=== PATIENT | male | born 1945 | race Caucasian/White ===

== ENCOUNTER 2016-11-21 03:21 | Inpatient (IN) ==
[2016-11-21] MEDS ORDERED: Ipratropium/Albuterol Neb 3 ML IH ONE (03:22)
[2016-11-21] MEDS ORDERED: methylPREDNISolone 125 MG/2 ML VIAL IVP ONE (03:22)
--- NOTE | 2016-11-21 03:27 | Emergency Department Note ---
Disposition Clinical Impression: Dyspnea, Acute exacerbation of CHF (congestive heart failure) Disposition: Admitted As Inpatient Condition: Good Referrals: Hu Yeboah MD [Primary Care Provider] - Forms: ED Satisfaction Letter General Adult HPI - General Chief complaint: ED Shortness of Breath/Dyspnea Stated complaint: stuart Time Seen by Provider: 11/21/16 03:22 - Related Data Allergies Allergy/AdvReac Type Severity Reaction Status Date / Time Penicillins Allergy Redness of Verified 11/21/16 03:34 Skin Course Vital Signs Temperature 0 F L 11/21/16 03:23 Pulse Rate 113 11/21/16 03:23 Respiratory Rate 32 11/21/16 03:23 Blood Pressure 123/85 11/21/16 03:23 O2 Sat by Pulse Oximetry 100 11/21/16 03:23 Temperature 0 F L 11/21/16 03:23 Pulse Rate 113 11/21/16 03:23 Respiratory Rate 32 11/21/16 03:37 Blood Pressure 123/85 11/21/16 03:23 O2 Sat by Pulse Oximetry 100 11/21/16 03:37 Oxygen Delivery Oxygen Delivery Bipap Medical Decision Making - Lab Data Result diagrams: 11/21/16 03:24 11/21/16 03:24 Lab Results 11/21/16 11/21/16 11/21/16 Range/Units 03:24 03:24 03:24 WBC 10.4 (4.3-11.1) K/mcL RBC 4.63 (4.19-5.50) M/mcL Hgb 13.9 (12.9-16.9) g/dL Hct 43.4 (37.5-50.1) % MCV 93.7 (83.0-100.0) fL MCH 30.0 (28.0-33.3) pg MCHC 32.0 (31.6-35.5) g/dL RDW 15.5 H (11.5-14.5) % Plt Count 242 (140-400) K/mcL MPV 9.2 L (9.4-12.4) fL Immature Gran % 0.4 (0-4) % Seg Neutrophils % 69.9 % Lymphocytes % 20.9 % Monocytes % 5.6 % Eosinophils % 2.9 % Basophils % 0.3 % Neutrophils # 7.3 (1.6-8.9) K/mcL Lymphocytes # 2.2 (0.6-4.6) K/mcL Monocytes # 0.6 (0.0-1.3) K/mcL Eosinophils # 0.3 (0.0-0.6) K/mcL Basophils # 0.0 (0.0-0.2) K/mcL Sodium 135 L (136-145) mEq/L Potassium 4.0 (3.5-4.5) mEq/L Chloride 100 (98-109) mEq/L Carbon Dioxide 28 (19-29) mEq/L BUN 17 (8-26) mg/dL Creatinine 1.31 H (0.72-1.25) mg/dL Est GFR ( Amer) > 60 (> 60) Est GFR (Non-Af Amer) 54 L (> 60) BUN/Creatinine Ratio 13 (6-26) Glucose 188 H (70-99) mg/dL Calculated Osmolality 287 (280-300) Calcium 9.5 (8.6-10.8) mg/dL Troponin I 0.03 (0-0.03) ng/mL B-Natriuretic Peptide (0-100) pg/mL 11/21/16 Range/Units 03:24 WBC (4.3-11.1) K/mcL RBC (4.19-5.50) M/mcL Hgb (12.9-16.9) g/dL Hct (37.5-50.1) % MCV (83.0-100.0) fL MCH (28.0-33.3) pg MCHC (31.6-35.5) g/dL RDW (11.5-14.5) % Plt Count (140-400) K/mcL MPV (9.4-12.4) fL Immature Gran % (0-4) % Seg Neutrophils % % Lymphocytes % % Monocytes % % Eosinophils % % Basophils % % Neutrophils # (1.6-8.9) K/mcL Lymphocytes # (0.6-4.6) K/mcL Monocytes # (0.0-1.3) K/mcL Eosinophils # (0.0-0.6) K/mcL Basophils # (0.0-0.2) K/mcL Sodium (136-145) mEq/L Potassium (3.5-4.5) mEq/L Chloride (98-109) mEq/L Carbon Dioxide (19-29) mEq/L BUN (8-26) mg/dL Creatinine (0.72-1.25) mg/dL Est GFR ( Amer) (> 60) Est GFR (Non-Af Amer) (> 60) BUN/Creatinine Ratio (6-26) Glucose (70-99) mg/dL Calculated Osmolality (280-300) Calcium (8.6-10.8) mg/dL Troponin I (0-0.03) ng/mL B-Natriuretic Peptide 1668 H (0-100) pg/mL Critical Care Time Critical Care Time: Yes Total Critical Care Time: 45 Attestation: She presented with dyspnea. He required BiPAP therapy. He required an IV nitroglycerin drip. Symptomatically improved. Admitted. Attestation Statement - Attestation Attestation: I examined this patient and my medical decision-making was reviewed with the TRAM OPERATOR/PA/Advanced Practice Nurse/Resident Physician. I agree with the documented findings, disposition and treatment plan as described except to the extent set forth below. He is to face time provided Patient presents by EMS for dyspnea. He is on BiPAP at the time of arrival. Visibly dyspneic. Using accessory muscles of breathing. Has a history of both CHF and COPD
[2016-11-21] MEDS ORDERED: Nitroglycerin 25 MG/250 ML INFUS..BTL IVC SCH (03:30)
[2016-11-21 03:36] LABS: Basophils % 0.3 %; Eosinophils # 0.3 K/mcL (0.0-0.6); Eosinophils % 2.9 %; Hematocrit 43.4 % (37.5-50.1); Hemoglobin 13.9 g/dL (12.9-16.9); Immature Granulocytes % 0.4 % (0-4); Lymphocytes # 2.2 K/mcL (0.6-4.6); Lymphocytes % 20.9 %; Mean Corpuscular Volume 93.7 fL (83.0-100.0); Mean Platelet Volume 9.2 fL (9.4-12.4); Monocytes # 0.6 K/mcL (0.0-1.3); Monocytes % 5.6 %; Neutrophils # 7.3 K/mcL (1.6-8.9); Platelet Count 242 K/mcL (140-400); Red Blood Count 4.63 M/mcL (4.19-5.50); Red Cell Distribution Width 15.5 % (11.5-14.5); Segmented Neutrophils % 69.9 %
--- NOTE | 2016-11-21 03:45 | Emergency Department Note ---
Disposition Clinical Impression: Dyspnea Qualifiers: Dyspnea type: shortness of breath Qualified Code(s): R06.02 - Shortness of breath Acute exacerbation of CHF (congestive heart failure) Qualifiers: Congestive heart failure type: unspecified congestive heart failure type Qualified Code(s): I50.9 - Heart failure, unspecified Disposition: Admitted As Inpatient Condition: Good Forms: ED Satisfaction Letter SOB HPI - General Chief Complaint: ED Shortness of Breath/Dyspnea Stated Complaint: stuart Time Seen by Provider: 11/21/16 03:22 Source: patient, EMS Limitations: no limitations Nursing Notes Reviewed: Yes Vital Signs Reviewed: Yes - History of Present Illness 71-year-old male with a history of COPD, CHF, CAD with previous bypass surgery in 1990 presents to the ED with a chief complaint of dyspnea. Progressive dyspnea over the last 48 hours but significantly worsened tonight around midnight. He called EMS, patient was standing but very short of breath. He was placed on a CPAP and maintained his oxygen saturations. No medications given prior to arrival. Patient denies any chest pain. He reports chronic lower extremity swelling without any recent change. Denies any history of DVT/ PE or anticoagulants. Reports some generalized weakness but no focal or unilateral weakness or numbness. Denies any headache, syncope or injury. Reports exacerbating symptoms with exertion. Rest helps. Denies any pain. - Related Data Allergies Allergy/AdvReac Type Severity Reaction Status Date / Time Penicillins Allergy Redness of Verified 11/21/16 03:34 Skin All systems ED: reviewed and negative except as stated. Constitutional: Denies: fever (Denies recent illness) Cardiovascular: Reports: dyspnea on exertion. Denies: chest pain, palpitations Respiratory: Reports: cough, dyspnea. Denies: hemoptysis, sputum production Gastrointestinal: Denies: abdominal pain, nausea, vomiting Musculoskeletal: Denies: back pain, neck pain Neurological: Denies: headache, weakness, numbness Past Medical History - Past Medical History Medical history: Reports: CHF, COPD, myocardial infarction Psychiatric history: Reports: no psych history - Social History Smoking Status: Former smoker Physical Exam General: Thin-appearing male, air hungry but awake and alert answering questions appropriately Cardiovascular: Heart rate around 95 but regular. S1, S2. No murmurs, rubs or gallops. Respiratory: Diminished breath sounds bilaterally without any significant wheezing. No rales or rhonchi. Speaking in 1-2 word sentences. Abdomen: Soft, nontender. No guarding, rebound or rigidity. Eyes: conjunctiva clear HENT: No oral mucosal lesions. Moist mucous membranes Neuro: Cranial nerves intact. No motor or sensory deficit. Musculoskeletal: Symmetric bilateral lower extremity edema, 1+ of the lower extremities and ankles. No calf tenderness. Vascular: Normal pulses, color and temperature throughout extremities. Skin: No lesions. No diaphoresis. Normal turgor. Normal color Psych: Appropriate - General Limitations: no limitations General appearance: alert, in distress Course Course Narrative: Presents with progressive dyspnea. History of COPD, CHF and CAD with previous bypass surgery. On exam he has diminished air movement throughout with poor extremity edema. Denying any chest pain. EKG shows some sinus tachycardia with mild depressions in 2 leads. With concern for fluid overload BiPAP was initiated as well as a nitroglycerin drip within 20 minutes the patient's symptoms had improved significantly and now speaking in full sentences with stable vitals. Labs reveal a significantly elevated BNP at 1600 but no elevation in troponin. Mild renal insufficiency with a creatinine of 1.3 but no other abnormalities. Chest x-ray shows pulmonary edema. They do mention possible pneumonia but clinically patient has not had any sputum, fevers and I do not suspect infection rather edema. I discussed with the on-call hospitals, Dr. Kincaid who accepts for admission. He does request a IV dose of Lasix which I will provide. No other orders at this time Vital Signs Temperature 0 F L 11/21/16 03:23 Pulse Rate 113 11/21/16 03:23 Respiratory Rate 32 11/21/16 03:23 Blood Pressure 123/85 11/21/16 03:23 O2 Sat by Pulse Oximetry 100 11/21/16 03:23 Temperature 0 F L 11/21/16 03:23 Pulse Rate 113 11/21/16 03:23 Respiratory Rate 32 11/21/16 03:37 Blood Pressure 123/85 11/21/16 03:23 O2 Sat by Pulse Oximetry 100 11/21/16 03:37 Oxygen Delivery Oxygen Delivery Bipap Shortness of Breath/Dyspnea - Lab Data Result diagrams: 11/21/16 03:24 11/21/16 03:24 Lab Results 11/21/16 11/21/16 11/21/16 Range/Units 03:24 03:24 03:24 WBC 10.4 (4.3-11.1) K/mcL RBC 4.63 (4.19-5.50) M/mcL Hgb 13.9 (12.9-16.9) g/dL Hct 43.4 (37.5-50.1) % MCV 93.7 (83.0-100.0) fL MCH 30.0 (28.0-33.3) pg MCHC 32.0 (31.6-35.5) g/dL RDW 15.5 H (11.5-14.5) % Plt Count 242 (140-400) K/mcL MPV 9.2 L (9.4-12.4) fL Immature Gran % 0.4 (0-4) % Seg Neutrophils % 69.9 % Lymphocytes % 20.9 % Monocytes % 5.6 % Eosinophils % 2.9 % Basophils % 0.3 % Neutrophils # 7.3 (1.6-8.9) K/mcL Lymphocytes # 2.2 (0.6-4.6) K/mcL Monocytes # 0.6 (0.0-1.3) K/mcL Eosinophils # 0.3 (0.0-0.6) K/mcL Basophils # 0.0 (0.0-0.2) K/mcL Sodium 135 L (136-145) mEq/L Potassium 4.0 (3.5-4.5) mEq/L Chloride 100 (98-109) mEq/L Carbon Dioxide 28 (19-29) mEq/L BUN 17 (8-26) mg/dL Creatinine 1.31 H (0.72-1.25) mg/dL Est GFR ( Amer) > 60 (> 60) Est GFR (Non-Af Amer) 54 L (> 60) BUN/Creatinine Ratio 13 (6-26) Glucose 188 H (70-99) mg/dL Calculated Osmolality 287 (280-300) Calcium 9.5 (8.6-10.8) mg/dL Troponin I 0.03 (0-0.03) ng/mL B-Natriuretic Peptide (0-100) pg/mL 11/21/16 Range/Units 03:24 WBC (4.3-11.1) K/mcL RBC (4.19-5.50) M/mcL Hgb (12.9-16.9) g/dL Hct (37.5-50.1) % MCV (83.0-100.0) fL MCH (28.0-33.3) pg MCHC (31.6-35.5) g/dL RDW (11.5-14.5) % Plt Count (140-400) K/mcL MPV (9.4-12.4) fL Immature Gran % (0-4) % Seg Neutrophils % % Lymphocytes % % Monocytes % % Eosinophils % % Basophils % % Neutrophils # (1.6-8.9) K/mcL Lymphocytes # (0.6-4.6) K/mcL Monocytes # (0.0-1.3) K/mcL Eosinophils # (0.0-0.6) K/mcL Basophils # (0.0-0.2) K/mcL Sodium (136-145) mEq/L Potassium (3.5-4.5) mEq/L Chloride (98-109) mEq/L Carbon Dioxide (19-29) mEq/L BUN (8-26) mg/dL Creatinine (0.72-1.25) mg/dL Est GFR ( Amer) (> 60) Est GFR (Non-Af Amer) (> 60) BUN/Creatinine Ratio (6-26) Glucose (70-99) mg/dL Calculated Osmolality (280-300) Calcium (8.6-10.8) mg/dL Troponin I (0-0.03) ng/mL B-Natriuretic Peptide 1668 H (0-100) pg/mL - EKG Data EKG results narrative: EKG shows sinus tachycardia with a rate of [address] depression in V4 and V5. No T-wave changes. QRS, QT intervals within normal limits.
[2016-11-21 03:53] LABS: BUN/Creatinine Ratio 13 (6-26); Blood Urea Nitrogen 17 mg/dL (8-26); Carbon Dioxide 28 mEq/L (19-29); Chloride 100 mEq/L (98-109); Glucose 188 mg/dL (70-99); Osmolality,Calculated 287 (280-300); Sodium 135 mEq/L (136-145); eGFR For African Americans > 60 (> 60); eGFR For Non-African Americans 54 (> 60)
[2016-11-21 04:11] LABS: Calcium 9.5 mg/dL (8.6-10.8)
[2016-11-21] MEDS ORDERED: Furosemide 40 MG/4 ML VIAL IVP ONE (04:45)
--- NOTE | 2016-11-21 05:18 | Internal Med History&Physical ---
Date of Encounter: 11/21/16 Time of Encounter: 05:13 Assessment and Plan (1) Pulmonary edema Current visit: Yes Status: Acute patient presents with a picture of acute pulmonary edema. We will start the patient on Lasix 40 mg IV twice-daily strict intake and output and daily weight. echocardiogram will be checked. Serial cardiac markers. He takes Lasix 40 mg PO b.i.d. at home Qualifiers: Qualified Code(s): J81.0 - Acute pulmonary edema (2) Acute respiratory failure with hypoxia Current visit: Yes Status: Acute hypoxic respiratory failure due to pulmonary edema. Currently on BiPAP and FIO2 40%. Internal Medicine - H&P: HPI Chief complaint: sob History of present illness: Mr. Bernardo is a 71 year old male with history of coronary artery disease status post cabbage, diastolic congestive heart failure, COPD on 2 L home oxygen presents emergency room today with the main complaining of shortness of breath. Patient mentioned that since yesterday morning has been noticing progressive shortness of breath that progressive. Patient is having bilateral swelling in both lower extremities. Shortness of breath will get worse when he lays on his back. paramedics arrived patient was placed on BiPAPand started nitroglycerin drip in the emergency room with improvement of his respiratory status He denies any chest pain. He denies any increase in coffer sputum production. No fevers chills. Past Med Surg Social Fam HX - Past Medical History Medical history: CHF, COPD, myocardial infarction Psychiatric history: no psych history - Social History Smoking Status: Former smoker Internal Medicine - H&P: Meds Allergies Penicillins Allergy (Verified 11/21/16 03:34) Redness of Skin All Systems PM: A 10-system review of systems was performed and is negative for pertinent findings except as documented above in the HPI. Review of systems: 10 POINT REVIEW OF SYSTEMS IS NEGATIVE EXCEPT FOR hpi. - Constitutional Vitals: Temp Pulse Resp BP Pulse Ox 0 F L 84 24 132/72 100 11/21/16 03:23 11/21/16 05:00 11/21/16 05:00 11/21/16 05:00 11/21/16 05:00 Exam: Gen.: patient is alert oriented times 3 cardiac: normal S1 S2 no additional sounds or murmurs chest: bilateral rales abdomen soft nontender nondistended normal bowel sounds lower extremity no swelling. Neuro: no new focal deficits Internal Med - H&P Results - Labs CBC & Chem 7: 11/21/16 03:24 11/21/16 03:24
[2016-11-21] MEDS ORDERED: *HR* Heparin 5,000 UNIT/ML VIAL SQ SCH (06:00)
[2016-11-21] MEDS: Aspirin 325 MG TABLET PO SCH (09:39)
[2016-11-21] MEDS: Famotidine 20 MG TABLET PO SCH (09:39)
[2016-11-21] MEDS: APIXABAN 5 MG TABLET PO SCH ×2 (09:39→20:48)
[2016-11-21] MEDS: Furosemide 40 MG/4 ML VIAL IVP SCH ×2 (09:40→17:43)
--- NOTE | 2016-11-21 12:17 | Internal Med Progress Note ---
Date of Encounter: 11/21/16 Time of Encounter: 12:14 - Assessment and plan (1) Acute on chronic systolic (congestive) heart failure Current Visit: Yes Status: Acute Assessment and plan: Chest x-ray showed pulmonary edema, BNP was more than 1400, patient had a history of ischemic cardiomyopathy with left ventricular ejection fraction of 25 %, status post ICD placement 4 weeks ago, we will continue to diuresing with IV Lasix 40 mg twice a day, strict I and O, check daily weight, will start him on Flomax for possible history of BPH. Echo pending. (2) History of implantable cardioverter-defibrillator (ICD) placement Current Visit: Yes Status: Acute Assessment and plan: We do not have actually medical record but patient states that he has a history of 25% ejection fraction from ischemic cardiomyopathy, status post pacemaker/ ICD placement 4 weeks ago. (3) Coronary artery disease Current Visit: Yes Status: Acute Assessment and plan: Patient has a history of ischemic cardiomyopathy, continue home medications of Plavix, aspirin, Imdur, Crestor, Ranexa. Qualifiers: Qualified Code(s): I25.10 - Atherosclerotic heart disease of [place] coronary artery without angina pectoris (4) BPH (benign prostatic hyperplasia) Current Visit: Yes Status: Acute Assessment and plan: Patient states that he used to take Flomax but it was stopped by a physician for unknown reason, patient states that recently he had trouble urinating, will start him on Flomax today. Qualifiers: Qualified Code(s): N40.0 - Benign prostatic hyperplasia without lower urinary tract symptoms (5) Elevated troponin Current Visit: Yes Status: Acute Assessment and plan: Likely demand ischemia in the setting of acute on chronic systolic CHF, no active chest pain, continue to trend. Echo pending. (6) Renal insufficiency Current Visit: Yes Status: Acute Assessment and plan: We do not have his baseline renal function, will continue to trend, avoid nephrotoxic agent, acute versus chronic. (7) DVT prophylaxis Current Visit: Yes Status: Acute Assessment and plan: Patient on home medication with Eliquis. - Subjective Interval history: Patient seen and examined. Patient states that his breathing is better than yesterday, patient urinated adequate amount during this hospital stay, he also states that recently he is trouble urinating at home. No active chest pain at this time. - Constitutional Vitals: Temp Pulse Resp BP Pulse Ox 97.7 F 85 16 126/67 97 11/21/16 11:10 11/21/16 11:10 11/21/16 11:10 11/21/16 11:10 11/21/16 11:10 General appearance: Present: cooperative, A&O X 3, pleasant, no acute distress, answers questions appropriately - Head Head exam: Present: atraumatic, normocephalic - Eye Eye exam: Present: PERRL, conjuntiva pink, sclera anicteric Pupils: Present: PERRL - Neck Neck exam general surgery: Present: supple, trachea midline. Absent: lymphadenopathy - Respiratory Respiratory exam: Present: rales (At base bilateral). Absent: accessory muscle use, rhonchi, wheezes - Cardiovascular Cardiovascular exam: Present: RRR, +S1, +S2. Absent: diastolic murmur, gallop, rubs, systolic murmur - GI/Abdominal GI/Abdominal exam: Present: normal bowel sounds, soft, no peritoneal signs. Absent: distended, tenderness - Extremities Exam Extremities exam: Present: pedal edema (2+ pitting bilateral), warm, radial pulses palpable and symetrical. Absent: calf tenderness, cyanotic - Neurological Exam Neurological exam: Present: CN II-XII intact, oriented X3, no focal deficits. Absent: pronater drift, facial droop, speech deficit - Skin Skin exam: Present: dry, intact Internal Medicine: Result - Labs CBC & Chem 7: 11/21/16 03:24 11/21/16 03:24 Labs: Cardiac Enzymes 11/21/16 Range/Units 09:21 Troponin I 0.04 H* (0-0.03) ng/mL Consult Discharge Plan - Plan Referrals: Hu Yeboah MD [Primary Care Provider] -
--- NOTE | 2016-11-21 15:05 | Electrocardiograph Report ---
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
[2016-11-21] MEDS: ALPRAZolam 0.5 MG TABLET PO PRN ×2 (17:42→22:53)
[2016-11-21] MEDS: Budesonide/Formoterol 160/4.5 MDI IH SCH (19:27)
[2016-11-21] MEDS: Ranolazine 500 MG TAB.ER.12H PO SCH (20:48)
[2016-11-21] MEDS ORDERED: traZODone 50 MG TABLET PO SCH (21:00)
[2016-11-21] MEDS: Magnesium Oxide 400 MG TABLET PO SCH (22:53)
[2016-11-21] MEDS: Ascorbic Acid 500 MG TABLET PO SCH (22:53)
[2016-11-21] MEDS: Cholecalciferol (D-3) 1,000 UNIT TABLET PO SCH (22:53)
[2016-11-21] MEDS: Isosorbide MONOnitrate (24 HR) 60 MG TAB.ER.24H PO SCH (22:53)
[2016-11-21] MEDS: Vitamin B Complex/Vit C/Vit E 1 EACH TABLET PO SCH (22:55)
[2016-11-21] MEDS: Folic Acid 1 MG TABLET PO SCH (23:00)
[2016-11-22 08:08] VITALS: BP 114/61
[2016-11-22] MEDS: Ascorbic Acid 500 MG TABLET PO SCH (08:26)
[2016-11-22] MEDS: APIXABAN 5 MG TABLET PO SCH (08:26)
[2016-11-22] MEDS: Famotidine 20 MG TABLET PO SCH (08:26)
[2016-11-22] MEDS: Vitamin B Complex/Vit C/Vit E 1 EACH TABLET PO SCH (08:26)
[2016-11-22] MEDS: Aspirin 325 MG TABLET PO SCH (08:26)
[2016-11-22] MEDS: Cholecalciferol (D-3) 1,000 UNIT TABLET PO SCH (08:27)
[2016-11-22] MEDS: Isosorbide MONOnitrate (24 HR) 60 MG TAB.ER.24H PO SCH (08:28)
[2016-11-22] MEDS: Ranolazine 500 MG TAB.ER.12H PO SCH (08:28)
[2016-11-22] MEDS: Furosemide 40 MG/4 ML VIAL IVP SCH (08:28)
[2016-11-22] MEDS: Folic Acid 1 MG TABLET PO SCH (08:28)
[2016-11-22] MEDS: Magnesium Oxide 400 MG TABLET PO SCH (08:28)
[2016-11-22 10:15] LABS: BUN/Creatinine Ratio 20 (6-26); Blood Urea Nitrogen 22 mg/dL (8-26); Calcium 9.1 mg/dL (8.6-10.8); Carbon Dioxide 30 mEq/L (19-29); Chloride 98 mEq/L (98-109); Glucose 134 mg/dL (70-99); Osmolality,Calculated 287 (280-300); Potassium 3.8 mEq/L (3.5-4.5); Sodium 136 mEq/L (136-145); eGFR For African Americans > 60 (> 60); eGFR For Non-African Americans > 60 (> 60)
[2016-11-22] MEDS: Budesonide/Formoterol 160/4.5 MDI IH SCH (10:34)
--- NOTE | 2016-11-22 11:55 | Discharge Summary ---
<Chadwick Rondon - Last Filed: 11/22/16 11:51> Date of Encounter: 11/22/16 Time of Encounter: 11:51 - Discharge Diagnosis (1) Acute on chronic systolic (congestive) heart failure Priority: Primary Status: Acute (2) History of implantable cardioverter-defibrillator (ICD) placement Priority: Secondary Status: Acute (3) Coronary artery disease Priority: Secondary Status: Acute Qualifiers: Qualified Code(s): I25.10 - Atherosclerotic heart disease of [place] coronary artery without angina pectoris (4) BPH (benign prostatic hyperplasia) Priority: Secondary Status: Acute Qualifiers: Qualified Code(s): N40.0 - Benign prostatic hyperplasia without lower urinary tract symptoms (5) Elevated troponin Priority: Secondary Status: Acute (6) Renal insufficiency Priority: Secondary Status: Acute (7) DVT prophylaxis Priority: Secondary Status: Acute - Discharge Medications Prescriptions: Tamsulosin [Flomax] 0.4 mg PO HS #30 capsule Home Medications: ALPRAZolam [Xanax 0.5 MG Tablet] 0.5 mg PO TID PRN 11/21/16 [History] Albuterol Sulfate [Albuterol Inhaler] 2 puff IH Q6HR PRN 11/21/16 [History] Apixaban [Eliquis] 5 mg PO BID 11/21/16 [History] Ascorbic Acid [Vitamin C] 1,000 mg PO DAILY 11/21/16 [History] Budesonide/Formoterol 160/4.5 [Symbicort 160/4.5] 2 puff IH BIDR 11/21/16 [ History] Carvedilol [Coreg] 3.125 mg PO BID 11/21/16 [History] Cholecalciferol (D-3) [Vitamin D] 3,000 unit PO DAILY 11/21/16 [History] Clopidogrel [Plavix] 75 mg PO DAILY 11/21/16 [History] Fish Oil/Dha/Epa [Fish Oil 1,200 mg Fish Oil] 1,200 mg PO DAILY 11/21/16 [ History] Folic Acid 0.8 mg PO DAILY 11/21/16 [History] Furosemide [Lasix] 40 mg PO BID 11/21/16 [History] Isosorbide MONOnitrate (24 HR) [Imdur] 120 mg PO DAILY 11/21/16 [History] Magnesium Oxide [Magnesium] 500 mg PO DAILY 11/21/16 [History] Multivitamin [One Daily Multivitamin] 1 tab PO DAILY 11/21/16 [History] Nitroglycerin [Nitrostat] 0.4 mg SL AD PRN 11/21/16 [History] Oxygen 2 l .ROUTE AD 11/21/16 [History] Ranolazine [Ranexa] 500 mg PO BID 11/21/16 [History] Rosuvastatin [Crestor] 20 mg PO HS 11/21/16 [History] Trazodone HCl 200 mg PO HS 11/21/16 [History] Vitamin B Complex [B Complex] 1 tab PO DAILY 11/21/16 [History] Tamsulosin [Flomax] 0.4 mg PO HS #30 capsule 11/22/16 [Rx] Allergies/Adverse Reactions: Allergies Penicillins Allergy (Verified 11/21/16 03:34) Redness of Skin Date of admission: 11/21/16 05:00 Primary care physician: Hu Yeboah MD Consults: 11/22/16 08:41 Consult to Nutrition [CONS] Routine Comment: Consulting Provider: NUTRITION Reason for Dietary Consult: Other Other:: Patient wants to discuss diet Discharging clinician: Chadwick Rondon Anticipated date of discharge: 11/22/16 - Patient Status Disposition: Home, Self-Care Condition: Good Functional capacity at discharge: uses cane/walker (Fall precaution) Overall status at discharge: patient is progressing back to baseline - Discharge Instructions Instructions: Tamsulosin (By mouth), Heart Failure (DC) Follow Up With: Hu Yeboah MD [Primary Care Provider] - (Follow-up within a week for hospital discharge follow-up and possible referral to urologist for possible underlying BPH, patient calling for appointment per request and will talk with pcp and wants him to refer him for urologist, patient has cardiology appointment this friday.) Additional Instructions: Also follow-up with 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 Bernardo is a 71 year old male with history of ischemic cardiomyopathy with left ventricular ejection fraction with 25%, status post ICD placement 1 month ago, at home patient takes Lasix 40 mg by mouth twice a day, followed strict sodium diet however he was not following the fluid restriction diet. Patient came in with shortness of breath, chest x-ray showed pulmonary edema and he was having worsening lower extremity edema, therefore patient was admitted to the hospital for acute on chronic systolic congestive heart failure, patient was started on IV Lasix 40 mg twice a day, strict I and O's, check daily weight, fluid restriction diet, patient diuresed well with adequate urine output, patient states that he used to take Flomax in the past and somehow it was stopped and recently he was having difficulty urinating, therefore Flomax was started during this hospital stay and after that patient started urinating more than the day he came in, patient's respiratory status improved and leg edema improved therefore patient will be discharged to home today in stable condition with close follow-up with patient's primary 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 - Time Spent with Patient Total time spent providing and/or coordinating discharge services: - Constitutional Vitals: Temp Pulse Resp BP Pulse Ox 98.3 F 64 17 114/61 96 11/22/16 08:00 11/22/16 08:00 11/22/16 10:34 11/22/16 08:00 11/22/16 10:34 General appearance: Present: cooperative, A&O X 3, pleasant, no acute distress, answers questions appropriately - Head Head exam: Present: atraumatic, normocephalic - Eye Eye exam: Present: PERRL, conjuntiva pink, sclera anicteric Pupils: Present: PERRL - Neck Neck exam general surgery: Present: supple, trachea midline. Absent: lymphadenopathy - Respiratory Respiratory exam: Present: decreased breath sounds (Slightly at base bilateral) . Absent: accessory muscle use, rales, rhonchi, wheezes - Cardiovascular Cardiovascular exam: Present: RRR, +S1, +S2. Absent: diastolic murmur, gallop, rubs, systolic murmur - GI/Abdominal GI/Abdominal exam: Present: normal bowel sounds, soft, no peritoneal signs. Absent: distended, tenderness - Extremities Exam Extremities exam: Present: pedal edema (Mild non pitting bilateral), warm, radial pulses palpable and symetrical. Absent: calf tenderness, cyanotic - Neurological Exam Neurological exam: Present: CN II-XII intact, oriented X3, no focal deficits. Absent: pronater drift, facial droop, speech deficit - Skin Skin exam: Present: dry, intact <Jose F Smith - Last Filed: 11/22/16 15:07> Date of Encounter: 11/22/16 Date of admission: 11/21/16 05:00 Primary care physician: Hu Yeboah MD Consults: 11/22/16 08:41 Consult to Nutrition [CONS] Routine Comment: Consulting Provider: NUTRITION Reason for Dietary Consult: Other Other:: Patient wants to discuss diet Hospital course: Mr. Bernardo is a 71 year old male - Time Spent with Patient Total time spent providing and/or coordinating discharge services: - Constitutional Vitals: Temp Pulse Resp BP Pulse Ox 98.3 F 64 17 114/61 96 11/22/16 08:00 11/22/16 08:00 11/22/16 10:34 11/22/16 08:00 11/22/16 10:34 - Attending Attestation I saw and examined pt. I have discussed with Resident Dr Rondon regarding pt's management plan. I agree with the documentation. Pt has improved after treatment. Will d/c home with po lasix, f/u with PCP in one week after discharge.
[2016-11-24 16:14] LABS: CK-MB (CK isoenzymes) 0 % (0-4); CK-MM (CK-isoenzymes) 100 % (96-100)
[2016-11-25 09:15] LABS: CK Total (Ck Isoenzymes) 28 U/L (20-200); CK-BB (CK isoenzymes) 0 % (0-0)
== END 2016-11-22 13:45 | disposition home or self-care (01) | DRG 291 ==
LOC: 2NENU 03:21 → EMEROO 03:21 → 2NENU 05:30
PROVIDERS: ADMIT Internal Medicine; ATTEND Internal Medicine

== ENCOUNTER 2017-01-12 15:13 | Inpatient (IN) ==
[2017-01-12] MEDS ORDERED: 0.9 % Sodium Chloride 1,000 ML IVC ONE (15:15)
[2017-01-12] MEDS ORDERED: methylPREDNISolone 125 MG/2 ML VIAL IVP ONE (15:15)
[2017-01-12] MEDS ORDERED: Azithromycin 500 MG in D5% in Water 250 ML IVPB ONE (15:15)
[2017-01-12] MEDS ORDERED: Furosemide 40 MG/4 ML VIAL IVP ONE (15:15)
[2017-01-12] MEDS ORDERED: Ipratropium/Albuterol Neb 3 ML IH ONE (15:17)
--- NOTE | 2017-01-12 15:24 | Emergency Department Note ---
Disposition Clinical Impression: Colitis Dyspnea Qualifiers: Dyspnea type: dyspnea on exertion Qualified Code(s): R06.09 - Other forms of dyspnea Pulmonary edema Qualifiers: Chronicity: chronic Qualified Code(s): J81.1 - Chronic pulmonary edema Acute exacerbation of CHF (congestive heart failure) Qualifiers: Congestive heart failure type: unspecified congestive heart failure type Qualified Code(s): I50.9 - Heart failure, unspecified Fever Qualifiers: Fever type: unspecified Qualified Code(s): R50.9 - Fever, unspecified Disposition: Admitted As Inpatient Condition: Fair Referrals: NONE,PCP [Primary Care Provider] - Forms: ED Satisfaction Letter Time of Disposition: 17:08 General Adult HPI - General Chief complaint: ED Chest Pain Stated complaint: shortness of breath and chest pain Time Seen by Provider: 01/12/17 15:15 Source: patient Mode of arrival: EMS Limitations: no limitations Nursing Notes Reviewed: Yes Vital Signs Reviewed: Yes - History of Present Illness HPI Narrative: Patient presents to the emergency room today by EMS for evaluation of shortness of breath. He called the squad home secondary to increased work of breathing. He could not get his air home. He has known congestive heart failure and previous coronary artery disease with CABG. Patient denies any chest pain fevers chills productive cough or sputum. Denies nausea vomiting or diarrhea. Denies any other specific constitutional symptoms this time. No recent trauma injuries or trauma. His main complaint is shortness of breath and feeling like he cannot take full deep breaths and at this time. Onset (ago): hour(s) Location: chest Radiation: non-radiation Pain Severity: severe Quality: aching Consistency: constant Improves with: nothing Worsens with: movement Associated symptoms: Reports: cough, fever/chills, loss of appetite, malaise, shortness of breath. Denies: diaphoresis, nausea/vomiting - Related Data Home Medications Medication Instructions Recorded Confirmed ALPRAZolam [Xanax 0.5 MG Tablet] 0.5 mg PO TID PRN 11/21/16 11/21/16 Albuterol Sulfate [Albuterol 2 puff IH Q6HR PRN 11/21/16 11/21/16 Inhaler] Apixaban [Eliquis] 5 mg PO BID 11/21/16 11/21/16 Ascorbic Acid [Vitamin C] 1,000 mg PO DAILY 11/21/16 11/21/16 Budesonide/Formoterol 160/4.5 2 puff IH BIDR 11/21/16 11/21/16 [Symbicort 160/4.5] Carvedilol [Coreg] 3.125 mg PO BID 11/21/16 11/21/16 Cholecalciferol (D-3) [Vitamin D] 3,000 unit PO DAILY 11/21/16 11/21/16 Clopidogrel [Plavix] 75 mg PO DAILY 11/21/16 11/21/16 Fish Oil/Dha/Epa [Fish Oil 1,200 1,200 mg PO DAILY 11/21/16 11/21/16 mg Fish Oil] Folic Acid 0.8 mg PO DAILY 11/21/16 11/21/16 Furosemide [Lasix] 40 mg PO BID 11/21/16 11/21/16 Isosorbide MONOnitrate (24 HR) 120 mg PO DAILY 11/21/16 11/21/16 [Imdur] Magnesium Oxide [Magnesium] 500 mg PO DAILY 11/21/16 11/21/16 Multivitamin [One Daily 1 tab PO DAILY 11/21/16 11/21/16 Multivitamin] Nitroglycerin [Nitrostat] 0.4 mg SL AD PRN 11/21/16 11/21/16 Oxygen 2 l .ROUTE AD 11/21/16 11/21/16 Ranolazine [Ranexa] 500 mg PO BID 11/21/16 11/21/16 Rosuvastatin [Crestor] 20 mg PO HS 11/21/16 11/21/16 Trazodone HCl 200 mg PO HS 11/21/16 11/21/16 Vitamin B Complex [B Complex] 1 tab PO DAILY 11/21/16 11/21/16 Previous Rx's Medication Instructions Recorded Tamsulosin [Flomax] 0.4 mg PO HS #30 capsule 11/22/16 Allergies Allergy/AdvReac Type Severity Reaction Status Date / Time Penicillins Allergy Redness of Verified 01/12/17 15:25 Skin All systems ED: reviewed and negative except as stated. Review of Systems: As Per HPI Constitutional: Reports: fever, chills. Denies: weakness Cardiovascular: Reports: dyspnea on exertion, orthopnea, edema. Denies: chest pain, palpitations, syncope Respiratory: Reports: cough, dyspnea, sputum production. Denies: wheezes, hemoptysis Gastrointestinal: Denies: abdominal pain, nausea, vomiting, diarrhea Genitourinary: Denies: urgency, dysuria Musculoskeletal: Denies: back pain, neck pain Neurological: Denies: headache Endocrine: Denies: fatigue Past Medical History - Past Medical History Attestation: Yes The following information was validated with the patient. Source: patient, old records reviewed Medical history: Reports: CHF, COPD, myocardial infarction Surgical history: Reports: herniorrhaphy, vascular surgery Psychiatric history: Reports: no psych history - Social History Smoking Status: Former smoker Alcohol use: Reports: none Drug use: Reports: none Physical Exam - General Limitations: no limitations General appearance: alert, in no apparent distress, in distress - Eye Eye exam: Present: normal appearance, PERRL, EOMI - Neck Neck exam: Present: normal inspection, full ROM, trachea midline. Absent: tenderness, meningismus, lymphadenopathy - Chest Chest inspection: Present: normal inspection, symmetric chest wall rise. Absent : tenderness - Respiratory Respiratory exam: Present: respiratory distress, accessory muscle use. Absent: wheezes, stridor - Cardiovascular Cardiovascular exam: Present: normal rhythm, tachycardia, normal heart sounds - Abdominal Exam Abdominal exam: Present: soft, Non-Tender, normal bowel sounds, scar. Absent: tenderness, distention, guarding, rebound, rigidity, Cruz's sign, Rovsing's sign, tenderness at McBurney's Point - Extremities Exam Extremities exam: Present: normal inspection, full ROM, normal capillary refill , pedal edema (Bilateral pitting edema up to the knee). Absent: tenderness - Back Exam Back exam: Present: normal inspection, full ROM - Neurological Exam Neurological exam: Present: alert, oriented X3, CN II-XII intact, normal gait - Skin Skin exam: Present: warm, dry, intact, normal color Course Course Narrative: Patient seen and examined the time of arrival. See history of present illness. 71-year-old male with chronic cardiac related issues as well as congestive heart failure and pulmonary edema with COPD presents to the emergency room with complaint of shortness of breath fluid overload and increased work of breathing at home. Denies any recent fevers or illnesses. Denies any trauma or injury. Presents here today because he felt like he could not get a deep breath home. He has had a productive cough with yellow to clear sputum production. Physical exam and vital signs on presentation show tachycardia and fever. Patient is concerning for infectious etiology. Physical exam he is in some mild respiratory distress with increased work of breathing and accessory muscle use. Lungs have diminished breath sounds at the bases but has no audible wheezing at this point. Heart is regular but tachycardia. Abdomen is soft nontender nondistended no guarding no rigidity. He moves all 4 extremities with purpose no signs of asymmetry or focal neurologic deficit. He has +2 pitting edema in the bilateral lower extremities. He goes up to the knee. Patient is concerning for fluid overload and infection. Chest x-ray lactic acid blood cultures CBC chemistry troponin liver function tests and lipase ordered this time. Patient will also have first doses of azithromycin and Rocephin given for any acquired pneumonia. Patient is otherwise resting comfortably in the bed. We will continue to monitor his treatment course is completed. Patient is concerning for infectious etiology. Steroids breathing treatments and BiPAP to be applied at the request the patient secondary to discomfort. We will continue to monitor here during treatment course. Patient will most likely need admission to the hospital for definitive management. He understands this on initial presentation. Patient does have a pacemaker/defibrillator in place in the left anterior chest wall. EKG does not show any acute signs of pacemaker complexes and patient is on 2 L of oxygen at home at all times. - Reevaluation(s) Reevaluation #1: Patient found to have an elevated lactic acid of 5.1 increased creatinine as well as an elevated troponin. Symptoms have almost completely resolved with BiPAP and oxygen being applied year-long steroids and breathing treatments. Patient is concerning for infectious etiology secondary to his fever and tachycardia on presentation. Patient does not have an elevated white blood cell count at this time. Chest x-ray otherwise appears to be stable with resolution of the infiltrates noted during the previous evaluation for some 2 months ago. Patient also has a significantly elevated BNP consistent with his fluid overload. There is confounding issues at this time including fluid overload as well as possible dehydration. Patient was given 1 L of fluids immediately along with first dose of IV Lasix to start the diuresis process. Is also put on fluids at 125 mL an hour. We have applied BiPAP to help augment any signs of congestive heart failure fluid overload in the lungs. Patient has been provided with first doses of antibiotics including azithromycin and Rocephin. Admission process to be completed with CT imaging of the abdomen is resulted. CT-guided was added on secondary to grossly contaminated urine as well as elevated lactic acid and on no infectious etiology at this time. Patient is now saying that he feels much better and his respirations are much less labored. We will continue monitoring until admission process is completed Time: 16:45 Reevaluation #2: Urinalysis is otherwise negative. CT imaging of the abdomen confirms colitis. Patient be started on Cipro Flagyl here after being provided azithromycin and Rocephin. Patient is tolerating the BiPAP. Fluid administration provided. Patient does meet over the considered severe sepsis. 30 mg/kg of fluid is been given here in the emergency room based on fluid hydration as well as antibiotics. Lactic acid to be repeated by the hospitalist after admission is completed. Hospitals paged at this time for admission process. Discussed the medical intervention presentation symptoms history as well as our treatment course here in the emergency room with the hospitalist . Reviewed the presentation issues in detail. No other recommendations at this time. Patient's blood pressure and respirations have stabilize during treatment course. Patient otherwise is in no distress at this point. Single dose of Ativan given this time secondary to his anxiety. Patient denies any chest pain still. His only complaint is shortness of breath. Patient will be admitted to the hospitalist for further evaluation definitive management. Patient is otherwise stable but is concerning for decompensation secondary to chronic issues. Time: 17:09 Vital Signs Temperature 101.4 F H 01/12/17 15:21 Pulse Rate 112 01/12/17 15:21 Respiratory Rate 26 01/12/17 15:21 Blood Pressure 132/65 01/12/17 15:21 O2 Sat by Pulse Oximetry 98 01/12/17 15:21 Temperature 101.4 F H 01/12/17 15:21 Pulse Rate 98 01/12/17 15:48 Respiratory Rate 22 01/12/17 15:48 Blood Pressure 106/65 01/12/17 15:48 O2 Sat by Pulse Oximetry 98 01/12/17 15:48 Oxygen Delivery Oxygen Delivery Bipap Medical Decision Making - MDM Narrative Medical decision making narrative: Increased work of breathing, fluid overload, pneumonia, tachycardia - Medical Records Medical records reviewed: Yes I reviewed the patient's medical records. - Lab Data Lab results reviewed: Yes I reviewed the patient's lab results. Result diagrams: 01/12/17 15:35 01/12/17 15:35 Lab Results 01/12/17 01/12/17 01/12/17 Range/Units 15:35 15:35 15:35 WBC 6.3 (4.3-11.1) K/mcL RBC 4.50 (4.19-5.50) M/mcL Hgb 13.1 (12.9-16.9) g/dL Hct 40.5 (37.5-50.1) % MCV 90.0 (83.0-100.0) fL MCH 29.1 (28.0-33.3) pg MCHC 32.3 (31.6-35.5) g/dL RDW 17.5 H (11.5-14.5) % Plt Count 198 (140-400) K/mcL MPV 9.3 L (9.4-12.4) fL Immature Gran % 0.2 (0-4) % Seg Neutrophils % 82.6 % Lymphocytes % 3.2 % Monocytes % 14.0 % Eosinophils % 0.0 % Basophils % 0.0 % Neutrophils # 5.2 (1.6-8.9) K/mcL Lymphocytes # 0.2 L (0.6-4.6) K/mcL Monocytes # 0.9 (0.0-1.3) K/mcL Eosinophils # 0.0 (0.0-0.6) K/mcL Basophils # 0.0 (0.0-0.2) K/mcL PT 14.4 H (9.4-12.1) Seconds INR 1.3 APTT 35.7 (26.0-36.0) Seconds Sodium 135 L (136-145) mEq/L Potassium 4.5 (3.5-4.5) mEq/L Chloride 98 (98-109) mEq/L Carbon Dioxide 25 (19-29) mEq/L BUN 17 (8-26) mg/dL Creatinine 1.51 H (0.72-1.25) mg/dL Est GFR ( Amer) 56 L (> 60) Est GFR (Non-Af Amer) 46 L (> 60) BUN/Creatinine Ratio 11 (6-26) Glucose 238 H (70-99) mg/dL Calculated Osmolality 289 (280-300) Lactic Acid (0.5-2.2) mmol/L Calcium 9.3 (8.6-10.8) mg/dL Total Bilirubin 0.7 (0.2-1.2) mg/dL Direct Bilirubin 0.3 (0.0-0.5) mg/dL Indirect Bilirubin 0.4 (0.0-1.2) mg/dL AST 14 (5-34) Units/L ALT 12 (0-55) Units/L Alkaline Phosphatase 41 (38-126) Units/L Serum Total Protein 6.7 (6.0-8.3) g/dL Albumin 3.1 L (3.5-5.0) g/dL Globulin 3.6 H (2.4-3.5) g/dL Albumin/Globulin Ratio 0.9 L (1.1-2.2) /11/23 Range/Units 15:35 WBC (4.3-11.1) K/mcL RBC (4.19-5.50) M/mcL Hgb (12.9-16.9) g/dL Hct (37.5-50.1) % MCV (83.0-100.0) fL MCH (28.0-33.3) pg MCHC (31.6-35.5) g/dL RDW (11.5-14.5) % Plt Count (140-400) K/mcL MPV (9.4-12.4) fL Immature Gran % (0-4) % Seg Neutrophils % % Lymphocytes % % Monocytes % % Eosinophils % % Basophils % % Neutrophils # (1.6-8.9) K/mcL Lymphocytes # (0.6-4.6) K/mcL Monocytes # (0.0-1.3) K/mcL Eosinophils # (0.0-0.6) K/mcL Basophils # (0.0-0.2) K/mcL PT (9.4-12.1) Seconds INR APTT (26.0-36.0) Seconds Sodium (136-145) mEq/L Potassium (3.5-4.5) mEq/L Chloride (98-109) mEq/L Carbon Dioxide (19-29) mEq/L BUN (8-26) mg/dL Creatinine (0.72-1.25) mg/dL Est GFR ( Amer) (> 60) Est GFR (Non-Af Amer) (> 60) BUN/Creatinine Ratio (6-26) Glucose (70-99) mg/dL Calculated Osmolality (280-300) Lactic Acid 5.1 H* (0.5-2.2) mmol/L Calcium (8.6-10.8) mg/dL Total Bilirubin (0.2-1.2) mg/dL Direct Bilirubin (0.0-0.5) mg/dL Indirect Bilirubin (0.0-1.2) mg/dL AST (5-34) Units/L ALT (0-55) Units/L Alkaline Phosphatase (38-126) Units/L Serum Total Protein (6.0-8.3) g/dL Albumin (3.5-5.0) g/dL Globulin (2.4-3.5) g/dL Albumin/Globulin Ratio (1.1-2.2) - Radiology Data Radiology results reviewed: Yes I reviewed the patient's radiology results. cxr showing resolution from previous evaluation - EKG Data EKG #1 EKG attestation: Yes I reviewed and interpreted this EKG. EKG shows normal: sinus rhythm, axis, QRS complexes, ST-T waves Rate: tachycardia Rhythm: NSR [place]/QRS: wide QRS complex When compared to previous EKG there are: no significant changes Interpretation: no acute changes, unchanged when compared to prior tracing (date ) (11/21/16.) Critical Care Time Critical Care Time: Yes Total Critical Care Time: 35 Attestation: Critical care performed: Time is exclusive of separately billable procedures. Time includes: direct patient care, patient reassessment, coordination of patient care, interpretation of data (laboratory data, radiology data, and respiratory data), review of patient's medical records, medical consultation and documentation of patient care. Procedures included in critical care time: Procedures excluded from critical care time:
[2017-01-12 15:46] LABS: Hematocrit 40.5 % (37.5-50.1); Hemoglobin 13.1 g/dL (12.9-16.9); Immature Granulocytes % 0.2 % (0-4); Lymphocytes # 0.2 K/mcL (0.6-4.6); Lymphocytes % 3.2 %; Mean Corpuscular HGB Conc 32.3 g/dL (31.6-35.5); Mean Corpuscular Hemoglobin 29.1 pg (28.0-33.3); Mean Platelet Volume 9.3 fL (9.4-12.4); Monocytes # 0.9 K/mcL (0.0-1.3); Neutrophils # 5.2 K/mcL (1.6-8.9); Platelet Count 198 K/mcL (140-400); Red Cell Distribution Width 17.5 % (11.5-14.5); Segmented Neutrophils % 82.6 %
[2017-01-12 15:51] LABS: INR 1.3; Prothrombin Time 14.4 Seconds (9.4-12.1)
[2017-01-12 15:54] LABS: Activated Partial Thrombo Time 35.7 Seconds (26.0-36.0)
[2017-01-12 16:03] LABS: Albumin 3.1 g/dL (3.5-5.0); Albumin/Globulin Ratio 0.9 (1.1-2.2); Bilirubin,Direct 0.3 mg/dL (0.0-0.5); Bilirubin,Indirect 0.4 mg/dL (0.0-1.2); Bilirubin,Total 0.7 mg/dL (0.2-1.2); Calcium 9.3 mg/dL (8.6-10.8); Globulin 3.6 g/dL (2.4-3.5); Potassium 4.5 mEq/L (3.5-4.5); Total Protein 6.7 g/dL (6.0-8.3)
[2017-01-12] MEDS ORDERED: Aspirin 81 MG TAB.CHEW PO STA (16:09)
[2017-01-12] MEDS ORDERED: 0.9 % Sodium Chloride 1,000 ML IVC SCH ×2 (16:15→19:16)
[2017-01-12 16:25] LABS: Bilirubin,Urine Small (Negative); Blood,Urine Negative (Negative); Clarity,Urine Clear (Clear); Color,Urine Red (Yellow); Glucose,Urine (UA) Normal (Normal); Ketones,Urine Trace mg/dL (Negative); Leukocyte Esterase,Urine Small (Negative); Nitrite,Urine Negative (Negative); PH,Urine 5.5 pH Units (5.0-8.0); Protein,Urine 100 mg/dL (Neg-Trace); Specific Gravity,Urine 1.024 (1.010-1.025); Urobilinogen,Urine Normal (Normal)
[2017-01-12 16:28] LABS: Bacteria,Urine None Seen per hpf (None-Few); Hyaline Casts,Urine None Seen per lpf (None-Few); RBC,Urine 0-3 per hpf (0-3); Squamous Epithelial Cell,Urine Many per lpf (None-Few)
[2017-01-12] MEDS ORDERED: MetroNIDAZOLE 500 MG/100 ML 500 MG/100 ML BAG IVPB ONE (17:05)
[2017-01-12] MEDS ORDERED: *HR* LORazepam 2 MG/ML VIAL IVP ONE (17:11)
[2017-01-12] MEDS ORDERED: Nitroglycerin 0.4 MG TAB.SUBL SL PRN ×2 (19:04→19:05)
[2017-01-12] MEDS ORDERED: Acetaminophen 325 MG TABLET PO PRN (19:10)
[2017-01-12] MEDS ORDERED: Naloxone 0.4 MG/ML INJ IVP PRN (19:10)
[2017-01-12] MEDS ORDERED: *HR* Morphine 2 MG/ML SYRINGE IVP PRN (19:10)
[2017-01-12] MEDS ORDERED: Ondansetron 4 MG/2 ML VIAL IVP PRN (19:10)
[2017-01-12] MEDS ORDERED: D5% in Water 1,000 ML IVC PRN (19:16)
[2017-01-12] MEDS ORDERED: *HR* Dextrose 50 % in Water (Syg) 50 ML SYRINGE IVP PRN (19:16)
[2017-01-12] MEDS ORDERED: Dextrose Gel 15 GM PO PRN ×2 (19:16)
--- NOTE | 2017-01-12 19:22 | Internal Med History&Physical ---
Date of Encounter: 01/12/17 Time of Encounter: 19:19 Assessment and Plan (1) Sepsis Current visit: Yes Status: Acute Acute on chronic hypoxic respiratory failure from Sepsis secondary to possible healthcare associated pneumonia/gram-negative pneumonia present upon admission in combination with acute colitis likely bacterial Fever and tachycardia Continue Levaquin and Flagyl, add cefepime due to recent discharge Blood cultures, GI panel, mild hydration as the patient appears clinically dehydrated although his BNP is elevated and has evidence of pleural effusions Consider stopping IV fluids and adding Lasix Continue BiPAP, Solu-Medrol Oxygen therapy, DuoNeb's Omeprazole for GI prophylaxis and Eliquis for DVT prophylaxis. Admitted as inpatient, expected to stay more than 2 minutes. Full code. Time spent this admission 40 minutes. High risk due to respiratory failure Qualifiers: Sepsis type: sepsis due to unspecified organism Qualified Code(s): A41.9 - Sepsis, unspecified organism (2) Hyperglycemia Current visit: Yes Status: Acute Insulin sliding scale (3) Healthcare-associated pneumonia Current visit: Yes Status: Acute (4) Acute on chronic systolic (congestive) heart failure Current visit: No Status: Acute Order limited echocardiogram, strict I's and O's and daily weight\ Hold Lasix due to sepsis and clinical dehydration (5) History of implantable cardioverter-defibrillator (ICD) placement Current visit: No Status: Acute (6) Coronary artery disease Current visit: No Status: Acute Continue aspirin, Plavix, Ranexa Qualifiers: Qualified Code(s): I25.10 - Atherosclerotic heart disease of [place] coronary artery without angina pectoris (7) BPH (benign prostatic hyperplasia) Current visit: No Status: Acute Qualifiers: Lower urinary tract symptom presence: unspecified whether lower urinary tract symptoms present Qualified Code(s): N40.0 - Benign prostatic hyperplasia without lower urinary tract symptoms (8) Elevated troponin Current visit: No Status: Acute Possibly secondary to demand ischemia Current troponins, continue telemetry, aspirin (9) Renal insufficiency Current visit: No Status: Acute Acute renal failure secondary to sepsis (10) Colitis Current visit: Yes Status: Acute As stated above Internal Medicine - H&P: HPI Chief complaint: Fever and shortness of breath Admitted From: Emergency Dept History of present illness: Mr. Bernardo is a 71 year old male with a past medical history of systolic CHF with an ejection fraction of 40%, COPD oxygen dependent, COPD, anxiety, recently discharged from the hospital on 11/22/2016. Came to emergency room transferred by EMS complaining of difficulty breathing since yesterday, also abdominal pain, diarrhea, has had 3 bowel movements since yesterday. Patient is a very poor historian saying he has been having phlegm on and off, cannot remember why he is on Eliquis, the history from the ED mentions that he has been having leg edema, BNP is 3231 lactic acid is 5.1 and decreased down to 4.9 after the administration of 1 L of fluids. Patient had a be started on a BiPAP and was given a dose of Lasix. CT scan of the abdomen shows diffuse colitis, moderate right and small left pleural effusions concerning for pulmonary edema versus pneumonia. Creatinine has increased from 1.12 up to 1.51. Developed a fever 101.4 and heart rate of 112, for that reason his was started on azithromycin and Rocephin and then was switched to ciprofloxacin and Flagyl IV. Also he received a dose of Solu-Medrol and Ativan. Troponin 0.10 but he denies any chest pain at the moment. Sodium is 135. Currently on BiPAP feeling very weak Past Med Surg Social Fam HX - Past Medical History Medical history: CHF (Systolic CHF ejection fraction of 40%), COPD (Oxygen dependent), coronary artery disease, diabetes (No history of diabetes but his glucose is 238), hyperlipidemia, hypertension, myocardial infarction, other (BPH , cholelithiasis, left back sebaceous cyst noted on CT scan, bilateral inguinal hernias, anxiety) Psychiatric history: anxiety - Past Surgical History Surgical History: coronary bypass (CABG), herniorrhaphy, pacemaker/AICD, vascular surgery - Social History Smoking Status: Former smoker Alcohol use: none Drug use: none - Additional Family History Additional family history: Denies any family history Internal Medicine - H&P: Meds ALPRAZolam [Xanax 0.5 MG Tablet] 0.5 mg PO TID PRN 11/21/16 [History] Albuterol Sulfate [Albuterol Inhaler] 2 puff IH Q6HR PRN 11/21/16 [History] Apixaban [Eliquis] 5 mg PO BID 11/21/16 [History] Ascorbic Acid [Vitamin C] 1,000 mg PO DAILY 11/21/16 [History] Budesonide/Formoterol 160/4.5 [Symbicort 160/4.5] 2 puff IH BIDR 11/21/16 [ History] Carvedilol [Coreg] 3.125 mg PO BID 11/21/16 [History] Cholecalciferol (D-3) [Vitamin D] 3,000 unit PO DAILY 11/21/16 [History] Clopidogrel [Plavix] 75 mg PO DAILY 11/21/16 [History] Fish Oil/Dha/Epa [Fish Oil 1,200 mg Fish Oil] 1,200 mg PO DAILY 11/21/16 [ History] Folic Acid 0.8 mg PO DAILY 11/21/16 [History] Furosemide [Lasix] 40 mg PO BID 11/21/16 [History] Isosorbide MONOnitrate (24 HR) [Imdur] 120 mg PO DAILY 11/21/16 [History] Magnesium Oxide [Magnesium] 500 mg PO DAILY 11/21/16 [History] Multivitamin [One Daily Multivitamin] 1 tab PO DAILY 11/21/16 [History] Nitroglycerin [Nitrostat] 0.4 mg SL AD PRN 11/21/16 [History] Oxygen 2 l .ROUTE AD 11/21/16 [History] Ranolazine [Ranexa] 1,000 mg PO BID 11/21/16 [History] Trazodone HCl 200 mg PO HS 11/21/16 [History] Vitamin B Complex [B Complex] 1 tab PO DAILY 11/21/16 [History] Tamsulosin [Flomax] 0.4 mg PO HS #30 capsule 11/22/16 [Rx] Ezetimibe [Zetia] 10 mg PO DAILY 01/12/17 [History] Allergies Penicillins Allergy (Verified 01/12/17 15:25) Redness of Skin All Systems PM: A 10-system review of systems was performed and is negative for pertinent findings except as documented above in the HPI. Review of systems: Cannot complete review of systems as the patient is very somnolent - Constitutional Vitals: Temp Pulse Resp BP Pulse Ox 101.4 F H 79 20 113/64 99 01/12/17 15:21 01/12/17 19:06 01/12/17 19:06 01/12/17 19:06 01/12/17 19:06 General appearance: Present: A&O X 3 (Very somnolent) - Head Head exam: Present: atraumatic, normocephalic - Eye Eye exam: Present: PERRL, conjuntiva pink, sclera anicteric Pupils: Present: PERRL - Neck Neck exam general surgery: Present: supple, trachea midline. Absent: lymphadenopathy - Respiratory Respiratory exam: Present: decreased breath sounds (Diminished breath sounds but clear, minimal wheezing), CTAB. Absent: accessory muscle use, rales, rhonchi, wheezes - Cardiovascular Cardiovascular exam: Present: RRR, +S1, +S2. Absent: diastolic murmur, gallop, rubs, systolic murmur - GI/Abdominal GI/Abdominal exam: Present: distended, normal bowel sounds, soft, no peritoneal signs. Absent: tenderness (No abdominal tenderness) - Extremities Exam Extremities exam: Present: warm, radial pulses palpable and symetrical. Absent : calf tenderness, cyanotic, pedal edema (No leg edema) - Neurological Exam Neurological exam: Present: CN II-XII intact, oriented X3, no focal deficits. Absent: pronater drift, facial droop, speech deficit - Skin Skin exam: Present: dry, intact Internal Med - H&P Results - Labs CBC & Chem 7: 01/12/17 15:35 01/12/17 15:35
[2017-01-12] MEDS ORDERED: Cefepime HCl 1,000 MG in D5% in Water (Mini-Bag+) 100 ML IVPB SCH (19:30)
[2017-01-12] MEDS: Aspirin Enteric Coated 81 MG Tablet PO SCH (21:52)
[2017-01-12] MEDS: Ranolazine 500 MG TAB.ER.12H PO SCH (21:53)
[2017-01-12] MEDS: traZODone 50 MG TABLET PO SCH (21:53)
[2017-01-12] MEDS: ALPRAZolam 0.5 MG TABLET PO PRN (21:54)
[2017-01-12] MEDS: APIXABAN 5 MG TABLET PO SCH (21:55)
[2017-01-12] MEDS ORDERED: *HR* Heparin 5,000 UNIT/ML VIAL SQ SCH (22:00)
[2017-01-12] MEDS: Insulin LISPRO 300 UNITS/3 ML VIAL SQ SCH (22:22)
[2017-01-12] MEDS: Ipratropium/Albuterol Neb 3 ML IH SCH (23:05)
[2017-01-12] MEDS: MetroNIDAZOLE 500 MG/100 ML 500 MG/100 ML BAG IVPB SCH (23:47)
[2017-01-12] MEDS: MethylPREDNISolone 40 MG/ML VIAL IVP SCH (23:47)
[2017-01-13] MEDS ORDERED: MetroNIDAZOLE 500 MG/100 ML 500 MG/100 ML BAG IVPB SCH
[2017-01-13 02:18] LABS: C.difficile Toxin A/B by PCR See reflex test (Not detect); Campylobacter by PCR Not detected (Not detect)
[2017-01-13 02:19] LABS: Adenovirus F 40/41 PCR Not detected (Not detect); Astrovirus PCR Not detected (Not detect); Cryptosporidium by PCR Not detected (Not detect); Cyclospora cayetanensis PCR Not detected (Not detect); E. coli O157 by PCR Not detected (Not detect); Entamoeba histolytica PCR Not detected (Not detect); Enteroaggregative E.coli(EAEC) Not detected (Not detect); Enteropathogenic E.coli(EPEC) Not detected (Not detect); Enterotoxigenic E.coli (ETEC) Not detected (Not detect); Giardia lamblia PCR Not detected (Not detect); Norovirus GI/GII PCR Not detected (Not detect); Plesiomonas shigelloides PCR Not detected (Not detect); Rotavirus A PCR Not detected (Not detect); Salmonella PCR Not detected (Not detect); Sapovirus PCR Not detected (Not detect); Shig/EnteroinvasiveE coli EIEC Not detected (Not detect); Shigalike tox-prod E coli STEC Not detected (Not detect); Vibrio PCR Not detected (Not detect); Vibrio cholerae PCR Not detected (Not detect); Yersinia enterocolitica PCR Not detected (Not detect)
[2017-01-13] MEDS: Ipratropium/Albuterol Neb 3 ML IH SCH ×4 (04:00→22:45)
[2017-01-13 04:04] LABS: Hematocrit 34.3 % (37.5-50.1); Mean Corpuscular HGB Conc 32.7 g/dL (31.6-35.5); Mean Corpuscular Hemoglobin 29.1 pg (28.0-33.3); Mean Corpuscular Volume 89.1 fL (83.0-100.0); Mean Platelet Volume 9.4 fL (9.4-12.4); Platelet Count 169 K/mcL (140-400); Red Blood Count 3.85 M/mcL (4.19-5.50); Red Cell Distribution Width 17.4 % (11.5-14.5)
[2017-01-13 04:25] LABS: BUN/Creatinine Ratio 19 (6-26); Blood Urea Nitrogen 23 mg/dL (8-26); Calcium 8.8 mg/dL (8.6-10.8); Carbon Dioxide 27 mEq/L (19-29); Chloride 99 mEq/L (98-109); Chol/HDL Ratio 3.8 (0-4.9); Cholesterol 142 mg/dL (< 200); Glucose 162 mg/dL (70-99); HDL Cholesterol 37 mg/dL (40-59); LDL Cholesterol,Calculated 93 mg/dL (0-99); Osmolality,Calculated 285 (280-300); Potassium 4.5 mEq/L (3.5-4.5); Sodium 134 mEq/L (136-145); Triglycerides 58 mg/dL (< 150); eGFR For African Americans > 60 (> 60); eGFR For Non-African Americans 59 (> 60)
[2017-01-13 04:30] LABS: Hemoglobin 11.2 g/dL (12.9-16.9)
[2017-01-13] MEDS ORDERED: Cefepime HCl 1,000 MG in D5% in Water (Mini-Bag+) 100 ML IVPB SCH (05:00)
[2017-01-13] MEDS: Ranolazine 500 MG TAB.ER.12H PO SCH ×2 (09:00→20:03)
[2017-01-13] MEDS ORDERED: Levofloxacin 750 MG/150 ML 750 MG/150 ML BAG IVPB SCH (09:00)
[2017-01-13] MEDS: APIXABAN 5 MG TABLET PO SCH ×2 (09:00→20:05)
[2017-01-13] MEDS: Isosorbide MONOnitrate (24 HR) 60 MG TAB.ER.24H PO SCH (09:00)
[2017-01-13] MEDS: Aspirin Enteric Coated 81 MG Tablet PO SCH (09:00)
[2017-01-13] MEDS: Folic Acid 1 MG TABLET PO SCH (09:00)
[2017-01-13] MEDS: MethylPREDNISolone 40 MG/ML VIAL IVP SCH ×2 (09:03→17:56)
[2017-01-13] MEDS: Insulin LISPRO 300 UNITS/3 ML VIAL SQ SCH ×3 (09:04→17:56)
--- NOTE | 2017-01-13 09:08 | Infectious Disease Consult ---
Date of Encounter: 01/13/17 Time of Encounter: 09:08 Assessment and Plan (1) Severe sepsis Status: Acute Assessment and plan: Since admission he has met four SIRS criteria of temperature 101.4 F, tachycardia heart rate 112, tachypnea respiratory rate 30, leukopenia white blood cell count 3.3, and recurrent C. difficile colitis as source of infection. Labs on admission revealed a WBC 6.3, BUN 17, creatinine 1.51, lactic acid 5.1, troponin 0.18, BNP 3231, and C. difficile toxin positive on GI panel. CT abdomen and pelvis without contrast revealed diffuse mural thickening of the large bowel compatible with colitis and moderate right and small left pleural effusions concerning for pulmonary edema versus pneumonia. Chest x-ray revealed mild pulmonary vascular congestion with small bilateral subpulmonic pleural effusions greater on the right than the left associated with atelectatic changes. Blood and urine cultures were collected on 01/12/17, results are pending. Patient was initially started on Azithromycin and Rocephin and then change to Ciprofloxacin, Flagyl, Cefepime, and Levaquin. He was started on Flagyl IV and Vancomycin PO. Recommendations: Given comorbid acute CHF exacerbation and fluid restriction, will transition to oral antibiotics at this time. Discontinue Flagyl. Change Vancomycin to 125 mg PO 4 times a day x 14 days, followed by 125 mg orally twice daily for 7 days, 125 mg orally once daily for 7 days, 125 mg orally every other day for 7 days, 125 mg orally every 3 days for 14 days (7 weeks total) through 03/02/17. Agree with probiotics for the duration of treatment Follow up with Dr. Gilbert in clinic in 2 weeks Monitor for drug toxicity and dose-adjust antibiotics. We will continue to follow. (2) Clostridium difficile colitis Status: Acute Assessment and plan: Recurrent C. Diff infections since June 2016, and recently completed 20 days of Flagyl 1 week ago. C. difficile toxin positive on GI panel. CT abdomen and pelvis without contrast revealed diffuse mural thickening of the large bowel compatible with colitis Currently on Flagyl IV and Vancomycin PO. Recommendations: Given comorbid acute CHF exacerbation and fluid restriction, will transition to oral antibiotics at this time. Discontinue Flagyl. Change Vancomycin to 125 mg PO 4 times a day x 14 days, followed by 125 mg orally twice daily for 7 days, 125 mg orally once daily for 7 days, 125 mg orally every other day for 7 days, 125 mg orally every 3 days for 14 days (7 weeks total) through 03/02/17. Agree with probiotics for the duration of treatment Follow up with Dr. Gilbert in clinic in 2 weeks Monitor for drug toxicity and dose-adjust antibiotics. We will continue to follow. (3) Acute on chronic systolic (congestive) heart failure Status: Acute (4) Elevated troponin Status: Acute (5) SERGIO (acute kidney injury) Status: Acute (6) Severe peripheral arterial disease Status: Acute Infectious Disease HPI - Data of Consult Consult date: 01/13/17 Requesting Physician: Phil Bustillo DO Primary Care Provider: PCP NONE - Consult Narrative Reason for consult: Sepsis with diffuse colitis - recurrent C Diff colitis and questionable pne History of present illness: Mr. Bernardo is a 71 year old male was that admitted on 01/12/17 for shortness of breath, fever, chills, abdominal pain, and diarrhea for the past 2 days, and was found to have severe sepsis. Infectious disease is consulted on 01/23/17 for sepsis with diffuse colitis - recurrent C Diff colitis and questionable pneumonia. Mr. Bernardo is a 71 year old male with a PMH significant for systolic CHF with an ejection fraction of 40%, COPD, Chronic resp failure dependent on 2L home O2, severe PAD with multiple stents in LLE at [place], who was recently discharged on 11/22/2016 following CHF exacerbation. Of note, patient reported having recurrent C. Diff infections since June 2016, and recently completed 20 days of Flagyl 1 week ago. Since admission he has met four SIRS criteria of temperature 101.4 F, tachycardia heart rate 112, tachypnea respiratory rate 30, leukopenia white blood cell count 3.3, and recurrent C. difficile colitis as source of infection. Labs on admission revealed a WBC 6.3, BUN 17, creatinine 1.51, lactic acid 5.1, troponin 0.18, BNP 3231, and C. difficile toxin positive on GI panel. CT abdomen and pelvis without contrast revealed diffuse mural thickening of the large bowel compatible with colitis and moderate right and small left pleural effusions concerning for pulmonary edema versus pneumonia. Chest x-ray revealed mild pulmonary vascular congestion with small bilateral subpulmonic pleural effusions greater on the right than the left associated with atelectatic changes. Blood and urine cultures were collected on 01/12/17, results are pending. Patient was initially started on Azithromycin and Rocephin and then change to Ciprofloxacin, Flagyl, Cefepime, and Levaquin. He is currently on Flagyl IV and Vancomycin PO. Today patient complains of diarrhea, right lower quadrant abdominal pain, and generalized weakness. CC: Phil Bustillo, DO Past Med Surg Social Fam HX - Past Medical History Medical history: CHF, COPD, coronary artery disease, diabetes, hyperlipidemia, hypertension, myocardial infarction, other Psychiatric history: anxiety - Past Surgical History Surgical History: coronary bypass (CABG), herniorrhaphy, pacemaker/AICD, vascular surgery - Social History Smoking Status: Former smoker Alcohol use: none Drug use: none Infectious Disease-CN:Meds ALPRAZolam [Xanax 0.5 MG Tablet] 0.5 mg PO TID PRN 11/21/16 [History] Albuterol Sulfate [Albuterol Inhaler] 2 puff IH Q6HR PRN 11/21/16 [History] Apixaban [Eliquis] 5 mg PO BID 11/21/16 [History] Ascorbic Acid [Vitamin C] 1,000 mg PO DAILY 11/21/16 [History] Budesonide/Formoterol 160/4.5 [Symbicort 160/4.5] 2 puff IH BIDR 11/21/16 [ History] Carvedilol [Coreg] 3.125 mg PO BID 11/21/16 [History] Cholecalciferol (D-3) [Vitamin D] 3,000 unit PO DAILY 11/21/16 [History] Clopidogrel [Plavix] 75 mg PO DAILY 11/21/16 [History] Fish Oil/Dha/Epa [Fish Oil 1,200 mg Fish Oil] 1,200 mg PO DAILY 11/21/16 [ History] Folic Acid 0.8 mg PO DAILY 11/21/16 [History] Furosemide [Lasix] 40 mg PO BID 11/21/16 [History] Isosorbide MONOnitrate (24 HR) [Imdur] 120 mg PO DAILY 11/21/16 [History] Magnesium Oxide [Magnesium] 500 mg PO DAILY 11/21/16 [History] Multivitamin [One Daily Multivitamin] 1 tab PO DAILY 11/21/16 [History] Nitroglycerin [Nitrostat] 0.4 mg SL AD PRN 11/21/16 [History] Oxygen 2 l .ROUTE AD 11/21/16 [History] Ranolazine [Ranexa] 1,000 mg PO BID 11/21/16 [History] Trazodone HCl 200 mg PO HS 11/21/16 [History] Vitamin B Complex [B Complex] 1 tab PO DAILY 11/21/16 [History] Tamsulosin [Flomax] 0.4 mg PO HS #30 capsule 11/22/16 [Rx] Ezetimibe [Zetia] 10 mg PO DAILY 01/12/17 [History] Allergies Penicillins Allergy (Verified 01/12/17 15:25) Redness of Skin Review of systems: Travel: denies recent travel Animal exposure: Denies Sick contacts: Denies. Diet: denies ingestion of undercooked or raw meats. Dental: denies recent dental procedures - Constitutional Constitutional: Present: chills, fatigue, fever(s), lethargy, weakness. Absent : night sweats, weight gain, weight loss - EENT Eyes: Absent: change in vision Nose, mouth and throat: Absent: headache(s), sore throat - Cardiovascular Cardiovascular: Present: chest pain (Resolved), leg edema, orthopnea, palpitations, paroxysmal nocturnal dyspnea. Absent: chest pain with activity - Respiratory Respiratory: Present: dyspnea. Absent: cough, excessive phlegm production - Gastrointestinal Gastrointestinal: Present: abdominal pain, change in bowel habits, change in stool character, diarrhea, loose stools, nausea. Absent: constipation, hematemesis, hematochezia, vomiting - Musculoskeletal Musculoskeletal: Present: back pain. Absent: numbness - Integumentary Integumentary: Absent: dry skin, erythema, new lesions, rash, wounds - Neurological Neurological: Present: weakness. Absent: focal weakness, numbness, syncope - Endocrine Endocrine: Present: fatigue. Absent: cold intolerance, heat intolerance, polydipsia, polyphagia, polyuria Exam - Constitutional Vitals: Temp Pulse Resp BP Pulse Ox 97.5 F L 63 19 93/52 96 01/13/17 06:55 01/13/17 06:55 01/13/17 06:55 01/13/17 06:55 01/13/17 06:55 General appearance: cooperative, mild distress, thin, no febrile Exam: Appears ill - Head Head exam: Present: atraumatic, normal inspection, normocephalic - Eye Eye exam: Present: PERRL, conjuntiva pink - ENT ENT exam: Present: mucous membranes moist, normal oropharynx - Neck Neck exam: Present: normal inspection, tenderness. Absent: lymphadenopathy, thyromegaly - Respiratory Respiratory exam: Present: decreased breath sounds, rales. Absent: accessory muscle use, respiratory distress, wheezes - Cardiovascular Cardiovascular exam: Present: RRR, +S1, +S2 - GI/Abdominal GI/Abdominal exam: Present: normal bowel sounds, soft, tenderness (Right inguinal/suprapubic tenderness to palpation). Absent: guarding, rebound, rigid - Extremities Exam Extremities exam: Present: pedal edema (Trace). Absent: tenderness - Back Exam Back exam: Absent: CVA tenderness (R) Additional comments: 6 cm subcutaneous abscess left flank, no surrounding erythema - Neurological Exam Neurological exam: Present: alert, oriented X3. Absent: altered, motor sensory deficit - Skin Skin exam: Present: dry, warm. Absent: erythema, rash Infectious Disease CN: Results - Labs CBC & Chem 7: 01/14/17 05:32 01/14/17 05:32 Serology: Serology 01/13/17 01/13/17 Range/Units 00:50 00:50 Stl C. cayetanensis PCR Not detected (Not detect) Stool Rotavirus A PCR Not detected (Not detect) Stl Adenov F 40/41 PCR Not detected (Not detect) Stool Astrovirus (PCR) Not detected (Not detect) Stool Campylobacter PCR Not detected (Not detect) Stl C. diff Tox B Gene Positive (Negative) Stl C. diff Tox A/B PCR See reflex test A (Not detect) Stool Cryptosporidium PCR Not detected (Not detect) Stl Sh Tox Pr E STEC PCR Not detected (Not detect) Stool E coli O157 PCR Not detected (Not detect) Stl Enterotoxigenic E PCR Not detected (Not detect) Stool EPEC (PCR) Not detected (Not detect) Stool EAEC (PCR) Not detected (Not detect) Stl E. histolytica PCR Not detected (Not detect) Stool Giardia Lamblia PCR Not detected (Not detect) Stool Salmonella PCR Not detected (Not detect) Stool Sapovirus (PCR) Not detected (Not detect) Stl P. shigelloides PCR Not detected (Not detect) Stl Shigella/EIEC PCR Not detected (Not detect) St Y.enterocolitica PCR Not detected (Not detect) Stool Vibrio (PCR) Not detected (Not detect) Stl Vibrio cholerae PCR Not detected (Not detect) Stl Norovirus GI/GII PCR Not detected (Not detect) Stl GI Panel (PCR) Com See below Consult Discharge Plan - Plan Referrals: Hu Yeboah MD [Non-Partnered Physician] - 01/20/17 1:10 pm NONE,PCP [Primary Care Provider] - - Attending Attestation I examined this patient and my medical decision-making was reviewed with the Resident Physician. I agree with the documented findings, disposition and treatment plan as described except to the extent set forth below. This is an addendum to original report dictated by resident physician. Please refer to residents note for full detail. Patient is a 71-year-old gentleman who came in complaining of diarrhea, shortness of breath, fevers and chills and abdominal pain 2 days prior to admission. Patient was noted to be in severe sepsis had 3 service criteria and lactic acidosis and had recurrent of C. difficile. There was also questionable pneumonia. Patient was started on multiple antibiotics and were consulted to make further recommendations. I did go over the imaging from now and from a year ago and it appears to be unchanged. Again Im not a radiologist but we will call radiology to confirm my findings. Patient currently has mild-to- moderate C. difficile. He had 1 or 2 watery bowel movements. He has been diagnosed with C. difficile and had multiple courses of Flagyl. Physical exam is really unremarkable. Abdomen is not tender nor rebound no guarding. Bowel sounds are active. Had one watery bowel movement today. At this point patient had second relapse of C. difficile that appears to be moderate. Which is to keep treat him with vancomycin orally. Tapering dose over 7 weeks. In the meantime aggressive hydration monitor labs monitor for drug toxicity. Once we discuss with radiology the chest x-ray finding we will consider starting more antibiotics for possible pneumonia or to just observe. Discussed with the hospitalist team.
--- NOTE | 2017-01-13 09:20 | Internal Med Progress Note ---
Date of Encounter: 01/13/17 Time of Encounter: 09:14 - Assessment and plan (1) Sepsis Current Visit: Yes Status: Acute Assessment and plan: Pt does meet sepsis criteria with Tachycardia, source of inf as C. Diff and ?? PNA, Elevated LA Improved LA d/c IVF due to pulmonary edema and CHF exacerbation His CT of Chest findings - ?? PNA.. I am not sure whether he really had PNA especially given his recurrent C. Diff infection, I wanted to be very careful with Abx usage on him d/c Cefepime, Levaquin for now cont Flagyl and Vanco PO repeat CXR now Consulted ID for further eval Qualifiers: Sepsis type: sepsis due to unspecified organism Qualified Code(s): A41.9 - Sepsis, unspecified organism (2) Recurrent colitis due to Clostridium difficile Current Visit: Yes Status: Acute Assessment and plan: Placed him PO Vanco avoid PPI on Probiotic ID consulted (3) Pneumonia Current Visit: Yes Status: Acute Assessment and plan: it is a questionable PNA will sent for sputum cx cont Flagyl IV for now Qualifiers: Qualified Code(s): J18.9 - Pneumonia, unspecified organism (4) SERGIO (acute kidney injury) Current Visit: Yes Status: Acute Assessment and plan: due to sepsis Improved (5) Pulmonary edema Current Visit: Yes Status: Acute Assessment and plan: His pulmonary edema mostly due to CHF exacerbation give his sepsis will hold on diuretics for now cont close monitoring will use Lasix PRN only cont duoneb and O2 cont IV steroids Qualifiers: Chronicity: chronic Qualified Code(s): J81.1 - Chronic pulmonary edema (6) Acute respiratory failure with hypoxia Current Visit: No Status: Acute (7) Acute on chronic systolic (congestive) heart failure Current Visit: No Status: Acute Assessment and plan: Significantly elevated BNP, CXR findings and clinical symptoms consistent with CHF exacerabtion reviewed his 2 D Echo from 11/23 no need repeat another one Held Lasix due to Sepsis resumed other meds will give him Lasix PRN basis for now d/c IVF (8) Elevated troponin Current Visit: No Status: Acute Assessment and plan: due to demand ishcemia with CHF exacerbation Trop trending down (9) Severe peripheral arterial disease Current Visit: Yes Status: Acute Assessment and plan: resume home med Eliquis + Plavix (10) History of implantable cardioverter-defibrillator (ICD) placement Current Visit: No Status: Acute - Subjective Interval history: Mr. Bernardo is a 71 year old male with a past medical history of systolic CHF with an ejection fraction of 40%, Chronic resp failure on 2 lit home O2 dependent, COPD, anxiety, severe PAD who had multiple stents placed in Left leg , who recently discharged from the hospital on 11/22/2016 for CHF exacerbation now he presented to emergency room complaining of difficulty breathing since yesterday, also abdominal pain, diarrhea, has had 3 bowel movements since yesterday. He was admitted her for sepsis with diffuse colitis - recurrent C Diff colitis and questionable pneumonia. Pt did mention he has been having recurrent C. Diff infection since June 2016 , he was never given Vanco PO , however he was placed on 20 days of Flagyl by his PCP which he finished few days ago. - Constitutional Vitals: Temp Pulse Resp BP Pulse Ox 97.5 F L 63 19 93/52 96 01/13/17 06:55 01/13/17 06:55 01/13/17 06:55 01/13/17 06:55 01/13/17 06:55 General appearance: Present: A&O X 3 (Very somnolent) - Head Head exam: Present: atraumatic, normal inspection - Neck Neck exam general surgery: Present: supple. Absent: tenderness - Respiratory Respiratory exam: Present: decreased breath sounds, rales, wheezes. Absent: respiratory distress, rhonchi - Cardiovascular Cardiovascular exam: Present: RRR, +S1, +S2 - GI/Abdominal GI/Abdominal exam: Present: normal bowel sounds, soft. Absent: distended, guarding, rebound, rigid, tenderness - Extremities Exam Extremities exam: Present: pedal edema (trace). Absent: calf tenderness, tenderness - Neurological Exam Neurological exam: Present: alert, oriented X3 - Psychiatric Psychiatric exam: Present: normal affect, normal mood Internal Medicine: Result - Labs CBC & Chem 7: 01/13/17 03:54 01/13/17 03:54 Labs: Short CBC 01/13/17 Range/Units 03:54 WBC 3.3 L (4.3-11.1) K/mcL Hgb 11.2 L D (12.9-16.9) g/dL Hct 34.3 L (37.5-50.1) % Plt Count 169 (140-400) K/mcL BMP 01/13/17 03:54 Sodium 134 L Potassium 4.5 Chloride 99 Carbon Dioxide 27 BUN 23 Creatinine 1.21 Glucose 162 H Calcium 8.8 Cardiac Enzymes 01/12/17 01/13/17 Range/Units 20:16 03:54 Troponin I 0.18 H* 0.13 H* (0-0.03) ng/mL - ABG Interpretation ABG results: PT/INR, D-dimer PT 14.4 Seconds (9.4-12.1) H 01/12/17 15:35 Consult Discharge Plan - Plan Referrals: NONE,PCP [Primary Care Provider] -
[2017-01-13] MEDS: ALPRAZolam 0.5 MG TABLET PO PRN (11:04)
[2017-01-13] MEDS: MetroNIDAZOLE 500 MG/100 ML 500 MG/100 ML BAG IVPB SCH ×2 (11:04→17:57)
[2017-01-13] MEDS: Lactobacillus 1 EACH CAP.SPRINK PO SCH ×3 (11:04→20:05)
[2017-01-13] MEDS: Vancomycin Oral Soln 250 MG/2.5 ML UDC PO SCH ×4 (11:04→23:00)
--- NOTE | 2017-01-13 15:23 | Electrocardiograph Report ---
[address] [address] Test Date: 2017-01-12 Pat Name: Chadwick Bernardo Department: 103 Room: 2N04 Gender: M [employer]: : [id number] Requested By: Bubba Arnett Order Number: [id number] Reading MD: Nicolas Jacobson MD Measurements Intervals [place] Rate: 109 P: 69 NM: 195 QRS: 56 QRSD: 113 T: 102 QT: 305 QTc: 369 Interpretive Statements SINUS TACHYCARDIA BASELINE ARTIFACT Electronically Signed On 01-13-2017 8:15:57 EDT by Nicolas Jacobson MD
[2017-01-13] MEDS: traZODone 50 MG TABLET PO SCH (20:05)
[2017-01-14] MEDS: MethylPREDNISolone 40 MG/ML VIAL IVP SCH ×2 (00:46→08:10)
[2017-01-14] MEDS: MetroNIDAZOLE 500 MG/100 ML 500 MG/100 ML BAG IVPB SCH (00:47)
[2017-01-14] MEDS: Ipratropium/Albuterol Neb 3 ML IH SCH ×4 (04:31→21:04)
[2017-01-14 05:54] LABS: Hemoglobin 10.9 g/dL (12.9-16.9); Mean Corpuscular Hemoglobin 29.2 pg (28.0-33.3); Mean Corpuscular Volume 88.5 fL (83.0-100.0); Mean Platelet Volume 10.4 fL (9.4-12.4); Platelet Count 165 K/mcL (140-400); Red Blood Count 3.73 M/mcL (4.19-5.50); Red Cell Distribution Width 17.6 % (11.5-14.5)
[2017-01-14 06:09] LABS: Alanine Aminotransferase 10 Units/L (0-55); Albumin/Globulin Ratio 0.8 (1.1-2.2); Alkaline Phosphatase 26 Units/L (38-126); Aspartate Amino Transferase 13 Units/L (5-34); BUN/Creatinine Ratio 24 (6-26); Bilirubin,Total 0.3 mg/dL (0.2-1.2); Blood Urea Nitrogen 26 mg/dL (8-26); Calcium 8.7 mg/dL (8.6-10.8); Carbon Dioxide 27 mEq/L (19-29); Chloride 100 mEq/L (98-109); Glucose 166 mg/dL (70-99); Magnesium 1.8 mg/dL (1.6-2.6); Osmolality,Calculated 283 (280-300); Potassium 4.4 mEq/L (3.5-4.5); Sodium 132 mEq/L (136-145); eGFR For African Americans > 60 (> 60); eGFR For Non-African Americans > 60 (> 60)
[2017-01-14 06:10] LABS: Albumin 2.3 g/dL (3.5-5.0); Total Protein 5.3 g/dL (6.0-8.3)
[2017-01-14 07:45] LABS: Lymphocytes # 0.8 K/mcL (0.6-4.6); Monocytes # 0.2 K/mcL (0.0-1.3); Neutrophils # 1.9 K/mcL (1.6-8.9); Platelet Estimate Normal (Normal)
[2017-01-14] MEDS: Insulin LISPRO 300 UNITS/3 ML VIAL SQ SCH ×3 (08:09→16:43)
[2017-01-14] MEDS: Folic Acid 1 MG TABLET PO SCH (08:09)
[2017-01-14] MEDS: Ranolazine 500 MG TAB.ER.12H PO SCH ×2 (08:09→22:30)
[2017-01-14] MEDS: Lactobacillus 1 EACH CAP.SPRINK PO SCH ×3 (08:09→22:30)
[2017-01-14] MEDS: Isosorbide MONOnitrate (24 HR) 60 MG TAB.ER.24H PO SCH (08:10)
[2017-01-14] MEDS: APIXABAN 5 MG TABLET PO SCH ×2 (08:10→22:31)
--- NOTE | 2017-01-14 08:11 | Internal Med Progress Note ---
Date of Encounter: 01/14/17 Time of Encounter: 08:09 - Assessment and plan (1) Sepsis Current Visit: Yes Status: Acute Assessment and plan: Improving His repeat CXR did not show any infiltrates..it looks more like basal atelectasis and vascular congestion d/c Flagyl Con Vanco PO ID is on board Qualifiers: Sepsis type: sepsis due to unspecified organism Qualified Code(s): A41.9 - Sepsis, unspecified organism (2) Recurrent colitis due to Clostridium difficile Current Visit: Yes Status: Acute Assessment and plan: Placed him PO Vanco avoid PPI on Probiotic Talked to ID, he may need fpc tapering Vanco rx regimen (3) Pneumonia Current Visit: Yes Status: Ruled-out Assessment and plan: Mostly due to atelctasis..no infiltrates no abx needed encourage more frequent incentive spirometry Qualifiers: Qualified Code(s): J18.9 - Pneumonia, unspecified organism (4) SERGIO (acute kidney injury) Current Visit: Yes Status: Acute Assessment and plan: due to sepsis Improved (5) Pulmonary edema Current Visit: Yes Status: Acute Assessment and plan: His pulmonary edema mostly due to CHF exacerbation given his sepsis will hold on diuretics for now cont close monitoring Resume his pO lasix in AM cont duoneb and O2 cont IV steroids Qualifiers: Chronicity: chronic Qualified Code(s): J81.1 - Chronic pulmonary edema (6) Acute respiratory failure with hypoxia Current Visit: No Status: Acute Assessment and plan: improved now back to his base line .. chronic hypoxic rsp failure with home O2 dependent at 2 lit (7) Acute on chronic systolic (congestive) heart failure Current Visit: No Status: Acute Assessment and plan: Significantly elevated BNP, CXR findings and clinical symptoms consistent with CHF exacerabtion reviewed his 2 D Echo from 11/23 no need repeat another one Held Lasix due to Sepsis resumed other meds will give him Lasix PRN basis for now d/c IVF (8) Elevated troponin Current Visit: No Status: Acute Assessment and plan: due to demand ishcemia with CHF exacerbation Trop trending down (9) Severe peripheral arterial disease Current Visit: Yes Status: Acute Assessment and plan: resume home med Eliquis + Plavix (10) History of implantable cardioverter-defibrillator (ICD) placement Current Visit: No Status: Acute - Subjective Interval history: Mr. Bernardo is a 71 year old male with a past medical history of systolic CHF with an ejection fraction of 40%, Chronic resp failure on 2 lit home O2 dependent, COPD, anxiety, severe PAD who had multiple stents placed in Left leg , who recently discharged from the hospital on 11/22/2016 for CHF exacerbation now he presented to emergency room complaining of difficulty breathing since yesterday, also abdominal pain, diarrhea, has had 3 bowel movements. He was admitted here for sepsis with diffuse colitis - recurrent C Diff colitis and questionable pneumonia. Pt did mention he has been having recurrent C. Diff infection since June 2016 , he was never given Vanco PO , however he was placed on 20 days of Flagyl by his PCP which he finished few days ago. His abdominal pain is better, still has loose watery BMs, had 2 y.d and 1 this morning - Constitutional Vitals: Temp Pulse Resp BP Pulse Ox 97.9 F 79 18 115/53 97 01/14/17 07:53 01/14/17 07:53 01/14/17 07:53 01/14/17 07:53 01/14/17 07:53 General appearance: Present: A&O X 3 (Very somnolent), no acute distress - Head Head exam: Present: atraumatic, normal inspection - Respiratory Respiratory exam: Present: decreased breath sounds, wheezes. Absent: rales, respiratory distress, rhonchi - Cardiovascular Cardiovascular exam: Present: RRR, +S1, +S2. Absent: gallop, systolic murmur - GI/Abdominal GI/Abdominal exam: Present: normal bowel sounds, soft. Absent: distended, rebound, rigid, tenderness - Extremities Exam Extremities exam: Absent: calf tenderness, pedal edema, tenderness - Psychiatric Psychiatric exam: Present: normal affect, normal mood Internal Medicine: Result - Labs CBC & Chem 7: 01/14/17 05:32 01/14/17 05:32 Labs: Short CBC 01/14/17 Range/Units 05:32 WBC 2.9 L (4.3-11.1) K/mcL Hgb 10.9 L (12.9-16.9) g/dL Hct 33.0 L (37.5-50.1) % Plt Count 165 (140-400) K/mcL Neutrophils # 1.9 (1.6-8.9) K/mcL BMP 01/14/17 05:32 Sodium 132 L Potassium 4.4 Chloride 100 Carbon Dioxide 27 BUN 26 Creatinine 1.07 Glucose 166 H Calcium 8.7 Cardiac Enzymes 01/13/17 01/13/17 Range/Units 09:15 15:28 Troponin I 0.09 H* 0.06 H* (0-0.03) ng/mL Liver Function 01/14/17 Range/Units 05:32 Total Bilirubin 0.3 (0.2-1.2) mg/dL AST 13 (5-34) Units/L ALT 10 (0-55) Units/L Alkaline Phosphatase 26 L (38-126) Units/L Albumin 2.3 L D (3.5-5.0) g/dL - ABG Interpretation ABG results: PT/INR, D-dimer PT 14.4 Seconds (9.4-12.1) H 01/12/17 15:35 - Impressions Impressions Chest X-Ray 01/13/17 09:09 IMPRESSION: Mild pulmonary vascular congestion with small bilateral subpulmonic pleural effusions greater on the right than the left associated with atelectatic changes. Post sternotomy changes. D/ / Gurvinder Giles MD / Gurvindre Giles MD Interpreting Provider: Gurvinder Giles MD Consult Discharge Plan - Plan Referrals: Hu Yeboah MD [Non-Partnered Physician] - 01/20/17 1:10 pm NONE,PCP [Primary Care Provider] -
[2017-01-14] MEDS: predniSONE 20 MG TABLET PO SCH (08:36)
--- NOTE | 2017-01-14 08:39 | Infectious Disease Progress No ---
Date of Encounter: 01/14/17 Time of Encounter: 08:39 - Assessment and Plan (1) Severe sepsis Current Visit: Yes Status: Acute Since admission he has met four SIRS criteria of temperature 101.4 F, tachycardia heart rate 112, tachypnea respiratory rate 30, leukopenia white blood cell count 3.3, and recurrent C. difficile colitis as source of infection. C. difficile toxin positive on GI panel. CT abdomen and pelvis without contrast revealed diffuse mural thickening of the large bowel compatible with colitis and moderate right and small left pleural effusions concerning for pulmonary edema versus pneumonia. Chest x-ray revealed mild pulmonary vascular congestion with small bilateral subpulmonic pleural effusions greater on the right than the left associated with atelectatic changes. Blood and urine cultures were collected on 01/12/17, results showed no growth to date Recommendations: At this point patient had second relapse of C. difficile that appears to be moderate. Which is to keep treat him with vancomycin orally. Tapering dose over 7 weeks. Continue Vancomycin to 125 mg PO 4 times a day x 14 days, followed by 125 mg orally twice daily for 7 days, 125 mg orally once daily for 7 days, 125 mg orally every other day for 7 days, 125 mg orally every 3 days for 14 days (7 weeks total) through 03/02/17. Agree with probiotics for the duration of treatment. Follow up with Dr. Gilbert in clinic in 2 weeks Monitor for drug toxicity and dose-adjust antibiotics. We will continue to follow. (2) Clostridium difficile colitis Current Visit: Yes Status: Acute C. difficile toxin positive on GI panel. CT abdomen and pelvis without contrast revealed diffuse mural thickening of the large bowel compatible with colitis Recommendations: At this point patient had second relapse of C. difficile that appears to be moderate. Which is to keep treat him with vancomycin orally. Tapering dose over 7 weeks. Continue Vancomycin to 125 mg PO 4 times a day x 14 days, followed by 125 mg orally twice daily for 7 days, 125 mg orally once daily for 7 days, 125 mg orally every other day for 7 days, 125 mg orally every 3 days for 14 days (7 weeks total) through 03/02/17. Agree with probiotics for the duration of treatment. Follow up with Dr. Gilbert in clinic in 2 weeks Monitor for drug toxicity and dose-adjust antibiotics. We will continue to follow. (3) Acute on chronic systolic (congestive) heart failure Current Visit: No Status: Acute Management per primary team (4) Elevated troponin Current Visit: No Status: Acute Demand ischemia related to severe sepsis (5) SERGIO (acute kidney injury) Current Visit: Yes Status: Acute Resolved (6) Severe peripheral arterial disease Current Visit: Yes Status: Acute Management per primary team - Subjective Interval history: Patient seen and examined. No acute events overnight. Patient reports too loose bowel movements yesterday and one bowel movement early this morning. He denies fevers, chills, chest pain, shortness of breath, worsening abdominal pain , or dysuria. Infect Dis PN-Objective Data - Labs CBC & Chem 7: 01/14/17 05:32 01/14/17 05:32 Labs: Laboratory Results - last 24 hr 01/13/17 01/13/17 01/13/17 07:01 09:15 12:17 WBC RBC Hgb Hct MCV MCH MCHC RDW Plt Count MPV Seg Neutrophils % Band Neutrophils % Lymphocytes % Monocytes % Neutrophils # Lymphocytes # Monocytes # Platelet Estimate Sodium Potassium Chloride Carbon Dioxide BUN Creatinine Est GFR ( Amer) Est GFR (Non-Af Amer) BUN/Creatinine Ratio Glucose POC Glucose 170 H 159 H Calculated Osmolality Calcium Magnesium Total Bilirubin AST ALT Alkaline Phosphatase Troponin I 0.09 H* Serum Total Protein Albumin Globulin Albumin/Globulin Ratio 01/13/17 01/13/17 01/13/17 15:27 15:28 20:10 WBC RBC Hgb Hct MCV MCH MCHC RDW Plt Count MPV Seg Neutrophils % Band Neutrophils % Lymphocytes % Monocytes % Neutrophils # Lymphocytes # Monocytes # Platelet Estimate Sodium Potassium Chloride Carbon Dioxide BUN Creatinine Est GFR ( Amer) Est GFR (Non-Af Amer) BUN/Creatinine Ratio Glucose POC Glucose 192 H 232 H Calculated Osmolality Calcium Magnesium Total Bilirubin AST ALT Alkaline Phosphatase Troponin I 0.06 H* Serum Total Protein Albumin Globulin Albumin/Globulin Ratio 01/14/17 01/14/17 05:32 05:32 WBC 2.9 L RBC 3.73 L Hgb 10.9 L Hct 33.0 L MCV 88.5 MCH 29.2 MCHC 33.0 RDW 17.6 H Plt Count 165 MPV 10.4 Seg Neutrophils % 26.0 Band Neutrophils % 40.0 H Lymphocytes % 28.0 Monocytes % 6.0 Neutrophils # 1.9 Lymphocytes # 0.8 Monocytes # 0.2 Platelet Estimate Normal Sodium 132 L Potassium 4.4 Chloride 100 Carbon Dioxide 27 BUN 26 Creatinine 1.07 Est GFR ( Amer) > 60 Est GFR (Non-Af Amer) > 60 BUN/Creatinine Ratio 24 Glucose 166 H POC Glucose Calculated Osmolality 283 Calcium 8.7 Magnesium 1.8 Total Bilirubin 0.3 AST 13 ALT 10 Alkaline Phosphatase 26 L Troponin I Serum Total Protein 5.3 L D Albumin 2.3 L D Globulin 3.0 Albumin/Globulin Ratio 0.8 L Cultures: Serology 01/13/17 01/13/17 Range/Units 00:50 00:50 Stl C. cayetanensis PCR Not detected (Not detect) Stool Rotavirus A PCR Not detected (Not detect) Stl Adenov F 40/41 PCR Not detected (Not detect) Stool Astrovirus (PCR) Not detected (Not detect) Stool Campylobacter PCR Not detected (Not detect) Stl C. diff Tox B Gene Positive (Negative) Stl C. diff Tox A/B PCR See reflex test A (Not detect) Stool Cryptosporidium PCR Not detected (Not detect) Stl Sh Tox Pr E STEC PCR Not detected (Not detect) Stool E coli O157 PCR Not detected (Not detect) Stl Enterotoxigenic E PCR Not detected (Not detect) Stool EPEC (PCR) Not detected (Not detect) Stool EAEC (PCR) Not detected (Not detect) Stl E. histolytica PCR Not detected (Not detect) Stool Giardia Lamblia PCR Not detected (Not detect) Stool Salmonella PCR Not detected (Not detect) Stool Sapovirus (PCR) Not detected (Not detect) Stl P. shigelloides PCR Not detected (Not detect) Stl Shigella/EIEC PCR Not detected (Not detect) St Y.enterocolitica PCR Not detected (Not detect) Stool Vibrio (PCR) Not detected (Not detect) Stl Vibrio cholerae PCR Not detected (Not detect) Stl Norovirus GI/GII PCR Not detected (Not detect) Stl GI Panel (PCR) Com See below - Impressions Impressions Chest X-Ray 01/13/17 09:09 IMPRESSION: Mild pulmonary vascular congestion with small bilateral subpulmonic pleural effusions greater on the right than the left associated with atelectatic changes. Post sternotomy changes. D/ / Gurvinder Giles MD / Gurvinder Giles MD Interpreting Provider: Gurvinder Giles MD Exam - Constitutional Vitals: Temp Pulse Resp BP Pulse Ox 97.9 F 79 18 115/53 97 01/14/17 07:53 01/14/17 07:53 01/14/17 07:53 01/14/17 07:53 01/14/17 07:53 General appearance: no acute distress, no febrile Exam: Very somnolent - Head Head exam: Present: atraumatic, normal inspection, normocephalic - Eye Eye exam: Present: PERRL, conjuntiva pink - ENT ENT exam: Present: mucous membranes moist, normal oropharynx - Neck Neck exam: Present: normal inspection. Absent: lymphadenopathy, tenderness, thyromegaly - Respiratory Respiratory exam: Present: decreased breath sounds, wheezes. Absent: accessory muscle use, respiratory distress - Cardiovascular Cardiovascular exam: Present: RRR, +S1, +S2 - GI/Abdominal GI/Abdominal exam: Present: normal bowel sounds, tenderness (Mild right lower quadrant). Absent: guarding, organomegaly, rebound - Extremities Exam Extremities exam: Present: normal inspection. Absent: pedal edema - Back Exam Back exam: Present: CVA tenderness (L) Additional comments: 6 cm subcutaneous abscess left flank, no surrounding erythema - Neurological Exam Neurological exam: Present: CN II-XII intact, oriented X3. Absent: altered Additional comments: Somnolent - Skin Skin exam: Present: dry, warm. Absent: erythema, rash Consult Discharge Plan - Plan Referrals: Hu Yeboah MD [Non-Partnered Physician] - 01/20/17 1:10 pm NONE,PCP [Primary Care Provider] - - Attending Attestation I examined this patient and my medical decision-making was reviewed with the Resident Physician. I agree with the documented findings, disposition and treatment plan as described except to the extent set forth below.
[2017-01-14] MEDS: Vancomycin Oral Soln 250 MG/2.5 ML UDC PO SCH ×4 (09:42→22:31)
[2017-01-14] MEDS: traZODone 50 MG TABLET PO SCH (22:31)
[2017-01-15] MEDS: Ipratropium/Albuterol Neb 3 ML IH SCH ×4 (04:18→21:25)
[2017-01-15] MEDS: Vancomycin Oral Soln 250 MG/2.5 ML UDC PO SCH ×4 (07:55→21:44)
[2017-01-15] MEDS: Folic Acid 1 MG TABLET PO SCH (07:56)
[2017-01-15] MEDS: APIXABAN 5 MG TABLET PO SCH ×2 (07:56→21:44)
[2017-01-15] MEDS: Lactobacillus 1 EACH CAP.SPRINK PO SCH ×3 (07:56→21:44)
[2017-01-15] MEDS: predniSONE 20 MG TABLET PO SCH (07:56)
[2017-01-15] MEDS: Ranolazine 500 MG TAB.ER.12H PO SCH ×2 (07:57→21:44)
[2017-01-15] MEDS: Isosorbide MONOnitrate (24 HR) 60 MG TAB.ER.24H PO SCH (07:59)
--- NOTE | 2017-01-15 08:16 | Infectious Disease Progress No ---
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 C. difficile toxin positive on GI panel. CT abdomen and pelvis without contrast revealed diffuse mural thickening of the large bowel compatible with colitis and moderate right and small left pleural effusions concerning for pulmonary edema versus pneumonia. Chest x-ray revealed mild pulmonary vascular congestion with small bilateral subpulmonic pleural effusions greater on the right than the left associated with atelectatic changes. Blood and urine cultures were collected on 01/12/17, results showed no growth to date Recommendations: At this point patient had second relapse of C. difficile that appears to be moderate. Which is to keep treat him with vancomycin orally. Tapering dose over 7 weeks. Continue Vancomycin to 125 mg PO 4 times a day x 14 days, followed by 125 mg orally twice daily for 7 days, 125 mg orally once daily for 7 days, 125 mg orally every other day for 7 days, 125 mg orally every 3 days for 14 days (7 weeks total) through 03/02/17. Agree with probiotics for the duration of treatment. Follow up with Dr. Gilbert in clinic in 2 weeks Monitor for drug toxicity and dose-adjust antibiotics. We will continue to follow. (2) Clostridium difficile colitis Current Visit: Yes Status: Acute C. difficile toxin positive on GI panel. CT abdomen and pelvis without contrast revealed diffuse mural thickening of the large bowel compatible with colitis Recommendations: At this point patient had second relapse of C. difficile that appears to be moderate. Which is to keep treat him with vancomycin orally. Tapering dose over 7 weeks. Continue Vancomycin to 125 mg PO 4 times a day x 14 days, followed by 125 mg orally twice daily for 7 days, 125 mg orally once daily for 7 days, 125 mg orally every other day for 7 days, 125 mg orally every 3 days for 14 days (7 weeks total) through 03/02/17. Agree with probiotics for the duration of treatment. Follow up with Dr. Gilbert in clinic in 2 weeks Monitor for drug toxicity and dose-adjust antibiotics. We will continue to follow. (3) Acute on chronic systolic (congestive) heart failure Current Visit: No Status: Acute Acute shortness of breath today despite BiPAP therapy. Has not had Lasix since 01/12/17. Home Lasix dose was resumed today and 1 dose of IV Lasix was given. Continue present management per primary team. (4) Elevated troponin Current Visit: No Status: Acute Demand ischemia related to severe sepsis (5) SERGIO (acute kidney injury) Current Visit: Yes Status: Acute Resolved (6) Severe peripheral arterial disease Current Visit: Yes Status: Acute Management per primary team - Subjective Interval history: Patient seen and examined. He is very anxious sitting up at bedside and reports acute shortness of breath this morning that has not improved despite breathing treatments and BiPAP therapy this morning. He reports last dose of Lasix was 01/12/17. Patient reports one soft bowel movement this morning. He denies fevers, chills, chest pain, worsening abdominal pain, or dysuria. Infect Dis PN-Objective Data - Labs CBC & Chem 7: 01/14/17 05:32 01/14/17 05:32 Labs: Laboratory Results - last 24 hr 01/14/17 01/14/17 01/14/17 07:47 11:54 16:06 POC Glucose 179 H 215 H 168 H Cultures: Serology 01/13/17 01/13/17 Range/Units 00:50 00:50 Stl C. cayetanensis PCR Not detected (Not detect) Stool Rotavirus A PCR Not detected (Not detect) Stl Adenov F 40/41 PCR Not detected (Not detect) Stool Astrovirus (PCR) Not detected (Not detect) Stool Campylobacter PCR Not detected (Not detect) Stl C. diff Tox B Gene Positive (Negative) Stl C. diff Tox A/B PCR See reflex test A (Not detect) Stool Cryptosporidium PCR Not detected (Not detect) Stl Sh Tox Pr E STEC PCR Not detected (Not detect) Stool E coli O157 PCR Not detected (Not detect) Stl Enterotoxigenic E PCR Not detected (Not detect) Stool EPEC (PCR) Not detected (Not detect) Stool EAEC (PCR) Not detected (Not detect) Stl E. histolytica PCR Not detected (Not detect) Stool Giardia Lamblia PCR Not detected (Not detect) Stool Salmonella PCR Not detected (Not detect) Stool Sapovirus (PCR) Not detected (Not detect) Stl P. shigelloides PCR Not detected (Not detect) Stl Shigella/EIEC PCR Not detected (Not detect) St Y.enterocolitica PCR Not detected (Not detect) Stool Vibrio (PCR) Not detected (Not detect) Stl Vibrio cholerae PCR Not detected (Not detect) Stl Norovirus GI/GII PCR Not detected (Not detect) Stl GI Panel (PCR) Com See below Exam - Constitutional Vitals: Temp Pulse Resp BP Pulse Ox 97.7 F 80 16 107/48 97 01/15/17 06:56 01/15/17 06:56 01/15/17 06:56 01/15/17 06:56 01/15/17 06:56 General appearance: cooperative, mild distress, thin, no febrile Exam: Sitting up at side of bed with BiPAP in place - Head Head exam: Present: atraumatic, normal inspection, normocephalic - Eye Eye exam: Present: PERRL, conjuntiva pink - ENT Additional comments: Wearing BiPAP mask - Neck Neck exam: Present: normal inspection. Absent: lymphadenopathy, tenderness, thyromegaly - Respiratory Respiratory exam: Present: accessory muscle use, decreased breath sounds, prolonged expiratory phase, rales, respiratory distress (Sitting up in side of bed with BiPAP in place). Absent: CTAB - Cardiovascular Cardiovascular exam: Present: RRR, +S1, +S2 - GI/Abdominal GI/Abdominal exam: Present: normal bowel sounds, soft. Absent: firm, guarding, rebound - Extremities Exam Extremities exam: Present: full ROM, normal inspection. Absent: pedal edema - Neurological Exam Neurological exam: Present: alert, oriented X3. Absent: altered, motor sensory deficit - Psychiatric Psychiatric exam: Present: anxious, normal affect - Skin Skin exam: Present: dry, warm. Absent: erythema, rash Consult Discharge Plan - Plan Referrals: Hu Yeboah MD [Non-Partnered Physician] - 01/20/17 1:10 pm NONE,PCP [Primary Care Provider] - - Attending Attestation I examined this patient and my medical decision-making was reviewed with the Resident Physician. I agree with the documented findings, disposition and treatment plan as described except to the extent set forth below.
[2017-01-15] MEDS: ALPRAZolam 0.5 MG TABLET PO PRN ×2 (09:01→17:44)
[2017-01-15] MEDS: Furosemide 40 MG TABLET PO SCH ×2 (09:34→21:44)
[2017-01-15] MEDS: Insulin LISPRO 300 UNITS/3 ML VIAL SQ SCH ×3 (10:02→17:43)
[2017-01-15] MEDS ORDERED: Furosemide 40 MG/4 ML VIAL IVP ONE (10:15)
--- NOTE | 2017-01-15 12:05 | Internal Med Progress Note ---
Date of Encounter: 01/15/17 Time of Encounter: 11:30 - Assessment and plan (1) Sepsis Current Visit: Yes Status: Acute Assessment and plan: Improving..His sepsis is due to C. Diff colitis His repeat CXR did not show any infiltrates 2 days ago.it looks more like basal atelectasis and vascular congestion Con Vanco PO ID is on board Qualifiers: Sepsis type: sepsis due to unspecified organism Qualified Code(s): A41.9 - Sepsis, unspecified organism (2) Recurrent colitis due to Clostridium difficile Current Visit: Yes Status: Acute Assessment and plan: Cont him on PO Vanco avoid PPI on Probiotic Talked to ID, he may need medical terminologist tapering Vanco rx regimen (3) Pneumonia Current Visit: Yes Status: Ruled-out Assessment and plan: Mostly due to atelctasis..no infiltrates no abx needed encourage more frequent incentive spirometry Qualifiers: Qualified Code(s): J18.9 - Pneumonia, unspecified organism (4) SERGIO (acute kidney injury) Current Visit: Yes Status: Acute Assessment and plan: due to sepsis Improved (5) Pulmonary edema Current Visit: Yes Status: Acute Assessment and plan: His pulmonary edema mostly due to CHF exacerbation His current SOB due to pulm edema repeat CXR now resumed home Lasix dose will use IV lasix PRN d/c BiPAP cont close monitoring cont duoneb and O2 on PO steroids Qualifiers: Chronicity: chronic Qualified Code(s): J81.1 - Chronic pulmonary edema (6) Acute respiratory failure with hypoxia Current Visit: No Status: Acute Assessment and plan: improved now back to his base line .. chronic hypoxic resp failure with home O2 dependent at 2 lit (7) Acute on chronic systolic (congestive) heart failure Current Visit: No Status: Acute Assessment and plan: Significantly elevated BNP, CXR findings and clinical symptoms consistent with CHF exacerabtion reviewed his 2 D Echo from 11/23 no need repeat another one resumed home meds (8) Elevated troponin Current Visit: No Status: Acute Assessment and plan: due to demand ishcemia with CHF exacerbation Trop trending down (9) Severe peripheral arterial disease Current Visit: Yes Status: Acute Assessment and plan: resume home med Eliquis + Plavix (10) History of implantable cardioverter-defibrillator (ICD) placement Current Visit: No Status: Acute - Subjective Interval history: Mr. Bernardo is a 71 year old male with a past medical history of systolic CHF with an ejection fraction of 40%, Chronic resp failure on 2 lit home O2 dependent, COPD, anxiety, severe PAD who had multiple stents placed in Left leg , who recently discharged from the hospital on 11/22/2016 for CHF exacerbation now he presented to emergency room complaining of difficulty breathing since yesterday, also abdominal pain, diarrhea, has had 3 bowel movements. He was admitted here for sepsis with diffuse colitis - recurrent C Diff colitis and questionable pneumonia. Pt did mention he has been having recurrent C. Diff infection since June 2016 , he was never given Vanco PO , however he was placed on 20 days of Flagyl by his PCP which he finished few days ago. His abdominal pain is better, Now he started havign more soft stools. Denied any more abdominal pain. This morning he felt severe SOB and HAINSE. Was given lasix 4 IV x 1 dose and placed on BiPAP. Now he is resting comfortably on BiPAP. Denied any CP - Constitutional Vitals: Temp Pulse Resp BP Pulse Ox 98.0 F 74 20 128/79 99 01/15/17 11:18 01/15/17 11:18 01/15/17 11:18 01/15/17 11:18 01/15/17 11:18 General appearance: Present: A&O X 3 (Very somnolent), no acute distress - Head Head exam: Present: atraumatic, normal inspection - Respiratory Respiratory exam: Present: decreased breath sounds, rales, respiratory distress (mild), wheezes. Absent: rhonchi - Cardiovascular Cardiovascular exam: Present: RRR, +S1, +S2 - GI/Abdominal GI/Abdominal exam: Present: normal bowel sounds, soft. Absent: rebound, rigid, tenderness - Extremities Exam Extremities exam: Absent: calf tenderness, pedal edema, tenderness - Neurological Exam Neurological exam: Present: alert, oriented X3 Internal Medicine: Result - Labs CBC & Chem 7: 01/14/17 05:32 01/14/17 05:32 - ABG Interpretation ABG results: PT/INR, D-dimer PT 14.4 Seconds (9.4-12.1) H 01/12/17 15:35 Consult Discharge Plan - Plan Referrals: Hu Yeboah MD [Non-Partnered Physician] - 01/20/17 1:10 pm NONE,PCP [Primary Care Provider] -
[2017-01-15] MEDS: traZODone 50 MG TABLET PO SCH (23:43)
[2017-01-16] MEDS: Ipratropium/Albuterol Neb 3 ML IH SCH ×4 (05:02→21:30)
[2017-01-16 05:48] LABS: Basophils % 0.2 %; Eosinophils % 0.4 %; Hematocrit 35.9 % (37.5-50.1); Hemoglobin 11.7 g/dL (12.9-16.9); Immature Granulocytes % 0.9 % (0-4); Lymphocytes # 1.4 K/mcL (0.6-4.6); Lymphocytes % 24.4 %; Mean Corpuscular HGB Conc 32.6 g/dL (31.6-35.5); Mean Corpuscular Hemoglobin 29.3 pg (28.0-33.3); Mean Corpuscular Volume 89.8 fL (83.0-100.0); Mean Platelet Volume 10.2 fL (9.4-12.4); Monocytes # 0.5 K/mcL (0.0-1.3); Monocytes % 8.4 %; Neutrophils # 3.7 K/mcL (1.6-8.9); Platelet Count 198 K/mcL (140-400); Red Cell Distribution Width 17.5 % (11.5-14.5); Segmented Neutrophils % 65.7 %
[2017-01-16 06:02] LABS: BUN/Creatinine Ratio 25 (6-26); Blood Urea Nitrogen 26 mg/dL (8-26); Calcium 9.1 mg/dL (8.6-10.8); Carbon Dioxide 31 mEq/L (19-29); Chloride 101 mEq/L (98-109); Glucose 92 mg/dL (70-99); Magnesium 2.1 mg/dL (1.6-2.6); Osmolality,Calculated 290 (280-300); Potassium 4.7 mEq/L (3.5-4.5); Sodium 138 mEq/L (136-145); eGFR For African Americans > 60 (> 60); eGFR For Non-African Americans > 60 (> 60)
[2017-01-16] MEDS: APIXABAN 5 MG TABLET PO SCH ×2 (09:09→22:22)
[2017-01-16] MEDS: Ranolazine 500 MG TAB.ER.12H PO SCH ×2 (09:09→22:22)
[2017-01-16] MEDS: Isosorbide MONOnitrate (24 HR) 60 MG TAB.ER.24H PO SCH (09:09)
[2017-01-16] MEDS: Lactobacillus 1 EACH CAP.SPRINK PO SCH ×3 (09:09→22:22)
[2017-01-16] MEDS: Folic Acid 1 MG TABLET PO SCH (09:09)
[2017-01-16] MEDS: Vancomycin Oral Soln 250 MG/2.5 ML UDC PO SCH ×4 (09:10→22:21)
[2017-01-16] MEDS: Insulin LISPRO 300 UNITS/3 ML VIAL SQ SCH ×3 (09:15→17:00)
[2017-01-16] MEDS: Furosemide 40 MG/4 ML VIAL IVP SCH ×2 (09:27→16:58)
[2017-01-16] MEDS: ALPRAZolam 0.5 MG TABLET PO PRN ×2 (09:44→14:32)
--- NOTE | 2017-01-16 15:06 | Internal Med Progress Note ---
Date of Encounter: 01/16/17 Time of Encounter: 08:00 - Assessment and plan (1) Sepsis Current Visit: Yes Status: Acute Assessment and plan: Improving..His sepsis is due to C. Diff colitis His repeat CXR did not show any infiltrates 2 days ago.it looks more like basal atelectasis and vascular congestion Con Vanco PO ..will d/c home on tapering Vanco PO Qualifiers: Sepsis type: sepsis due to unspecified organism Qualified Code(s): A41.9 - Sepsis, unspecified organism (2) Recurrent colitis due to Clostridium difficile Current Visit: Yes Status: Acute Assessment and plan: Cont him on PO Vanco avoid PPI on Probiotic Talked to ID, he may need custodial tapering Vanco rx regimen (3) Pneumonia Current Visit: Yes Status: Ruled-out Assessment and plan: Mostly due to atelctasis..no infiltrates no abx needed encourage more frequent incentive spirometry Qualifiers: Qualified Code(s): J18.9 - Pneumonia, unspecified organism (4) SERGIO (acute kidney injury) Current Visit: Yes Status: Acute Assessment and plan: due to sepsis Improved (5) Pulmonary edema Current Visit: Yes Status: Acute Assessment and plan: His pulmonary edema mostly due to CHF exacerbation His current SOB due to pulm edema repeat CXR now Changed to Lasix 40 IV BID cont close monitoring cont duoneb and O2 Cont steroids Qualifiers: Chronicity: chronic Qualified Code(s): J81.1 - Chronic pulmonary edema (6) Acute respiratory failure with hypoxia Current Visit: No Status: Acute Assessment and plan: improved now back to his base line .. chronic hypoxic resp failure with home O2 dependent at 2 lit (7) Acute on chronic systolic (congestive) heart failure Current Visit: No Status: Acute Assessment and plan: Significantly elevated BNP, CXR findings and clinical symptoms consistent with CHF exacerabtion reviewed his 2 D Echo from 11/23 showed systolic CHF with LVEF 40% no need repeat another one resumed home meds (8) Elevated troponin Current Visit: No Status: Acute Assessment and plan: due to demand ishcemia with CHF exacerbation Trop trending down (9) Severe peripheral arterial disease Current Visit: Yes Status: Acute Assessment and plan: resume home med Eliquis + Plavix (10) History of implantable cardioverter-defibrillator (ICD) placement Current Visit: No Status: Acute - Subjective Interval history: Mr. Bernardo is a 71 year old male with a past medical history of systolic CHF with an ejection fraction of 40%, Chronic resp failure on 2 lit home O2 dependent, COPD, anxiety, severe PAD who had multiple stents placed in Left leg , who recently discharged from the hospital on 11/22/2016 for CHF exacerbation now he presented to emergency room complaining of difficulty breathing since yesterday, also abdominal pain, diarrhea, has had 3 bowel movements. He was admitted here for sepsis with diffuse colitis - recurrent C Diff colitis and questionable pneumonia. Pt did mention he has been having recurrent C. Diff infection since June 2016 , he was never given Vanco PO , however he was placed on 20 days of Flagyl by his PCP which he finished few days ago. His abdominal pain is better, Now he started having more soft stools. Denied any more abdominal pain. His SOB is also better. However still has mild HAINES. Denied any CP - Constitutional Vitals: Temp Pulse Resp BP Pulse Ox 97.8 F 75 15 100/55 98 01/16/17 11:52 01/16/17 11:52 01/16/17 11:52 01/16/17 11:52 01/16/17 11:52 General appearance: Present: A&O X 3 (Very somnolent), no acute distress - Head Head exam: Present: atraumatic, normal inspection - Neck Neck exam general surgery: Present: supple - Respiratory Respiratory exam: Present: decreased breath sounds, rales, wheezes. Absent: respiratory distress, rhonchi - Cardiovascular Cardiovascular exam: Present: +S1, +S2. Absent: systolic murmur - GI/Abdominal GI/Abdominal exam: Present: normal bowel sounds, soft. Absent: rebound, tenderness - Extremities Exam Extremities exam: Present: pedal edema. Absent: calf tenderness, tenderness - Neurological Exam Neurological exam: Present: alert, oriented X3 - Psychiatric Psychiatric exam: Present: normal affect, normal mood Internal Medicine: Result - Labs CBC & Chem 7: 01/16/17 05:13 01/16/17 05:13 Labs: Short CBC 01/16/17 Range/Units 05:13 WBC 5.6 D (4.3-11.1) K/mcL Hgb 11.7 L (12.9-16.9) g/dL Hct 35.9 L (37.5-50.1) % Plt Count 198 (140-400) K/mcL Neutrophils # 3.7 (1.6-8.9) K/mcL BMP 01/16/17 05:13 Sodium 138 Potassium 4.7 H Chloride 101 Carbon Dioxide 31 H BUN 26 Creatinine 1.05 Glucose 92 Calcium 9.1 - ABG Interpretation ABG results: PT/INR, D-dimer PT 14.4 Seconds (9.4-12.1) H 01/12/17 15:35 Consult Discharge Plan - Plan Referrals: Hu Yeboah MD [Non-Partnered Physician] - 01/20/17 1:10 pm NONE,PCP [Primary Care Provider] - Prescriptions: Albuterol Neb [AccuNeb] 1.25 mg IH Q6H PRN #50 inhsol PRN Reason: Shortness Of Breath/Wheezing Saccharomyces Boulardii [Florastor] 250 mg PO BID #60 capsule Vancomycin Oral Soln [Vancocin] 125 mg PO QID 45 Days
[2017-01-16] MEDS: MethylPREDNISolone 40 MG/ML VIAL IVP SCH (16:59)
[2017-01-17] MEDS: MethylPREDNISolone 40 MG/ML VIAL IVP SCH ×2 (00:30→07:38)
[2017-01-17] MEDS: traZODone 50 MG TABLET PO SCH (00:30)
[2017-01-17] MEDS: Ipratropium/Albuterol Neb 3 ML IH SCH ×3 (04:08→16:34)
[2017-01-17 06:45] LABS: Basophils % 0.4 %; Hematocrit 40.1 % (37.5-50.1); Hemoglobin 12.5 g/dL (12.9-16.9); Immature Granulocytes % 2.6 % (0-4); Lymphocytes # 0.5 K/mcL (0.6-4.6); Lymphocytes % 16.7 %; Mean Corpuscular HGB Conc 31.2 g/dL (31.6-35.5); Mean Corpuscular Hemoglobin 28.2 pg (28.0-33.3); Mean Corpuscular Volume 90.5 fL (83.0-100.0); Mean Platelet Volume 10.2 fL (9.4-12.4); Monocytes # 0.2 K/mcL (0.0-1.3); Monocytes % 7.8 %; Platelet Count 205 K/mcL (140-400); Red Blood Count 4.43 M/mcL (4.19-5.50); Red Cell Distribution Width 17.1 % (11.5-14.5); Segmented Neutrophils % 72.5 %
[2017-01-17 06:57] LABS: BUN/Creatinine Ratio 20 (6-26); Blood Urea Nitrogen 23 mg/dL (8-26); Calcium 9.2 mg/dL (8.6-10.8); Carbon Dioxide 32 mEq/L (19-29); Chloride 98 mEq/L (98-109); Glucose 163 mg/dL (70-99); Osmolality,Calculated 291 (280-300); Sodium 137 mEq/L (136-145); eGFR For African Americans > 60 (> 60); eGFR For Non-African Americans > 60 (> 60)
[2017-01-17 06:58] LABS: Potassium 5.9 mEq/L (3.5-4.5)
[2017-01-17] MEDS: Lactobacillus 1 EACH CAP.SPRINK PO SCH ×2 (07:38→15:46)
[2017-01-17] MEDS: Furosemide 40 MG/4 ML VIAL IVP SCH (07:38)
[2017-01-17] MEDS: Folic Acid 1 MG TABLET PO SCH (07:39)
[2017-01-17] MEDS: Ranolazine 500 MG TAB.ER.12H PO SCH (07:39)
[2017-01-17] MEDS: Vancomycin Oral Soln 250 MG/2.5 ML UDC PO SCH ×3 (07:40→17:43)
[2017-01-17] MEDS: APIXABAN 5 MG TABLET PO SCH (07:40)
[2017-01-17] MEDS: Isosorbide MONOnitrate (24 HR) 60 MG TAB.ER.24H PO SCH (07:40)
[2017-01-17] MEDS: Insulin LISPRO 300 UNITS/3 ML VIAL SQ SCH ×2 (07:41→12:21)
[2017-01-17] MEDS: ALPRAZolam 0.5 MG TABLET PO PRN ×2 (11:03→15:46)
[2017-01-17 12:14] VITALS: BP 119/65
--- NOTE | 2017-01-17 12:50 | Infectious Disease Progress No ---
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 C. difficile toxin positive on GI panel. CT abdomen and pelvis without contrast revealed diffuse mural thickening of the large bowel compatible with colitis and moderate right and small left pleural effusions concerning for pulmonary edema versus pneumonia. Chest x-ray revealed mild pulmonary vascular congestion with small bilateral subpulmonic pleural effusions greater on the right than the left associated with atelectatic changes. Blood and urine cultures were collected on 01/12/17, results showed no growth to date Recommendations: At this point patient had second relapse of C. difficile that appears to be moderate. Which is to keep treat him with vancomycin orally. Tapering dose over 7 weeks. Continue Vancomycin to 125 mg PO 4 times a day x 14 days, followed by 125 mg orally twice daily for 7 days, 125 mg orally once daily for 7 days, 125 mg orally every other day for 7 days, 125 mg orally every 3 days for 14 days (7 weeks total) through 03/02/17. The patient should get his liquid vancomycin from the [place] [facility] as no other pharmacy in [facility] carries the liquid formula. Agree with probiotics for the duration of treatment. Follow up with ID 02/11/17 at 0900. We will continue to follow. (2) Clostridium difficile colitis Current Visit: Yes Status: Acute C. difficile toxin positive on GI panel. CT abdomen and pelvis without contrast revealed diffuse mural thickening of the large bowel compatible with colitis Recommendations: At this point patient had second relapse of C. difficile that appears to be moderate. Which is to keep treat him with vancomycin orally. Tapering dose over 7 weeks. Continue Vancomycin to 125 mg PO 4 times a day x 14 days, followed by 125 mg orally twice daily for 7 days, 125 mg orally once daily for 7 days, 125 mg orally every other day for 7 days, 125 mg orally every 3 days for 14 days (7 weeks total) through 03/02/17. Agree with probiotics for the duration of treatment. We will continue to follow. (3) SERGIO (acute kidney injury) Current Visit: Yes Status: Acute Resolved. (4) Elevated troponin Current Visit: No Status: Acute Demand ischemia related to severe sepsis. (5) Acute on chronic systolic (congestive) heart failure Current Visit: No Status: Acute Management per the primary team. (6) Severe peripheral arterial disease Current Visit: Yes Status: Acute Management per primary team. - Subjective Interval history: Patient seen and examined. No acute events noted overnight. Patient ambulating in the room upon my entrance. States that overall he feels well. He denies any fevers or chills or rigors. He denies any chest pain, shortness of breath, or cough. He denies any nausea, vomiting, diarrhea, or constipation. He does report that he had a small bowel movement this morning. He denies any urinary complaints. He denies any oral thrush or new skin lesions. He denies any abdominal pain. Infect Dis PN-Objective Data - Labs CBC & Chem 7: 01/17/17 06:15 01/17/17 06:15 Labs: Laboratory Results - last 24 hr 01/16/17 01/16/17 01/16/17 08:07 11:45 16:20 WBC RBC Hgb Hct MCV MCH MCHC RDW Plt Count MPV Immature Gran % Seg Neutrophils % Lymphocytes % Monocytes % Eosinophils % Basophils % Neutrophils # Lymphocytes # Monocytes # Eosinophils # Basophils # Sodium Potassium Chloride Carbon Dioxide BUN Creatinine Est GFR ( Amer) Est GFR (Non-Af Amer) BUN/Creatinine Ratio Glucose POC Glucose 99 H 123 H 92 H Calculated Osmolality Calcium Magnesium 01/16/17 01/17/17 01/17/17 21:08 06:15 06:15 WBC 2.7 L D RBC 4.43 Hgb 12.5 L Hct 40.1 MCV 90.5 MCH 28.2 MCHC 31.2 L RDW 17.1 H Plt Count 205 MPV 10.2 Immature Gran % 2.6 Seg Neutrophils % 72.5 Lymphocytes % 16.7 Monocytes % 7.8 Eosinophils % 0.0 Basophils % 0.4 Neutrophils # 2.0 Lymphocytes # 0.5 L Monocytes # 0.2 Eosinophils # 0.0 Basophils # 0.0 Sodium 137 Potassium 5.9 H D Chloride 98 Carbon Dioxide 32 H BUN 23 Creatinine 1.14 Est GFR ( Amer) > 60 Est GFR (Non-Af Amer) > 60 BUN/Creatinine Ratio 20 Glucose 163 H POC Glucose 157 H Calculated Osmolality 291 Calcium 9.2 Magnesium 2.0 01/17/17 01/17/17 06:54 12:07 WBC RBC Hgb Hct MCV MCH MCHC RDW Plt Count MPV Immature Gran % Seg Neutrophils % Lymphocytes % Monocytes % Eosinophils % Basophils % Neutrophils # Lymphocytes # Monocytes # Eosinophils # Basophils # Sodium Potassium Chloride Carbon Dioxide BUN Creatinine Est GFR ( Amer) Est GFR (Non-Af Amer) BUN/Creatinine Ratio Glucose POC Glucose 158 H 208 H Calculated Osmolality Calcium Magnesium Cultures: Serology 01/13/17 01/13/17 Range/Units 00:50 00:50 Stl C. cayetanensis PCR Not detected (Not detect) Stool Rotavirus A PCR Not detected (Not detect) Stl Adenov F 40/41 PCR Not detected (Not detect) Stool Astrovirus (PCR) Not detected (Not detect) Stool Campylobacter PCR Not detected (Not detect) Stl C. diff Tox B Gene Positive (Negative) Stl C. diff Tox A/B PCR See reflex test A (Not detect) Stool Cryptosporidium PCR Not detected (Not detect) Stl Sh Tox Pr E STEC PCR Not detected (Not detect) Stool E coli O157 PCR Not detected (Not detect) Stl Enterotoxigenic E PCR Not detected (Not detect) Stool EPEC (PCR) Not detected (Not detect) Stool EAEC (PCR) Not detected (Not detect) Stl E. histolytica PCR Not detected (Not detect) Stool Giardia Lamblia PCR Not detected (Not detect) Stool Salmonella PCR Not detected (Not detect) Stool Sapovirus (PCR) Not detected (Not detect) Stl P. shigelloides PCR Not detected (Not detect) Stl Shigella/EIEC PCR Not detected (Not detect) St Y.enterocolitica PCR Not detected (Not detect) Stool Vibrio (PCR) Not detected (Not detect) Stl Vibrio cholerae PCR Not detected (Not detect) Stl Norovirus GI/GII PCR Not detected (Not detect) Stl GI Panel (PCR) Com See below Exam - Constitutional Vitals: Temp Pulse Resp BP Pulse Ox 97.2 F L 68 18 119/65 100 01/17/17 12:05 01/17/17 12:05 01/17/17 12:05 01/17/17 12:05 01/17/17 12:05 General appearance: average body habitus, cooperative, no acute distress - Head Head exam: Present: atraumatic, normal inspection, normocephalic - Eye Eye exam: Present: EOMI, normal appearance, PERRL Pupils: Present: normal accommodation - ENT ENT exam: Present: mucous membranes moist - Neck Neck exam: Present: normal inspection - Respiratory Respiratory exam: Present: CTAB. Absent: rales, respiratory distress, rhonchi, wheezes - Cardiovascular Cardiovascular exam: Present: RRR, +S1, +S2 - GI/Abdominal GI/Abdominal exam: Present: normal bowel sounds, soft. Absent: distended, tenderness - Extremities Exam Extremities exam: Present: normal inspection. Absent: joint swelling, pedal edema, tenderness - Neurological Exam Neurological exam: Present: alert, oriented X3, no focal deficits - Psychiatric Psychiatric exam: Present: normal affect, normal mood - Skin Skin exam: Present: dry, intact, normal color, warm Consult Discharge Plan - Plan Referrals: Hu Yeboah MD [Non-Partnered Physician] - 01/20/17 1:10 pm NONE,PCP [Primary Care Provider] - Prescriptions: Albuterol Neb [AccuNeb] 1.25 mg IH Q6H PRN #50 inhsol PRN Reason: Shortness Of Breath/Wheezing Saccharomyces Boulardii [Florastor] 250 mg PO BID #60 capsule Vancomycin Oral Soln [Vancocin] 125 mg PO QID 45 Days
--- NOTE | 2017-01-17 14:08 | Discharge Summary ---
Date of Encounter: 01/17/17 Time of Encounter: 14:01 - Discharge Diagnosis (1) Sepsis Priority: Primary Status: Resolved Qualifiers: Sepsis type: sepsis due to unspecified organism Qualified Code(s): A41.9 - Sepsis, unspecified organism (2) Recurrent colitis due to Clostridium difficile Priority: Primary Status: Acute (3) Pneumonia Priority: Secondary Status: Ruled-out Qualifiers: Qualified Code(s): J18.9 - Pneumonia, unspecified organism (4) SERGIO (acute kidney injury) Priority: Secondary Status: Acute (5) Pulmonary edema Priority: Secondary Status: Acute Qualifiers: Chronicity: chronic Qualified Code(s): J81.1 - Chronic pulmonary edema (6) Acute respiratory failure with hypoxia Priority: Secondary Status: Acute (7) Acute on chronic systolic (congestive) heart failure Priority: Secondary Status: Acute (8) Elevated troponin Priority: Secondary Status: Acute (9) Severe peripheral arterial disease Priority: Secondary Status: Acute (10) History of implantable cardioverter-defibrillator (ICD) placement Priority: Secondary Status: Acute - Discharge Medications Prescriptions: Albuterol Neb [AccuNeb] 1.25 mg IH Q6H PRN #50 inhsol PRN Reason: Shortness Of Breath/Wheezing Saccharomyces Boulardii [Florastor] 250 mg PO BID #60 capsule Vancomycin Oral Soln [Vancocin] 125 mg PO QID 45 Days Home Medications: ALPRAZolam [Xanax 0.5 MG Tablet] 0.5 mg PO TID PRN 11/21/16 [History] Albuterol Sulfate [Albuterol Inhaler] 2 puff IH Q6HR PRN 11/21/16 [History] Apixaban [Eliquis] 5 mg PO BID 11/21/16 [History] Ascorbic Acid [Vitamin C] 1,000 mg PO DAILY 11/21/16 [History] Budesonide/Formoterol 160/4.5 [Symbicort 160/4.5] 2 puff IH BIDR 11/21/16 [ History] Carvedilol [Coreg] 3.125 mg PO BID 11/21/16 [History] Cholecalciferol (D-3) [Vitamin D] 3,000 unit PO DAILY 11/21/16 [History] Clopidogrel [Plavix] 75 mg PO DAILY 11/21/16 [History] Fish Oil/Dha/Epa [Fish Oil 1,200 mg Fish Oil] 1,200 mg PO DAILY 11/21/16 [ History] Folic Acid 0.8 mg PO DAILY 11/21/16 [History] Furosemide [Lasix] 40 mg PO BID 11/21/16 [History] Isosorbide MONOnitrate (24 HR) [Imdur] 120 mg PO DAILY 11/21/16 [History] Magnesium Oxide [Magnesium] 500 mg PO DAILY 11/21/16 [History] Multivitamin [One Daily Multivitamin] 1 tab PO DAILY 11/21/16 [History] Nitroglycerin [Nitrostat] 0.4 mg SL AD PRN 11/21/16 [History] Oxygen 2 l .ROUTE AD 11/21/16 [History] Ranolazine [Ranexa] 1,000 mg PO BID 11/21/16 [History] Trazodone HCl 200 mg PO HS 11/21/16 [History] Vitamin B Complex [B Complex] 1 tab PO DAILY 11/21/16 [History] Tamsulosin [Flomax] 0.4 mg PO HS #30 capsule 11/22/16 [Rx] Ezetimibe [Zetia] 10 mg PO DAILY 01/12/17 [History] Albuterol Neb [AccuNeb] 1.25 mg IH Q6H PRN #50 inhsol 01/16/17 [Rx] Saccharomyces Boulardii [Florastor] 250 mg PO BID #60 capsule 01/16/17 [Rx] Vancomycin Oral Soln [Vancocin] 125 mg PO QID 45 Days 01/16/17 [Rx] Allergies/Adverse Reactions: Allergies Penicillins Allergy (Verified 01/12/17 15:25) Redness of Skin Date of admission: 01/12/17 19:11 Primary care physician: PCP NONE Consults: 01/13/17 09:19 Consult to Infectious Diseases [CONS] Routine Consulting Provider: [facility] [place] Reason for Consult: Consult requested by Dr. Gutiérrez` Time Notified: 09:20 Call Completed: Yes - Patient Status Disposition: Home, Self-Care Condition: Good Overall status at discharge: patient is back to baseline - Discharge Instructions Follow Up With: Hu Yeboah MD [Non-Partnered Physician] - 01/20/17 1:10 pm NONE,PCP [Primary Care Provider] - Additional Instructions: f/u with PCP in one week f/u with ID Dr. Gilbert in 2 weeks - Diet and Activity Activity: increase activity as tolerated Diet: low salt diet Hospital course: Mr. Bernardo is a 71 year old male with a past medical history of systolic CHF with an ejection fraction of 40%, Chronic resp failure on 2 lit home O2 dependent, COPD, anxiety, severe PAD who had multiple stents placed in Left leg , who recently discharged from the hospital on 11/22/2016 for CHF exacerbation now he presented to emergency room complaining of difficulty breathing since yesterday, also abdominal pain, diarrhea, has had 3 bowel movements. He was admitted here for sepsis with diffuse colitis - recurrent C Diff colitis and questionable pneumonia. 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 Pt was admitted to PCU and placed him on Vanco PO abx and IV hdyration. Initially there was concern for Pneumonia. But his repeated CXR did not show any infiltrates, it looks more like vascular congestion. So he did not recieve any other abx other than Vanco PO for C. Diff infection. I also consulted ID for further evaluation since he does have recurrent C. Diff, does need close f/ u on this. ID recommend superintendent terminal tapering Vancomycin and follow up with ID as an out pt. His diarrhea improved, his lactic acidosis resolved , and he is tolerating pO intake well now. He happened to have worsening SOB 2 days ago with pulmonary edema due to systolic CHF exacerbation. Due to his sepsis we held his diuretics initially and gave him IV fluids that could triggered his CHF exacerbation. Started him aggressive IV diuresis last 2 days , now he breaths comfortably on 2 lit O2, no more SOB / HAINES. Recommend him to continue PO Lasix once he goes home. Also recommend to hold his K + supplements for 2 days since K + is sightly elevated this morning. His K + -4.3 at the time of discharge. Time spent discussing smoking cessation with patient: 3 to 10 minutes - Time Spent with Patient Total time spent providing and/or coordinating discharge services: - Constitutional Vitals: Temp Pulse Resp BP Pulse Ox 97.2 F L 68 18 119/65 100 01/17/17 12:05 01/17/17 12:05 01/17/17 12:05 01/17/17 12:05 01/17/17 12:05 General appearance: Present: A&O X 3, no acute distress - Head Head exam: Present: atraumatic, normal inspection - Respiratory Respiratory exam: Present: decreased breath sounds, wheezes. Absent: rales, respiratory distress, rhonchi - Cardiovascular Cardiovascular exam: Present: RRR, +S1, +S2. Absent: systolic murmur - GI/Abdominal GI/Abdominal exam: Present: normal bowel sounds, soft. Absent: rebound, rigid, tenderness - Extremities Exam Extremities exam: Present: pedal edema. Absent: calf tenderness, tenderness - Psychiatric Psychiatric exam: Present: normal affect, normal mood
== END 2017-01-17 18:30 | disposition home or self-care (01) | DRG 871 ==
LOC: EMEROO 15:13 → 2ANU 15:13 → 2NNU 17:45 → 3ANU 01-14 18:01
PROVIDERS: ADMIT Internal Medicine; ATTEND Internal Medicine

== ENCOUNTER 2017-02-10 08:22 | Inpatient (IN) ==
[2017-02-10] MEDS ORDERED: methylPREDNISolone 125 MG/2 ML VIAL IVP ONE (08:31)
[2017-02-10] MEDS ORDERED: Albuterol 2.5 MG/3 ML NEBULIZER IH ONE (08:31)
[2017-02-10] MEDS ORDERED: Ipratropium/Albuterol Neb 3 ML IH ONE (08:31)
[2017-02-10] MEDS ORDERED: Ipratropium/Albuterol Neb 3 ML ONE (08:32)
[2017-02-10 08:43] LABS: Basophils % 0.2 %; Eosinophils # 0.3 K/mcL (0.0-0.6); Eosinophils % 5.8 %; Hematocrit 39.2 % (37.5-50.1); Hemoglobin 12.3 g/dL (12.9-16.9); Immature Granulocytes % 0.2 % (0-4); Lymphocytes # 1.1 K/mcL (0.6-4.6); Lymphocytes % 21.1 %; Mean Corpuscular HGB Conc 31.4 g/dL (31.6-35.5); Mean Corpuscular Hemoglobin 29.9 pg (28.0-33.3); Mean Corpuscular Volume 95.1 fL (83.0-100.0); Mean Platelet Volume 8.9 fL (9.4-12.4); Monocytes # 0.4 K/mcL (0.0-1.3); Monocytes % 8.5 %; Neutrophils # 3.2 K/mcL (1.6-8.9); Platelet Count 198 K/mcL (140-400); Red Blood Count 4.12 M/mcL (4.19-5.50); Red Cell Distribution Width 17.1 % (11.5-14.5); Segmented Neutrophils % 64.2 %
[2017-02-10 08:50] LABS: Chloride 100 mEq/L (98-109); Potassium 4.2 mEq/L (3.5-4.5); Sodium 136 mEq/L (136-145)
[2017-02-10 09:02] LABS: VBG HCO3 28.2 mEq/L (21-27); VBG PH 7.28 pH Units (7.32-7.42)
[2017-02-10 09:06] LABS: BUN/Creatinine Ratio 10 (6-26); Blood Urea Nitrogen 14 mg/dL (8-26); Carbon Dioxide 27 mEq/L (19-29); Glucose 158 mg/dL (70-99); Osmolality,Calculated 286 (280-300); eGFR For African Americans > 60 (> 60); eGFR For Non-African Americans 52 (> 60)
--- NOTE | 2017-02-10 09:22 | Emergency Department Note ---
Disposition Clinical Impression: COPD exacerbation, Hypoxia, Acute kidney injury Congestive heart failure Qualifiers: Congestive heart failure type: systolic Congestive heart failure chronicity: acute Qualified Code(s): I50.21 - Acute systolic (congestive) heart failure Disposition: Admitted As Inpatient Condition: Fair Time of Disposition: 11:09 SOB HPI - General Chief Complaint: ED Shortness of Breath/Dyspnea Stated Complaint: shortness of breaths Time Seen by Provider: 02/10/17 08:30 Source: patient, EMS Limitations: no limitations Nursing Notes Reviewed: Yes Vital Signs Reviewed: Yes - History of Present Illness Patient is a 71-year-old male presents short of breath by EMS with a history of COPD and CHF. Patient states that symptoms began last night of shortness of breath that worsened gradually until EMS was called. Patient was found in tripod position and short of breath was placed on CPAP and transported. Patient 's oxygen saturations on CPAP were 99%. Patient states he has not gained any weight and measures himself daily. Patient denies any fever or chills leg symptoms increased cough prior to onset of symptoms. Patient is asking for BiPAP. Patient is transferred to [facility] here in the ED upon arrival. - Related Data Home Medications Medication Instructions Recorded Confirmed ALPRAZolam [Xanax 0.5 MG Tablet] 0.5 mg PO TID PRN 11/21/16 02/10/17 Albuterol Sulfate [Albuterol 2 puff IH Q6HR PRN 11/21/16 01/12/17 Inhaler] Apixaban [Eliquis] 5 mg PO BID 11/21/16 02/10/17 Ascorbic Acid [Vitamin C] 1,000 mg PO DAILY 11/21/16 01/12/17 Budesonide/Formoterol 160/4.5 2 puff IH BIDR 11/21/16 02/10/17 [Symbicort 160/4.5] Carvedilol [Coreg] 3.125 mg PO BID 11/21/16 02/10/17 Cholecalciferol (D-3) [Vitamin D] 3,000 unit PO DAILY 11/21/16 01/12/17 Clopidogrel [Plavix] 75 mg PO DAILY 11/21/16 02/10/17 Fish Oil/Dha/Epa [Fish Oil 1,200 1,200 mg PO DAILY 11/21/16 01/12/17 mg Fish Oil] Folic Acid 0.8 mg PO DAILY 11/21/16 01/12/17 Furosemide [Lasix] 40 mg PO BID 11/21/16 02/10/17 Isosorbide MONOnitrate (24 HR) 120 mg PO DAILY 11/21/16 02/10/17 [Imdur] Magnesium Oxide [Magnesium] 500 mg PO DAILY 11/21/16 01/12/17 Multivitamin [One Daily 1 tab PO DAILY 11/21/16 01/12/17 Multivitamin] Nitroglycerin [Nitrostat] 0.4 mg SL AD PRN 11/21/16 02/10/17 Oxygen 2 l .ROUTE AD 11/21/16 01/12/17 Ranolazine [Ranexa] 1,000 mg PO BID 11/21/16 02/10/17 Trazodone HCl 200 mg PO HS 11/21/16 02/10/17 Vitamin B Complex [B Complex] 1 tab PO DAILY 11/21/16 01/12/17 Ezetimibe [Zetia] 10 mg PO DAILY 01/12/17 02/10/17 Aspirin [Lo-Dose Aspirin EC] 81 mg PO DAILY 02/10/17 02/10/17 Saccharomyces Boulardii [Florastor] 1,000 mg PO BID 02/10/17 02/10/17 Vancomycin Oral Soln [Vancocin] 200 mg PO HS 02/10/17 02/10/17 Previous Rx's Medication Instructions Recorded Tamsulosin [Flomax] 0.4 mg PO HS #30 capsule 11/22/16 Albuterol Neb [AccuNeb] 1.25 mg IH Q6H PRN #50 inhsol 01/16/17 Allergies Allergy/AdvReac Type Severity Reaction Status Date / Time Penicillins Allergy Redness of Verified 01/12/17 15:25 Skin All systems ED: reviewed and negative except as stated. Review of Systems: As Per HPI Constitutional: Denies: fever, chills, weakness Eyes: Denies: vision change ENT ED: Denies: congestion Cardiovascular: Reports: dyspnea on exertion. Denies: chest pain, palpitations , edema Respiratory: Denies: cough, dyspnea, wheezes Gastrointestinal: Denies: abdominal pain, nausea, vomiting Genitourinary: Denies: urgency, dysuria, frequency Musculoskeletal: Denies: back pain Integumentary: Denies: rash Neurological: Denies: headache Psychiatric: Reports: anxiety Endocrine: Denies: fatigue Past Medical History - Past Medical History Attestation: Yes The following information was validated with the patient. Source: patient Medical history: Reports: CHF, COPD, coronary artery disease, diabetes, hyperlipidemia, hypertension, myocardial infarction, other Surgical history: Reports: coronary bypass (CABG), herniorrhaphy, pacemaker/AICD , vascular surgery Psychiatric history: Reports: anxiety - Social History Smoking Status: Former smoker Smokeless Tobacco Status: No Alcohol use: Reports: none Drug use: Reports: none Physical Exam Patient is a very thin 71-year-old male with a BMI of 21.1. Patient is almost Cachectic appearing. Patient sitting up erect in bed breathing heavily on CPAP. Patient is transferred over to BiPAP. Patient do not appear cyanotic and is able to speak short one to 2 quick words before gasping for air. - General Limitations: no limitations General appearance: alert, anxious - Head Head exam: atraumatic, normocephalic, normal inspection - Eye Eye exam: Present: normal appearance, PERRL, EOMI - ENT ENT exam: normal exam, normal oropharynx, mucous membranes dry - Neck Neck exam: Present: normal inspection, full ROM, trachea midline - Chest Chest inspection: Present: normal inspection, symmetric chest wall rise - Respiratory Respiratory exam: Present: other (Patient has distant lung sounds poor air movement, respiratory wheeze left lower lung base Rales right lower lung base ) - Cardiovascular Cardiovascular exam: Present: regular rate, normal rhythm, normal heart sounds - Abdominal Exam Abdominal exam: Present: soft, Non-Tender. Absent: tenderness, distention, guarding, rebound, rigidity - Extremities Exam Extremities exam: Present: normal inspection, normal capillary refill. Absent: tenderness, pedal edema - Back Exam Back exam: Present: normal inspection, full ROM. Absent: tenderness, CVA tenderness (R), CVA tenderness (L) - Neurological Exam Neurological exam: Present: alert, oriented X3, CN II-XII intact - Skin Skin exam: Present: warm, dry, intact, normal color. Absent: rash, cyanosis, diaphoresis, pallor, mottled Course - Reevaluation(s) Reevaluation #1: Patient seen and examined, and placed on BiPAP. Albuterol 3, DuoNeb 3, Solu- Medrol 125 mg ordered Time: 08:31 Reevaluation #2: Patient doing well, O2 100%, patient states he is breathing better on the BiPAP. Complains some discomfort with a mask but states that he can tolerate it. Patient currently lying back in a 45 degree angle Time: 09:15 - Consultations Consultation #1: Dr. Jalloh the hospitalist has accepted pt for admission at 1043hrs Time: 10:43 Vital Signs Temperature 97.1 F L 02/10/17 08:23 Pulse Rate 89 02/10/17 08:23 Respiratory Rate 20 02/10/17 08:23 Blood Pressure 143/81 02/10/17 08:23 O2 Sat by Pulse Oximetry 99 02/10/17 08:23 Temperature 98.4 F 02/10/17 19:26 Pulse Rate 62 02/10/17 19:26 Respiratory Rate 18 02/10/17 19:26 Blood Pressure 125/63 02/10/17 19:26 O2 Sat by Pulse Oximetry 96 02/10/17 19:26 Oxygen Delivery Oxygen Delivery Nasal Cannula Shortness of Breath/Dyspnea - MDM Narrative Medical decision making narrative: Description for COPD exacerbation, CHF exacerbation, [place], PE, pneumonia Chest x-ray shows: Chest X-Ray 02/10/17 08:31 IMPRESSION: Increasing interstitial opacity, suggestive of edema. D/ / Bj Toledo MD / Bj Toledo MD Interpreting Provider: Bj Toledo MD Patient currently afebrile, doing better on BiPAP and currently stable. Patient 's ABG shows respiratory acidosis with respiratory compensation. Patient's BNP is elevated but is decrease since previous today's 2427, previous 30-31. Patient has elevation of creatinine at 1.36 which is new. Ordered a urinalysis. Patient urinated this morning prior to arrival. Unable to make urine right now. Does not want to be straight catheter. Told patient that he can be drawn later. Did not want to start IV fluid hydration secondary to history of CHF and somewhat but patient in fluid overload. Patient started on DuoNeb therapy and albuterol therapy which has helped along with his BiPAP. Patient started on 125 methylprednisolone. Patient excess decision to admit and was admitted to Dr. Jalloh the hospitalist except patient for admission for COPD exacerbation, hypoxia, and respiratory acidosis, acute kidney injury, chronic CHF - Lab Data Lab results reviewed: Yes I reviewed the patient's lab results. Lab results narrative: Short CBC 02/10/17 Range/Units 08:30 WBC 5.0 (4.3-11.1) K/mcL Hgb 12.3 L (12.9-16.9) g/dL Hct 39.2 (37.5-50.1) % Plt Count 198 (140-400) K/mcL Neutrophils # 3.2 (1.6-8.9) K/mcL BMP 02/10/17 Range/Units 08:30 Sodium 136 (136-145) mEq/L Potassium 4.2 (3.5-4.5) mEq/L Chloride 100 (98-109) mEq/L Carbon Dioxide 27 (19-29) mEq/L BUN 14 (8-26) mg/dL Creatinine 1.36 H (0.72-1.25) mg/dL Glucose 158 H (70-99) mg/dL Calcium 9.0 (8.6-10.8) mg/dL Cardiac Enzymes 02/10/17 Range/Units 08:30 Troponin I 0.03 (0-0.03) ng/mL Result diagrams: 02/10/17 08:30 02/10/17 08:30 Lab Results 02/10/17 02/10/17 02/10/17 Range/Units 08:30 08:30 08:30 WBC 5.0 (4.3-11.1) K/mcL RBC 4.12 L (4.19-5.50) M/mcL Hgb 12.3 L (12.9-16.9) g/dL Hct 39.2 (37.5-50.1) % MCV 95.1 (83.0-100.0) fL MCH 29.9 (28.0-33.3) pg MCHC 31.4 L (31.6-35.5) g/dL RDW 17.1 H (11.5-14.5) % Plt Count 198 (140-400) K/mcL MPV 8.9 L (9.4-12.4) fL Immature Gran % 0.2 (0-4) % Seg Neutrophils % 64.2 % Lymphocytes % 21.1 % Monocytes % 8.5 % Eosinophils % 5.8 % Basophils % 0.2 % Neutrophils # 3.2 (1.6-8.9) K/mcL Lymphocytes # 1.1 (0.6-4.6) K/mcL Monocytes # 0.4 (0.0-1.3) K/mcL Eosinophils # 0.3 (0.0-0.6) K/mcL Basophils # 0.0 (0.0-0.2) K/mcL VBG pH (7.32-7.42) pH Units VBG pCO2 (41-51) mmHg VBG pO2 (25-40) mmHg VBG HCO3 (21-27) mEq/L Sodium 136 (136-145) mEq/L Potassium 4.2 (3.5-4.5) mEq/L Chloride 100 (98-109) mEq/L Carbon Dioxide 27 (19-29) mEq/L BUN 14 (8-26) mg/dL Creatinine 1.36 H (0.72-1.25) mg/dL Est GFR ( Amer) > 60 (> 60) Est GFR (Non-Af Amer) 52 L (> 60) BUN/Creatinine Ratio 10 (6-26) Glucose 158 H (70-99) mg/dL Calculated Osmolality 286 (280-300) Calcium 9.0 (8.6-10.8) mg/dL Troponin I 0.03 (0-0.03) ng/mL B-Natriuretic Peptide (0-100) pg/mL 02/10/17 02/10/17 Range/Units 08:30 08:40 WBC (4.3-11.1) K/mcL RBC (4.19-5.50) M/mcL Hgb (12.9-16.9) g/dL Hct (37.5-50.1) % MCV (83.0-100.0) fL MCH (28.0-33.3) pg MCHC (31.6-35.5) g/dL RDW (11.5-14.5) % Plt Count (140-400) K/mcL MPV (9.4-12.4) fL Immature Gran % (0-4) % Seg Neutrophils % % Lymphocytes % % Monocytes % % Eosinophils % % Basophils % % Neutrophils # (1.6-8.9) K/mcL Lymphocytes # (0.6-4.6) K/mcL Monocytes # (0.0-1.3) K/mcL Eosinophils # (0.0-0.6) K/mcL Basophils # (0.0-0.2) K/mcL VBG pH 7.28 L (7.32-7.42) pH Units VBG pCO2 60 H (41-51) mmHg VBG pO2 51 H (25-40) mmHg VBG HCO3 28.2 H (21-27) mEq/L Sodium (136-145) mEq/L Potassium (3.5-4.5) mEq/L Chloride (98-109) mEq/L Carbon Dioxide (19-29) mEq/L BUN (8-26) mg/dL Creatinine (0.72-1.25) mg/dL Est GFR ( Amer) (> 60) Est GFR (Non-Af Amer) (> 60) BUN/Creatinine Ratio (6-26) Glucose (70-99) mg/dL Calculated Osmolality (280-300) Calcium (8.6-10.8) mg/dL Troponin I (0-0.03) ng/mL B-Natriuretic Peptide 2427 H (0-100) pg/mL - Radiology Data Radiology results reviewed: Yes I reviewed the patient's radiology results. Chest X-Ray 02/10/17 08:31 IMPRESSION: Increasing interstitial opacity, suggestive of edema. D/ / Bj Toledo MD / Bj Toledo MD Interpreting Provider: Bj Toledo MD - EKG Data EKG attestation: Yes I reviewed and interpreted this EKG. EKG results narrative: EKG taken for February 2017@0821 hrs. shows sinus rhythm at a rate of 90 bpm with no acute ST elevations or depressions mainly is not wrist widened QT prolongation. No S1Q3T3, no Brugada, no Wellons, no Scarbosa criteria. There is EKG for comparison shows sinus tachycardia rate 109 beats. With no signs of ischemia
[2017-02-10] MEDS ORDERED: Ondansetron 4 MG/2 ML VIAL IVP PRN (11:35)
[2017-02-10] MEDS ORDERED: Naloxone 0.4 MG/ML INJ IVP PRN (11:35)
[2017-02-10] MEDS ORDERED: Acetaminophen 325 MG TABLET PO PRN (11:35)
[2017-02-10] MEDS ORDERED: Albuterol 2.5 MG/3 ML NEBULIZER IH PRN (11:38)
--- NOTE | 2017-02-10 11:43 | Internal Med History&Physical ---
Date of Encounter: 02/10/17 Time of Encounter: 11:43 Assessment and Plan (1) Acute respiratory failure with hypoxia Current visit: No Status: Acute 1 this is multifactorial patient does have history of COPD is oxygen dependent increasing shortness of breath with wheezing despite oxygen use as well as history of congestive heart failure EF of 40% no improvement rest restate despite the use of Lasix. Chest x-ray does show some vascular congestion. Patient does have expiratory wheezing as well as crackles. We will continue with oxygen titrating maintain SPO2 greater than 92% he is presently on 4 L nasal cannula. Continuous pulse ox 2 continue with bronchodilators 3 Lasix (2) COPD exacerbation Current visit: Yes Status: Acute 1 continue with oxygen titrated to maintain SPO2 greater than 92%-Robinson patient is off BiPAP-we will hold off on Levaquin for now since patient has had recent episode of C. difficile and is on vancomycin. He has no recent change in cough sputum and he is not on BiPAP at this time. 2 continue with bronchodilators 3 continue with steroids (3) Acute exacerbation of CHF (congestive heart failure) Current visit: Yes Status: Acute 1 patient does have history of systolic heart failure-on Lasix 40 mg twice a day he upped his dose without any improvement. He does deny any recent weight gain or swelling however does admit to orthopnea and shortness of breath. We will give IV Lasix 40 mg twice a day 2 we will monitor intake and output daily weights 3 low sodium diet 4 continue with oxygen titrating maintain SPO2 greater than 92% Qualifiers: Congestive heart failure type: systolic Qualified Code(s): I50.23 - Acute on chronic systolic (congestive) heart failure (4) Acute on chronic kidney failure Current visit: Yes Status: Acute 1 presently patient's creatinine is 1.36. His baseline is been around 1.14-1.5 , most recently less than 1.5 over the past month. We will continue to monitor creatinine 2 we will continue with gentle diuresis and monitor electrolytes replace as needed 3 monitor intake and output daily weights 4 avoid nephrotoxins Qualifiers: Acute renal failure type: unspecified Chronic kidney disease stage: stage 3 (moderate) Qualified Code(s): N17.9 - Acute kidney failure, unspecified; N18.3 - Chronic kidney disease, stage 3 (moderate) (5) History of Clostridium difficile colitis Current visit: No Status: Chronic 1 patient has been treated over the past few months for C. difficile is presently on vancomycin orally which she states has improved his symptoms. We will continue with vancomycin 2 contact precautions (6) DVT prophylaxis Current visit: Yes Status: Acute 1 [facility] Internal Medicine - H&P: HPI Chief complaint: SOB Admitted From: Emergency Dept Plans for Post Hospital Care: Home History of present illness: Mr. Bernardo is a 71 year old male past medical history of CHF EF 40% COPD oxygen dependent coronary artery disease diabetes hyperlipidemia hypertension femoropopliteal bypass, CK D stage III. Patient states that he began to experience increased shortness of breath overnight last night gradually worsening despite the use of oxygen and bronchodilators. Patient denies any recent weight loss or weight gain swelling in his lower extremities fevers chills cough or sputum production. He states he has been experiencing some increased shortness of breath on exertion he did increase his Lasix yesterday to 80 twice a day which not improve his symptoms. According to medical records upon arrival of EMS patient was found in tripod position short of breath was placed on CPAP and transported to the ER. Upon arrival to ER his SPO2 was 99% on CPAP. Upon arrival to the ER patient was given to him that as well as steroids x-ray was obtained which did reveal some pulmonary congestion no leukocytosis his creatinine was slightly elevated at 1.36 BNP was 2427 VBG upon arrival was 7.28P CO2 was 60 PaO2 was 57 bicarbonate was 28.2 history of Crohn was 0.03. He has been admitted for further workup and evaluation. Presently patient is not to be in any respiratory distress he is resting comfortably on 4 L nasal cannula as PO2 93%. His lung sounds have a faint expiratory wheeze and crackles in bases bilaterally heart sounds are regular S1 and S2 with no rubs clicks gallops murmurs noted abdomen soft and nontender no pedal edema. Patient states that he has been admitted to the hospital every month this year except for the month of December. He had a recent cardiac catheterization at the beginning of the year at [facility] with Dr. Camejo. At that time he was advised that he did need an open heart surgery however he was not a candidate due to his respiratory state. He was medically managed. He also developed C. difficile and he is on vancomycin orally. He has had stents placed in his femoral arteries bilaterally. He is hemodynamically stable at this time. I did review this case with Dr. Jalloh Past Med Surg Social Fam HX - Past Medical History Medical history: CHF, COPD, coronary artery disease, diabetes, hyperlipidemia, hypertension, myocardial infarction, other Psychiatric history: anxiety - Past Surgical History Surgical History: coronary bypass (CABG), herniorrhaphy, pacemaker/AICD, vascular surgery - Social History Smoking Status: Former smoker Smokeless Tobacco Status: No Alcohol use: none Drug use: none - Family History Father Living Status: Cause of : Cardiomyopathy Internal Medicine - H&P: Meds ALPRAZolam [Xanax 0.5 MG Tablet] 0.5 mg PO TID PRN 11/21/16 [History] Albuterol Sulfate [Albuterol Inhaler] 2 puff IH Q6HR PRN 11/21/16 [History] Apixaban [Eliquis] 5 mg PO BID 11/21/16 [History] Ascorbic Acid [Vitamin C] 1,000 mg PO DAILY 11/21/16 [History] Budesonide/Formoterol 160/4.5 [Symbicort 160/4.5] 2 puff IH BIDR 11/21/16 [ History] Carvedilol [Coreg] 3.125 mg PO BID 11/21/16 [History] Cholecalciferol (D-3) [Vitamin D] 3,000 unit PO DAILY 11/21/16 [History] Clopidogrel [Plavix] 75 mg PO DAILY 11/21/16 [History] Fish Oil/Dha/Epa [Fish Oil 1,200 mg Fish Oil] 1,200 mg PO DAILY 11/21/16 [ History] Folic Acid 0.8 mg PO DAILY 11/21/16 [History] Furosemide [Lasix] 40 mg PO BID 11/21/16 [History] Isosorbide MONOnitrate (24 HR) [Imdur] 120 mg PO DAILY 11/21/16 [History] Magnesium Oxide [Magnesium] 500 mg PO DAILY 11/21/16 [History] Multivitamin [One Daily Multivitamin] 1 tab PO DAILY 11/21/16 [History] Nitroglycerin [Nitrostat] 0.4 mg SL AD PRN 11/21/16 [History] Oxygen 2 l .ROUTE AD 11/21/16 [History] Ranolazine [Ranexa] 1,000 mg PO BID 11/21/16 [History] Trazodone HCl 200 mg PO HS 11/21/16 [History] Vitamin B Complex [B Complex] 1 tab PO DAILY 11/21/16 [History] Tamsulosin [Flomax] 0.4 mg PO HS #30 capsule 11/22/16 [Rx] Ezetimibe [Zetia] 10 mg PO DAILY 01/12/17 [History] Albuterol Neb [AccuNeb] 1.25 mg IH Q6H PRN #50 inhsol 01/16/17 [Rx] Saccharomyces Boulardii [Florastor] 250 mg PO BID #60 capsule 01/16/17 [Rx] Vancomycin Oral Soln [Vancocin] 125 mg PO QID 45 Days 01/16/17 [Rx] 3 Allergy/AdvReac Type Severity Reaction Status Date / Time Penicillins Allergy Redness of Verified 01/12/17 15:25 Skin All Systems PM: A 10-system review of systems was performed and is negative for pertinent findings except as documented above in the HPI. - Constitutional Constitutional: no chills, no fever(s), no night sweats - EENT Eyes: no change in vision, no discharge, no pain, no photophobia Nose, mouth and throat: no dysphagia, no nasal discharge, no neck pain, no sore throat - Cardiovascular Cardiovascular ROS IM: dyspnea on exertion, orthopnea, no chest pain, no diaphoresis, no dyspnea, no lightheadedness, no palpitations, no syncope - Respiratory Respiratory: dyspnea on exertion, no cough, no dyspnea, no wheezing, no excessive phlegm production - Gastrointestinal Gastrointestinal: no abdominal pain, no diarrhea, no hematemesis, no hematochezia, no melena, no nausea, no vomiting - Musculoskeletal Musculoskeletal ROS IM: no numbness, no tingling - Integumentary Integumentary IM: no rash, no unusual bruising - Neurological Neurological ROS: no confusion, no convulsions, no focal weakness, no numbness, no tingling, no tremor(s) - Hematologic/Lymphatic Hematologic/Lymphatic: no easy bruising - Constitutional Vitals: Temp Pulse Resp BP Pulse Ox 97.1 F L 71 16 131/63 96 02/10/17 08:23 02/10/17 10:36 02/10/17 11:10 02/10/17 11:10 02/10/17 10:36 General appearance: Present: A&O X 3, underweight - Head Head exam: Present: atraumatic, normocephalic - Eye Eye exam: Present: PERRL, conjuntiva pink, sclera anicteric Pupils: Present: PERRL - Neck Neck exam general surgery: Present: supple, trachea midline. Absent: lymphadenopathy - Respiratory Respiratory exam: Present: rales, wheezes. Absent: accessory muscle use, rhonchi - Cardiovascular Cardiovascular exam: Present: RRR, +S1, +S2. Absent: diastolic murmur, gallop, rubs, systolic murmur - GI/Abdominal GI/Abdominal exam: Present: normal bowel sounds, soft, no peritoneal signs. Absent: distended, tenderness - Extremities Exam Extremities exam: Present: warm, radial pulses palpable and symmetrical. Absent : calf tenderness, cyanotic, pedal edema - Neurological Exam Neurological exam: Present: CN II-XII intact, oriented X3, no focal deficits. Absent: pronater drift, facial droop, speech deficit - Skin Skin exam: Present: dry, intact Internal Med - H&P Results - Labs CBC & Chem 7: 02/10/17 08:30 02/10/17 08:30 - Diagnostic Studies Other Images Additional comments: Chest X-Ray 02/10/17 08:31 IMPRESSION: Increasing interstitial opacity, suggestive of edema. D/ / Bj Toledo MD / Bj Toledo MD Interpreting Provider: Bj Toledo MD
[2017-02-10] MEDS: Levofloxacin 750 MG/150 ML 750 MG/150 ML BAG IVPB SCH ×2 (12:58→13:10)
[2017-02-10] MEDS: methylPREDNISolone 125 MG/2 ML VIAL IVP SCH ×2 (12:58→16:58)
[2017-02-10] MEDS: Furosemide 40 MG/4 ML VIAL IVP SCH ×2 (13:28→16:58)
[2017-02-10] MEDS: Ipratropium/Albuterol Neb 3 ML IH SCH ×4 (16:06→23:21)
[2017-02-10 18:12] LABS: Bilirubin,Urine Negative (Negative); Blood,Urine Negative (Negative); Clarity,Urine Clear (Clear); Color,Urine Yellow (Yellow); Glucose,Urine (UA) 100 mg/dL (Normal); Ketones,Urine Negative (Negative); Leukocyte Esterase,Urine Negative (Negative); Nitrite,Urine Negative (Negative); PH,Urine 6.5 pH Units (5.0-8.0); Protein,Urine Negative (Neg-Trace); Specific Gravity,Urine 1.012 (1.010-1.025); Urobilinogen,Urine Normal (Normal)
[2017-02-10] MEDS ORDERED: Nitroglycerin 0.4 MG TAB.SUBL SL PRN (18:22)
[2017-02-10] MEDS: Isosorbide MONOnitrate (24 HR) 60 MG TAB.ER.24H PO SCH (18:38)
[2017-02-10] MEDS: Aspirin Enteric Coated 81 MG Tablet PO SCH (18:39)
[2017-02-10] MEDS: Ranolazine 500 MG TAB.ER.12H PO SCH ×2 (18:39→19:05)
[2017-02-10] MEDS: APIXABAN 5 MG TABLET PO SCH ×2 (18:39→19:06)
[2017-02-10] MEDS: Budesonide/Formoterol 160/4.5 MDI IH SCH (20:48)
[2017-02-10] MEDS ORDERED: Vancomycin Oral Soln 250 MG/2.5 ML UDC PO SCH (21:00)
[2017-02-10] MEDS: traZODone 50 MG TABLET PO SCH (21:38)
[2017-02-10] MEDS: ALPRAZolam 0.5 MG TABLET PO PRN (22:46)
[2017-02-11] MEDS: methylPREDNISolone 125 MG/2 ML VIAL IVP SCH ×5 (01:20→23:59)
[2017-02-11 04:53] LABS: Hematocrit 33.5 % (37.5-50.1); Hemoglobin 10.9 g/dL (12.9-16.9); Immature Granulocytes % 0.6 % (0-4); Lymphocytes # 0.5 K/mcL (0.6-4.6); Lymphocytes % 10.4 %; Mean Corpuscular HGB Conc 32.5 g/dL (31.6-35.5); Mean Corpuscular Hemoglobin 29.9 pg (28.0-33.3); Mean Corpuscular Volume 91.8 fL (83.0-100.0); Mean Platelet Volume 9.2 fL (9.4-12.4); Monocytes # 0.2 K/mcL (0.0-1.3); Monocytes % 2.9 %; Neutrophils # 4.4 K/mcL (1.6-8.9); Platelet Count 212 K/mcL (140-400); Red Blood Count 3.65 M/mcL (4.19-5.50); Red Cell Distribution Width 16.5 % (11.5-14.5); Segmented Neutrophils % 86.1 %
[2017-02-11] MEDS: Ipratropium/Albuterol Neb 3 ML IH SCH ×6 (05:00→23:14)
[2017-02-11 05:02] LABS: BUN/Creatinine Ratio 14 (6-26); Blood Urea Nitrogen 18 mg/dL (8-26); Carbon Dioxide 25 mEq/L (19-29); Chloride 97 mEq/L (98-109); Glucose 148 mg/dL (70-99); Osmolality,Calculated 279 (280-300); Phosphorous 3.8 mg/dL (2.3-4.7); Potassium 3.9 mEq/L (3.5-4.5); Sodium 132 mEq/L (136-145); eGFR For African Americans > 60 (> 60); eGFR For Non-African Americans 54 (> 60)
[2017-02-11] MEDS: Budesonide/Formoterol 160/4.5 MDI IH SCH ×2 (07:47→19:56)
[2017-02-11] MEDS ORDERED: Furosemide 40 MG/4 ML VIAL IVP SCH (09:00)
[2017-02-11] MEDS: APIXABAN 5 MG TABLET PO SCH ×2 (09:17→23:54)
[2017-02-11] MEDS: Aspirin Enteric Coated 81 MG Tablet PO SCH (09:17)
[2017-02-11] MEDS: Ranolazine 500 MG TAB.ER.12H PO SCH ×2 (09:17→23:55)
[2017-02-11] MEDS: Furosemide 40 MG/4 ML VIAL IVP SCH ×2 (09:18→17:07)
[2017-02-11] MEDS: Pantoprazole 40 MG VIAL IVP SCH (09:18)
[2017-02-11] MEDS: Isosorbide MONOnitrate (24 HR) 60 MG TAB.ER.24H PO SCH (09:18)
[2017-02-11] MEDS ORDERED: Vancomycin Oral Soln 250 MG/2.5 ML UDC PO SCH (14:00)
--- NOTE | 2017-02-11 15:37 | Palliative - Consult Note ---
Date of Encounter: 02/11/17 Time of Encounter: 10:45 - Assessment and Plan (1) Dyspnea Current Visit: No Status: Acute Assessment and plan: Patient is being treated aggressively with BiPAP as well as airways and bronchodilators at this time. Patient has turned down antibiotics unless recommended so by the infectious disease folks. Is due to the fact the patient has a history of recent C. difficile colitis for which she is finally getting over. Agent was concerned about the possibility of BiPAP, in for a BiPAP overnight study however he has failed this in the past and not qualify for BiPAP. He understands that he may continue to not qualify for BiPAP but he did feel this might decrease the possibility of having to be hospitalized again in the future. Qualifiers: Dyspnea type: shortness of breath Qualified Code(s): R06.02 - Shortness of breath; R06.00 - Dyspnea, unspecified; R06.01 - Orthopnea (2) Goals of care, counseling/discussion Current Visit: Yes Status: Acute Assessment and plan: She is full code, and after full discussion I believe that he has arrived at this conclusion appropriately. His goals of care to return home. He has filled out a living will, but had not done a medical power of rug scratcher for further discussion with the patient he has decided he will fill out a medical power of rug scratcher I believe he will end up to designating his son. Social work will follow up on this. I have put in at patient request for a BiPAP study to see if he qualifies for BiPAP at this time. He understands he may not. The patient has a accountant cost that is now here Cara, he requested that his accountant cost be included in these discussions and I have called cardiology to ask for Dr. Duarte Camejo to stop by and see the patient in consult that this is necessary. Cardiology will decide on that. (3) Acute exacerbation of CHF (congestive heart failure) Current Visit: Yes Status: Acute Assessment and plan: As above patient wishes to have his accountant cost Dr. Duarte Camejo included any further discussions, I have contacted cardiology we will ask Dr. Camejo drop by however at this time this appears to be primarily a COPD problem and not CHF. Per the patient medical therapy has already been sedated for the patient and probably will require no further treatment other than what already been prescribed. However if any medications need to be changed patient wishes to have Dr. Duarte Camejo involved and to that degree I have discussed things with cardiology and they will ask him to drop by. Qualifiers: Congestive heart failure type: systolic Qualified Code(s): I50.23 - Acute on chronic systolic (congestive) heart failure (4) History of implantable cardioverter-defibrillator (ICD) placement Current Visit: No Status: Acute Assessment and plan: Patient has an AICD in place, which is to keep it there and wishes for to work for him appropriately. Palliative-CN HPI - Data of Consult Patient: new to practice Requesting Physician: Adan Jalloh MD Primary Care Provider: PCP NONE - Consult Narrative History of present illness: Mr. Bernardo is a 71 year old male History of severe COPD as well as CHF with a 40% ejection fraction. Oxygen dependent OPD, stage III renal failure. Patient has had multiple exacerbations of COPD in the last year being hospitalized every month except December. She states that these episodes usually come on fairly quick feeling relatively okay and then starts to notice he is short of breath with any movement this shortness of breath gets worse begin [place] as the panic increases his shortness of breath increases. Multiple occasions he has been treated for possible infections empirically and this is resulted in him having a severe case of C. difficile colitis. Which is now finally waning. He does not have any discomfort with this, have a cough but does not bring up a lot of sputum. He states that he is very compliant with his taking of meds, and his fluid restriction. He denies any fever or chills denies any nausea vomiting diarrhea secondary to C. difficile however this is finally abating. He does not have any trouble with constipation. He has had cardiac catheterization and it has been determined there is no further aggressive therapy that is available to him other than medical therapy for his heart. Palliative care was consulted regarding CODE STATUS and goals of care. CC: Adan Jalloh MD Shortness of breath Past Med Surg Social Fam HX - Past Medical History Medical history: CHF, COPD, coronary artery disease, diabetes, hyperlipidemia, hypertension, myocardial infarction, other Psychiatric history: anxiety - Past Surgical History Surgical History: coronary bypass (CABG), herniorrhaphy, pacemaker/AICD, vascular surgery - Social History Smoking Status: Former smoker Smokeless Tobacco Status: No Alcohol use: none Drug use: none - Family History Father Living Status: Cause of : Cardiomyopathy Medications and Allergies ALPRAZolam [Xanax 0.5 MG Tablet] 0.5 mg PO TID PRN 11/21/16 [History] Albuterol Sulfate [Albuterol Inhaler] 2 puff IH Q6HR PRN 11/21/16 [History] Apixaban [Eliquis] 5 mg PO BID 11/21/16 [History] Ascorbic Acid [Vitamin C] 1,000 mg PO DAILY 11/21/16 [History] Budesonide/Formoterol 160/4.5 [Symbicort 160/4.5] 2 puff IH BIDR 11/21/16 [ History] Carvedilol [Coreg] 3.125 mg PO BID 11/21/16 [History] Cholecalciferol (D-3) [Vitamin D] 3,000 unit PO DAILY 11/21/16 [History] Clopidogrel [Plavix] 75 mg PO DAILY 11/21/16 [History] Fish Oil/Dha/Epa [Fish Oil 1,200 mg Fish Oil] 1,200 mg PO DAILY 11/21/16 [ History] Folic Acid 0.8 mg PO DAILY 11/21/16 [History] Furosemide [Lasix] 40 mg PO BID 11/21/16 [History] Isosorbide MONOnitrate (24 HR) [Imdur] 120 mg PO DAILY 11/21/16 [History] Magnesium Oxide [Magnesium] 500 mg PO DAILY 11/21/16 [History] Multivitamin [One Daily Multivitamin] 1 tab PO DAILY 11/21/16 [History] Nitroglycerin [Nitrostat] 0.4 mg SL AD PRN 11/21/16 [History] Oxygen 2 l .ROUTE AD 11/21/16 [History] Ranolazine [Ranexa] 1,000 mg PO BID 11/21/16 [History] Trazodone HCl 200 mg PO HS 11/21/16 [History] Vitamin B Complex [B Complex] 1 tab PO DAILY 11/21/16 [History] Tamsulosin [Flomax] 0.4 mg PO HS #30 capsule 11/22/16 [Rx] Ezetimibe [Zetia] 10 mg PO DAILY 01/12/17 [History] Albuterol Neb [AccuNeb] 1.25 mg IH Q6H PRN #50 inhsol 01/16/17 [Rx] Aspirin [Lo-Dose Aspirin EC] 81 mg PO DAILY 02/10/17 [History] Saccharomyces Boulardii [Florastor] 1,000 mg PO BID 02/10/17 [History] Lisinopril 2.5 mg PO DAILY 02/11/17 [History] Potassium Chloride [Klor-Con 10] 10 meq PO BID 02/11/17 [History] 3 Allergy/AdvReac Type Severity Reaction Status Date / Time Penicillins Allergy Redness of Verified 01/12/17 15:25 Skin - Constitutional Constitutional ROS PAL: fatigue, no decreased appetite, no anorexia, no chills - EENT Eyes: no discharge, no pain Ears: no ear discharge, no ear pain Ears, nose, mouth, throat: no facial pain, no hoarseness, no lip swelling, no mouth pain - Cardiovascular Cardiovascular ROS: dyspnea on exertion, no chest pain, no chest pain at rest, no chest pain with activity - Respiratory Respiratory: cough, dyspnea, dyspnea on exertion, chest congestion, no hemoptysis, no pain on inspiration, no excessive phlegm production - Gastrointestinal Gastrointestinal: no constipation, no diarrhea, no nausea, no vomiting - Genitourinary Genitourinary ROS male: no urinary frequency, no urinary hesitancy, no urinary incontinence - Musculoskeletal Musculoskeletal ROS IM: no arthralgias, no back pain, no joint swelling - Integumentary ROS Integumentary: no skin pain, no skin ulcer, no sores - Neurological Neurological ROS: no frequent falls, no headache(s), no lack of coordination - Psychiatric Psychiatric general PM: no confusion, no depression, no difficulty concentrating , no homicidal ideation, no hopelessness - Endocrine Endocrine IM: other Additional comments: Positive for diabetes Palliative Care-Exam - Constitutional Vitals: Temp Pulse Resp BP Pulse Ox 98 F 65 16 113/48 92 02/11/17 11:35 02/11/17 11:35 02/11/17 11:35 02/11/17 11:35 02/11/17 11:35 General appearance: Present: no acute distress - Head Head Exam: Present: atraumatic, normal inspection - Eye Eye exam: Present: EOMI, normal appearance - ENT ENT exam: Present: mucous membranes moist - Neck Neck exam: Present: full ROM, normal inspection. Absent: tenderness - Respiratory Respiratory exam: Present: decreased breath sounds, wheezes - Cardiovascular Cardiovascular exam: Present: RRR - GI/Abdominal Exam GI/Abdominal exam: Present: normal bowel sounds, soft. Absent: tenderness - Extremities Exam Extremities exam: Present: pedal edema (Trace). Absent: normal inspection, tenderness - Neurological Exam Neurological exam: Present: alert, oriented X3 - Psychiatric Psychiatric exam: Present: normal affect, normal mood. Absent: agitated, anxious, homicidal ideation, suicidal ideation - Skin Skin exam: Present: dry, warm Internal Medicine - CN: Reslt - Labs CBC & Chem 7: 02/11/17 04:41 02/11/17 04:41 Labs: Short CBC 02/11/17 Range/Units 04:41 WBC 5.1 (4.3-11.1) K/mcL Hgb 10.9 L (12.9-16.9) g/dL Hct 33.5 L (37.5-50.1) % Plt Count 212 (140-400) K/mcL Neutrophils # 4.4 (1.6-8.9) K/mcL BMP 02/11/17 04:41 Sodium 132 L Potassium 3.9 Chloride 97 L Carbon Dioxide 25 BUN 18 Creatinine 1.32 H Glucose 148 H Calcium 9.0 Cardiac Enzymes 02/10/17 02/10/17 Range/Units 14:20 19:36 Troponin I 0.03 0.02 (0-0.03) ng/mL Urine 02/10/17 Range/Units 18:00 Urine Color Yellow (Yellow) Urine Clarity Clear (Clear) Urine pH 6.5 (5.0-8.0) pH Units Ur Specific [place] 1.012 (1.010-1.025) Urine Protein Negative (Neg-Trace) mg/dL Urine Glucose (UA) 100 H (Normal) mg/dL Consult Discharge Plan - Plan Referrals: NONE,PCP [Primary Care Provider] - Palliative Quality Palliative Quality: Screen for Code Status: Yes, Screen for Goals of Care: Yes, Screen for Pain: Yes, If Pain Regimen Started, Initiate Bowel Regimen: Yes, Screen for Nausea/Vomitting: Yes
--- NOTE | 2017-02-11 15:39 | Infectious Disease Consult ---
Date of Encounter: 02/11/17 Time of Encounter: 15:34 Assessment and Plan (1) History of Clostridium difficile colitis Status: Chronic Assessment and plan: Multiple recurrences since June 2016. Currently on vancomycin taper started 01/13/17. Clinically improved. Denies diarrhea. Continue vancomycin taper as previously prescribed. Start 125mg PO daily every three days tomorrow and continue x 14 days. Continue contact precautions per protocol. Once vancomycin taper completed as outline above, discontinue and observe. Follow up with ID with new onset/recurrence of symptoms. No further recommendations from the ID team. Will sign off. Please re-consult if needed. (2) Acute kidney injury Status: Acute Assessment and plan: Etiology unclear. Further evaluation and management per the primary team. (3) COPD exacerbation Status: Acute (4) Congestive heart failure Status: Acute Qualifiers: Congestive heart failure type: systolic Congestive heart failure chronicity : acute Qualified Code(s): I50.21 - Acute systolic (congestive) heart failure (5) Hypoxia Status: Acute Assessment and plan: Secondary to COPD, CHF, and chronic respiratory failure. Improved. Further management per the primary team. Infectious Disease HPI - Data of Consult Patient: known to practice within the last 3 years Consult date: 02/11/17 Requesting Physician: Adan Jalloh MD Primary Care Provider: PCP NONE - Consult Narrative Reason for consult: C. diff History of present illness: Mr. Bernardo is a 71 year old male with history of systolic CHF with an EF of 40%, COPD, chronic respiratory failure dependent on 2 L of home O2, severe PAD with multiple stents in the left lower extremity, and recurrent C. difficile. The patient was admitted to the hospital February 10 for COPD and CHF exacerbation. We are consulted February 11 for further evaluation and treatment recommendations regarding recurrent C. difficile infection. The patient's a 71-year-old male, well-known to the infectious disease service as we have been consulted on this case during a prior hospitalization. Previously, the patient was admitted to the hospital back in January at which time he was noted to be C. difficile positive. Prior to that, the patient had had multiple C. difficile infections starting back in June of this year. She was started on oral vancomycin taper and has been doing well clinically. He states he became short of breath the day prior to admission. He did up calling EMS and presented to the emergency department was hypoxic and tachypneic. He has been afebrile and his heart rate has been normal. His white blood cell count remains normal as well. Chest x-ray showed increased interstitial opacities concerning for pulmonary edema. The patient was admitted to the hospital for further evaluation and started on nebulizers, IV steroids, and empiric antibiotics. The patient has refused the IV antibiotics due to his recurrent C. difficile in the past. We've been asked to evaluate and make further recommendations. The patient states that yesterday he completed his every other day dosing of his oral vancomycin. During my exam today, the patient states overall he feels well. He denies any fevers or chills or rigors. He denies any headache or neck pain. He denies any recent congestion, earache, or sore throat. He denies any chest pain, but does endorse a history of shortness of breath that is improved since being admitted. He states that currently is on 4 L of O2, and normally wears 2 at home. Denies any cough or sputum production. He denies any nausea, vomiting, diarrhea, or constipation. He states his stools are soft, but they are not watery or mucousy or diarrhea. He denies any urinary complaints. He denies any pain in his back or extremities. He denies any oral thrush or new skin lesions. He does report he recently noticed thinning of his hair and progressive hearing loss. CC: Adan Jalloh MD Past Med Surg Social Fam HX - Past Medical History Attestation: Yes The following information was validated with the patient. Source: patient, old records reviewed, nursing notes reviewed Medical history: CHF, COPD, coronary artery disease, diabetes, hyperlipidemia, hypertension, myocardial infarction, other Psychiatric history: anxiety - Past Surgical History Surgical History: coronary bypass (CABG), herniorrhaphy, pacemaker/AICD, vascular surgery - Social History Smoking Status: Former smoker Smokeless Tobacco Status: No Alcohol use: none Drug use: none Occupational status: retired Current living situation: Home - Independent Activity Level: Independent ambulation Recent Out of Country Travel Within the Last 8 Weeks: No Exposure or Possible Exposure to Illness During Travel: No - Family History Father Living Status: Cause of : Cardiomyopathy Infectious Disease-CN:Meds ALPRAZolam [Xanax 0.5 MG Tablet] 0.5 mg PO TID PRN 11/21/16 [History] Albuterol Sulfate [Albuterol Inhaler] 2 puff IH Q6HR PRN 11/21/16 [History] Apixaban [Eliquis] 5 mg PO BID 11/21/16 [History] Ascorbic Acid [Vitamin C] 1,000 mg PO DAILY 11/21/16 [History] Budesonide/Formoterol 160/4.5 [Symbicort 160/4.5] 2 puff IH BIDR 11/21/16 [ History] Carvedilol [Coreg] 3.125 mg PO BID 11/21/16 [History] Cholecalciferol (D-3) [Vitamin D] 3,000 unit PO DAILY 11/21/16 [History] Clopidogrel [Plavix] 75 mg PO DAILY 11/21/16 [History] Fish Oil/Dha/Epa [Fish Oil 1,200 mg Fish Oil] 1,200 mg PO DAILY 11/21/16 [ History] Folic Acid 0.8 mg PO DAILY 11/21/16 [History] Furosemide [Lasix] 40 mg PO BID 11/21/16 [History] Isosorbide MONOnitrate (24 HR) [Imdur] 120 mg PO DAILY 11/21/16 [History] Magnesium Oxide [Magnesium] 500 mg PO DAILY 11/21/16 [History] Multivitamin [One Daily Multivitamin] 1 tab PO DAILY 11/21/16 [History] Nitroglycerin [Nitrostat] 0.4 mg SL AD PRN 11/21/16 [History] Oxygen 2 l .ROUTE AD 11/21/16 [History] Ranolazine [Ranexa] 1,000 mg PO BID 11/21/16 [History] Trazodone HCl 200 mg PO HS 11/21/16 [History] Vitamin B Complex [B Complex] 1 tab PO DAILY 11/21/16 [History] Tamsulosin [Flomax] 0.4 mg PO HS #30 capsule 11/22/16 [Rx] Ezetimibe [Zetia] 10 mg PO DAILY 01/12/17 [History] Aspirin [Lo-Dose Aspirin EC] 81 mg PO DAILY 02/10/17 [History] Saccharomyces Boulardii [Florastor] 1,000 mg PO BID 02/10/17 [History] Lisinopril 2.5 mg PO DAILY 02/11/17 [History] Potassium Chloride [Klor-Con 10] 10 meq PO BID 02/11/17 [History] Albuterol Neb [Proventil Neb] 2.5 mg IH Q2H PRN #60 inh 02/12/17 [Rx] Ipratropium/Albuterol Neb [Duoneb] 3 ml IH [id number] #60 inh 02/12/17 [Rx] Vancomycin Oral Soln [Vancocin] 125 mg PO Q72H 02/12/17 [Rx] metOLazone [Metolazone] 10 mg PO ONCE #1 tablet 02/12/17 [Rx] predniSONE [PredniSONE] 10 mg PO DAILY #54 tablet 02/12/17 [Rx] 3 Allergy/AdvReac Type Severity Reaction Status Date / Time Penicillins Allergy Redness of Verified 01/12/17 15:25 Skin All systems: reviewed and no additional remarkable complaints except as stated Exam - Constitutional Vitals: Temp Pulse Resp BP Pulse Ox 98 F 65 16 113/48 92 02/11/17 11:35 02/11/17 11:35 02/11/17 11:35 02/11/17 11:35 02/11/17 11:35 General appearance: average body habitus, cooperative, no acute distress - Head Head exam: Present: atraumatic, normal inspection, normocephalic - Eye Eye exam: Present: EOMI, normal appearance, PERRL Pupils: Present: normal accommodation - ENT ENT exam: Present: mucous membranes moist - Neck Neck exam: Present: normal inspection - Respiratory Respiratory exam: Present: CTAB. Absent: rales, respiratory distress, rhonchi, wheezes - Cardiovascular Cardiovascular exam: Present: RRR, +S1, +S2 - GI/Abdominal GI/Abdominal exam: Present: normal bowel sounds, soft. Absent: distended, tenderness - Extremities Exam Extremities exam: Present: normal inspection. Absent: joint swelling, pedal edema, tenderness - Back Exam Back exam: Present: normal inspection. Absent: paraspinal tenderness, vertebral tenderness - Neurological Exam Neurological exam: Present: alert, oriented X3, no focal deficits - Psychiatric Psychiatric exam: Present: normal affect, normal mood - Skin Skin exam: Present: dry, intact, normal color, warm Additional comments: Large scabbed lesion noted to the dorsal aspect of the right hand. No surrounding warmth, erythema, or tenderness noted. Infectious Disease CN: Results - Labs CBC & Chem 7: 02/12/17 04:00 02/12/17 04:00 Serology: Serology 02/10/17 Range/Units 18:00 Urine Color Yellow (Yellow) Urine Clarity Clear (Clear) Urine pH 6.5 (5.0-8.0) pH Units Ur Specific [place] 1.012 (1.010-1.025) Urine Protein Negative (Neg-Trace) mg/dL Urine Glucose (UA) 100 H (Normal) mg/dL Urine Ketones Negative (Negative) mg/dL Urine Blood Negative (Negative) Urine Nitrite Negative (Negative) Urine Bilirubin Negative (Negative) Urine Urobilinogen Normal (Normal) mg/dL Ur Leukocyte Esterase Negative (Negative) Ur Culture Indicated? NO (NO) Consult Discharge Plan - Plan Instructions: Metolazone (By mouth), Prednisone (By mouth), Chronic Obstructive Pulmonary Disease (DC) Additional Instructions: If worsening shortness of breath, increased weight by 2 pounds in 48 hours developed the morning Lasix dose. If weight continues to increase take metolazone once 30 minutes before morning Lasix dose. He will need to have your primary care physician check your kidney function within 3-5 days after taking the metolazone. Referrals: Hu Yeboah MD [Non-Partnered Physician] - Prescriptions: Ipratropium/Albuterol Neb [Duoneb] 3 ml IH [id number] #60 inh Albuterol Neb [Proventil Neb] 2.5 mg IH Q2H PRN #60 inh PRN Reason: Shortness Of Breath/Wheezing metOLazone [Metolazone] 10 mg PO ONCE #1 tablet predniSONE [PredniSONE] 10 mg PO DAILY #54 tablet
[2017-02-11] MEDS: ALPRAZolam 0.5 MG TABLET PO PRN (17:12)
[2017-02-11] MEDS ORDERED: Nitroglycerin 0.4 MG TAB.SUBL SL PRN (18:14)
--- NOTE | 2017-02-11 18:19 | Internal Med Progress Note ---
Date of Encounter: 02/11/17 Time of Encounter: 10:00 - Assessment and plan (1) Acute respiratory failure with hypoxia Current Visit: No Status: Acute Assessment and plan: Secondary to CHF exacerbation and COPD. We will continue with IV Lasix. Strict I's and O's, daily weights, cardiac monitoring. (2) Acute on chronic systolic (congestive) heart failure Current Visit: No Status: Acute Assessment and plan: EF from last month was 40% per review of his echo report. We will treat him with IV Lasix. Follow-up weight check and. I provided counseling about fluid and sodium restriction. Consider metolazone once a week up to every 3 days on discharge. (3) Coronary artery disease Current Visit: No Status: Acute Assessment and plan: Continue aspirin and Plavix metoprolol and nitroglycerin. No evidence of ACS to cause acute CHF exacerbation. Qualifiers: Coronary Disease-Associated Artery/Lesion type: [place] artery [place] vs. transplanted heart: [place] heart Associated angina: with stable angina Qualified Code(s): I25.118 - Atherosclerotic heart disease of [place] coronary artery with other forms of angina pectoris (4) Recurrent colitis due to Clostridium difficile Current Visit: No Status: Acute Assessment and plan: Consult ID. I discussed the case with Cinthia Nur. I appreciate the recommendation. We will continue with vancomycin taper as indicated during previous review his admission. (5) Acute on chronic kidney failure Current Visit: Yes Status: Acute Assessment and plan: Avoid nephrotoxins. Monitor BUN and creatinine. Qualifiers: Acute renal failure type: unspecified Chronic kidney disease stage: stage 3 (moderate) Qualified Code(s): N17.9 - Acute kidney failure, unspecified; N18.3 - Chronic kidney disease, stage 3 (moderate) - Subjective Interval history: Patient reports improvement in his shortness of breath at rest, he still has dyspnea on exertion with ambulating to the bathroom however this has improved over the last 24 hours, continues to have dry cough but no sputum production denies fevers chills nausea. - Constitutional Vitals: Temp Pulse Resp BP Pulse Ox 98.1 F 94 18 145/67 94 02/11/17 16:00 02/11/17 18:05 02/11/17 16:00 02/11/17 18:05 02/11/17 16:00 General appearance: Present: A&O X 3, underweight - Eye Eye exam: Present: PERRL, conjuntiva pink, sclera anicteric Pupils: Present: PERRL - Respiratory Respiratory exam: Present: rales (Fine crackles at bases). Absent: accessory muscle use, rhonchi, wheezes - Cardiovascular Cardiovascular exam: Present: RRR, +S1, +S2. Absent: diastolic murmur, gallop, rubs, systolic murmur - GI/Abdominal GI/Abdominal exam: Present: normal bowel sounds, soft, no peritoneal signs. Absent: distended, tenderness - Extremities Exam Extremities exam: Present: pedal edema, warm, radial pulses palpable and symmetrical. Absent: calf tenderness, cyanotic - Neurological Exam Neurological exam: Present: CN II-XII intact, oriented X3, no focal deficits. Absent: pronater drift, facial droop, speech deficit - Skin Skin exam: Present: dry, intact Internal Medicine: Result - Labs CBC & Chem 7: 02/11/17 04:41 02/11/17 04:41 Labs: Short CBC 02/11/17 Range/Units 04:41 WBC 5.1 (4.3-11.1) K/mcL Hgb 10.9 L (12.9-16.9) g/dL Hct 33.5 L (37.5-50.1) % Plt Count 212 (140-400) K/mcL Neutrophils # 4.4 (1.6-8.9) K/mcL BMP 02/11/17 04:41 Sodium 132 L Potassium 3.9 Chloride 97 L Carbon Dioxide 25 BUN 18 Creatinine 1.32 H Glucose 148 H Calcium 9.0 Cardiac Enzymes 02/10/17 Range/Units 19:36 Troponin I 0.02 (0-0.03) ng/mL Consult Discharge Plan - Plan Referrals: NONE,PCP [Primary Care Provider] -
[2017-02-11] MEDS: Lactobacillus 1 EACH CAP.SPRINK PO SCH (23:54)
[2017-02-11] MEDS: traZODone 50 MG TABLET PO SCH (23:54)
[2017-02-12] MEDS: Ipratropium/Albuterol Neb 3 ML IH SCH ×4 (04:10→12:00)
[2017-02-12 04:32] LABS: Hematocrit 34.1 % (37.5-50.1); Hemoglobin 10.9 g/dL (12.9-16.9); Immature Granulocytes % 0.7 % (0-4); Lymphocytes # 0.4 K/mcL (0.6-4.6); Lymphocytes % 5.9 %; Mean Corpuscular Hemoglobin 29.9 pg (28.0-33.3); Mean Corpuscular Volume 93.4 fL (83.0-100.0); Mean Platelet Volume 9.6 fL (9.4-12.4); Monocytes # 0.3 K/mcL (0.0-1.3); Monocytes % 4.5 %; Neutrophils # 6.3 K/mcL (1.6-8.9); Platelet Count 206 K/mcL (140-400); Red Blood Count 3.65 M/mcL (4.19-5.50); Red Cell Distribution Width 16.7 % (11.5-14.5); Segmented Neutrophils % 88.9 %
[2017-02-12 04:47] LABS: BUN/Creatinine Ratio 22 (6-26); Carbon Dioxide 27 mEq/L (19-29); Chloride 102 mEq/L (98-109); Glucose 163 mg/dL (70-99); Osmolality,Calculated 294 (280-300); Potassium 4.2 mEq/L (3.5-4.5); Sodium 137 mEq/L (136-145); eGFR For African Americans > 60 (> 60); eGFR For Non-African Americans 52 (> 60)
[2017-02-12 04:50] LABS: Blood Urea Nitrogen 30 mg/dL (8-26)
[2017-02-12] MEDS: methylPREDNISolone 125 MG/2 ML VIAL IVP SCH ×2 (05:39→14:01)
[2017-02-12] MEDS: Budesonide/Formoterol 160/4.5 MDI IH SCH (07:41)
[2017-02-12] MEDS: Ranolazine 500 MG TAB.ER.12H PO SCH (09:19)
[2017-02-12] MEDS: Pantoprazole 40 MG VIAL IVP SCH (09:19)
[2017-02-12] MEDS: Furosemide 40 MG/4 ML VIAL IVP SCH (09:19)
[2017-02-12] MEDS: Lactobacillus 1 EACH CAP.SPRINK PO SCH (09:19)
[2017-02-12] MEDS: APIXABAN 5 MG TABLET PO SCH (09:20)
[2017-02-12] MEDS: Aspirin Enteric Coated 81 MG Tablet PO SCH (09:20)
[2017-02-12] MEDS: Isosorbide MONOnitrate (24 HR) 60 MG TAB.ER.24H PO SCH (09:20)
[2017-02-12] MEDS ORDERED: Neosporin OINT 15 GM TUBE TP PRN (09:58)
[2017-02-12 11:13] VITALS: BP 149/81
[2017-02-12] MEDS: ALPRAZolam 0.5 MG TABLET PO PRN (12:20)
--- NOTE | 2017-02-12 12:36 | Electrocardiograph Report ---
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
--- NOTE | 2017-02-12 12:48 | Palliative Progress Note ---
Date of Encounter: 02/12/17 Time of Encounter: 08:45 - Assessment and plan (1) Dyspnea Current Visit: No Status: Acute Assessment and plan: Getting better, patient did not qualify for BiPAP last night. Have discussed with social work about a nebulizer as well as BiPAP. Patient will probably be discharged today. Qualifiers: Dyspnea type: shortness of breath Qualified Code(s): R06.02 - Shortness of breath; R06.00 - Dyspnea, unspecified; R06.01 - Orthopnea (2) Goals of care, counseling/discussion Current Visit: Yes Status: Acute Assessment and plan: Patient remains a full code, will probably be discharged today with BiPAP and with nebulizer. Work is working on both of these currently. (3) Acute exacerbation of CHF (congestive heart failure) Current Visit: Yes Status: Acute Assessment and plan: He did request cardiology drop by to see the patient, as of this morning they had not yet been by. However this was more of a courtesy visit. Qualifiers: Congestive heart failure type: systolic Qualified Code(s): I50.23 - Acute on chronic systolic (congestive) heart failure (4) History of implantable cardioverter-defibrillator (ICD) placement Current Visit: No Status: Acute Assessment and plan: No changes. - Time Spent With Patient Total time spent is greater than 50% in coordination of care (as documented) at patient's floor/unit and/or counseling patient: - Subjective Interval history: Doing well this morning breathing easy. Patient did qualify for BiPAP last night. - Constitutional Vitals: Abnormal lab results RBC 3.65 M/mcL (4.19-5.50) L 02/12/17 04:00 Hgb 10.9 g/dL (12.9-16.9) L 02/12/17 04:00 Hct 34.1 % (37.5-50.1) L 02/12/17 04:00 RDW 16.7 % (11.5-14.5) H 02/12/17 04:00 Lymphocytes # 0.4 K/mcL (0.6-4.6) L 02/12/17 04:00 VBG pH 7.28 pH Units (7.32-7.42) L 02/10/17 08:40 VBG pCO2 60 mmHg (41-51) H 02/10/17 08:40 VBG pO2 51 mmHg (25-40) H 02/10/17 08:40 VBG HCO3 28.2 mEq/L (21-27) H 02/10/17 08:40 BUN 30 mg/dL (8-26) H D 02/12/17 04:00 Creatinine 1.37 mg/dL (0.72-1.25) H 02/12/17 04:00 Est GFR (Non-Af Amer) 52 (> 60) L 02/12/17 04:00 Glucose 163 mg/dL (70-99) H 02/12/17 04:00 B-Natriuretic Peptide 2427 pg/mL (0-100) H 02/10/17 08:30 Urine Glucose (UA) 100 mg/dL (Normal) H 02/10/17 18:00 General appearance: Present: no acute distress - Head Head exam: Present: atraumatic, normal inspection - Eye Eye exam: Present: normal appearance - ENT ENT exam: Present: mucous membranes moist - Respiratory Respiratory exam: Present: decreased breath sounds - Cardiovascular Cardiovascular exam: Present: RRR - GI/Abdominal GI/Abdominal exam: Present: normal bowel sounds, soft. Absent: tenderness - Extremities Exam Extremities exam: Present: normal inspection. Absent: tenderness - Neurological Exam Neurological exam: Present: alert, oriented X3 - Psychiatric Psychiatric exam: Absent: agitated, anxious - Skin Skin exam: Present: dry, warm Palliative Quality Palliative Quality: Screen for Code Status: Yes, Screen for Goals of Care: Yes, Screen for Pain: Yes, If Pain Regimen Started, Initiate Bowel Regimen: Yes, Screen for Nausea/Vomitting: Yes - Labs CBC & Chem 7: 02/12/17 04:00 02/12/17 04:00 Labs: Laboratory Results - last 24 hr 02/12/17 02/12/17 04:00 04:00 WBC 7.1 RBC 3.65 L Hgb 10.9 L Hct 34.1 L MCV 93.4 MCH 29.9 MCHC 32.0 RDW 16.7 H Plt Count 206 MPV 9.6 Immature Gran % 0.7 Seg Neutrophils % 88.9 Lymphocytes % 5.9 Monocytes % 4.5 Eosinophils % 0.0 Basophils % 0.0 Neutrophils # 6.3 Lymphocytes # 0.4 L Monocytes # 0.3 Eosinophils # 0.0 Basophils # 0.0 Sodium 137 Potassium 4.2 Chloride 102 Carbon Dioxide 27 BUN 30 H D Creatinine 1.37 H Est GFR ( Amer) > 60 Est GFR (Non-Af Amer) 52 L BUN/Creatinine Ratio 22 Glucose 163 H Calculated Osmolality 294 Calcium 9.0 Consult Discharge Plan - Plan Referrals: Hu Yeboah MD [Non-Partnered Physician] -
[2017-02-12] MEDS ORDERED: Vancomycin Oral Soln 250 MG/2.5 ML UDC PO SCH (14:00)
--- NOTE | 2017-02-12 15:03 | Electrocardiograph Report ---
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
--- NOTE | 2017-02-12 15:37 | Event Note ---
Date of Encounter: 02/12/17 Time of Encounter: 15:34 Patient needs nebulizer at home for use with Duonebs for treatment of COPD with frequent exacerbation and chronic respiratory failure. ICD 10: J44.9 Patient will need BiPAP daily at bedtime for treatment of COPD with chronic hypercarbic respiratory failure.
--- NOTE | 2017-02-12 15:48 | Internal Med Progress Note ---
Date of Encounter: 02/12/17 Time of Encounter: 15:45 - Assessment and plan (1) Acute respiratory failure with hypoxia Current Visit: No Status: Acute Assessment and plan: Secondary to CHF exacerbation and COPD. We will continue with IV Lasix. Strict I's and O's, daily weights, cardiac monitoring. (2) Acute on chronic systolic (congestive) heart failure Current Visit: No Status: Acute Assessment and plan: EF from last month was 40% per review of his echo report. We will treat him with IV Lasix. Follow-up weight check and. I provided counseling about fluid and sodium restriction. Consider metolazone once a week up to every 3 days on discharge. (3) Coronary artery disease Current Visit: No Status: Acute Assessment and plan: Continue aspirin and Plavix metoprolol and nitroglycerin. No evidence of ACS to cause acute CHF exacerbation. Qualifiers: Coronary Disease-Associated Artery/Lesion type: [place] artery [place] vs. transplanted heart: [place] heart Associated angina: with stable angina Qualified Code(s): I25.118 - Atherosclerotic heart disease of [place] coronary artery with other forms of angina pectoris (4) Recurrent colitis due to Clostridium difficile Current Visit: No Status: Acute Assessment and plan: Consult ID. I discussed the case with Cinthia Nur. I appreciate the recommendation. We will continue with vancomycin taper as indicated during previous review his admission. (5) Acute on chronic kidney failure Current Visit: Yes Status: Acute Assessment and plan: Avoid nephrotoxins. Monitor BUN and creatinine. Qualifiers: Acute renal failure type: unspecified Chronic kidney disease stage: stage 3 (moderate) Qualified Code(s): N17.9 - Acute kidney failure, unspecified; N18.3 - Chronic kidney disease, stage 3 (moderate) (6) Acute respiratory failure with hypoxia and hypercarbia Current Visit: Yes Status: Acute Assessment and plan: PCO2 on admission was elevated to 60, pH was 7.28 consistent with acute on chronic hypercarbic and hypoxic respiratory failure. He had a nighttime oximetry study which showed 13 minutes of saturation below 88 %, given hypercarbia and nocturnal hypoxia he will require nighttime BiPAP. (7) COPD exacerbation Current Visit: Yes Status: Acute Assessment and plan: Continue with DuoNeb. He is stable for discharge. We will prescribe a nebulizer at home. He will require home nebulizer for treatment of COPD. I CD10: J 44.1, J 44.9. - Subjective Interval history: Patient reports no shortness of breath at rest, improved dyspnea on exertion. No chest pain. Continue dry cough. The nares nausea - Constitutional Vitals: Temp Pulse Resp BP Pulse Ox 97.4 F L 62 16 149/81 98 02/12/17 11:10 02/12/17 11:10 02/12/17 12:00 02/12/17 11:10 02/12/17 12:00 General appearance: Present: A&O X 3, underweight - Eye Eye exam: Present: PERRL, conjuntiva pink, sclera anicteric Pupils: Present: PERRL - Respiratory Respiratory exam: Present: CTAB. Absent: accessory muscle use, rales, rhonchi, wheezes - Cardiovascular Cardiovascular exam: Present: RRR, +S1, +S2. Absent: diastolic murmur, gallop, rubs, systolic murmur - GI/Abdominal GI/Abdominal exam: Present: normal bowel sounds, soft, no peritoneal signs. Absent: distended, tenderness Internal Medicine: Result - Labs CBC & Chem 7: 02/12/17 04:00 02/12/17 04:00 Labs: Short CBC 02/12/17 Range/Units 04:00 WBC 7.1 (4.3-11.1) K/mcL Hgb 10.9 L (12.9-16.9) g/dL Hct 34.1 L (37.5-50.1) % Plt Count 206 (140-400) K/mcL Neutrophils # 6.3 (1.6-8.9) K/mcL BMP 02/12/17 04:00 Sodium 137 Potassium 4.2 Chloride 102 Carbon Dioxide 27 BUN 30 H D Creatinine 1.37 H Glucose 163 H Calcium 9.0 Consult Discharge Plan - Plan Referrals: Hu Yeboah MD [Non-Partnered Physician] -
--- NOTE | 2017-02-12 16:01 | Discharge Summary ---
Date of Encounter: 02/12/17 Time of Encounter: 15:52 - Discharge Diagnosis (1) Acute on chronic systolic (congestive) heart failure Priority: Secondary Status: Acute (2) Coronary artery disease Priority: Secondary Status: Acute Qualifiers: Coronary Disease-Associated Artery/Lesion type: [place] artery [place] vs. transplanted heart: [place] heart Associated angina: with stable angina Qualified Code(s): I25.118 - Atherosclerotic heart disease of [place] coronary artery with other forms of angina pectoris (3) Recurrent colitis due to Clostridium difficile Priority: Secondary Status: Acute (4) Acute on chronic kidney failure Priority: Secondary Status: Acute Qualifiers: Acute renal failure type: unspecified Chronic kidney disease stage: stage 3 (moderate) Qualified Code(s): N17.9 - Acute kidney failure, unspecified; N18.3 - Chronic kidney disease, stage 3 (moderate) (5) Acute respiratory failure with hypoxia and hypercarbia Priority: Primary Status: Acute (6) COPD exacerbation Priority: Secondary Status: Acute - Discharge Medications Prescriptions: Albuterol Neb [Proventil Neb] 2.5 mg IH Q2H PRN #60 inh PRN Reason: Shortness Of Breath/Wheezing metOLazone [Metolazone] 10 mg PO ONCE #1 tablet predniSONE [PredniSONE] 10 mg PO DAILY #54 tablet Home Medications: ALPRAZolam [Xanax 0.5 MG Tablet] 0.5 mg PO TID PRN 11/21/16 [History] Albuterol Sulfate [Albuterol Inhaler] 2 puff IH Q6HR PRN 11/21/16 [History] Apixaban [Eliquis] 5 mg PO BID 11/21/16 [History] Ascorbic Acid [Vitamin C] 1,000 mg PO DAILY 11/21/16 [History] Budesonide/Formoterol 160/4.5 [Symbicort 160/4.5] 2 puff IH BIDR 11/21/16 [ History] Carvedilol [Coreg] 3.125 mg PO BID 11/21/16 [History] Cholecalciferol (D-3) [Vitamin D] 3,000 unit PO DAILY 11/21/16 [History] Clopidogrel [Plavix] 75 mg PO DAILY 11/21/16 [History] Fish Oil/Dha/Epa [Fish Oil 1,200 mg Fish Oil] 1,200 mg PO DAILY 11/21/16 [ History] Folic Acid 0.8 mg PO DAILY 11/21/16 [History] Furosemide [Lasix] 40 mg PO BID 11/21/16 [History] Isosorbide MONOnitrate (24 HR) [Imdur] 120 mg PO DAILY 11/21/16 [History] Magnesium Oxide [Magnesium] 500 mg PO DAILY 11/21/16 [History] Multivitamin [One Daily Multivitamin] 1 tab PO DAILY 11/21/16 [History] Nitroglycerin [Nitrostat] 0.4 mg SL AD PRN 11/21/16 [History] Oxygen 2 l .ROUTE AD 11/21/16 [History] Ranolazine [Ranexa] 1,000 mg PO BID 11/21/16 [History] Trazodone HCl 200 mg PO HS 11/21/16 [History] Vitamin B Complex [B Complex] 1 tab PO DAILY 11/21/16 [History] Tamsulosin [Flomax] 0.4 mg PO HS #30 capsule 11/22/16 [Rx] Ezetimibe [Zetia] 10 mg PO DAILY 01/12/17 [History] Aspirin [Lo-Dose Aspirin EC] 81 mg PO DAILY 02/10/17 [History] Saccharomyces Boulardii [Florastor] 1,000 mg PO BID 02/10/17 [History] Potassium Chloride [Klor-Con 10] 10 meq PO BID 02/11/17 [History] Albuterol Neb [Proventil Neb] 2.5 mg IH Q2H PRN #60 inh 02/12/17 [Rx] Vancomycin Oral Soln [Vancocin] 125 mg PO Q72H 02/12/17 [Rx] metOLazone [Metolazone] 10 mg PO ONCE #1 tablet 02/12/17 [Rx] predniSONE [PredniSONE] 10 mg PO DAILY #54 tablet 02/12/17 [Rx] Ipratropium/Albuterol Neb [Duoneb] 3 ml IH Q6HR 02/14/17 [History] Allergies/Adverse Reactions: 3 Allergy/AdvReac Type Severity Reaction Status Date / Time Penicillins Allergy Redness of Verified 01/12/17 15:25 Skin Procedures/tests Complete & Pending: Procedures Performed prior 72 hours Category Date Time Status ECG 12 lead ECG [ECG] Routine Y 02/11/17 20:30 Completed Date of admission: 02/10/17 12:11 Primary care physician: PCP NONE Consults: 02/10/17 13:25 Consult to Nutrition [CONS] Routine Comment: Consulting Provider: NUTRITION Reason for Dietary Consult: MST Score 02/10/17 13:46 Consult to Palliative Care [CONS] Routine Comment: Consulting Provider: Palliative Care [place] Reason for Consult: code status Time Notified: 13:49 Call Completed: Yes 02/11/17 09:45 Consult to Infectious Diseases [CONS] Routine Consulting Provider: Infectious Disease [place] Reason for Consult: C. difficile infection on vancomycin taper Call Completed: Yes - Patient Status Disposition: Home, Self-Care Condition: Fair Functional capacity at discharge: independent ambulation Overall status at discharge: patient is progressing back to baseline - Discharge Instructions Instructions: Metolazone (By mouth), Prednisone (By mouth), Chronic Obstructive Pulmonary Disease (DC) Follow Up With: Hu Yeboah MD [Non-Partnered Physician] - Additional Instructions: If worsening shortness of breath, increased weight by 2 pounds in 48 hours developed the morning Lasix dose. If weight continues to increase take metolazone once 30 minutes before morning Lasix dose. He will need to have your primary care physician check your kidney function within 3-5 days after taking the metolazone. - Diet and Activity Activity: ambulate only with your walker, increase activity as tolerated, wear oxygen at all times (Wear BiPAP every night) Diet: low fat, low cholesterol, low salt diet (Fluid restriction 1500 mL daily) Hospital course: Mr. Bernardo is a 71 year old male past medical history of CHF EF 40%, COPD oxygen dependent, coronary artery disease,, diabetes, hyperlipidemia, hypertension, femoropopliteal bypass, and CK D stage III. Patient states that he began to experience increased shortness of breath overnight last night gradually worsening despite the use of oxygen and bronchodilators. In the emergency department blood gases revealed hypoxemia and hypercarbia. He was admitted for acute hypoxic and hypercapnic respiratory failure secondary to combination of COPD and CHF. He received treatment with IV Lasix, IV steroids and inhaled bronchodilators. He had a good diuretic response. He is symptomatically improved and currently his oxygen saturation is 98% on nasal cannula at 2 L/m which is his chronic supplemental oxygen usage. He had a nighttime oximetry study which qualified him for BiPAP therapy. He will be prescribed noninvasive positive pressure ventilation therapy for home. He will also require a nebulizer which will be prescribed for him. He will be transitioned to oral steroids and oral Lasix and will be prescribed metolazone and was instructed to take this medication if his shortness of breath gets worse or he notices increasing edema. - Time Spent with Patient Total time spent providing and/or coordinating discharge services: Greater than 30 minutes - Constitutional Vitals: Temp Pulse Resp BP Pulse Ox 97.4 F L 62 16 149/81 98 02/12/17 11:10 02/12/17 11:10 02/12/17 12:00 02/12/17 11:10 02/12/17 12:00 General appearance: Present: A&O X 3, underweight - Respiratory Respiratory exam: Present: CTAB. Absent: accessory muscle use, rales, rhonchi, wheezes - Cardiovascular Cardiovascular exam: Present: RRR, +S1, +S2. Absent: diastolic murmur, gallop, rubs, systolic murmur - GI/Abdominal GI/Abdominal exam: Present: normal bowel sounds, soft, no peritoneal signs. Absent: distended, tenderness
[2017-02-12] MEDS ORDERED: Neosporin OINT 15 GM TUBE TP SCH (21:00)
== END 2017-02-12 17:55 | disposition home or self-care (01) | DRG 291 ==
LOC: EMEROO 08:22 → 2ANU 08:22 → SUATTDRO 12:11
PROVIDERS: ADMIT Internal Medicine; ATTEND Internal Medicine

== ENCOUNTER 2017-02-14 17:29 | Inpatient (IN) ==
[2017-02-14] MEDS ORDERED: Albuterol 2.5 MG/3 ML NEBULIZER IH ONE ×2 (19:54→20:22)
[2017-02-14] MEDS ORDERED: Furosemide 40 MG/4 ML VIAL IVP ONE (19:56)
[2017-02-14] MEDS ORDERED: methylPREDNISolone 125 MG/2 ML VIAL IVP ONE (19:57)
[2017-02-14] MEDS ORDERED: Albuterol 2.5 MG/3 ML NEBULIZER ONE (20:13)
[2017-02-14] MEDS ORDERED: Ipratropium/Albuterol Neb 3 ML IH PRN (22:15)
[2017-02-14] MEDS ORDERED: Naloxone 0.4 MG/ML INJ IVP PRN (22:20)
--- NOTE | 2017-02-14 22:28 | Internal Med History&Physical ---
Date of Encounter: 02/14/17 Time of Encounter: 22:23 Assessment and Plan (1) Acute respiratory failure Current visit: Yes Status: Acute acute on chronic respiratory failure. Now requiring 4 L in the ED. Uses BIPAP prn qHS. Questionable HAP with RLL infiltrate at outside ED. Given risk of C.diff flare and patient refusal of antibiotics, we will hold antibiotics at current and wait CT chest w/o contrast to properly clarify. If PNA is confirmed, will have to start HCAP therapy and perhaps prolong PO vanc course Qualifiers: Respiratory failure complication: hypoxia Qualified Code(s): J96.01 - Acute respiratory failure with hypoxia (2) COPD (chronic obstructive pulmonary disease) Current visit: Yes Status: Acute appear stable. Duonebs Qualifiers: COPD type: chronic bronchitis Qualified Code(s): J41.0 - Simple chronic bronchitis (3) Clostridium difficile colitis Current visit: No Status: Acute current diarrhea free. Completing PO vanco dose (4) Coronary artery disease Current visit: No Status: Acute s/p quad CABG 1990, continue med Qualifiers: Coronary Disease-Associated Artery/Lesion type: [place] artery [place] vs. transplanted heart: [place] heart Associated angina: with stable angina Qualified Code(s): I25.118 - Atherosclerotic heart disease of [place] coronary artery with other forms of angina pectoris Internal Medicine - H&P: HPI Chief complaint: SOB History of present illness: Mr. Bernardo is a 71 year old male who presents with recurrent SOB. He was recently discharged from the hospital on 02/12 for CHF flare and uses 2 L at baseline and is waiting insurance approval of BIPAP at home. [facility] for worsening 1 day hx of SOB. CXR there found possible RLL infiltrate suspicious for PNA. However, he has a hx of C.diff, diarrhea free at current and is currently completing dose of vanco PO (he reports 4 more doses). At [facility], BNP 2624, Cr 1.28, WBC 11.2, EKG reviewed by self with NSR, rate 97. It was reported that he was offered antibiotics but he declined due to recent C.diff. Past Med Surg Social Fam HX - Past Medical History Medical history: CHF, COPD, coronary artery disease, hyperlipidemia, hypertension, myocardial infarction, valvular heart disease, other Psychiatric history: anxiety - Past Surgical History Surgical History: coronary bypass (CABG), herniorrhaphy, pacemaker/AICD, vascular surgery - Social History Smoking Status: Former smoker Smokeless Tobacco Status: No Alcohol use: none Drug use: none - Family History Father Living Status: Hx Family Cardiac Disorders: Yes (cardiomyopathy) Internal Medicine - H&P: Meds ALPRAZolam [Xanax 0.5 MG Tablet] 0.5 mg PO TID PRN 11/21/16 [History] Albuterol Sulfate [Albuterol Inhaler] 2 puff IH Q6HR PRN 11/21/16 [History] Apixaban [Eliquis] 5 mg PO BID 11/21/16 [History] Ascorbic Acid [Vitamin C] 1,000 mg PO DAILY 11/21/16 [History] Budesonide/Formoterol 160/4.5 [Symbicort 160/4.5] 2 puff IH BIDR 11/21/16 [ History] Carvedilol [Coreg] 3.125 mg PO BID 11/21/16 [History] Cholecalciferol (D-3) [Vitamin D] 3,000 unit PO DAILY 11/21/16 [History] Clopidogrel [Plavix] 75 mg PO DAILY 11/21/16 [History] Fish Oil/Dha/Epa [Fish Oil 1,200 mg Fish Oil] 1,200 mg PO DAILY 11/21/16 [ History] Folic Acid 0.8 mg PO DAILY 11/21/16 [History] Furosemide [Lasix] 40 mg PO BID 11/21/16 [History] Isosorbide MONOnitrate (24 HR) [Imdur] 120 mg PO DAILY 11/21/16 [History] Magnesium Oxide [Magnesium] 500 mg PO DAILY 11/21/16 [History] Multivitamin [One Daily Multivitamin] 1 tab PO DAILY 11/21/16 [History] Nitroglycerin [Nitrostat] 0.4 mg SL AD PRN 11/21/16 [History] Oxygen 2 l .ROUTE AD 11/21/16 [History] Ranolazine [Ranexa] 1,000 mg PO BID 11/21/16 [History] Trazodone HCl 200 mg PO HS 11/21/16 [History] Vitamin B Complex [B Complex] 1 tab PO DAILY 11/21/16 [History] Tamsulosin [Flomax] 0.4 mg PO HS #30 capsule 11/22/16 [Rx] Ezetimibe [Zetia] 10 mg PO DAILY 01/12/17 [History] Aspirin [Lo-Dose Aspirin EC] 81 mg PO DAILY 02/10/17 [History] Saccharomyces Boulardii [Florastor] 1,000 mg PO BID 02/10/17 [History] Potassium Chloride [Klor-Con 10] 10 meq PO BID 02/11/17 [History] Albuterol Neb [Proventil Neb] 2.5 mg IH Q2H PRN #60 inh 02/12/17 [Rx] Vancomycin Oral Soln [Vancocin] 125 mg PO Q72H 02/12/17 [Rx] metOLazone [Metolazone] 10 mg PO ONCE #1 tablet 02/12/17 [Rx] predniSONE [PredniSONE] 10 mg PO DAILY #54 tablet 02/12/17 [Rx] Ipratropium/Albuterol Neb [Duoneb] 3 ml IH Q6HR 02/14/17 [History] 3 Allergy/AdvReac Type Severity Reaction Status Date / Time Penicillins Allergy Redness of Verified 01/12/17 15:25 Skin All Systems PM: A 10-system review of systems was performed and is negative for pertinent findings except as documented above in the HPI. Review of systems: ROS 14 point review of systems reviewed as best as possible given presentation. Pertinent positive or negative as per HPI or otherwise reviewed as negative - Constitutional Vitals: Pulse Resp BP Pulse Ox 90 14 136/62 98 02/14/17 20:00 02/14/17 20:10 02/14/17 20:00 02/14/17 20:40 Exam: General - AAO x 3 Psych - Appropriate affect/speech. No agitation Eyes - JALIL. Eye lids intact. No scleral icterus Heart - Sinus. RRR. S1 and S2 present. No added HS/murmurs appreciated. No elevated JVD appreciated. No calf swellings/erythema Lung - Adequate air entry b/l, bibasilar crackles GI - Soft, non-tender. No hepatosplenomegaly/ascites. BS+ - No CVA/suprapubic tenderness or palpable bladder distension Skin - Intact. No rash/petechiae/ecchymosis. Warm extremities
[2017-02-14] MEDS: ALPRAZolam 0.5 MG TABLET PO PRN (23:08)
[2017-02-14] MEDS ORDERED: traZODone 50 MG TABLET PO ONE (23:20)
[2017-02-15] MEDS: Ipratropium/Albuterol Neb 3 ML IH SCH ×4 (03:45→21:04)
[2017-02-15] MEDS: Cholecalciferol (D-3) 1,000 UNIT TABLET PO SCH (07:54)
[2017-02-15] MEDS: Ascorbic Acid 500 MG TABLET PO SCH (07:55)
[2017-02-15] MEDS: Ranolazine 500 MG TAB.ER.12H PO SCH ×2 (07:55→20:52)
[2017-02-15] MEDS: Aspirin Enteric Coated 81 MG Tablet PO SCH (07:56)
[2017-02-15] MEDS: Folic Acid 1 MG TABLET PO SCH (07:56)
[2017-02-15] MEDS: Isosorbide MONOnitrate (24 HR) 60 MG TAB.ER.24H PO SCH (07:56)
[2017-02-15] MEDS: Vancomycin Oral Soln 250 MG/2.5 ML UDC PO SCH ×3 (07:57→15:50)
[2017-02-15] MEDS ORDERED: Furosemide 40 MG TABLET PO SCH (08:00)
[2017-02-15 08:35] LABS: Hematocrit 39.3 % (37.5-50.1); Immature Granulocytes % 0.5 % (0-4); Lymphocytes # 0.5 K/mcL (0.6-4.6); Mean Corpuscular HGB Conc 31.8 g/dL (31.6-35.5); Mean Corpuscular Hemoglobin 29.7 pg (28.0-33.3); Mean Corpuscular Volume 93.3 fL (83.0-100.0); Mean Platelet Volume 9.6 fL (9.4-12.4); Monocytes # 0.4 K/mcL (0.0-1.3); Monocytes % 6.3 %; Neutrophils # 5.3 K/mcL (1.6-8.9); Platelet Count 214 K/mcL (140-400); Red Blood Count 4.21 M/mcL (4.19-5.50); Red Cell Distribution Width 15.9 % (11.5-14.5); Segmented Neutrophils % 85.2 %
[2017-02-15 08:43] LABS: Hemoglobin 12.5 g/dL (12.9-16.9)
[2017-02-15] MEDS: APIXABAN 5 MG TABLET PO SCH ×2 (08:45→20:52)
[2017-02-15 08:47] LABS: BUN/Creatinine Ratio 28 (6-26); Blood Urea Nitrogen 37 mg/dL (8-26); Calcium 8.9 mg/dL (8.6-10.8); Carbon Dioxide 31 mEq/L (19-29); Chloride 97 mEq/L (98-109); Glucose 180 mg/dL (70-99); Osmolality,Calculated 299 (280-300); Potassium 4.1 mEq/L (3.5-4.5); Sodium 138 mEq/L (136-145); eGFR For African Americans > 60 (> 60); eGFR For Non-African Americans 53 (> 60)
[2017-02-15] MEDS: ZETIA 10MG PO SCH (10:27)
[2017-02-15] MEDS: ALPRAZolam 0.5 MG TABLET PO PRN ×3 (10:40→20:52)
--- NOTE | 2017-02-15 14:27 | Internal Med Progress Note ---
Date of Encounter: 02/15/17 Time of Encounter: 09:00 - Assessment and plan (1) Acute and chronic respiratory failure with hypoxia Current Visit: Yes Status: Acute Assessment and plan: Continue oxygen supplementation. He is awaiting insurance approval for bipap. He was discharged on and now readmitted. He will be high risk for readmission until that is arranged. (2) Acute on chronic systolic (congestive) heart failure Current Visit: No Status: Acute Assessment and plan: Patient feels that Lasix not as helpful. Will switch to IV Bumex today and reassess tomorrow. (3) Coronary artery disease Current Visit: No Status: Acute Assessment and plan: No current issues. Continue home meds. Qualifiers: Coronary Disease-Associated Artery/Lesion type: [place] artery [place] vs. transplanted heart: [place] heart Associated angina: with stable angina Qualified Code(s): I25.118 - Atherosclerotic heart disease of [place] coronary artery with other forms of angina pectoris (4) Clostridium difficile colitis Current Visit: No Status: Acute Assessment and plan: Completing PO Vancomycin. (5) Acute on chronic kidney failure Current Visit: No Status: Acute Assessment and plan: Will hold tonight's dose of Lasix. Restart tomorrow. Recheck renal function tomorrow. Qualifiers: Acute renal failure type: unspecified Chronic kidney disease stage: stage 3 (moderate) Qualified Code(s): N17.9 - Acute kidney failure, unspecified; N18.3 - Chronic kidney disease, stage 3 (moderate) - Subjective Interval history: Mr Bernardo is currently admitted for acute on chronic hypoxic resp failure. He is currently moderate risk due to potential for worsening respiratory status. Mr Bernardo was readmitted last evening. He stated he has not had his bipap at night and it may be weeks before it is arranged. He has had worsening dyspnea and was escalated yesterday. He does not feel the Lasix is working. No diarrhea. CT OK at this time. - Constitutional Vitals: Temp Pulse Resp BP Pulse Ox 97.5 F L 61 18 121/65 96 02/15/17 10:31 02/15/17 10:31 02/15/17 10:42 02/15/17 10:31 02/15/17 10:42 General appearance: Present: A&O X 3, pleasant, answers questions appropriately - Head Head exam: Present: normocephalic - Eye Eye exam: Present: EOMI, conjuntiva pink - ENT ENT exam: Present: mucous membranes dry - Respiratory Respiratory exam: Present: CTAB. Absent: rales, rhonchi, wheezes - Cardiovascular Cardiovascular exam: Present: RRR. Absent: tachycardia - GI/Abdominal GI/Abdominal exam: Present: soft. Absent: tenderness - Extremities Exam Extremities exam: Present: warm. Absent: tenderness - Neurological Exam Neurological exam: Present: alert, oriented X3, no focal deficits - Skin Skin exam: Present: warm. Absent: rash Internal Medicine: Result - Labs CBC & Chem 7: 02/15/17 08:13 02/15/17 08:13 Labs: Short CBC 02/15/17 Range/Units 08:13 WBC 6.2 (4.3-11.1) K/mcL Hgb 12.5 L D (12.9-16.9) g/dL Hct 39.3 (37.5-50.1) % Plt Count 214 (140-400) K/mcL Neutrophils # 5.3 (1.6-8.9) K/mcL BMP 02/15/17 08:13 Sodium 138 Potassium 4.1 Chloride 97 L Carbon Dioxide 31 H BUN 37 H Creatinine 1.34 H Glucose 180 H Calcium 8.9 - Impressions Impressions Chest CT 02/14/17 22:16 IMPRESSION: Small bilateral pleural effusions with dependent lower lobe consolidation, atelectasis and/or pneumonia. The effusions have slightly increased in size since the prior study. Moderate to severe emphysema. D/ / Keya Haro Cha, MD / Keya Haro Cha, MD Interpreting Provider: Keya Haro Cha, MD Consult Discharge Plan - Plan Referrals: NONE,PCP [Primary Care Provider] -
[2017-02-15] MEDS ORDERED: Vancomycin Oral Soln 250 MG/2.5 ML UDC PO SCH (16:00)
[2017-02-15] MEDS: Bumetanide 1 MG/4 ML VIAL IVP SCH (16:33)
[2017-02-15] MEDS: traZODone 50 MG TABLET PO SCH (23:34)
[2017-02-16] MEDS: Ipratropium/Albuterol Neb 3 ML IH SCH ×4 (03:52→22:15)
[2017-02-16] MEDS: Bumetanide 1 MG/4 ML VIAL IVP SCH ×2 (05:16→17:31)
[2017-02-16 07:45] LABS: Hematocrit 35.6 % (37.5-50.1); Hemoglobin 11.3 g/dL (12.9-16.9); Mean Corpuscular HGB Conc 31.7 g/dL (31.6-35.5); Mean Corpuscular Hemoglobin 29.5 pg (28.0-33.3); Mean Platelet Volume 9.8 fL (9.4-12.4); Platelet Count 202 K/mcL (140-400); Red Blood Count 3.83 M/mcL (4.19-5.50); Red Cell Distribution Width 15.7 % (11.5-14.5)
[2017-02-16 07:50] LABS: BUN/Creatinine Ratio 26 (6-26); Blood Urea Nitrogen 32 mg/dL (8-26); Calcium 8.5 mg/dL (8.6-10.8); Carbon Dioxide 32 mEq/L (19-29); Chloride 100 mEq/L (98-109); Glucose 98 mg/dL (70-99); Magnesium 2.2 mg/dL (1.6-2.6); Osmolality,Calculated 295 (280-300); Sodium 139 mEq/L (136-145); eGFR For African Americans > 60 (> 60); eGFR For Non-African Americans 57 (> 60)
[2017-02-16 07:51] LABS: Potassium 3.7 mEq/L (3.5-4.5)
[2017-02-16] MEDS: Ascorbic Acid 500 MG TABLET PO SCH (10:02)
[2017-02-16] MEDS: Folic Acid 1 MG TABLET PO SCH (10:02)
[2017-02-16] MEDS: Ranolazine 500 MG TAB.ER.12H PO SCH ×2 (10:02→20:36)
[2017-02-16] MEDS: Aspirin Enteric Coated 81 MG Tablet PO SCH (10:03)
[2017-02-16] MEDS: ALPRAZolam 0.5 MG TABLET PO PRN ×2 (10:03→22:24)
[2017-02-16] MEDS: APIXABAN 5 MG TABLET PO SCH ×2 (10:03→20:36)
[2017-02-16] MEDS: Cholecalciferol (D-3) 1,000 UNIT TABLET PO SCH (10:03)
[2017-02-16] MEDS: Isosorbide MONOnitrate (24 HR) 60 MG TAB.ER.24H PO SCH (10:03)
[2017-02-16] MEDS: ZETIA 10MG PO SCH (12:23)
--- NOTE | 2017-02-16 12:58 | Internal Med Progress Note ---
Date of Encounter: 02/16/17 Time of Encounter: 09:00 - Assessment and plan (1) Acute and chronic respiratory failure with hypoxia Current Visit: Yes Status: Acute Assessment and plan: Continue oxygen supplementation. Awaiting insurance approval for bipap. Reassess tomorrow. (2) Acute on chronic systolic (congestive) heart failure Current Visit: No Status: Acute Assessment and plan: Responded well to IV Bumex. Will continue IV today and switch to PO tomorrow AM. (3) Coronary artery disease Current Visit: No Status: Acute Assessment and plan: No current issues. Continue home meds. Qualifiers: Coronary Disease-Associated Artery/Lesion type: [place] artery [place] vs. transplanted heart: [place] heart Associated angina: with stable angina Qualified Code(s): I25.118 - Atherosclerotic heart disease of [place] coronary artery with other forms of angina pectoris (4) Clostridium difficile colitis Current Visit: No Status: Acute Assessment and plan: Completing PO Vancomycin. Currently on q72h dosing. (5) Acute on chronic kidney failure Current Visit: No Status: Resolved Assessment and plan: SERGIO improved. Qualifiers: Acute renal failure type: unspecified Chronic kidney disease stage: stage 3 (moderate) Qualified Code(s): N17.9 - Acute kidney failure, unspecified; N18.3 - Chronic kidney disease, stage 3 (moderate) (6) History of implantable cardioverter-defibrillator (ICD) placement Current Visit: No Status: Chronic - Subjective Interval history: Mr Bernardo is currently admitted for acute on chronic hypoxic resp failure. He is currently moderate to high risk due to potential for worsening respiratory status. Mr Bernardo had good response to IV Bumex yesterday. He is feeling OK and breathing better today. No diarrhea. No CP. No fever or chills. Wants to continue to diurese today. - Constitutional Vitals: Temp Pulse Resp BP Pulse Ox 97.4 F L 63 16 116/58 98 02/16/17 08:35 02/16/17 08:35 02/16/17 10:12 02/16/17 10:12 02/16/17 10:12 General appearance: Present: A&O X 3, pleasant, answers questions appropriately - Head Head exam: Present: normocephalic - Eye Eye exam: Present: EOMI, conjuntiva pink - ENT ENT exam: Present: mucous membranes moist - Respiratory Respiratory exam: Present: CTAB. Absent: rales, wheezes - Cardiovascular Cardiovascular exam: Present: RRR. Absent: tachycardia - GI/Abdominal GI/Abdominal exam: Present: soft. Absent: tenderness - Extremities Exam Extremities exam: Present: warm. Absent: tenderness - Neurological Exam Neurological exam: Present: alert, oriented X3, no focal deficits - Psychiatric Psychiatric exam: Present: normal affect, normal mood - Skin Skin exam: Present: dry, warm. Absent: rash Internal Medicine: Result - Labs CBC & Chem 7: 02/16/17 07:19 02/16/17 07:19 Labs: Short CBC 02/16/17 Range/Units 07:19 WBC 5.6 (4.3-11.1) K/mcL Hgb 11.3 L (12.9-16.9) g/dL Hct 35.6 L (37.5-50.1) % Plt Count 202 (140-400) K/mcL BMP 02/16/17 07:19 Sodium 139 Potassium 3.7 Chloride 100 Carbon Dioxide 32 H BUN 32 H Creatinine 1.25 Glucose 98 Calcium 8.5 L Consult Discharge Plan - Plan Referrals: NONE,PCP [Primary Care Provider] -
[2017-02-16] MEDS: traZODone 50 MG TABLET PO SCH (23:24)
[2017-02-17 03:16] LABS: Hematocrit 35.3 % (37.5-50.1); Hemoglobin 11.3 g/dL (12.9-16.9); Mean Corpuscular Hemoglobin 30.2 pg (28.0-33.3); Mean Corpuscular Volume 94.4 fL (83.0-100.0); Mean Platelet Volume 9.5 fL (9.4-12.4); Platelet Count 178 K/mcL (140-400); Red Blood Count 3.74 M/mcL (4.19-5.50); Red Cell Distribution Width 15.5 % (11.5-14.5)
[2017-02-17 03:31] LABS: BUN/Creatinine Ratio 24 (6-26); Blood Urea Nitrogen 32 mg/dL (8-26); Calcium 8.2 mg/dL (8.6-10.8); Carbon Dioxide 32 mEq/L (19-29); Chloride 102 mEq/L (98-109); Glucose 96 mg/dL (70-99); Magnesium 3.3 mg/dL (1.6-2.6); Osmolality,Calculated 299 (280-300); Potassium 3.8 mEq/L (3.5-4.5); Sodium 141 mEq/L (136-145); eGFR For African Americans > 60 (> 60); eGFR For Non-African Americans 52 (> 60)
[2017-02-17] MEDS: Ipratropium/Albuterol Neb 3 ML IH SCH ×4 (03:58→22:00)
--- NOTE | 2017-02-17 09:21 | Internal Med Progress Note ---
<ToneyaustynJayson - Last Filed: 02/17/17 13:35> Date of Encounter: 02/17/17 Time of Encounter: 08:45 - Assessment and plan (1) Acute and chronic respiratory failure with hypoxia Current Visit: Yes Status: Acute Assessment and plan: Acute Resolved. Continue oxygen supplementation. Awaiting insurance approval for bipap. Will requalify the patient tonight. Continue breathing treatments (2) Acute on chronic systolic (congestive) heart failure Current Visit: No Status: Acute Assessment and plan: improving. Continue PO Bumex Continue to monitor I&Os (3) Coronary artery disease Current Visit: No Status: Acute Assessment and plan: Chronic, Stable. Continue home meds. Qualifiers: Coronary Disease-Associated Artery/Lesion type: [place] artery [place] vs. transplanted heart: [place] heart Associated angina: with stable angina Qualified Code(s): I25.118 - Atherosclerotic heart disease of [place] coronary artery with other forms of angina pectoris (4) Clostridium difficile colitis Current Visit: No Status: Acute Assessment and plan: Present prior to admission Completing PO Vancomycin. Currently on q72h dosing. (5) Acute on chronic kidney failure Current Visit: No Status: Resolved Assessment and plan: SERGIO improved then worsened today likely 2/2 to IV bumex. Should improve now on PO. Qualifiers: Acute renal failure type: unspecified Chronic kidney disease stage: stage 3 (moderate) Qualified Code(s): N17.9 - Acute kidney failure, unspecified; N18.3 - Chronic kidney disease, stage 3 (moderate) (6) History of implantable cardioverter-defibrillator (ICD) placement Current Visit: No Status: Chronic Assessment and plan: Stable. - Subjective Interval history: Patient reports sore throat. He denies CP, SOB, Abd pn, N, V, D. - Constitutional Vitals: Temp Pulse Resp BP Pulse Ox 97.4 F L 63 16 115/61 97 02/17/17 08:05 02/17/17 08:05 02/17/17 08:05 02/17/17 08:05 02/17/17 08:05 General appearance: Present: A&O X 3, pleasant, answers questions appropriately - Head Head exam: Present: atraumatic, normocephalic - Eye Eye exam: Present: PERRL, conjuntiva pink, sclera anicteric Pupils: Present: PERRL - Neck Neck exam general surgery: Present: supple, trachea midline - Respiratory Respiratory exam: Present: CTAB. Absent: accessory muscle use, rales, rhonchi, wheezes - Cardiovascular Cardiovascular exam: Present: RRR, +S1, +S2. Absent: diastolic murmur, gallop, rubs, systolic murmur - GI/Abdominal GI/Abdominal exam: Present: normal bowel sounds, soft, no peritoneal signs. Absent: distended, tenderness - Extremities Exam Extremities exam: Present: warm. Absent: calf tenderness, cyanotic, pedal edema - Neurological Exam Neurological exam: Present: alert, oriented X3, no focal deficits. Absent: facial droop, speech deficit - Psychiatric Psychiatric exam: Present: normal affect, normal mood - Skin Skin exam: Present: dry, intact Internal Medicine: Result - Labs CBC & Chem 7: 02/17/17 03:02 02/17/17 03:02 Labs: Short CBC 02/17/17 Range/Units 03:02 WBC 6.0 (4.3-11.1) K/mcL Hgb 11.3 L (12.9-16.9) g/dL Hct 35.3 L (37.5-50.1) % Plt Count 178 (140-400) K/mcL BMP 02/17/17 03:02 Sodium 141 Potassium 3.8 Chloride 102 Carbon Dioxide 32 H BUN 32 H Creatinine 1.36 H Glucose 96 Calcium 8.2 L Consult Discharge Plan - Plan Referrals: NONE,PCP [Primary Care Provider] - <Phil Bustillo - Last Filed: 02/17/17 17:38> Date of Encounter: 02/17/17 - Assessment and plan (1) Acute and chronic respiratory failure with hypoxia Current Visit: Yes Status: Acute (2) Acute on chronic systolic (congestive) heart failure Current Visit: No Status: Acute (3) Coronary artery disease Current Visit: No Status: Acute Qualifiers: Coronary Disease-Associated Artery/Lesion type: [place] artery [place] vs. transplanted heart: [place] heart Associated angina: with stable angina Qualified Code(s): I25.118 - Atherosclerotic heart disease of [place] coronary artery with other forms of angina pectoris (4) Clostridium difficile colitis Current Visit: No Status: Acute (5) Acute on chronic kidney failure Current Visit: No Status: Resolved Qualifiers: Acute renal failure type: unspecified Chronic kidney disease stage: stage 3 (moderate) Qualified Code(s): N17.9 - Acute kidney failure, unspecified; N18.3 - Chronic kidney disease, stage 3 (moderate) (6) History of implantable cardioverter-defibrillator (ICD) placement Current Visit: No Status: Chronic - Constitutional Vitals: Temp Pulse Resp BP Pulse Ox 98.2 F 62 16 125/64 99 02/17/17 16:08 02/17/17 16:08 02/17/17 16:08 02/17/17 16:08 02/17/17 16:08 Internal Medicine: Result - Labs CBC & Chem 7: 02/17/17 03:02 02/17/17 03:02 Labs: Short CBC 02/17/17 Range/Units 03:02 WBC 6.0 (4.3-11.1) K/mcL Hgb 11.3 L (12.9-16.9) g/dL Hct 35.3 L (37.5-50.1) % Plt Count 178 (140-400) K/mcL BMP 02/17/17 03:02 Sodium 141 Potassium 3.8 Chloride 102 Carbon Dioxide 32 H BUN 32 H Creatinine 1.36 H Glucose 96 Calcium 8.2 L - Attending Attestation I examined this patient and my medical decision-making was reviewed with the Resident Physician on 02/17/17. I agree with the documented findings, disposition and treatment plan as described except to the extent set forth below. Mr Bernardo is currently admitted for acute on chronic hypoxic resp failure. He remains moderate risk due to potential for worsening resp status. Mr Bernardo is feeling OK. We have been working on bipap set up. He needs new study. He is concerned that he has improved with Bumex and won't qualify. He is quite frustrated at this time. No fever or chills. Exam Alert. Comfortable Mucus membranes dry Heart not tachy No wheeze Abd soft I/P 1. Hypoxia 2. CHF Further diagnoses and plan as above.
[2017-02-17] MEDS: Ranolazine 500 MG TAB.ER.12H PO SCH ×2 (10:17→20:00)
[2017-02-17] MEDS: Bumetanide 1 MG TABLET PO SCH (10:18)
[2017-02-17] MEDS: Folic Acid 1 MG TABLET PO SCH (10:18)
[2017-02-17] MEDS: APIXABAN 5 MG TABLET PO SCH ×2 (10:19→20:00)
[2017-02-17] MEDS: Aspirin Enteric Coated 81 MG Tablet PO SCH (10:19)
[2017-02-17] MEDS: Ascorbic Acid 500 MG TABLET PO SCH (10:20)
[2017-02-17] MEDS: Cholecalciferol (D-3) 1,000 UNIT TABLET PO SCH (10:20)
[2017-02-17] MEDS: Isosorbide MONOnitrate (24 HR) 60 MG TAB.ER.24H PO SCH (10:20)
[2017-02-18] MEDS: traZODone 50 MG TABLET PO SCH (00:19)
[2017-02-18 04:01] LABS: Hematocrit 38.5 % (37.5-50.1); Hemoglobin 11.9 g/dL (12.9-16.9); Mean Corpuscular HGB Conc 30.9 g/dL (31.6-35.5); Mean Corpuscular Hemoglobin 29.7 pg (28.0-33.3); Mean Platelet Volume 9.8 fL (9.4-12.4); Platelet Count 181 K/mcL (140-400); Red Blood Count 4.01 M/mcL (4.19-5.50); Red Cell Distribution Width 15.6 % (11.5-14.5)
[2017-02-18] MEDS: Ipratropium/Albuterol Neb 3 ML IH SCH ×3 (04:27→15:28)
[2017-02-18 04:30] LABS: BUN/Creatinine Ratio 23 (6-26); Blood Urea Nitrogen 26 mg/dL (8-26); Calcium 8.6 mg/dL (8.6-10.8); Carbon Dioxide 22 mEq/L (19-29); Chloride 104 mEq/L (98-109); Glucose 97 mg/dL (70-99); Osmolality,Calculated 291 (280-300); Sodium 138 mEq/L (136-145); eGFR For African Americans > 60 (> 60); eGFR For Non-African Americans > 60 (> 60)
[2017-02-18 04:31] LABS: Potassium 4.9 mEq/L (3.5-4.5)
--- NOTE | 2017-02-18 08:16 | Discharge Summary ---
<Jayson Freire - Last Filed: 02/18/17 13:35> Date of Encounter: 02/18/17 Time of Encounter: 08:00 - Discharge Diagnosis (1) Acute and chronic respiratory failure with hypoxia Priority: Primary Status: Acute (2) Acute on chronic systolic (congestive) heart failure Priority: Secondary Status: Acute (3) Coronary artery disease Priority: Secondary Status: Acute Qualifiers: Coronary Disease-Associated Artery/Lesion type: [place] artery [place] vs. transplanted heart: [place] heart Associated angina: with stable angina Qualified Code(s): I25.118 - Atherosclerotic heart disease of [place] coronary artery with other forms of angina pectoris (4) Clostridium difficile colitis Priority: Secondary Status: Acute (5) Acute on chronic kidney failure Priority: Secondary Status: Resolved Qualifiers: Acute renal failure type: unspecified Chronic kidney disease stage: stage 3 (moderate) Qualified Code(s): N17.9 - Acute kidney failure, unspecified; N18.3 - Chronic kidney disease, stage 3 (moderate) (6) History of implantable cardioverter-defibrillator (ICD) placement Priority: Secondary Status: Chronic - Discharge Medications Prescriptions: Benzocaine/Menthol Juan [Cepacol Sore Throat Lozenge] 1 each MM Q2H PRN #60 lozenge PRN Reason: Sore Throat Bumetanide [Bumex] 1 mg PO DAILY #30 tab GuaiFENesin ER [Mucinex] 600 mg PO BID PRN #60 tab PRN Reason: Cough Home Medications: ALPRAZolam [Xanax 0.5 MG Tablet] 0.5 mg PO TID PRN 11/21/16 [History] Albuterol Sulfate [Albuterol Inhaler] 2 puff IH Q6HR PRN 11/21/16 [History] Apixaban [Eliquis] 5 mg PO BID 11/21/16 [History] Ascorbic Acid [Vitamin C] 1,000 mg PO DAILY 11/21/16 [History] Budesonide/Formoterol 160/4.5 [Symbicort 160/4.5] 2 puff IH BIDR 11/21/16 [ History] Carvedilol [Coreg] 3.125 mg PO BID 11/21/16 [History] Cholecalciferol (D-3) [Vitamin D] 3,000 unit PO DAILY 11/21/16 [History] Clopidogrel [Plavix] 75 mg PO DAILY 11/21/16 [History] Fish Oil/Dha/Epa [Fish Oil 1,200 mg Fish Oil] 1,200 mg PO DAILY 11/21/16 [ History] Folic Acid 0.8 mg PO DAILY 11/21/16 [History] Isosorbide MONOnitrate (24 HR) [Imdur] 120 mg PO DAILY 11/21/16 [History] Magnesium Oxide [Magnesium] 500 mg PO DAILY 11/21/16 [History] Multivitamin [One Daily Multivitamin] 1 tab PO DAILY 11/21/16 [History] Nitroglycerin [Nitrostat] 0.4 mg SL AD PRN 11/21/16 [History] Oxygen 2 l .ROUTE AD 11/21/16 [History] Ranolazine [Ranexa] 1,000 mg PO BID 11/21/16 [History] Trazodone HCl 200 mg PO HS 11/21/16 [History] Vitamin B Complex [B Complex] 1 tab PO DAILY 11/21/16 [History] Tamsulosin [Flomax] 0.4 mg PO HS #30 capsule 11/22/16 [Rx] Ezetimibe [Zetia] 10 mg PO DAILY 01/12/17 [History] Aspirin [Lo-Dose Aspirin EC] 81 mg PO DAILY 02/10/17 [History] Saccharomyces Boulardii [Florastor] 1,000 mg PO BID 02/10/17 [History] Potassium Chloride [Klor-Con 10] 10 meq PO BID 02/11/17 [History] Albuterol Neb [Proventil Neb] 2.5 mg IH Q2H PRN #60 inh 02/12/17 [Rx] Vancomycin Oral Soln [Vancocin] 125 mg PO Q72H 02/12/17 [Rx] metOLazone [Metolazone] 10 mg PO ONCE #1 tablet 02/12/17 [Rx] predniSONE [PredniSONE] 10 mg PO DAILY #54 tablet 02/12/17 [Rx] Benzocaine/Menthol Juan [Cepacol Sore Throat Lozenge] 1 each MM Q2H PRN #60 lozenge 02/18/17 [Rx] Bumetanide [Bumex] 1 mg PO DAILY #30 tab 02/18/17 [Rx] GuaiFENesin ER [Mucinex] 600 mg PO BID PRN #60 tab 02/18/17 [Rx] Allergies/Adverse Reactions: 3 Allergy/AdvReac Type Severity Reaction Status Date / Time Penicillins Allergy Redness of Verified 01/12/17 15:25 Skin Procedures/tests Complete & Pending: FINDINGS: Mediastinum: Aortic and coronary arterial calcifications are noted. There are small mediastinal lymph nodes measuring up to 1 cm in short axis in the pretracheal space, nonspecific. Calcified subcarinal and right hilar lymph nodes. No pericardial effusion. Lungs/pleura: The central airways are patent. Moderate to severe panlobular emphysema is present, greatest in the upper lobes. There are small bilateral pleural effusions which are slightly increased in size since the prior study. Dependent lower lobe consolidation is again noted. Upper Abdomen: Noncontrast images of the upper abdomen show no acute abnormality. Normal adrenal glands. Soft Tissues/Bones: No acute bony abnormality. Again identified is a circumscribed subcutaneous 6.7 x 2.2 by 6.0 cm cystic structure of the left back, likely a large sebaceous cyst, unchanged. CT/CT chest wo con IMPRESSION: Small bilateral pleural effusions with dependent lower lobe consolidation, atelectasis and/or pneumonia. The effusions have slightly increased in size since the prior study. Moderate to severe emphysema. Date of admission: 02/14/17 19:32 Primary care physician: PCP NONE Consults: 02/14/17 20:32 Consult to Health Policy Analyst [CONS] Routine Reason for SW Consult: Oxygen and Bipap needs Discharging clinician: Jayson Freire Anticipated date of discharge: 02/18/17 - Patient Status Disposition: Home Health Service Condition: Fair Functional capacity at discharge: independent ambulation Overall status at discharge: patient is progressing back to baseline - Discharge Instructions Instructions: Bumetanide (By mouth), Decongestant/Expectorant (By mouth), Benzocaine/Menthol (By mouth), Acute Respiratory Distress Syndrome (DC), Chronic Obstructive Pulmonary Disease (DC) Follow Up With: Hu Yeboah MD [Non-Partnered Physician] - 02/25/17 10:10 am (Please follow up a schedule..) Additional Instructions: Please follow up with your primary care provider within 1 week. Please resume your home medications as prescribed. Please return to the hospital if you experience any new or worsening symptoms. - Diet and Activity Activity: resume usual activities as tolerated Diet: advance to your usual diet Interval History: Patient eager to go home. This morning he was anxious because he was late in getting his bumex. Patient reports overall feeling fine besides that. Hospital course: Mr. Bernardo is a 71 year old male c PMHx of CHF, COPD, coronary artery disease, hyperlipidemia, hypertension, myocardial infarction, valvular heart disease, anxiety who presents to the hospital c/o SOB. Patient was recently treated for CHF exacerbation and discharged on 02/12/17. However his insurance did not set up his Nebulizer, oxygen, or Bipap. As a result the patient decompensated and required readmission. Patient was continued on his Oral Vanc treatment for C.Diff. He was diuresed being started on Bumex which worked much better than lasix for the person. He was also requalified for oxygen and bipap and set up with a different provider. - Time Spent with Patient Total time spent providing and/or coordinating discharge services: 1 hr - Constitutional Vitals: Temp Pulse Resp BP Pulse Ox 97.6 F 72 17 121/63 96 02/18/17 07:07 02/18/17 07:07 02/18/17 07:07 02/18/17 07:07 02/18/17 07:07 General appearance: Present: A&O X 3, pleasant, answers questions appropriately - Head Head exam: Present: atraumatic, normocephalic - Eye Eye exam: Present: PERRL, conjuntiva pink, sclera anicteric Pupils: Present: PERRL - Neck Neck exam general surgery: Present: supple, trachea midline - Respiratory Respiratory exam: Present: CTAB. Absent: accessory muscle use, rales, rhonchi, wheezes - Cardiovascular Cardiovascular exam: Present: RRR, +S1, +S2. Absent: diastolic murmur, gallop, rubs, systolic murmur - GI/Abdominal GI/Abdominal exam: Present: normal bowel sounds, soft, no peritoneal signs. Absent: distended, tenderness - Extremities Exam Extremities exam: Present: warm. Absent: calf tenderness, cyanotic, pedal edema - Neurological Exam Neurological exam: Present: alert, oriented X3. Absent: facial droop, speech deficit - Psychiatric Psychiatric exam: Present: anxious - Skin Skin exam: Present: dry, intact <Rex Eason P - Last Filed: 02/18/17 18:10> Date of Encounter: 02/18/17 Date of admission: 02/14/17 19:32 Primary care physician: PCP NONE Consults: 02/14/17 20:32 Consult to Health Policy Analyst [CONS] Routine Reason for SW Consult: Oxygen and Bipap needs Hospital course: Mr. Bernardo is a 71 year old male - Time Spent with Patient Total time spent providing and/or coordinating discharge services: - Constitutional Vitals: Temp Pulse Resp BP Pulse Ox 97.5 F L 64 16 114/59 98 02/18/17 10:46 02/18/17 10:46 02/18/17 10:49 02/18/17 10:46 02/18/17 11:16 - Attending Attestation I examined this patient and my medical decision-making was reviewed with the Resident Physician. I agree with the documented findings, disposition and treatment plan as described except to the extent set forth below.
[2017-02-18] MEDS: Aspirin Enteric Coated 81 MG Tablet PO SCH (08:50)
[2017-02-18] MEDS: Ranolazine 500 MG TAB.ER.12H PO SCH (08:50)
[2017-02-18] MEDS: Isosorbide MONOnitrate (24 HR) 60 MG TAB.ER.24H PO SCH (08:50)
[2017-02-18] MEDS: Bumetanide 1 MG TABLET PO SCH (08:50)
[2017-02-18] MEDS: APIXABAN 5 MG TABLET PO SCH (08:50)
[2017-02-18] MEDS: Folic Acid 1 MG TABLET PO SCH (08:50)
[2017-02-18] MEDS: Cholecalciferol (D-3) 1,000 UNIT TABLET PO SCH (08:54)
[2017-02-18] MEDS: Ascorbic Acid 500 MG TABLET PO SCH (08:54)
[2017-02-18] MEDS: ALPRAZolam 0.5 MG TABLET PO PRN (09:00)
[2017-02-18 10:49] LABS: ABG Base Excess 6.1 mEq/L (-2.0 to 3.0); ABG HCO3 31 mEq/L (21-27); ABG Oxygen Saturation 99 % (95-98); ABG PCO2 43 mmHg (35-45); ABG PH 7.46 pH Units (7.32-7.45); ABG PO2 112 mmHg (85-104); ABG TCO2 31.9 mEq/L (20-26); Blood Gas FiO2 28 %
[2017-02-18 10:53] VITALS: BP 114/59
--- NOTE | 2017-02-18 11:18 | Physician Discharge Referral ---
Home Health/Hosp Referral Info Transfer to: Home Health Provider in Charge Post Discharge: PCP - Diagnosis (1) Acute and chronic respiratory failure with hypoxia Priority: Primary Status: Acute (2) Acute on chronic systolic (congestive) heart failure Priority: Secondary Status: Acute (3) Coronary artery disease Priority: Secondary Status: Acute (4) Clostridium difficile colitis Priority: Secondary Status: Acute (5) Acute on chronic kidney failure Priority: Secondary Status: Resolved (6) History of implantable cardioverter-defibrillator (ICD) placement Priority: Secondary Status: Chronic - Respiratory Orders Oxygen / L per min (2L), Other (BIPAP) Smoking Cessation: Smoking cessation has been advised. For more information, call the [place] Tobacco Quit Line at 9-090-OEMQ-NOW. - Diet/Nutrition Diet/Nutrition Orders: Cardiac - Activity Activity Orders: Up ad eliseo - Transfer Medications Prescriptions: Benzocaine/Menthol Juan [Cepacol Sore Throat Lozenge] 1 each MM Q2H PRN #60 lozenge PRN Reason: Sore Throat Bumetanide [Bumex] 1 mg PO DAILY #30 tab GuaiFENesin ER [Mucinex] 600 mg PO BID PRN #60 tab PRN Reason: Cough Home Medications: ALPRAZolam [Xanax 0.5 MG Tablet] 0.5 mg PO TID PRN 11/21/16 [History] Albuterol Sulfate [Albuterol Inhaler] 2 puff IH Q6HR PRN 11/21/16 [History] Apixaban [Eliquis] 5 mg PO BID 11/21/16 [History] Ascorbic Acid [Vitamin C] 1,000 mg PO DAILY 11/21/16 [History] Budesonide/Formoterol 160/4.5 [Symbicort 160/4.5] 2 puff IH BIDR 11/21/16 [ History] Carvedilol [Coreg] 3.125 mg PO BID 11/21/16 [History] Cholecalciferol (D-3) [Vitamin D] 3,000 unit PO DAILY 11/21/16 [History] Clopidogrel [Plavix] 75 mg PO DAILY 11/21/16 [History] Fish Oil/Dha/Epa [Fish Oil 1,200 mg Fish Oil] 1,200 mg PO DAILY 11/21/16 [ History] Folic Acid 0.8 mg PO DAILY 11/21/16 [History] Isosorbide MONOnitrate (24 HR) [Imdur] 120 mg PO DAILY 11/21/16 [History] Magnesium Oxide [Magnesium] 500 mg PO DAILY 11/21/16 [History] Multivitamin [One Daily Multivitamin] 1 tab PO DAILY 11/21/16 [History] Nitroglycerin [Nitrostat] 0.4 mg SL AD PRN 11/21/16 [History] Oxygen 2 l .ROUTE AD 11/21/16 [History] Ranolazine [Ranexa] 1,000 mg PO BID 11/21/16 [History] Trazodone HCl 200 mg PO HS 11/21/16 [History] Vitamin B Complex [B Complex] 1 tab PO DAILY 11/21/16 [History] Tamsulosin [Flomax] 0.4 mg PO HS #30 capsule 11/22/16 [Rx] Ezetimibe [Zetia] 10 mg PO DAILY 01/12/17 [History] Aspirin [Lo-Dose Aspirin EC] 81 mg PO DAILY 02/10/17 [History] Saccharomyces Boulardii [Florastor] 1,000 mg PO BID 02/10/17 [History] Potassium Chloride [Klor-Con 10] 10 meq PO BID 02/11/17 [History] Albuterol Neb [Proventil Neb] 2.5 mg IH Q2H PRN #60 inh 02/12/17 [Rx] Vancomycin Oral Soln [Vancocin] 125 mg PO Q72H 02/12/17 [Rx] metOLazone [Metolazone] 10 mg PO ONCE #1 tablet 02/12/17 [Rx] predniSONE [PredniSONE] 10 mg PO DAILY #54 tablet 02/12/17 [Rx] Benzocaine/Menthol Juan [Cepacol Sore Throat Lozenge] 1 each MM Q2H PRN #60 lozenge 02/18/17 [Rx] Bumetanide [Bumex] 1 mg PO DAILY #30 tab 02/18/17 [Rx] GuaiFENesin ER [Mucinex] 600 mg PO BID PRN #60 tab 02/18/17 [Rx] Allergies/Adverse Reactions: 3 Allergy/AdvReac Type Severity Reaction Status Date / Time Penicillins Allergy Redness of Verified 01/12/17 15:25 Skin Certification: Further, I certify that my clinical findings support that this patient is homebound (i.e. absences from home require considerable and taxing effort and are for medical reasons or holiness services or infrequently or short duration when for other reasons) because: Homebound Reason: Patient requires assistance of a person or device to safely leave home, Leaving home requires considerable and taxing effort due to condition, Severity of cardiac or pulmonary status limits activity tolerance Attestation: My signature below is to certify that this patient is under my care and that I, or nurse practitioner, or a physician's medical practice assistant working with me, has a face-to -face encounter with this patient.
[2017-02-18] MEDS ORDERED: Vancomycin Oral Soln 250 MG/2.5 ML UDC PO SCH (12:00)
== END 2017-02-18 15:35 | disposition home health service (06) | DRG 291 ==
LOC: SUATTDRO 19:32 → 2ANU 19:32
PROVIDERS: ADMIT Internal Medicine; ATTEND Internal Medicine

== ENCOUNTER 2017-03-12 18:04 | Inpatient (IN) ==
[2017-03-12] MEDS ORDERED: Aztreonam 2,000 MG in D5% in Water (Mini-Bag+) 100 ML IVPB ONE (18:29)
[2017-03-12] MEDS ORDERED: 0.9 % Sodium Chloride 1,000 ML IVC ONE (18:29)
[2017-03-12] MEDS ORDERED: Levofloxacin 750 MG/150 ML 750 MG/150 ML BAG IVPB ONE (18:29)
[2017-03-12] MEDS ORDERED: Vancomycin 1,000 MG in D5% in Water 250 ML IVPB ONE (18:29)
[2017-03-12 18:43] LABS: Hematocrit 37.2 % (37.5-50.1); Hemoglobin 12.2 g/dL (12.9-16.9); Mean Corpuscular HGB Conc 32.8 g/dL (31.6-35.5); Mean Corpuscular Hemoglobin 30.4 pg (28.0-33.3); Mean Corpuscular Volume 92.8 fL (83.0-100.0); Mean Platelet Volume 8.8 fL (9.4-12.4); Monocytes # 0.6 K/mcL (0.0-1.3); Platelet Count 181 K/mcL (140-400); Red Blood Count 4.01 M/mcL (4.19-5.50)
[2017-03-12 18:56] LABS: BUN/Creatinine Ratio 13 (6-26); Blood Urea Nitrogen 17 mg/dL (8-26); Carbon Dioxide 27 mEq/L (19-29); Chloride 95 mEq/L (98-109); Glucose 153 mg/dL (70-99); Osmolality,Calculated 283 (280-300); Potassium 4.4 mEq/L (3.5-4.5); Sodium 134 mEq/L (136-145); eGFR For African Americans > 60 (> 60); eGFR For Non-African Americans 54 (> 60)
[2017-03-12 19:11] LABS: Alanine Aminotransferase 7 Units/L (0-55); Albumin 2.9 g/dL (3.5-5.0); Albumin/Globulin Ratio 0.9 (1.1-2.2); Alkaline Phosphatase 67 Units/L (38-126); Aspartate Amino Transferase 9 Units/L (5-34); Bilirubin,Direct 0.4 mg/dL (0.0-0.5); Bilirubin,Indirect 0.3 mg/dL (0.0-1.2); Bilirubin,Total 0.7 mg/dL (0.2-1.2); Globulin 3.4 g/dL (2.4-3.5); Magnesium 1.7 mg/dL (1.6-2.6); Phosphorous 2.7 mg/dL (2.3-4.7); Total Protein 6.3 g/dL (6.0-8.3)
[2017-03-12 19:16] LABS: INR 1.4; Prothrombin Time 15.6 Seconds (9.4-12.1)
[2017-03-12 19:18] LABS: Activated Partial Thrombo Time 34.8 Seconds (26.0-36.0)
[2017-03-12 19:26] LABS: Lymphocytes # 0.7 K/mcL (0.6-4.6); Neutrophils # 3.8 K/mcL (1.6-8.9)
[2017-03-12 19:27] LABS: Dohle Bodies Present (Not Present)
--- NOTE | 2017-03-12 19:39 | Emergency Department Note ---
Disposition Clinical Impression: CHF exacerbation Qualifiers: Congestive heart failure type: systolic Qualified Code(s): I50.23 - Acute on chronic systolic (congestive) heart failure Disposition: Admitted As Inpatient Condition: Fair Time of Disposition: 18:35 SOB HPI - General Chief Complaint: ED Shortness of Breath/Dyspnea Stated Complaint: SOB, RAMSEY Time Seen by Provider: 03/12/17 18:07 Source: patient Mode of arrival: EMS Limitations: no limitations, other Nursing Notes Reviewed: Yes Vital Signs Reviewed: Yes - History of Present Illness 71-year-old male short shortness of breath onset last night. Worsening throughout today patient's ability ambulate and by extension to the kitchen for any PO intake fluid or solid. Patient denies any worsening cough or sputum production. Patient lives alone and is unable to safely ambulate due to dyspnea on exertion. Patient denies any leg swelling, tachycardia, chest pain, diaphoresis, syncope, pre-syncope, nausea, vomiting. Patient does have known history of COPD, CAD, and CHF. Is on Bumex. Pt Subjective Complaint: shortness of breath Onset (ago): day(s) (since last night) Context: other (at rest, no worse cough or sputum production) Severity: moderate Consistency/Duration: constant Improves with: oxygen, rest, upright position Worsens with: exertion Known history of: COPD, congestive heart failure Associated symptoms: Reports: denies other symptoms. Denies: chest pain, pain with inspiration, fever, cough, wheezing, sputum production, lower extremity pain, diaphoresis, nausea/vomiting, syncope, abdominal pain Treatment prior to arrival: oxygen Cough present: No Sputum production: No - Related Data Home oxygen amount: 2 liters Home Medications Medication Instructions Recorded Confirmed ALPRAZolam [Xanax 0.5 MG Tablet] 0.5 mg PO TID PRN 11/21/16 03/12/17 Albuterol Sulfate [Albuterol 2 puff IH Q6HR PRN 11/21/16 03/12/17 Inhaler] Apixaban [Eliquis] 5 mg PO BID 11/21/16 03/12/17 Ascorbic Acid [Vitamin C] 1,000 mg PO DAILY 11/21/16 03/12/17 Budesonide/Formoterol 160/4.5 2 puff IH BIDR 11/21/16 03/12/17 [Symbicort 160/4.5] Carvedilol [Coreg] 3.125 mg PO BID 11/21/16 03/12/17 Cholecalciferol (D-3) [Vitamin D] 3,000 unit PO DAILY 11/21/16 03/12/17 Clopidogrel [Plavix] 75 mg PO DAILY 11/21/16 03/12/17 Fish Oil/Dha/Epa [Fish Oil 1,200 1,200 mg PO DAILY 11/21/16 03/12/17 mg Fish Oil] Folic Acid 0.8 mg PO DAILY 11/21/16 03/12/17 Isosorbide MONOnitrate (24 HR) 120 mg PO DAILY 11/21/16 03/12/17 [Imdur] Multivitamin [One Daily 1 tab PO DAILY 11/21/16 03/12/17 Multivitamin] Nitroglycerin [Nitrostat] 0.4 mg SL AD PRN 11/21/16 03/12/17 Oxygen 2 l NS AD 11/21/16 03/12/17 Ranolazine [Ranexa] 1,000 mg PO BID 11/21/16 03/12/17 Trazodone HCl 200 mg PO HS 11/21/16 03/12/17 Vitamin B Complex [B Complex] 1 tab PO DAILY 11/21/16 03/12/17 Aspirin [Lo-Dose Aspirin EC] 81 mg PO DAILY 02/10/17 03/12/17 Saccharomyces Boulardii [Florastor] 250 mg PO BID 02/10/17 03/12/17 Potassium Chloride [Klor-Con 10] 10 meq PO BID 02/11/17 03/12/17 Ipratropium/Albuterol Neb [Duoneb] 3 ml IH Q4HR PRN 03/12/17 03/12/17 Tamsulosin [Flomax] 0.4 mg PO DAILY 03/12/17 03/12/17 Previous Rx's Medication Instructions Recorded Bumetanide [Bumex] 1 mg PO DAILY #30 tab 02/18/17 Allergies Allergy/AdvReac Type Severity Reaction Status Date / Time Penicillins Allergy Redness of Verified 01/12/17 15:25 Skin Review of Systems: As Per HPI Past Medical History - Past Medical History Attestation: Yes The following information was validated with the patient. Source: patient Medical history: Reports: CHF, COPD, coronary artery disease, hyperlipidemia, hypertension, myocardial infarction, valvular heart disease, other Surgical history: Reports: coronary bypass (CABG), herniorrhaphy, pacemaker/AICD , vascular surgery Psychiatric history: Reports: anxiety - Social History Smoking Status: Former smoker Smokeless Tobacco Status: No Alcohol use: Reports: none Drug use: Reports: none Physical Exam - General Limitations: no limitations, other General appearance: alert, other (slight increase in respiratory effort with transfer from bed to bed) - Eye Eye exam: Present: PERRL, EOMI. Absent: scleral icterus, conjunctival injection - ENT ENT exam: mucous membranes moist - Neck Neck exam: Present: trachea midline - Chest Chest inspection: Present: symmetric chest wall rise - Respiratory Respiratory exam: Present: wheezes (mild scattered expiratory wheeze), other ( increased effort; speaks full sentences) - Cardiovascular Cardiovascular exam: Present: regular rate, normal rhythm. Absent: systolic murmur, diastolic murmur, +S3, +S4 - Abdominal Exam Abdominal exam: Present: soft, Non-Tender - Extremities Exam Extremities exam: Present: pedal edema - Neurological Exam Neurological exam: Present: alert, oriented X3 - Skin Skin exam: Present: warm, dry, diaphoresis (slightly diaphoretic after transfer between EMS and ED beds). Absent: cyanosis, pallor, mottled Course Course Narrative: Initially supplemented with nasal cannula to, later reverting to BiPAP. Work up for intrathoracic processes and septic evaluation including CBC, blood cultures, CXR, and lactate. Checked for PE based on lack of other obvious contributing symptoms to patients acute on chronic dyspnea. Patient reverted several times between BiPAP and O2 via NC. Patient started on IVF and IV antibiotics. - Consultations Consultation #1: Spoke with hospitalist, Dr. Mckinney, who is accepting this patient for admission. Time: 10:15 Vital Signs Temperature 99.5 F 03/12/17 18:10 Pulse Rate 88 03/12/17 18:10 Respiratory Rate 26 03/12/17 18:10 Blood Pressure 147/67 03/12/17 18:10 O2 Sat by Pulse Oximetry 94 03/12/17 18:10 Temperature 98.6 F 03/12/17 22:37 Pulse Rate 70 03/12/17 22:37 Respiratory Rate 14 03/12/17 22:37 Blood Pressure 121/69 03/12/17 22:37 O2 Sat by Pulse Oximetry 95 03/12/17 23:00 Oxygen Delivery Oxygen Delivery Nasal Cannula Shortness of Breath/Dyspnea - MDM Narrative Medical decision making narrative: 71-year-old male with history of CP, CHF, coronary artery disease presented to the ED was worsening shortness of breath. Workup was significant for bilateral pleural effusions as well as base basilar atelectasis. CJ was negative for PE. BNP elevated at approximately 2700. Decision to admit hospitalist service for monitoring and stabilization of acute CHF and dyspnea. Dr. Mckinney accepts patient. - Lab Data Lab results reviewed: Yes I reviewed the patient's lab results. Lab results narrative: Laboratory Last Values WBC 5.1 K/mcL (4.3-11.1) 03/12/17 18:30 RBC 4.01 M/mcL (4.19-5.50) L 03/12/17 18:30 Hgb 12.2 g/dL (12.9-16.9) L 03/12/17 18:30 Hct 37.2 % (37.5-50.1) L 03/12/17 18:30 MCV 92.8 fL (83.0-100.0) 03/12/17 18:30 MCH 30.4 pg (28.0-33.3) 03/12/17 18:30 MCHC 32.8 g/dL (31.6-35.5) 03/12/17 18:30 RDW 14.0 % (11.5-14.5) 03/12/17 18:30 Plt Count 181 K/mcL (140-400) 03/12/17 18:30 MPV 8.8 fL (9.4-12.4) L 03/12/17 18:30 Immature Gran % Test Not Performed 03/12/17 18:30 Seg Neutrophils % 56.0 % 03/12/17 18:30 Band Neutrophils % 18.0 % (0-4) H 03/12/17 18:30 Lymphocytes % 14.0 % 03/12/17 18:30 Monocytes % 12.0 % 03/12/17 18:30 Eosinophils % Test Not Performed 03/12/17 18:30 Basophils % Test Not Performed 03/12/17 18:30 Neutrophils # 3.8 K/mcL (1.6-8.9) 03/12/17 18:30 Lymphocytes # 0.7 K/mcL (0.6-4.6) 03/12/17 18:30 Monocytes # 0.6 K/mcL (0.0-1.3) 03/12/17 18:30 Eosinophils # Test Not Performed 03/12/17 18:30 Basophils # Test Not Performed 03/12/17 18:30 Dohle Bodies Present (Not Present) A 03/12/17 18:30 PT 15.6 Seconds (9.4-12.1) H 03/12/17 18:33 INR 1.4 03/12/17 18:33 APTT 34.8 Seconds (26.0-36.0) 03/12/17 18:33 Sodium 134 mEq/L (136-145) L 03/12/17 18:30 Potassium 4.4 mEq/L (3.5-4.5) 03/12/17 18:30 Chloride 95 mEq/L (98-109) L 03/12/17 18:30 Carbon Dioxide 27 mEq/L (19-29) 03/12/17 18:30 BUN 17 mg/dL (8-26) 03/12/17 18:30 Creatinine 1.32 mg/dL (0.72-1.25) H 03/12/17 18:30 Est GFR ( Amer) > 60 (> 60) 03/12/17 18:30 Est GFR (Non-Af Amer) 54 (> 60) L 03/12/17 18:30 BUN/Creatinine Ratio 13 (6-26) 03/12/17 18:30 Glucose 153 mg/dL (70-99) H 03/12/17 18:30 Calculated Osmolality 283 (280-300) 03/12/17 18:30 Lactic Acid 2.0 mmol/L (0.5-2.2) 03/12/17 18:33 Calcium 9.0 mg/dL (8.6-10.8) 03/12/17 18:30 Phosphorus 2.7 mg/dL (2.3-4.7) 03/12/17 18:30 Magnesium 1.7 mg/dL (1.6-2.6) 03/12/17 18:30 Total Bilirubin 0.7 mg/dL (0.2-1.2) 03/12/17 18:30 Direct Bilirubin 0.4 mg/dL (0.0-0.5) 03/12/17 18:30 Indirect Bilirubin 0.3 mg/dL (0.0-1.2) 03/12/17 18:30 AST 9 Units/L (5-34) 03/12/17 18:30 ALT 7 Units/L (0-55) 03/12/17 18:30 Alkaline Phosphatase 67 Units/L (38-126) 03/12/17 18:30 Troponin I 0.02 ng/mL (0-0.03) 03/12/17 18:30 B-Natriuretic Peptide 2702 pg/mL (0-100) H 03/12/17 18:33 Serum Total Protein 6.3 g/dL (6.0-8.3) 03/12/17 18:30 Albumin 2.9 g/dL (3.5-5.0) L 03/12/17 18:30 Globulin 3.4 g/dL (2.4-3.5) 03/12/17 18:30 Albumin/Globulin Ratio 0.9 (1.1-2.2) L 03/12/17 18:30 Laboratory Last Values WBC 5.1 K/mcL (4.3-11.1) 03/12/17 18:30 RBC 4.01 M/mcL (4.19-5.50) L 03/12/17 18:30 Hgb 12.2 g/dL (12.9-16.9) L 03/12/17 18:30 Hct 37.2 % (37.5-50.1) L 03/12/17 18:30 MCV 92.8 fL (83.0-100.0) 03/12/17 18:30 MCH 30.4 pg (28.0-33.3) 03/12/17 18:30 MCHC 32.8 g/dL (31.6-35.5) 03/12/17 18:30 RDW 14.0 % (11.5-14.5) 03/12/17 18:30 Plt Count 181 K/mcL (140-400) 03/12/17 18:30 MPV 8.8 fL (9.4-12.4) L 03/12/17 18:30 Immature Gran % Test Not Performed 03/12/17 18:30 Seg Neutrophils % 56.0 % 03/12/17 18:30 Band Neutrophils % 18.0 % (0-4) H 03/12/17 18:30 Lymphocytes % 14.0 % 03/12/17 18:30 Monocytes % 12.0 % 03/12/17 18:30 Eosinophils % Test Not Performed 03/12/17 18:30 Basophils % Test Not Performed 03/12/17 18:30 Neutrophils # 3.8 K/mcL (1.6-8.9) 03/12/17 18:30 Lymphocytes # 0.7 K/mcL (0.6-4.6) 03/12/17 18:30 Monocytes # 0.6 K/mcL (0.0-1.3) 03/12/17 18:30 Eosinophils # Test Not Performed 03/12/17 18:30 Basophils # Test Not Performed 03/12/17 18:30 Dohle Bodies Present (Not Present) A 03/12/17 18:30 PT 15.6 Seconds (9.4-12.1) H 03/12/17 18:33 INR 1.4 03/12/17 18:33 APTT 34.8 Seconds (26.0-36.0) 03/12/17 18:33 ABG pH 7.53 pH Units (7.32-7.45) H 03/12/17 19:59 ABG pCO2 34 mmHg (35-45) L 03/12/17 19:59 ABG pO2 110 mmHg (85-104) H 03/12/17 19:59 ABG HCO3 29 mEq/L (21-27) H 03/12/17 19:59 ABG Total CO2 30 mEq/L (20-26) H 03/12/17 19:59 ABG O2 Saturation 99 % (95-98) H 03/12/17 19:59 ABG Base Excess 6 mEq/L (-2 to 3) H 03/12/17 19:59 Sodium 134 mEq/L (136-145) L 03/12/17 18:30 Potassium 4.4 mEq/L (3.5-4.5) 03/12/17 18:30 Chloride 95 mEq/L (98-109) L 03/12/17 18:30 Carbon Dioxide 27 mEq/L (19-29) 03/12/17 18:30 BUN 17 mg/dL (8-26) 03/12/17 18:30 Creatinine 1.32 mg/dL (0.72-1.25) H 03/12/17 18:30 Est GFR ( Amer) > 60 (> 60) 03/12/17 18:30 Est GFR (Non-Af Amer) 54 (> 60) L 03/12/17 18:30 BUN/Creatinine Ratio 13 (6-26) 03/12/17 18:30 Glucose 153 mg/dL (70-99) H 03/12/17 18:30 Calculated Osmolality 283 (280-300) 03/12/17 18:30 Lactic Acid 2.0 mmol/L (0.5-2.2) 03/12/17 18:33 Calcium 9.0 mg/dL (8.6-10.8) 03/12/17 18:30 Phosphorus 2.7 mg/dL (2.3-4.7) 03/12/17 18:30 Magnesium 1.7 mg/dL (1.6-2.6) 03/12/17 18:30 Total Bilirubin 0.7 mg/dL (0.2-1.2) 03/12/17 18:30 Direct Bilirubin 0.4 mg/dL (0.0-0.5) 03/12/17 18:30 Indirect Bilirubin 0.3 mg/dL (0.0-1.2) 03/12/17 18:30 AST 9 Units/L (5-34) 03/12/17 18:30 ALT 7 Units/L (0-55) 03/12/17 18:30 Alkaline Phosphatase 67 Units/L (38-126) 03/12/17 18:30 Troponin I 0.02 ng/mL (0-0.03) 03/12/17 18:30 B-Natriuretic Peptide 2702 pg/mL (0-100) H 03/12/17 18:33 Serum Total Protein 6.3 g/dL (6.0-8.3) 03/12/17 18:30 Albumin 2.9 g/dL (3.5-5.0) L 03/12/17 18:30 Globulin 3.4 g/dL (2.4-3.5) 03/12/17 18:30 Albumin/Globulin Ratio 0.9 (1.1-2.2) L 03/12/17 18:30 Urine Color Yellow (Yellow) 03/12/17 19:08 Urine Clarity Clear (Clear) 03/12/17 19: Urine pH 6.0 pH Units (5.0-8.0) 03/12/17 19:08 Ur Specific Corn 1.019 (1.010-1.025) 03/12/17 19: Urine Protein 30 mg/dL (Neg-Trace) H 03/12/17 19:08 Urine Glucose (UA) Normal mg/dL (Normal) 03/12/17 19: Urine Ketones Negative mg/dL (Negative) 03/12/17 19: Urine Blood Negative (Negative) 03/12/17 19: Urine Nitrite Negative (Negative) 03/12/17 19: Urine Bilirubin Negative (Negative) 03/12/17 19: Urine Urobilinogen Normal mg/dL (Normal) 03/12/17 19:08 Ur Leukocyte Esterase Negative (Negative) 03/12/17 19:08 Urine Microscopic RBC 0-3 per hpf (0-3) 03/12/17 19:08 Urine Microscopic WBC 0-3 per hpf (0-3) 03/12/17 19:08 Ur Squamous Epith Cells None Seen per lpf (None-Few) 03/12/17 19:08 Urine Bacteria None Seen per hpf (None-Few) 03/12/17 19:08 Hyaline Casts None Seen per lpf (None-Few) 03/12/17 19:08 Ur Culture Indicated? NO (NO) 03/12/17 19:08 Laboratory Last Values WBC 5.1 K/mcL (4.3-11.1) 03/12/17 18:30 RBC 4.01 M/mcL (4.19-5.50) L 03/12/17 18:30 Hgb 12.2 g/dL (12.9-16.9) L 03/12/17 18:30 Hct 37.2 % (37.5-50.1) L 03/12/17 18:30 MCV 92.8 fL (83.0-100.0) 03/12/17 18:30 MCH 30.4 pg (28.0-33.3) 03/12/17 18:30 MCHC 32.8 g/dL (31.6-35.5) 03/12/17 18:30 RDW 14.0 % (11.5-14.5) 03/12/17 18:30 Plt Count 181 K/mcL (140-400) 03/12/17 18:30 MPV 8.8 fL (9.4-12.4) L 03/12/17 18:30 Immature Gran % Test Not Performed 03/12/17 18:30 Seg Neutrophils % 56.0 % 03/12/17 18:30 Band Neutrophils % 18.0 % (0-4) H 03/12/17 18:30 Lymphocytes % 14.0 % 03/12/17 18:30 Monocytes % 12.0 % 03/12/17 18:30 Eosinophils % Test Not Performed 03/12/17 18:30 Basophils % Test Not Performed 03/12/17 18:30 Neutrophils # 3.8 K/mcL (1.6-8.9) 03/12/17 18:30 Lymphocytes # 0.7 K/mcL (0.6-4.6) 03/12/17 18:30 Monocytes # 0.6 K/mcL (0.0-1.3) 03/12/17 18:30 Eosinophils # Test Not Performed 03/12/17 18:30 Basophils # Test Not Performed 03/12/17 18:30 Dohle Bodies Present (Not Present) A 03/12/17 18:30 PT 15.6 Seconds (9.4-12.1) H 03/12/17 18:33 INR 1.4 03/12/17 18:33 APTT 34.8 Seconds (26.0-36.0) 03/12/17 18:33 ABG pH 7.53 pH Units (7.32-7.45) H 03/12/17 19:59 ABG pCO2 34 mmHg (35-45) L 03/12/17 19:59 ABG pO2 110 mmHg (85-104) H 03/12/17 19:59 ABG HCO3 29 mEq/L (21-27) H 03/12/17 19:59 ABG Total CO2 30 mEq/L (20-26) H 03/12/17 19:59 ABG O2 Saturation 99 % (95-98) H 03/12/17 19:59 ABG Base Excess 6 mEq/L (-2 to 3) H 03/12/17 19:59 Sodium 134 mEq/L (136-145) L 03/12/17 18:30 Potassium 4.4 mEq/L (3.5-4.5) 03/12/17 18:30 Chloride 95 mEq/L (98-109) L 03/12/17 18:30 Carbon Dioxide 27 mEq/L (19-29) 03/12/17 18:30 BUN 17 mg/dL (8-26) 03/12/17 18:30 Creatinine 1.32 mg/dL (0.72-1.25) H 03/12/17 18:30 Est GFR ( Amer) > 60 (> 60) 03/12/17 18:30 Est GFR (Non-Af Amer) 54 (> 60) L 03/12/17 18:30 BUN/Creatinine Ratio 13 (6-26) 03/12/17 18:30 Glucose 153 mg/dL (70-99) H 03/12/17 18:30 Calculated Osmolality 283 (280-300) 03/12/17 18:30 Lactic Acid 1.1 mmol/L (0.5-2.2) 03/12/17 20:49 Calcium 9.0 mg/dL (8.6-10.8) 03/12/17 18:30 Phosphorus 2.7 mg/dL (2.3-4.7) 03/12/17 18:30 Magnesium 1.7 mg/dL (1.6-2.6) 03/12/17 18:30 Total Bilirubin 0.7 mg/dL (0.2-1.2) 03/12/17 18:30 Direct Bilirubin 0.4 mg/dL (0.0-0.5) 03/12/17 18:30 Indirect Bilirubin 0.3 mg/dL (0.0-1.2) 03/12/17 18:30 AST 9 Units/L (5-34) 03/12/17 18:30 ALT 7 Units/L (0-55) 03/12/17 18:30 Alkaline Phosphatase 67 Units/L (38-126) 03/12/17 18:30 Troponin I 0.02 ng/mL (0-0.03) 03/12/17 18:30 B-Natriuretic Peptide 2702 pg/mL (0-100) H 03/12/17 18:33 Serum Total Protein 6.3 g/dL (6.0-8.3) 03/12/17 18:30 Albumin 2.9 g/dL (3.5-5.0) L 03/12/17 18:30 Globulin 3.4 g/dL (2.4-3.5) 03/12/17 18:30 Albumin/Globulin Ratio 0.9 (1.1-2.2) L 03/12/17 18:30 Urine Color Yellow (Yellow) 03/12/17 19:08 Urine Clarity Clear (Clear) 03/12/17 19:08 Urine pH 6.0 pH Units (5.0-8.0) 03/12/17 19:08 Ur Specific Corn 1.019 (1.010-1.025) 03/12/17 19:08 Urine Protein 30 mg/dL (Neg-Trace) H 03/12/17 19:08 Urine Glucose (UA) Normal mg/dL (Normal) 03/12/17 19:08 Urine Ketones Negative mg/dL (Negative) 03/12/17 19:08 Urine Blood Negative (Negative) 03/12/17 19:08 Urine Nitrite Negative (Negative) 03/12/17 19:08 Urine Bilirubin Negative (Negative) 03/12/17 19:08 Urine Urobilinogen Normal mg/dL (Normal) 03/12/17 19:08 Ur Leukocyte Esterase Negative (Negative) 03/12/17 19:08 Urine Microscopic RBC 0-3 per hpf (0-3) 03/12/17 19:08 Urine Microscopic WBC 0-3 per hpf (0-3) 03/12/17 19:08 Ur Squamous Epith Cells None Seen per lpf (None-Few) 03/12/17 19:08 Urine Bacteria None Seen per hpf (None-Few) 03/12/17 19:08 Hyaline Casts None Seen per lpf (None-Few) 03/12/17 19:08 Ur Culture Indicated? NO (NO) 03/12/17 19:08 Result diagrams: 03/12/17 18:30 03/12/17 18:30 Lab Results 03/12/17 03/12/17 03/12/17 Range/Units 18:30 18:30 18:30 WBC 5.1 (4.3-11.1) K/mcL RBC 4.01 L (4.19-5.50) M/mcL Hgb 12.2 L (12.9-16.9) g/dL Hct 37.2 L (37.5-50.1) % MCV 92.8 (83.0-100.0) fL MCH 30.4 (28.0-33.3) pg MCHC 32.8 (31.6-35.5) g/dL RDW 14.0 (11.5-14.5) % Plt Count 181 (140-400) K/mcL MPV 8.8 L (9.4-12.4) fL Immature Gran % Test Not Performed Seg Neutrophils % 56.0 % Band Neutrophils % 18.0 H (0-4) % Lymphocytes % 14.0 % Monocytes % 12.0 % Eosinophils % Test Not Performed Basophils % Test Not Performed Neutrophils # 3.8 (1.6-8.9) K/mcL Lymphocytes # 0.7 (0.6-4.6) K/mcL Monocytes # 0.6 (0.0-1.3) K/mcL Eosinophils # Test Not Performed Basophils # Test Not Performed Dohle Bodies Present A (Not Present) PT (9.4-12.1) Seconds INR APTT (26.0-36.0) Seconds ABG pH (7.32-7.45) pH Units ABG pCO2 (35-45) mmHg ABG pO2 (85-104) mmHg ABG HCO3 (21-27) mEq/L ABG Total CO2 (20-26) mEq/L ABG O2 Saturation (95-98) % ABG Base Excess (-2 to 3) mEq/L Sodium 134 L (136-145) mEq/L Potassium 4.4 (3.5-4.5) mEq/L Chloride 95 L (98-109) mEq/L Carbon Dioxide 27 (19-29) mEq/L BUN 17 (8-26) mg/dL Creatinine 1.32 H (0.72-1.25) mg/dL Est GFR ( Amer) > 60 (> 60) Est GFR (Non-Af Amer) 54 L (> 60) BUN/Creatinine Ratio 13 (6-26) Glucose 153 H (70-99) mg/dL Calculated Osmolality 283 (280-300) Lactic Acid (0.5-2.2) mmol/L Calcium 9.0 (8.6-10.8) mg/dL Phosphorus 2.7 (2.3-4.7) mg/dL Magnesium 1.7 (1.6-2.6) mg/dL Total Bilirubin 0.7 (0.2-1.2) mg/dL Direct Bilirubin 0.4 (0.0-0.5) mg/dL Indirect Bilirubin 0.3 (0.0-1.2) mg/dL AST 9 (5-34) Units/L ALT 7 (0-55) Units/L Alkaline Phosphatase 67 (38-126) Units/L Troponin I 0.02 (0-0.03) ng/mL B-Natriuretic Peptide (0-100) pg/mL Serum Total Protein 6.3 (6.0-8.3) g/dL Albumin 2.9 L (3.5-5.0) g/dL Globulin 3.4 (2.4-3.5) g/dL Albumin/Globulin Ratio 0.9 L (1.1-2.2) Urine Color (Yellow) Urine Clarity (Clear) Urine pH (5.0-8.0) pH Units Ur Specific Corn (1.010-1.025) Urine Protein (Neg-Trace) mg/dL Urine Glucose (UA) (Normal) mg/dL Urine Ketones (Negative) mg/dL Urine Blood (Negative) Urine Nitrite (Negative) Urine Bilirubin (Negative) Urine Urobilinogen (Normal) mg/dL Ur Leukocyte Esterase (Negative) Urine Microscopic RBC (0-3) per hpf Urine Microscopic WBC (0-3) per hpf Ur Squamous Epith Cells (None-Few) per lpf Urine Bacteria (None-Few) per hpf Hyaline Casts (None-Few) per lpf Ur Culture Indicated? (NO) 03/12/17 03/12/17 03/12/17 Range/Units 18:33 18:33 18:33 WBC (4.3-11.1) K/mcL RBC (4.19-5.50) M/mcL Hgb (12.9-16.9) g/dL Hct (37.5-50.1) % MCV (83.0-100.0) fL MCH (28.0-33.3) pg MCHC (31.6-35.5) g/dL RDW (11.5-14.5) % Plt Count (140-400) K/mcL MPV (9.4-12.4) fL Immature Gran % Seg Neutrophils % % Band Neutrophils % (0-4) % Lymphocytes % % Monocytes % % Eosinophils % Basophils % Neutrophils # (1.6-8.9) K/mcL Lymphocytes # (0.6-4.6) K/mcL Monocytes # (0.0-1.3) K/mcL Eosinophils # Basophils # Dohle Bodies (Not Present) PT 15.6 H (9.4-12.1) Seconds INR 1.4 APTT 34.8 (26.0-36.0) Seconds ABG pH (7.32-7.45) pH Units ABG pCO2 (35-45) mmHg ABG pO2 (85-104) mmHg ABG HCO3 (21-27) mEq/L ABG Total CO2 (20-26) mEq/L ABG O2 Saturation (95-98) % ABG Base Excess (-2 to 3) mEq/L Sodium (136-145) mEq/L Potassium (3.5-4.5) mEq/L Chloride (98-109) mEq/L Carbon Dioxide (19-29) mEq/L BUN (8-26) mg/dL Creatinine (0.72-1.25) mg/dL Est GFR ( Amer) (> 60) Est GFR (Non-Af Amer) (> 60) BUN/Creatinine Ratio (6-26) Glucose (70-99) mg/dL Calculated Osmolality (280-300) Lactic Acid 2.0 (0.5-2.2) mmol/L Calcium (8.6-10.8) mg/dL Phosphorus (2.3-4.7) mg/dL Magnesium (1.6-2.6) mg/dL Total Bilirubin (0.2-1.2) mg/dL Direct Bilirubin (0.0-0.5) mg/dL Indirect Bilirubin (0.0-1.2) mg/dL AST (5-34) Units/L ALT (0-55) Units/L Alkaline Phosphatase (38-126) Units/L Troponin I (0-0.03) ng/mL B-Natriuretic Peptide 2702 H (0-100) pg/mL Serum Total Protein (6.0-8.3) g/dL Albumin (3.5-5.0) g/dL Globulin (2.4-3.5) g/dL Albumin/Globulin Ratio (1.1-2.2) Urine Color (Yellow) Urine Clarity (Clear) Urine pH (5.0-8.0) pH Units Ur Specific Corn (1.010-1.025) Urine Protein (Neg-Trace) mg/dL Urine Glucose (UA) (Normal) mg/dL Urine Ketones (Negative) mg/dL Urine Blood (Negative) Urine Nitrite (Negative) Urine Bilirubin (Negative) Urine Urobilinogen (Normal) mg/dL Ur Leukocyte Esterase (Negative) Urine Microscopic RBC (0-3) per hpf Urine Microscopic WBC (0-3) per hpf Ur Squamous Epith Cells (None-Few) per lpf Urine Bacteria (None-Few) per hpf Hyaline Casts (None-Few) per lpf Ur Culture Indicated? (NO) 03/12/17 03/12/17 03/12/17 Range/Units 19:08 19:59 20:49 WBC (4.3-11.1) K/mcL RBC (4.19-5.50) M/mcL Hgb (12.9-16.9) g/dL Hct (37.5-50.1) % MCV (83.0-100.0) fL MCH (28.0-33.3) pg MCHC (31.6-35.5) g/dL RDW (11.5-14.5) % Plt Count (140-400) K/mcL MPV (9.4-12.4) fL Immature Gran % Seg Neutrophils % % Band Neutrophils % (0-4) % Lymphocytes % % Monocytes % % Eosinophils % Basophils % Neutrophils # (1.6-8.9) K/mcL Lymphocytes # (0.6-4.6) K/mcL Monocytes # (0.0-1.3) K/mcL Eosinophils # Basophils # Dohle Bodies (Not Present) PT (9.4-12.1) Seconds INR APTT (26.0-36.0) Seconds ABG pH 7.53 H (7.32-7.45) pH Units ABG pCO2 34 L (35-45) mmHg ABG pO2 110 H (85-104) mmHg ABG HCO3 29 H (21-27) mEq/L ABG Total CO2 30 H (20-26) mEq/L ABG O2 Saturation 99 H (95-98) % ABG Base Excess 6 H (-2 to 3) mEq/L Sodium (136-145) mEq/L Potassium (3.5-4.5) mEq/L Chloride (98-109) mEq/L Carbon Dioxide (19-29) mEq/L BUN (8-26) mg/dL Creatinine (0.72-1.25) mg/dL Est GFR ( Amer) (> 60) Est GFR (Non-Af Amer) (> 60) BUN/Creatinine Ratio (6-26) Glucose (70-99) mg/dL Calculated Osmolality (280-300) Lactic Acid 1.1 (0.5-2.2) mmol/L Calcium (8.6-10.8) mg/dL Phosphorus (2.3-4.7) mg/dL Magnesium (1.6-2.6) mg/dL Total Bilirubin (0.2-1.2) mg/dL Direct Bilirubin (0.0-0.5) mg/dL Indirect Bilirubin (0.0-1.2) mg/dL AST (5-34) Units/L ALT (0-55) Units/L Alkaline Phosphatase (38-126) Units/L Troponin I (0-0.03) ng/mL B-Natriuretic Peptide (0-100) pg/mL Serum Total Protein (6.0-8.3) g/dL Albumin (3.5-5.0) g/dL Globulin (2.4-3.5) g/dL Albumin/Globulin Ratio (1.1-2.2) Urine Color Yellow (Yellow) Urine Clarity Clear (Clear) Urine pH 6.0 (5.0-8.0) pH Units Ur Specific Corn 1.019 (1.010-1.025) Urine Protein 30 H (Neg-Trace) mg/dL Urine Glucose (UA) Normal (Normal) mg/dL Urine Ketones Negative (Negative) mg/dL Urine Blood Negative (Negative) Urine Nitrite Negative (Negative) Urine Bilirubin Negative (Negative) Urine Urobilinogen Normal (Normal) mg/dL Ur Leukocyte Esterase Negative (Negative) Urine Microscopic RBC 0-3 (0-3) per hpf Urine Microscopic WBC 0-3 (0-3) per hpf Ur Squamous Epith Cells None Seen (None-Few) per lpf Urine Bacteria None Seen (None-Few) per hpf Hyaline Casts None Seen (None-Few) per lpf Ur Culture Indicated? NO (NO) - Radiology Data Radiology results reviewed: Yes I reviewed the patient's radiology results. Chest X-Ray 03/12/17 18:07 IMPRESSION: Mild pulmonary edema and small bilateral pleural effusions. D/ / Bj Toledo MD / Bj Toledo MD Interpreting Provider: Bj Toledo MD Chest X-Ray 03/12/17 18:07 IMPRESSION: Mild pulmonary edema and small bilateral pleural effusions. D/ / Bj Toledo MD / Bj Toledo MD Interpreting Provider: Bj Toledo MD Chest CTA 03/12/17 19:32 IMPRESSION: No evidence of pulmonary embolism. Small bilateral pleural effusions with adjacent atelectasis in both lung bases, overall similar in appearance. D/ / Debora Fallon MD / Debora Fallon MD Interpreting Provider: Debora Fallon MD Chest X-Ray 03/12/17 18:07 IMPRESSION: Mild pulmonary edema and small bilateral pleural effusions. D/ / Bj Toledo MD / Bj Toledo MD Interpreting Provider: Bj Toledo MD Chest CTA 03/12/17 19:32 IMPRESSION: No evidence of pulmonary embolism. Small bilateral pleural effusions with adjacent atelectasis in both lung bases, overall similar in appearance. D/ / Debora Fallon MD / Debora Fallon MD Interpreting Provider: Debora Fallon MD - EKG Data EKG attestation: Yes I reviewed and interpreted this EKG. EKG shows normal: Reports: sinus rhythm, axis, QRS complexes Rate: Reports: normal Rhythm: Reports: NSR Center Line/QRS: Reports: normal Heart block present: Reports: 1st Degree ST segment depression in: Reports: v3, v4, v5 When compared to previous EKG there are: other (similar pattern of ST depression ) - Core Measures AMI Core Measures Followed: No Measure Exclusions: not indicated Critical Care Time Critical Care Time: Yes Total Critical Care Time: 35 Attestation: The high probability of a clinically significant, sudden or life threatening deterioration of the respiratory and cardiovascular system(s) required my full and direct attention, intervention and personal management. The aggregate critical care time was 35 minutes. This time is in addition to time spent performing reported procedures but includes the following: x Data Review and interpretation x Patient assessment and monitoring of vital signs x Documentation x Medication orders and management Attestation Statement - Attestation Attestation: I, Yann Bolton, examined this patient and my medical decision-making was reviewed with the S[employer]ER/PA/Advanced Practice Nurse/Resident Physician. I agree with the documented findings, disposition and treatment plan as described except to the extent set forth below. 71-year-old male presents emergency Department with concerns of increasing shortness of breath over the past 24 hours. Patient states he has had a productive cough of brown sputum. Patient denies fever. He states he was recently treated for pneumonia and CHF exacerbation within the past few weeks. States he was given antibiotics while he stated the hospital and developed C. difficile. Patient states that he is tested negative for C. difficile for the past 3 weeks. Patient was started on antibiotics after an initial portable chest x-ray showed what looked to be a right lower lobe infiltrate. Patient had moderate increased work of breathing and was started on BiPAP with improvement of his symptoms. Patient was very concerned about being on antibiotics and requested that the antibiotics and fluids stop until we are sure that he has a pneumonia. On evaluation of his laboratory testing and his vital signs patient is afebrile, he does not have an elevated white blood cell count, and a CTA of the chest shows edema but does not show specific infiltrate. We stopped antibiotics and will treat the patient has a CHF exacerbation. Patient comfortable with this plan of action and agreed to admission to hospital.
[2017-03-12 20:02] LABS: ABG Base Excess 6 mEq/L (-2 to 3); ABG HCO3 29 mEq/L (21-27); ABG Oxygen Saturation 99 % (95-98); ABG PCO2 34 mmHg (35-45); ABG PH 7.53 pH Units (7.32-7.45); ABG PO2 110 mmHg (85-104); ABG TCO2 30 mEq/L (20-26)
[2017-03-12 20:22] LABS: Bilirubin,Urine Negative (Negative); Blood,Urine Negative (Negative); Clarity,Urine Clear (Clear); Color,Urine Yellow (Yellow); Glucose,Urine (UA) Normal (Normal); Ketones,Urine Negative (Negative); Leukocyte Esterase,Urine Negative (Negative); Nitrite,Urine Negative (Negative); Protein,Urine 30 mg/dL (Neg-Trace); Specific Gravity,Urine 1.019 (1.010-1.025); Urobilinogen,Urine Normal (Normal)
[2017-03-12 20:28] LABS: Bacteria,Urine None Seen per hpf (None-Few); Hyaline Casts,Urine None Seen per lpf (None-Few); RBC,Urine 0-3 per hpf (0-3); Squamous Epithelial Cell,Urine None Seen per lpf (None-Few); WBC,Urine 0-3 per hpf (0-3)
[2017-03-12] MEDS ORDERED: Bumetanide 1 MG/4 ML VIAL IVP ONE (20:46)
[2017-03-12] MEDS ORDERED: Furosemide 40 MG/4 ML VIAL IVP ONE (21:00)
--- NOTE | 2017-03-12 22:41 | Internal Med History&Physical ---
Addendum entered and electronically signed by Kedar Becerra DO 03/13/17 03:09: Correct Date of Encounter: 03/12/17 Original Note: <Kedar Becerra - Last Filed: 03/13/17 01:20> Date of Encounter: 03/13/17 Time of Encounter: 22:41 Assessment and Plan (1) Acute on chronic systolic (congestive) heart failure Current visit: No Status: Acute Patient reports inability to walk two steps without SOB. At baseline he is able to walk several yards before getting SOB. He had 4lbs weight gain today and reports his dry weight is 140 lbs. Last echo on 11/21/16 revealed systolic dysfunction with EF 40% and mild pulmonary hypertension. He reports taking Metolazone and Bumex as directed. BNP 2702, CXR reveals mild pulmonary edema and small bilateral pleural effusions , and CTA revealed small bilateral pleural effusions with adjacent atelectasis in both lung bases. Will give Lasix 20mg IV BID 1,500cc fluid restriction PT/OT consulted for weakness Continue to monitor (2) Acute and chronic respiratory failure with hypoxia Current visit: No Status: Acute Patient has chronic hypoxemic respiratory failure with 2L home O2 use at baseline Patient had respiratory distress on presentation in ED and was started on BiPap ABG revealed combined respiratory and metabolic alkalosis CTA negative for PE Continue BiPap prn, Duonebs, Mucinex, and supplemental O2 (3) Recurrent colitis due to Clostridium difficile Current visit: No Status: Acute 2 weeks ago he completed a 12 week oral Vancomycin taper for recurrent C. Diff colitis and reports recurrent diarrhea with BM 4x daily for the past 4 days. C. diff precautions Start oral Vanc and Flagyl Consult ID for recurrent C. diff (4) Chronic kidney disease, stage 3 Current visit: Yes Status: Chronic Continue to monitor (5) COPD (chronic obstructive pulmonary disease) Current visit: No Status: Chronic Not in acute exacerbation Continue Duonebs Qualifiers: COPD type: chronic bronchitis Qualified Code(s): J42 - Unspecified chronic bronchitis (6) Coronary artery disease Current visit: No Status: Chronic Continue home meds Qualifiers: Coronary Disease-Associated Artery/Lesion type: [place] artery [place] vs. transplanted heart: [place] heart Associated angina: with stable angina Qualified Code(s): I25.118 - Atherosclerotic heart disease of [place] coronary artery with other forms of angina pectoris (7) History of implantable cardioverter-defibrillator (ICD) placement Current visit: No Status: Chronic Continue to monitor (8) BPH (benign prostatic hyperplasia) Current visit: No Status: Chronic Continue home meds Qualifiers: Lower urinary tract symptom presence: unspecified whether lower urinary tract symptoms present Qualified Code(s): N40.0 - Benign prostatic hyperplasia without lower urinary tract symptoms (9) DVT prophylaxis Current visit: No Status: Acute Continue home meds Internal Medicine - H&P: HPI Chief complaint: SOB Admitted From: Home History of present illness: Mr. Bernardo is a 71 year old male CHF, COPD with home O2 dependence, CAD, hypertension, hyperlipidemia, pacemaker/AICD, and pulmonary hypertension that presented from home c/o SOB since yesterday evening and abd pain, diarrhea, sinus congestion, and fatigue for the past 4 days. Patient reports inability to walk two steps without SOB. At baseline he is able to walk several yards before getting SOB. He had 4lbs weight gain today and reports his dry weight is 140 lbs. His last echo on 11/21/16 revealed systolic dysfunction with EF 40% and mild pulmonary hypertension. He reports taking Metolazone and Bumex as directed. Of note, 2 weeks ago he completed a 12 week oral Vancomycin taper for recurrent C. Diff colitis and reports recurrent diarrhea with BM 4x daily for the past 4 days. Patient also underwent cataract surgery 5 days ago at [facility] and was started on antibiotic eye drops. In the ED, work up revealed BNP 2702 and CTA revealed small bilateral pleural effusions with adjacent atelectasis in both lung bases. Past Med Surg Social Fam HX - Past Medical History Medical history: CHF, COPD, coronary artery disease, hyperlipidemia, hypertension, myocardial infarction, valvular heart disease, other (C diff) Psychiatric history: anxiety - Past Surgical History Surgical History: coronary bypass (CABG), herniorrhaphy, pacemaker/AICD, vascular surgery - Social History Smoking Status: Former smoker Smokeless Tobacco Status: No Alcohol use: none Drug use: none Current living situation: Home - Independent - Family History Father Living Status: Hx Family Cardiac Disorders: Yes (cardiomyopathy) Internal Medicine - H&P: Meds ALPRAZolam [Xanax 0.5 MG Tablet] 0.5 mg PO TID PRN 11/21/16 [History] Albuterol Sulfate [Albuterol Inhaler] 2 puff IH Q6HR PRN 11/21/16 [History] Apixaban [Eliquis] 5 mg PO BID 11/21/16 [History] Ascorbic Acid [Vitamin C] 1,000 mg PO DAILY 11/21/16 [History] Budesonide/Formoterol 160/4.5 [Symbicort 160/4.5] 2 puff IH BIDR 11/21/16 [ History] Carvedilol [Coreg] 3.125 mg PO BID 11/21/16 [History] Cholecalciferol (D-3) [Vitamin D] 3,000 unit PO DAILY 11/21/16 [History] Clopidogrel [Plavix] 75 mg PO DAILY 11/21/16 [History] Fish Oil/Dha/Epa [Fish Oil 1,200 mg Fish Oil] 1,200 mg PO DAILY 11/21/16 [ History] Folic Acid 0.8 mg PO DAILY 11/21/16 [History] Isosorbide MONOnitrate (24 HR) [Imdur] 120 mg PO DAILY 11/21/16 [History] Multivitamin [One Daily Multivitamin] 1 tab PO DAILY 11/21/16 [History] Nitroglycerin [Nitrostat] 0.4 mg SL AD PRN 11/21/16 [History] Oxygen 2 l NS AD 11/21/16 [History] Ranolazine [Ranexa] 1,000 mg PO BID 11/21/16 [History] Trazodone HCl 200 mg PO HS 11/21/16 [History] Vitamin B Complex [B Complex] 1 tab PO DAILY 11/21/16 [History] Aspirin [Lo-Dose Aspirin EC] 81 mg PO DAILY 02/10/17 [History] Saccharomyces Boulardii [Florastor] 250 mg PO BID 02/10/17 [History] Potassium Chloride [Klor-Con 10] 10 meq PO BID 02/11/17 [History] Bumetanide [Bumex] 1 mg PO DAILY #30 tab 02/18/17 [Rx] Ipratropium/Albuterol Neb [Duoneb] 3 ml IH Q4HR PRN 03/12/17 [History] Tamsulosin [Flomax] 0.4 mg PO DAILY 03/12/17 [History] 3 Allergy/AdvReac Type Severity Reaction Status Date / Time Penicillins Allergy Redness of Verified 01/12/17 15:25 Skin All Systems PM: A 10-system review of systems was performed and is negative for pertinent findings except as documented above in the HPI. - Constitutional Constitutional: fatigue, lethargy, weakness, weight gain, no chills, no excessive sweating, no fever(s), no weight loss - EENT Eyes: no change in vision Nose, mouth and throat: nasal congestion, nasal discharge, post-nasal drip, no sore throat - Cardiovascular Cardiovascular ROS IM: dyspnea on exertion, orthopnea (2 pillows at night), paroxysmal nocturnal dyspnea, no chest pain, no palpitations - Respiratory Respiratory: dyspnea, dyspnea on exertion, no cough, no chest congestion, no excessive phlegm production - Gastrointestinal Gastrointestinal: abdominal pain, change in bowel habits, change in stool character, cramping, diarrhea, loose stools, no hematemesis, no hematochezia, no nausea, no vomiting - Genitourinary Genitourinary ROS male: no dysuria, no urinary frequency, no urinary urgency - Musculoskeletal Musculoskeletal ROS IM: no numbness, no tingling - Integumentary Integumentary IM: no erythema, no rash - Neurological Neurological ROS: weakness, no confusion, no numbness - Psychiatric Psychiatric: no anxiety, no depression - Endocrine Endocrine IM: fatigue, no polydipsia, no polyphagia, no polyuria - Hematologic/Lymphatic Hematologic/Lymphatic: no lymphadenopathy - Constitutional Vitals: Temp Pulse Resp BP Pulse Ox 98.6 F 70 14 121/69 95 03/12/17 22:37 03/12/17 22:37 03/12/17 22:37 03/12/17 22:37 03/12/17 22:37 General appearance: Present: cooperative, mild distress, A&O X 3, pleasant, answers questions appropriately - Head Head exam: Present: atraumatic, normal inspection, normocephalic - Eye Eye exam: Present: EOMI, PERRL - ENT ENT exam: Present: mucous membranes moist - Expanded ENT Exam Throat exam: Present: post pharyngeal erythema - Neck Neck exam general surgery: Present: normal inspection, supple. Absent: tenderness - Respiratory Respiratory exam: Present: rales. Absent: accessory muscle use, respiratory distress, wheezes Additional comments: conversational dyspnea - Cardiovascular Cardiovascular exam: Present: RRR, +S1, +S2 - GI/Abdominal GI/Abdominal exam: Present: hypoactive bowel sounds, soft. Absent: distended, guarding, rebound, tenderness - Extremities Exam Extremities exam: Present: normal capillary refill, normal inspection, pedal edema (1+), warm - Back Exam Back exam: Absent: paraspinal tenderness, vertebral tenderness Additional comments: Left flank subcutaneous cyst, no signs of inflammation - Neurological Exam Neurological exam: Present: alert, oriented X3, no focal deficits. Absent: altered, speech deficit - Psychiatric Psychiatric exam: Present: normal affect, normal mood - Skin Skin exam: Present: dry, normal color, warm. Absent: rash Internal Med - H&P Results - Labs CBC & Chem 7: 03/12/17 18:30 03/12/17 18:30 - ABG Interpretation Interpretation: ABG interpreted by fl ABG results: 03/12/17 19:59 ABG pH 7.53 H ABG pCO2 34 L ABG pO2 110 H ABG HCO3 29 H ABG Total CO2 30 H ABG O2 Saturation 99 H ABG Base Excess 6 H Interpretation: respiratory alkalosis, metabolic alkalosis - EKG Data -: EKG Interpreted by Myself EKG shows normal: sinus rhythm (1st degree AV block, mild ST depression V3, V4, V5 (no change from prior EKG)) Rate: normal - EKG Data Prior EKG available for review: yes When compared to previous EKG: there is no significant change - Impressions ITS Impressions Chest X-Ray 03/12/17 18:07 IMPRESSION: Mild pulmonary edema and small bilateral pleural effusions. D/ / Bj Toledo MD / Bj Toledo MD Interpreting Provider: Bj Toledo MD Chest CTA 03/12/17 19:32 IMPRESSION: No evidence of pulmonary embolism. Small bilateral pleural effusions with adjacent atelectasis in both lung bases, overall similar in appearance. D/ / Debora Fallon MD / Debora Fallon MD Interpreting Provider: Debora Fallon MD <Jayy Mckinney - Last Filed: 03/13/17 03:33> Date of Encounter: 03/13/17 Time of Encounter: 02:15 - Constitutional Constitutional: fatigue, weight gain - EENT Ears: no ear pain, no tinnitus Nose, mouth and throat: nasal congestion, nasal discharge, post-nasal drip, sinus pressure, no sore throat - Cardiovascular Cardiovascular ROS IM: dyspnea on exertion, orthopnea, paroxysmal nocturnal dyspnea, no syncope - Respiratory Respiratory: no hemoptysis - Gastrointestinal Gastrointestinal: cramping, diarrhea - Genitourinary Genitourinary ROS male: no dysuria, no flank pain, no hematuria - Integumentary Integumentary IM: no rash - Neurological Neurological ROS: weakness, no focal weakness, no frequent falls - Psychiatric Psychiatric: no anxiety, no depression - Allergic/Immunologic Allergic/Immunologic: no GI upset with certain foods - Constitutional Vitals: Temp Pulse Resp BP Pulse Ox 98.6 F 70 14 121/69 95 03/12/17 22:37 03/12/17 22:37 03/12/17 22:37 03/12/17 22:37 03/12/17 23:00 General appearance: Present: cooperative, mild distress, A&O X 3, pleasant - Head Head exam: Present: normal inspection - Eye Eye exam: Present: EOMI, PERRL. Absent: scleral icterus Pupils: Present: normal accommodation - ENT ENT exam: Present: mucous membranes moist, normal exam - Neck Neck exam general surgery: Present: full ROM, supple. Absent: tenderness - Expanded Neck Exam Neck exam: Absent: carotid bruit - Respiratory Respiratory exam: Present: rales (both bases). Absent: accessory muscle use, chest wall tenderness, respiratory distress, wheezes - Cardiovascular Cardiovascular exam: Present: RRR, +S1, +S2. Absent: diastolic murmur, JVD, systolic murmur - GI/Abdominal GI/Abdominal exam: Present: soft. Absent: guarding, tenderness - Extremities Exam Extremities exam: Present: full ROM, pedal edema (1+). Absent: calf tenderness - Back Exam Back exam: Absent: CVA tenderness (L), CVA tenderness (R) - Neurological Exam Neurological exam: Present: no focal deficits - Psychiatric Psychiatric exam: Present: normal affect, normal mood - Skin Skin exam: Present: dry, warm. Absent: rash Internal Med - H&P Results - Labs CBC & Chem 7: 03/13/17 00:59 03/13/17 00:59 Labs: Short CBC 03/13/17 Range/Units 00:59 WBC 5.6 (4.3-11.1) K/mcL Hgb 11.9 L (12.9-16.9) g/dL Hct 36.8 L (37.5-50.1) % Plt Count 199 (140-400) K/mcL Neutrophils # 4.1 (1.6-8.9) K/mcL BMP 03/13/17 00:59 Sodium 132 L Potassium 3.8 Chloride 94 L Carbon Dioxide 28 BUN 16 Creatinine 1.27 H Glucose 119 H Calcium 8.4 L Cardiac Enzymes 03/13/17 Range/Units 00:59 Troponin I 0.02 (0-0.03) ng/mL - ABG Interpretation Interpretation: ABG interpreted by me Interpretation: respiratory alkalosis, metabolic alkalosis - EKG Data -: EKG Interpreted by Myself EKG shows normal: sinus rhythm - EKG Data EKG comments: 03/13/17 03:27 Sinus rhythm; no acute changes - Attending Attestation I discussed the patient CADDO, PMH, ROS, lab data, and exam findings with Dr. Becerra. I then saw and examined patient independently as well. Pt appears in mild respiratory distress. He does not appear to be in any significant CHF, but he does have history and some mild clinical findings. I suspect his fluid overload state is multi-factorial and likely related to chronic systolic CHF, CKD, and likely due to low protein state from chronic C. Diff. Colitis. We will diurese him gingerly, continue BiPap PRN, resume treating his C. DIff Colitis, and consult ID for guidance. He has failed multiple treatments for C. Diff Colitis. He may be a candidate for fecal transplant at [facility]. Other than my comments above and noted exam findings, I agree with Dr. Becerra's assessment and plan.
[2017-03-12] MEDS ORDERED: Acetaminophen 325 MG TABLET PO PRN (23:46)
[2017-03-12] MEDS ORDERED: Naloxone 0.4 MG/ML INJ IVP PRN (23:46)
[2017-03-12] MEDS ORDERED: Ondansetron 4 MG/2 ML VIAL IVP PRN (23:46)
[2017-03-12] MEDS ORDERED: GuaiFENesin/Dextromethorphan TABLET PO PRN (23:49)
[2017-03-12] MEDS ORDERED: ALPRAZolam 0.5 MG TABLET PO PRN (23:50)
[2017-03-12] MEDS ORDERED: Nitroglycerin 0.4 MG TAB.SUBL SL PRN (23:50)
[2017-03-13] MEDS: APIXABAN 5 MG TABLET PO SCH ×3 (00:20→20:55)
[2017-03-13] MEDS: traZODone 50 MG TABLET PO SCH ×2 (00:42→22:47)
[2017-03-13 01:39] LABS: Hematocrit 36.8 % (37.5-50.1); Hemoglobin 11.9 g/dL (12.9-16.9); Immature Platelets 1.3 % (1.1-6.1); Mean Corpuscular HGB Conc 32.3 g/dL (31.6-35.5); Mean Corpuscular Hemoglobin 29.6 pg (28.0-33.3); Mean Corpuscular Volume 91.5 fL (83.0-100.0); Mean Platelet Volume 9.2 fL (9.4-12.4); Platelet Count 199 K/mcL (140-400); Red Blood Count 4.02 M/mcL (4.19-5.50)
[2017-03-13 01:52] LABS: BUN/Creatinine Ratio 13 (6-26); Blood Urea Nitrogen 16 mg/dL (8-26); Calcium 8.4 mg/dL (8.6-10.8); Carbon Dioxide 28 mEq/L (19-29); Chloride 94 mEq/L (98-109); Glucose 119 mg/dL (70-99); Osmolality,Calculated 276 (280-300); Potassium 3.8 mEq/L (3.5-4.5); Sodium 132 mEq/L (136-145); eGFR For African Americans > 60 (> 60); eGFR For Non-African Americans 56 (> 60)
[2017-03-13 02:42] LABS: Monocytes # 0.5 K/mcL (0.0-1.3); Neutrophils # 4.1 K/mcL (1.6-8.9)
[2017-03-13 02:44] LABS: Dohle Bodies Present (Not Present); Platelet Estimate Normal (Normal); Reactive Lymphocytes Present (Not Present); Toxic Granulation Present (Not Present)
[2017-03-13] MEDS: Ipratropium/Albuterol Neb 3 ML IH SCH ×7 (03:26→23:12)
[2017-03-13] MEDS: Famotidine 20 MG/2 ML VIAL IVP SCH ×2 (06:07→17:51)
[2017-03-13] MEDS: Budesonide/Formoterol 160/4.5 MDI IH SCH ×2 (07:53→19:58)
[2017-03-13] MEDS ORDERED: Bumetanide 1 MG/4 ML VIAL IVP SCH (08:00)
[2017-03-13] MEDS ORDERED: metroNIDAZOLE 250 MG TABLET PO SCH (09:00)
[2017-03-13] MEDS: Vancomycin Oral Soln 250 MG/5 ML UDC PO SCH ×4 (10:11→20:55)
[2017-03-13] MEDS: Isosorbide MONOnitrate (24 HR) 60 MG TAB.ER.24H PO SCH (10:12)
[2017-03-13] MEDS: Aspirin Enteric Coated 81 MG Tablet PO SCH (10:12)
[2017-03-13] MEDS: Folic Acid 1 MG TABLET PO SCH (10:13)
[2017-03-13] MEDS: Ascorbic Acid 500 MG TABLET PO SCH (10:13)
[2017-03-13] MEDS: Furosemide 20 MG/2 ML VIAL IVP SCH ×2 (10:13→17:52)
[2017-03-13] MEDS: Ranolazine 500 MG TAB.ER.12H PO SCH ×2 (10:13→20:54)
[2017-03-13] MEDS: Cholecalciferol (D-3) 1,000 UNIT TABLET PO SCH (10:13)
[2017-03-13] MEDS: Multivit/Ca/Min/Fe/FA 1 TAB TABLET PO SCH (10:13)
[2017-03-13] MEDS: Vitamin B Complex/Vit C/Vit E 1 EACH TABLET PO SCH (10:13)
[2017-03-13] MEDS: Lactobacillus 1 EACH CAP.SPRINK PO SCH ×2 (10:13→20:54)
--- NOTE | 2017-03-13 11:27 | Event Note ---
Date of Encounter: 03/13/17 Time of Encounter: 08:40 Patient is lying in bed. Appears comfortable. Continues to have diarrhea. Shortness of breath is improving. Currently on 3 L nasal cannula. We will continue to monitor vital signs. Monitor input and output. On treatment for C. difficile. Infectious disease has been consulted. We will follow their recommendations.
--- NOTE | 2017-03-13 11:51 | Infectious Disease Consult ---
Date of Encounter: 03/13/17 Time of Encounter: 11:43 Assessment and Plan (1) Sepsis Status: Resolved Assessment and plan: The patient had two SIRS criteria. Likely secondary to C. diff, but concern for additional intra-abdominal process. The patient continues to have bandemia and he had a fever overnight. Blood cultures drawn 03/12/17 are pending x 2 sets. Qualifiers: Sepsis type: sepsis due to unspecified organism Qualified Code(s): A41.9 - Sepsis, unspecified organism (2) Diarrhea Status: Acute Assessment and plan: Likely secondary to C. diff given the clinical picture and the patient's history of C. diff. Send stool for C. diff. Get CT of the abdomen and pelvis with oral contrast. If stool is positive for C. diff, this would be the patient's fourth recurrence. He was treated previously with Vancomycin taper. Continue Vancomycin 125mg PO QID. Continue flagyl, but change dose to 500mg PO TID. Continue probiotic BID. Continue contract/C. diff precautions. Duration of treatment depends on the clinical picture. Qualifiers: Diarrhea type: infectious Qualified Code(s): A09 - Infectious gastroenteritis and colitis, unspecified (3) Dyspnea Status: Acute Assessment and plan: Likely secondary to acute exacerbation of COPD and CHF. Continue supportive care per the primary team's recommendations. Qualifiers: Dyspnea type: shortness of breath Qualified Code(s): R06.02 - Shortness of breath; R06.00 - Dyspnea, unspecified; R06.01 - Orthopnea (4) Acute exacerbation of CHF (congestive heart failure) Status: Acute Assessment and plan: Management per the primary team. Qualifiers: Congestive heart failure type: systolic Qualified Code(s): I50.23 - Acute on chronic systolic (congestive) heart failure (5) Acute respiratory failure with hypoxia Status: Acute Assessment and plan: Secondary to AECOPD and CHF. Continue supportive care per the primary team. (6) History of Clostridium difficile colitis Status: Chronic Assessment and plan: Recurrent. Patient previously completed 7 week course of Vancomycin taper. If stool is positive for C. diff again, may need to consider referral to [facility] for FMT. (7) Chronic kidney disease, stage 3 Status: Chronic Assessment and plan: Serum creatinine at baseline. Continue to trend. Infectious Disease HPI - Data of Consult Patient: known to practice within the last 3 years Consult date: 03/13/17 Requesting Physician: Milo Stratton MD Primary Care Provider: Hu Yeboah MD - Consult Narrative Reason for consult: Recurrent C. diff History of present illness: Mr. Bernardo is a 71 year old male with a past medical history of systolic CHF with an EF of 40%, COPD, chronic respiratory failure dependent on 2 L of home oxygen, severe PAD with multiple stents in the left lower extremity, and recurrent C. difficile. The patient was admitted to the hospital March 12 for COPD and CHF exacerbation. We are consulted March 13 for further recommendations regarding recurrent C. difficile. The patient is a 71-year-old male, well-known to the infectious disease service as we have been consulted on his case in the past. The patient presented to the emergency department with complaints of acute onset of shortness of breath. Upon arrival, the patient afebrile and hemodynamically stable. He did require some intermittent BiPAP while the emergency department due to hypoxia. Laboratory studies revealed a normal white blood cell count, but the patient did have bandemia. Creatinine was elevated, but is at baseline. Chest x-ray completed in the ER showed findings consistent with pulmonary edema and small bilateral pleural effusions. CTA of the chest was completed to rule out a pulmonary embolism and no evidence of pulmonary embolism was noted, but the patient did have small bilateral pleural effusions with adjacent atelectasis in both lung bases. Empiric IV antibiotics were ordered, but due to his history of C. difficile, the patient refused these. The patient was admitted to the hospital for further evaluation and treatment. Since admission, the patient has remained afebrile and hemodynamically stable. He continues to have some bandemia, but his white blood cell count is normal. He did have a fever overnight. After admission, the patient reported a 4 day history of diarrhea stools that started on Friday. He states that he was stooling 3-4 times a day at home, but tells me this morning that he has had 3 stools that are mucousy and watery already today. He also reports some stool incontinence and abdominal tenderness. He was started on oral Flagyl and oral vancomycin by the primary team and placed in C. difficile precautions. He was hospitalized back in January and started on a 7 week Vanc taper, which he completed about two weeks ago. He states his diarrhea had resolved until four days ago. We've been asked to evaluate and make further recommendations. My exam today, the patient states that overall he feels about the same as he did when he came in. He does report that her shortness of breath is better, but he generally feels weak and tired. He denies any fevers or chills or rigors. He denies any headache or neck pain. He denies any congestion, earache, or sore throat. He denies any pain in his chest or cough, but reports that her shortness of breath was sudden in onset and was worse with exertion. He also reports that he gained 4 pounds in 24 hours. He denies any nausea, vomiting, or abdominal pain. He denies any pain in his back or extremities. CC: Milo Stratton MD Past Med Surg Social Fam HX - Past Medical History Attestation: Yes The following information was validated with the patient. Source: patient, old records reviewed, nursing notes reviewed Medical history: CHF, COPD, coronary artery disease, hyperlipidemia, hypertension, myocardial infarction, valvular heart disease, other (C diff) Psychiatric history: anxiety - Past Surgical History Surgical History: coronary bypass (CABG), herniorrhaphy, pacemaker/AICD, vascular surgery - Social History Smoking Status: Former smoker Smokeless Tobacco Status: No Alcohol use: none Drug use: none - Family History Father Living Status: Hx Family Cardiac Disorders: Yes (cardiomyopathy) Infectious Disease-CN:Meds ALPRAZolam [Xanax 0.5 MG Tablet] 0.5 mg PO TID PRN 11/21/16 [History] Albuterol Sulfate [Albuterol Inhaler] 2 puff IH Q6HR PRN 11/21/16 [History] Apixaban [Eliquis] 5 mg PO BID 11/21/16 [History] Ascorbic Acid [Vitamin C] 1,000 mg PO DAILY 11/21/16 [History] Budesonide/Formoterol 160/4.5 [Symbicort 160/4.5] 2 puff IH BIDR 11/21/16 [ History] Carvedilol [Coreg] 3.125 mg PO BID 11/21/16 [History] Cholecalciferol (D-3) [Vitamin D] 3,000 unit PO DAILY 11/21/16 [History] Clopidogrel [Plavix] 75 mg PO DAILY 11/21/16 [History] Fish Oil/Dha/Epa [Fish Oil 1,200 mg Fish Oil] 1,200 mg PO DAILY 11/21/16 [ History] Folic Acid 0.8 mg PO DAILY 11/21/16 [History] Isosorbide MONOnitrate (24 HR) [Imdur] 120 mg PO DAILY 11/21/16 [History] Multivitamin [One Daily Multivitamin] 1 tab PO DAILY 11/21/16 [History] Nitroglycerin [Nitrostat] 0.4 mg SL AD PRN 11/21/16 [History] Oxygen 2 l NS AD 11/21/16 [History] Ranolazine [Ranexa] 1,000 mg PO BID 11/21/16 [History] Trazodone HCl 200 mg PO HS 11/21/16 [History] Vitamin B Complex [B Complex] 1 tab PO DAILY 11/21/16 [History] Aspirin [Lo-Dose Aspirin EC] 81 mg PO DAILY 02/10/17 [History] Saccharomyces Boulardii [Florastor] 250 mg PO BID 02/10/17 [History] Potassium Chloride [Klor-Con 10] 10 meq PO BID 02/11/17 [History] Ipratropium/Albuterol Neb [Duoneb] 3 ml IH Q4HR PRN 03/12/17 [History] Tamsulosin [Flomax] 0.4 mg PO DAILY 03/12/17 [History] Bumetanide [Bumex] 1 mg PO BID #30 tab 03/15/17 [Rx] Fidaxomicin [Dificid] 200 mg PO BID #20 tablet 03/15/17 [Rx] Lactobacillus [Culturelle] 1 each PO BID #60 cap.sprink 03/15/17 [Rx] 3 Allergy/AdvReac Type Severity Reaction Status Date / Time Penicillins Allergy Redness of Verified 01/12/17 15:25 Skin All systems: reviewed and no additional remarkable complaints except as stated Exam - Constitutional Vitals: Temp Pulse Resp BP Pulse Ox 99.0 F 70 15 112/57 97 03/13/17 11:11 03/13/17 11:11 03/13/17 11:11 03/13/17 11:11 03/13/17 11:11 General appearance: average body habitus, cooperative, no acute distress - Head Head exam: Present: atraumatic, normal inspection, normocephalic - Eye Eye exam: Present: EOMI, normal appearance, PERRL Pupils: Present: normal accommodation - ENT ENT exam: Present: mucous membranes moist - Neck Neck exam: Present: normal inspection - Respiratory Respiratory exam: Present: decreased breath sounds (Throughout). Absent: respiratory distress, rhonchi, wheezes - Cardiovascular Cardiovascular exam: Present: RRR, +S1, +S2 - GI/Abdominal GI/Abdominal exam: Present: normal bowel sounds, soft, tenderness (lower abdomen ). Absent: distended - Extremities Exam Extremities exam: Present: pedal edema (1+ BLE). Absent: joint swelling, tenderness - Neurological Exam Neurological exam: Present: alert, oriented X3, no focal deficits - Psychiatric Psychiatric exam: Present: normal affect, normal mood - Skin Skin exam: Present: dry, intact, normal color, warm Infectious Disease CN: Results - Labs CBC & Chem 7: 03/14/17 10:19 03/15/17 04:05 Consult Discharge Plan - Plan Instructions: Bumetanide (By mouth), Probiotic (By mouth), Fidaxomicin (By mouth), Heart Failure (DC), Clostridium Difficile Infection (DC), Clostridium Difficile Infection (GEN) Additional Instructions: Please follow up with your band bias machine operator in 1 week Referrals: Hu Yeboah MD [Primary Care Provider] - (Please call your PCP to make a follow up appt in 1-2 weeks.) Cinthia Nur CNP [Advanced Practice Nurse] - (Recurrent Cdiff infections. Appointment has been webrequested. Our office will call you with an appointment time and date. Thank you. ) Prescriptions: Bumetanide [Bumex] 1 mg PO BID #30 tab Fidaxomicin [Dificid] 200 mg PO BID #20 tablet Lactobacillus [Culturelle] 1 each PO BID #60 cap.ricardo - Attending Attestation I examined this patient and my medical decision-making was reviewed with the Resident Physician. I agree with the documented findings, disposition and treatment plan as described except to the extent set forth below. Addendum to original report dictated by Cinthia Nur CNP. Please refer to Valerie ashley for full details. Patient is a 71-year-old gentleman that is well-known to our service, was seen previously by us for recurrent C. difficile and we have treated do with a tapering dose of oral vancomycin over 7 weeks. Patient came in with shortness of breath and weakness. Patient was noted to be an congestive heart failure and did require intermittent BiPAP. Patient had normal WBC, no fever, and significant diarrhea. Patient was started on empiric Flagyl and oral vancomycin and consulted to evaluate the patient and make further recommendations. Today patient laying in bed appears to very weak and tired stated that he really had 3 bowel movements a day and is not even 1 PM yet. He stated that he couldnt control his first bowel movement and had a large accident in the bed. Patient does have some abdominal discomfort but does not have any severe abdominal pain no nausea or vomiting. Rest of the review of system is as above. At this point, patients diarrhea is likely to C. difficile because of his history but I am concerned for other causes including diverticulitis. We will continue the oral vancomycin and Flagyl. Well dose adjust the Flagyl to the proper dose of 500 3 times a day. We will start probiotics twice a day. I will get a CT abdomen and pelvis with oral contrast to rule out other causes of his abdominal pain and diarrhea. Once we have all the results well make further recommendations on antibiotics and duration.
[2017-03-13] MEDS: metroNIDAZOLE 250 MG TABLET PO SCH ×2 (14:06→20:54)
[2017-03-13] MEDS ORDERED: traZODone 50 MG TABLET PO SCH (21:00)
[2017-03-14] MEDS: Ipratropium/Albuterol Neb 3 ML IH SCH ×6 (03:32→23:43)
[2017-03-14] MEDS: Famotidine 20 MG/2 ML VIAL IVP SCH ×2 (06:05→17:46)
[2017-03-14] MEDS: Budesonide/Formoterol 160/4.5 MDI IH SCH ×2 (08:19→20:08)
--- NOTE | 2017-03-14 08:29 | Electrocardiograph Report ---
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
[2017-03-14] MEDS: metroNIDAZOLE 250 MG TABLET PO SCH (08:53)
[2017-03-14] MEDS: APIXABAN 5 MG TABLET PO SCH ×2 (08:53→21:14)
[2017-03-14] MEDS: Aspirin Enteric Coated 81 MG Tablet PO SCH (08:53)
[2017-03-14] MEDS: Multivit/Ca/Min/Fe/FA 1 TAB TABLET PO SCH (08:53)
[2017-03-14] MEDS: Folic Acid 1 MG TABLET PO SCH (08:53)
[2017-03-14] MEDS: Ranolazine 500 MG TAB.ER.12H PO SCH ×2 (08:53→21:14)
[2017-03-14] MEDS: Cholecalciferol (D-3) 1,000 UNIT TABLET PO SCH (08:53)
[2017-03-14] MEDS: Vitamin B Complex/Vit C/Vit E 1 EACH TABLET PO SCH (08:53)
[2017-03-14] MEDS: Lactobacillus 1 EACH CAP.SPRINK PO SCH ×2 (08:53→21:14)
[2017-03-14] MEDS: Ascorbic Acid 500 MG TABLET PO SCH (08:53)
[2017-03-14] MEDS: Furosemide 20 MG/2 ML VIAL IVP SCH ×2 (08:53→17:46)
[2017-03-14] MEDS: Isosorbide MONOnitrate (24 HR) 60 MG TAB.ER.24H PO SCH (08:53)
[2017-03-14] MEDS: Vancomycin Oral Soln 250 MG/5 ML UDC PO SCH ×2 (08:54→13:32)
[2017-03-14 10:26] LABS: Basophils % 0.2 %; Eosinophils # 0.1 K/mcL (0.0-0.6); Hematocrit 36.6 % (37.5-50.1); Hemoglobin 11.8 g/dL (12.9-16.9); Immature Granulocytes % 0.6 % (0-4); Lymphocytes # 0.4 K/mcL (0.6-4.6); Lymphocytes % 6.6 %; Mean Corpuscular HGB Conc 32.2 g/dL (31.6-35.5); Mean Corpuscular Hemoglobin 29.6 pg (28.0-33.3); Mean Corpuscular Volume 91.7 fL (83.0-100.0); Mean Platelet Volume 8.6 fL (9.4-12.4); Monocytes # 0.6 K/mcL (0.0-1.3); Monocytes % 9.9 %; Platelet Count 184 K/mcL (140-400); Red Blood Count 3.99 M/mcL (4.19-5.50); Red Cell Distribution Width 13.7 % (11.5-14.5); Segmented Neutrophils % 81.7 %
[2017-03-14 10:27] LABS: Neutrophils # 5.1 K/mcL (1.6-8.9)
[2017-03-14 10:38] LABS: BUN/Creatinine Ratio 13 (6-26); Blood Urea Nitrogen 17 mg/dL (8-26); Calcium 8.4 mg/dL (8.6-10.8); Carbon Dioxide 29 mEq/L (19-29); Chloride 98 mEq/L (98-109); Glucose 137 mg/dL (70-99); Osmolality,Calculated 284 (280-300); Potassium 4.2 mEq/L (3.5-4.5); Sodium 135 mEq/L (136-145); eGFR For African Americans > 60 (> 60); eGFR For Non-African Americans 53 (> 60)
[2017-03-14 10:42] LABS: Platelet Estimate Normal (Normal)
--- NOTE | 2017-03-14 10:49 | Infectious Disease Progress No ---
Date of Encounter: 03/14/17 Time of Encounter: 10:46 - Assessment and Plan (1) Sepsis Status: Resolved The patient had two SIRS criteria. Likely secondary to C. diff colitis. Improved. WBC remains normal and bandemia has resolved. He has been afebrile for >24 hours. Blood cultures drawn 03/12/17 are NGTD x 2 sets. Qualifiers: Sepsis type: sepsis due to unspecified organism Qualified Code(s): A41.9 - Sepsis, unspecified organism (2) Pancolitis Status: Acute Secondary to C. diff. CT of the abdomen and pelvis with oral contrast completed 03/13/17 showed pancolitis. Continue antibiotics as below. (3) C. difficile diarrhea Status: Acute Stool sent for C. diff is positive. This is the fourth recurrence for this patient. He was treated previously with Vancomycin taper. Continue probiotic BID. Continue Vancomycin 125mg PO QID. Discontinue Flagyl. Continue contact/C. diff precautions. Duration of treatment depends on the clinical picture. (4) Dyspnea Status: Acute Likely secondary to acute exacerbation of COPD and CHF. CT scan negative for infiltrate. Continue supportive care per the primary team's recommendations. Qualifiers: Dyspnea type: shortness of breath Qualified Code(s): R06.02 - Shortness of breath; R06.00 - Dyspnea, unspecified; R06.01 - Orthopnea (5) Acute exacerbation of CHF (congestive heart failure) Status: Acute Management per the primary team. Qualifiers: Congestive heart failure type: systolic Qualified Code(s): I50.23 - Acute on chronic systolic (congestive) heart failure (6) Acute respiratory failure with hypoxia Status: Acute Secondary to AECOPD and CHF. Continue supportive care per the primary team. (7) Chronic kidney disease, stage 3 Status: Chronic Serum creatinine at baseline. Continue to trend. - Subjective Interval history: Patient seen and examined. No acute events noted overnight. Patient resting quietly in bed. States that overall he doesn't feel much better today. He reports he continues to have dyspnea on exertion, but denies cough or chest pain. Denies nausea or vomiting and states he did eat breakfast this morning. Reports lower abdominal pain this morning, worse with ambulation or movement. Denies urinary complaints. States he was incontinent of stool overnight, but states that is the only BM he has had today. Denies oral thrush or skin lesions. Infect Dis PN-Objective Data - Labs CBC & Chem 7: 03/14/17 10:19 03/15/17 04:05 Labs: Laboratory Results - last 24 hr 03/13/17 03/14/17 03/14/17 12:12 09:00 10:19 WBC 6.2 RBC 3.99 L Hgb 11.8 L Hct 36.6 L MCV 91.7 MCH 29.6 MCHC 32.2 RDW 13.7 Plt Count 184 MPV 8.6 L Immature Gran % 0.6 Seg Neutrophils % 81.7 Lymphocytes % 6.6 Monocytes % 9.9 Eosinophils % 1.0 Basophils % 0.2 Neutrophils # 5.1 Lymphocytes # 0.4 L Monocytes # 0.6 Eosinophils # 0.1 Basophils # 0.0 Platelet Estimate Normal Sodium Potassium Chloride Carbon Dioxide BUN Creatinine Est GFR ( Amer) Est GFR (Non-Af Amer) BUN/Creatinine Ratio Glucose Calculated Osmolality Calcium Troponin I 0.02 Stl C. diff Tox B Gene Positive 03/14/17 10:19 WBC RBC Hgb Hct MCV MCH MCHC RDW Plt Count MPV Immature Gran % Seg Neutrophils % Lymphocytes % Monocytes % Eosinophils % Basophils % Neutrophils # Lymphocytes # Monocytes # Eosinophils # Basophils # Platelet Estimate Sodium 135 L Potassium 4.2 Chloride 98 Carbon Dioxide 29 BUN 17 Creatinine 1.33 H Est GFR ( Amer) > 60 Est GFR (Non-Af Amer) 53 L BUN/Creatinine Ratio 13 Glucose 137 H Calculated Osmolality 284 Calcium 8.4 L Troponin I Stl C. diff Tox B Gene Cultures: Serology 03/14/17 Range/Units 09:00 Stl C. diff Tox B Gene Positive (Negative) - Impressions Impressions Abdomen/Pelvis CT 03/13/17 15:40 IMPRESSION: CT findings compatible with pancolitis. [id number] bilateral pleural effusions. Cholelithiasis. Prostatomegaly and pair right inguinal hernias. Large subcutaneous fluid collection along the posterior left chest wall, probably representing a sebaceous cyst. D/ / Rolando Plata MD / Rolando Plata MD Interpreting Provider: Rolando Plata MD Exam - Constitutional Vitals: Temp Pulse Resp BP Pulse Ox 98.2 F 80 20 130/70 96 03/14/17 06:50 03/14/17 06:50 03/14/17 08:21 03/14/17 06:50 03/14/17 09:27 General appearance: average body habitus, cooperative, no acute distress - Head Head exam: Present: atraumatic, normal inspection, normocephalic - Eye Eye exam: Present: EOMI, normal appearance, PERRL Pupils: Present: normal accommodation - ENT ENT exam: Present: mucous membranes moist - Neck Neck exam: Present: normal inspection - Respiratory Respiratory exam: Present: CTAB. Absent: rales, respiratory distress, rhonchi, wheezes - Cardiovascular Cardiovascular exam: Present: RRR, +S1, +S2 - GI/Abdominal GI/Abdominal exam: Present: normal bowel sounds, soft, tenderness (bilateral lower quadrants). Absent: distended - Extremities Exam Extremities exam: Present: pedal edema (1+ BLE). Absent: joint swelling, tenderness - Neurological Exam Neurological exam: Present: alert, oriented X3, no focal deficits - Psychiatric Psychiatric exam: Present: normal affect, normal mood - Skin Skin exam: Present: dry, intact, normal color, warm Consult Discharge Plan - Plan Instructions: Bumetanide (By mouth), Probiotic (By mouth), Fidaxomicin (By mouth), Heart Failure (DC), Clostridium Difficile Infection (DC), Clostridium Difficile Infection (GEN) Additional Instructions: Please follow up with your public improvement inspector in 1 week Referrals: Hu Yeboah MD [Primary Care Provider] - (Please call your PCP to make a follow up appt in 1-2 weeks.) Cinthia Nur, SPECIALTY DEPARTMENT SUPERVISOR [Advanced Practice Nurse] - (Recurrent Cdiff infections. Appointment has been webrequested. Our office will call you with an appointment time and date. Thank you. ) Prescriptions: Bumetanide [Bumex] 1 mg PO BID #30 tab Fidaxomicin [Dificid] 200 mg PO BID #20 tablet Lactobacillus [Culturelle] 1 each PO BID #60 cap.sprink - Attending Attestation I examined this patient and my medical decision-making was reviewed with the Resident Physician. I agree with the documented findings, disposition and treatment plan as described except to the extent set forth below.
--- NOTE | 2017-03-14 16:08 | Internal Med Progress Note ---
Date of Encounter: 03/14/17 Time of Encounter: 09:15 - Assessment and plan (1) Acute and chronic respiratory failure with hypoxia Current Visit: Yes Status: Acute Assessment and plan: Continue O2 supplementation. BiPAP use as needed. Continue intravenous diuretics. High risk for complications. (2) Sepsis Current Visit: No Status: Resolved Assessment and plan: Improved. Due to C. difficile colitis. Qualifiers: Sepsis type: sepsis due to unspecified organism Qualified Code(s): A41.9 - Sepsis, unspecified organism (3) Recurrent colitis due to Clostridium difficile Current Visit: No Status: Acute Assessment and plan: Is currently on vancomycin. According to infectious disease, this is her fourth recurrence for the patient. He has failed pulsed taper course of oral vancomycin. As such, since he has continued to have diarrhea, I will change his regimen to fidaxomicin for 10 days. Will use this in conjunction with probiotics. Continue contact precautions. (4) Acute exacerbation of CHF (congestive heart failure) Current Visit: Yes Status: Acute Assessment and plan: On intravenous diuretics. Will continue. Symptoms remain persistent but improving. Continue aspirin, beta abhi. Qualifiers: Congestive heart failure type: systolic Qualified Code(s): I50.23 - Acute on chronic systolic (congestive) heart failure (5) BPH (benign prostatic hyperplasia) Current Visit: No Status: Chronic Assessment and plan: On tamsulosin Qualifiers: Lower urinary tract symptom presence: unspecified whether lower urinary tract symptoms present Qualified Code(s): N40.0 - Benign prostatic hyperplasia without lower urinary tract symptoms (6) COPD (chronic obstructive pulmonary disease) Current Visit: Yes Status: Chronic Assessment and plan: Not in acute exacerbation. Use bronchodilators as needed Qualifiers: COPD type: chronic bronchitis Qualified Code(s): J42 - Unspecified chronic bronchitis (7) Coronary artery disease Current Visit: Yes Status: Chronic Assessment and plan: Continue home medications including aspirin, Plavix, beta abhi Qualifiers: Coronary Disease-Associated Artery/Lesion type: [place] artery [place] vs. transplanted heart: [place] heart Associated angina: with stable angina Qualified Code(s): I25.118 - Atherosclerotic heart disease of [place] coronary artery with other forms of angina pectoris (8) Pancolitis Current Visit: Yes Status: Acute Assessment and plan: Due to C. difficile. (9) Chronic kidney disease, stage 3 Current Visit: Yes Status: Chronic Assessment and plan: Remains stable. (10) DVT prophylaxis Current Visit: No Status: Acute - Subjective Interval history: Patient complains of shortness of breath with minimal exertion. He had trouble sleeping last night with shortness of breath and recurrent episodes of diarrhea. He denies any chest pain. Has cough but no sputum production. No fever or chills reported overnight. - Constitutional Vitals: Temp Pulse Resp BP Pulse Ox 97.9 F 69 20 104/57 100 03/14/17 15:02 03/14/17 15:02 03/14/17 15:37 03/14/17 15:02 03/14/17 15:37 General appearance: Present: cooperative, mild distress, A&O X 3, pleasant, answers questions appropriately - Neck Neck exam general surgery: Present: supple, trachea midline. Absent: lymphadenopathy - Respiratory Respiratory exam: Present: prolonged expiratory phase. Absent: accessory muscle use, rales, rhonchi, wheezes - Cardiovascular Cardiovascular exam: Present: RRR, +S1, +S2. Absent: diastolic murmur, gallop, rubs, systolic murmur - GI/Abdominal GI/Abdominal exam: Present: normal bowel sounds, soft, no peritoneal signs. Absent: distended, tenderness - Extremities Exam Extremities exam: Present: warm, radial pulses palpable and symmetrical. Absent : calf tenderness, cyanotic, pedal edema - Neurological Exam Neurological exam: Present: alert, oriented X3, no focal deficits. Absent: facial droop, speech deficit Internal Medicine: Result - Labs CBC & Chem 7: 03/14/17 10:19 03/14/17 10:19 Labs: Short CBC 03/14/17 Range/Units 10:19 WBC 6.2 (4.3-11.1) K/mcL Hgb 11.8 L (12.9-16.9) g/dL Hct 36.6 L (37.5-50.1) % Plt Count 184 (140-400) K/mcL Neutrophils # 5.1 (1.6-8.9) K/mcL BMP 03/14/17 10:19 Sodium 135 L Potassium 4.2 Chloride 98 Carbon Dioxide 29 BUN 17 Creatinine 1.33 H Glucose 137 H Calcium 8.4 L - ABG Interpretation ABG results: ABG ABG pH 7.53 pH Units (7.32-7.45) H 03/12/17 19:59 ABG pCO2 34 mmHg (35-45) L 03/12/17 19:59 ABG pO2 110 mmHg (85-104) H 03/12/17 19:59 ABG O2 Saturation 99 % (95-98) H 03/12/17 19:59 PT/INR, D-dimer PT 15.6 Seconds (9.4-12.1) H 03/12/17 18:33 - Impressions Impressions Abdomen/Pelvis CT 03/13/17 15:40 IMPRESSION: CT findings compatible with pancolitis. [id number] bilateral pleural effusions. Cholelithiasis. Prostatomegaly and pair right inguinal hernias. Large subcutaneous fluid collection along the posterior left chest wall, probably representing a sebaceous cyst. D/ / Rolando Plata MD / Rolando Plata MD Interpreting Provider: Rolando Plata MD Consult Discharge Plan - Plan Referrals: Hu Yeboah MD [Primary Care Provider] -
[2017-03-14] MEDS: Fidaxomicin 200 MG TABLET PO SCH (21:14)
[2017-03-14] MEDS: traZODone 50 MG TABLET PO SCH (23:27)
[2017-03-15] MEDS: Ipratropium/Albuterol Neb 3 ML IH SCH ×3 (04:54→11:00)
[2017-03-15 05:02] LABS: BUN/Creatinine Ratio 12 (6-26); Blood Urea Nitrogen 15 mg/dL (8-26); Calcium 7.9 mg/dL (8.6-10.8); Carbon Dioxide 28 mEq/L (19-29); Chloride 101 mEq/L (98-109); Glucose 84 mg/dL (70-99); Osmolality,Calculated 280 (280-300); Potassium 3.7 mEq/L (3.5-4.5); Sodium 135 mEq/L (136-145); eGFR For African Americans > 60 (> 60); eGFR For Non-African Americans 59 (> 60)
[2017-03-15 05:08] LABS: ABG Base Excess 4 mEq/L (-2 to 3); ABG HCO3 28 mEq/L (21-27); ABG Oxygen Saturation 92 % (95-98); ABG PCO2 41 mmHg (35-45); ABG PH 7.44 pH Units (7.32-7.45); ABG PO2 62 mmHg (85-104); ABG TCO2 29 mEq/L (20-26)
[2017-03-15] MEDS: Famotidine 20 MG/2 ML VIAL IVP SCH (06:35)
[2017-03-15] MEDS: Budesonide/Formoterol 160/4.5 MDI IH SCH (07:45)
[2017-03-15 07:57] VITALS: BP 118/71
--- NOTE | 2017-03-15 09:59 | Discharge Summary ---
Date of Encounter: 03/15/17 Time of Encounter: 09:55 - Discharge Diagnosis (1) Acute and chronic respiratory failure with hypoxia Priority: Primary Status: Acute (2) Sepsis Priority: Secondary Status: Resolved Qualifiers: Sepsis type: sepsis due to unspecified organism Qualified Code(s): A41.9 - Sepsis, unspecified organism (3) Recurrent colitis due to Clostridium difficile Priority: Secondary Status: Acute (4) Acute exacerbation of CHF (congestive heart failure) Priority: Secondary Status: Acute Qualifiers: Congestive heart failure type: systolic Qualified Code(s): I50.23 - Acute on chronic systolic (congestive) heart failure (5) BPH (benign prostatic hyperplasia) Priority: Secondary Status: Chronic Qualifiers: Lower urinary tract symptom presence: unspecified whether lower urinary tract symptoms present Qualified Code(s): N40.0 - Benign prostatic hyperplasia without lower urinary tract symptoms (6) COPD (chronic obstructive pulmonary disease) Priority: Secondary Status: Chronic Qualifiers: COPD type: chronic bronchitis Chronic bronchitis type: simple Qualified Code(s): J41.0 - Simple chronic bronchitis (7) Coronary artery disease Priority: Secondary Status: Chronic Qualifiers: Coronary Disease-Associated Artery/Lesion type: [place] artery [place] vs. transplanted heart: [place] heart Associated angina: with stable angina Qualified Code(s): I25.118 - Atherosclerotic heart disease of [place] coronary artery with other forms of angina pectoris (8) Pancolitis Priority: Secondary Status: Acute (9) Chronic kidney disease, stage 3 Priority: Secondary Status: Chronic (10) DVT prophylaxis Priority: Secondary Status: Acute - Discharge Medications Prescriptions: Bumetanide [Bumex] 1 mg PO BID #30 tab Fidaxomicin [Dificid] 200 mg PO BID #20 tablet Lactobacillus [Culturelle] 1 each PO BID #60 cap.sprink Home Medications: ALPRAZolam [Xanax 0.5 MG Tablet] 0.5 mg PO TID PRN 11/21/16 [History] Albuterol Sulfate [Albuterol Inhaler] 2 puff IH Q6HR PRN 11/21/16 [History] Apixaban [Eliquis] 5 mg PO BID 11/21/16 [History] Ascorbic Acid [Vitamin C] 1,000 mg PO DAILY 11/21/16 [History] Budesonide/Formoterol 160/4.5 [Symbicort 160/4.5] 2 puff IH BIDR 11/21/16 [ History] Carvedilol [Coreg] 3.125 mg PO BID 11/21/16 [History] Cholecalciferol (D-3) [Vitamin D] 3,000 unit PO DAILY 11/21/16 [History] Clopidogrel [Plavix] 75 mg PO DAILY 11/21/16 [History] Fish Oil/Dha/Epa [Fish Oil 1,200 mg Fish Oil] 1,200 mg PO DAILY 11/21/16 [ History] Folic Acid 0.8 mg PO DAILY 11/21/16 [History] Isosorbide MONOnitrate (24 HR) [Imdur] 120 mg PO DAILY 11/21/16 [History] Multivitamin [One Daily Multivitamin] 1 tab PO DAILY 11/21/16 [History] Nitroglycerin [Nitrostat] 0.4 mg SL AD PRN 11/21/16 [History] Oxygen 2 l NS AD 11/21/16 [History] Ranolazine [Ranexa] 1,000 mg PO BID 11/21/16 [History] Trazodone HCl 200 mg PO HS 11/21/16 [History] Vitamin B Complex [B Complex] 1 tab PO DAILY 11/21/16 [History] Aspirin [Lo-Dose Aspirin EC] 81 mg PO DAILY 02/10/17 [History] Saccharomyces Boulardii [Florastor] 250 mg PO BID 02/10/17 [History] Potassium Chloride [Klor-Con 10] 10 meq PO BID 02/11/17 [History] Ipratropium/Albuterol Neb [Duoneb] 3 ml IH Q4HR PRN 03/12/17 [History] Tamsulosin [Flomax] 0.4 mg PO DAILY 03/12/17 [History] Bumetanide [Bumex] 1 mg PO BID #30 tab 03/15/17 [Rx] Fidaxomicin [Dificid] 200 mg PO BID #20 tablet 03/15/17 [Rx] Lactobacillus [Culturelle] 1 each PO BID #60 cap.sprink 03/15/17 [Rx] Allergies/Adverse Reactions: 3 Allergy/AdvReac Type Severity Reaction Status Date / Time Penicillins Allergy Redness of Verified 01/12/17 15:25 Skin Procedures/tests Complete & Pending: Procedures Performed prior 72 hours Category Date Time Status CT abd pelvis wo iv oral only [CT] Routine Cat Scan 03/13/17 15:40 Completed Date of admission: 03/13/17 03:43 Primary care physician: Hu Yeboah MD Consults: 03/13/17 11:41 Consult to Parts Remover [CONS] Routine Reason for SW Consult: discharge planning Discharging clinician: Milo Stratton Anticipated date of discharge: 03/15/17 - Patient Status Disposition: Home, Self-Care Condition: Fair Functional capacity at discharge: independent ambulation Overall status at discharge: patient is progressing back to baseline - Discharge Instructions Instructions: Bumetanide (By mouth), Probiotic (By mouth), Fidaxomicin (By mouth), Heart Failure (DC), Clostridium Difficile Infection (DC), Clostridium Difficile Infection (GEN) Follow Up With: Hu Yeboah MD [Primary Care Provider] - (Please call your PCP to make a follow up appt in 1-2 weeks.) Cinthia Nur CNP [Advanced Practice Nurse] - (Recurrent Cdiff infections. Appointment has been webrequested. Our office will call you with an appointment time and date. Thank you. ) Additional Instructions: Please follow up with your diabetologist in 1 week - Diet and Activity Activity: increase activity as tolerated, wear oxygen at all times Diet: low fat, low cholesterol, low salt diet Hospital course: Mr. Bernardo is a 71 year old male patient with history of COPD, congestive heart failure, prior C. difficile colitis presented to the ER with complaints of worsening shortness of breath and persistent diarrhea. He was diagnosed with acute respiratory failure on chronic respiratory failure related to acute exacerbation of CHF. He was also diagnosed with recurrent colitis from C. difficile. He did have symptoms of sepsis initially. He was treated with oral vancomycin and Flagyl and infectious disease was consulted. He also received intravenous diuretics. His symptoms slowly improved with this treatment plan. Infectious disease evaluated the patient and recommended to continue vancomycin. 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 Patient has completed chronic pulse dosed vancomycin therapy and was again positive for C. difficile colitis. As such, he is being placed on fidaxomicin instead. He will take a 10 day course of 200 mg twice daily fidaxomicin in conjunction with lactobacillus. He will also be referred to infectious disease for further management. If he fails this treatment regimen, he will probably need to be referred to a tertiary care center for your treatments for her persistent recurrent C. difficile colitis. His heart failure symptoms did improve with intravenous Lasix and is now doing much better. He is back to his baseline O2 supplementation. His renal function has also normalized. He will be discharged home on increased dose of Bumex at 1 mg by mouth twice daily. He will follow-up with his diabetologist after discharge for further management of his heart failure. - Time Spent with Patient Total time spent providing and/or coordinating discharge services: Greater than 30 minutes (40 min) - Constitutional Vitals: Temp Pulse Resp BP Pulse Ox 97.5 F L 71 16 118/71 100 03/15/17 07:56 03/15/17 07:56 03/15/17 07:56 03/15/17 07:56 03/15/17 07:56 General appearance: Present: cooperative, mild distress, A&O X 3, pleasant, answers questions appropriately - Respiratory Respiratory exam: Present: CTAB. Absent: accessory muscle use, rales, rhonchi, wheezes - Cardiovascular Cardiovascular exam: Present: RRR, +S1, +S2. Absent: diastolic murmur, gallop, rubs, systolic murmur - GI/Abdominal GI/Abdominal exam: Present: normal bowel sounds, soft, no peritoneal signs. Absent: distended, tenderness - Neurological Exam Neurological exam: Present: alert, oriented X3, no focal deficits. Absent: facial droop, speech deficit
--- NOTE | 2017-03-15 10:05 | Physician Discharge Referral ---
Home Health/Hosp Referral Info Transfer to: Home Health Provider in Charge Post Discharge: PCP - Diagnosis (1) Acute and chronic respiratory failure with hypoxia Priority: Primary Status: Acute (2) Sepsis Priority: Secondary Status: Resolved (3) Recurrent colitis due to Clostridium difficile Priority: Secondary Status: Acute (4) Acute exacerbation of CHF (congestive heart failure) Priority: Secondary Status: Acute (5) BPH (benign prostatic hyperplasia) Priority: Secondary Status: Chronic (6) COPD (chronic obstructive pulmonary disease) Priority: Secondary Status: Chronic (7) Coronary artery disease Priority: Secondary Status: Chronic (8) Pancolitis Priority: Secondary Status: Acute (9) Chronic kidney disease, stage 3 Priority: Secondary Status: Chronic (10) DVT prophylaxis Priority: Secondary Status: Acute - Respiratory Orders Oxygen / L per min (2-3) Smoking Cessation: Smoking cessation has been advised. For more information, call the [place] Tobacco Quit Line at 9-989-LGWH-NOW. - Diet/Nutrition Diet/Nutrition Orders: Cardiac - Activity Activity Orders: Walker - Services Needed Following services are medically necessary services: Physical Therapy, Occupational Therapy - Transfer Medications Prescriptions: Bumetanide [Bumex] 1 mg PO BID #30 tab Fidaxomicin [Dificid] 200 mg PO BID #20 tablet Lactobacillus [Culturelle] 1 each PO BID #60 cap.sprink Home Medications: ALPRAZolam [Xanax 0.5 MG Tablet] 0.5 mg PO TID PRN 11/21/16 [History] Albuterol Sulfate [Albuterol Inhaler] 2 puff IH Q6HR PRN 11/21/16 [History] Apixaban [Eliquis] 5 mg PO BID 11/21/16 [History] Ascorbic Acid [Vitamin C] 1,000 mg PO DAILY 11/21/16 [History] Budesonide/Formoterol 160/4.5 [Symbicort 160/4.5] 2 puff IH BIDR 11/21/16 [ History] Carvedilol [Coreg] 3.125 mg PO BID 11/21/16 [History] Cholecalciferol (D-3) [Vitamin D] 3,000 unit PO DAILY 11/21/16 [History] Clopidogrel [Plavix] 75 mg PO DAILY 11/21/16 [History] Fish Oil/Dha/Epa [Fish Oil 1,200 mg Fish Oil] 1,200 mg PO DAILY 11/21/16 [ History] Folic Acid 0.8 mg PO DAILY 11/21/16 [History] Isosorbide MONOnitrate (24 HR) [Imdur] 120 mg PO DAILY 11/21/16 [History] Multivitamin [One Daily Multivitamin] 1 tab PO DAILY 11/21/16 [History] Nitroglycerin [Nitrostat] 0.4 mg SL AD PRN 11/21/16 [History] Oxygen 2 l NS AD 11/21/16 [History] Ranolazine [Ranexa] 1,000 mg PO BID 11/21/16 [History] Trazodone HCl 200 mg PO HS 11/21/16 [History] Vitamin B Complex [B Complex] 1 tab PO DAILY 11/21/16 [History] Aspirin [Lo-Dose Aspirin EC] 81 mg PO DAILY 02/10/17 [History] Saccharomyces Boulardii [Florastor] 250 mg PO BID 02/10/17 [History] Potassium Chloride [Klor-Con 10] 10 meq PO BID 02/11/17 [History] Ipratropium/Albuterol Neb [Duoneb] 3 ml IH Q4HR PRN 03/12/17 [History] Tamsulosin [Flomax] 0.4 mg PO DAILY 03/12/17 [History] Bumetanide [Bumex] 1 mg PO BID #30 tab 03/15/17 [Rx] Fidaxomicin [Dificid] 200 mg PO BID #20 tablet 03/15/17 [Rx] Lactobacillus [Culturelle] 1 each PO BID #60 cap.sprink 03/15/17 [Rx] Allergies/Adverse Reactions: 3 Allergy/AdvReac Type Severity Reaction Status Date / Time Penicillins Allergy Redness of Verified 01/12/17 15:25 Skin Certification: Further, I certify that my clinical findings support that this patient is homebound (i.e. absences from home require considerable and taxing effort and are for medical reasons or yazdanism services or infrequently or short duration when for other reasons) because: Homebound Reason: Patient requires assistance of a person or device to safely leave home (Per PT shane, recommended home health) Attestation: My signature below is to certify that this patient is under my care and that I, or nurse practitioner, or a physician's clinical education assistant working with me, has a face-to -face encounter with this patient.
[2017-03-15] MEDS: Furosemide 20 MG/2 ML VIAL IVP SCH (10:15)
[2017-03-15] MEDS: Multivit/Ca/Min/Fe/FA 1 TAB TABLET PO SCH (10:16)
[2017-03-15] MEDS: Isosorbide MONOnitrate (24 HR) 60 MG TAB.ER.24H PO SCH (10:16)
[2017-03-15] MEDS: Cholecalciferol (D-3) 1,000 UNIT TABLET PO SCH (10:16)
[2017-03-15] MEDS: Ascorbic Acid 500 MG TABLET PO SCH (10:16)
[2017-03-15] MEDS: APIXABAN 5 MG TABLET PO SCH (10:16)
[2017-03-15] MEDS: Aspirin Enteric Coated 81 MG Tablet PO SCH (10:16)
[2017-03-15] MEDS: Fidaxomicin 200 MG TABLET PO SCH (10:16)
[2017-03-15] MEDS: Ranolazine 500 MG TAB.ER.12H PO SCH (10:16)
[2017-03-15] MEDS: Lactobacillus 1 EACH CAP.SPRINK PO SCH (10:16)
[2017-03-15] MEDS: Vitamin B Complex/Vit C/Vit E 1 EACH TABLET PO SCH (10:16)
[2017-03-15] MEDS: Folic Acid 1 MG TABLET PO SCH (10:17)
== END 2017-03-15 13:10 | disposition home or self-care (01) | DRG 871 ==
LOC: 3BNU 18:04 → EMEROO 18:04 → 3BNU 22:28 → SUATTDRO 03-13 03:43
PROVIDERS: ADMIT Pediatrics; ATTEND Internal Medicine

== ENCOUNTER 2017-03-29 06:40 | Observation (INO) ==
[2017-03-29] MEDS ORDERED: *HR* LORazepam 2 MG/ML VIAL IVP ONE (06:43)
[2017-03-29] MEDS ORDERED: Aspirin 325 MG TABLET PO ONE (06:43)
[2017-03-29 07:25] LABS: BUN/Creatinine Ratio 9 (6-26); Blood Urea Nitrogen 11 mg/dL (8-26); Calcium 9.1 mg/dL (8.6-10.8); Carbon Dioxide 28 mEq/L (19-29); Chloride 100 mEq/L (98-109); Glucose 129 mg/dL (70-99); Osmolality,Calculated 287 (280-300); Sodium 138 mEq/L (136-145); eGFR For African Americans > 60 (> 60); eGFR For Non-African Americans > 60 (> 60)
[2017-03-29] MEDS ORDERED: Ipratropium/Albuterol Neb 3 ML IH ONE (07:42)
[2017-03-29 07:47] LABS: Basophils % 0.3 %; Eosinophils # 0.1 K/mcL (0.0-0.6); Eosinophils % 1.9 %; Hematocrit 36.3 % (37.5-50.1); Hemoglobin 11.5 g/dL (12.9-16.9); Immature Granulocytes % 0.3 % (0-4); Lymphocytes # 1.1 K/mcL (0.6-4.6); Lymphocytes % 16.2 %; Mean Corpuscular HGB Conc 31.7 g/dL (31.6-35.5); Mean Corpuscular Hemoglobin 29.9 pg (28.0-33.3); Mean Corpuscular Volume 94.3 fL (83.0-100.0); Mean Platelet Volume 9.3 fL (9.4-12.4); Monocytes # 0.5 K/mcL (0.0-1.3); Monocytes % 7.7 %; Platelet Count 253 K/mcL (140-400); Red Blood Count 3.85 M/mcL (4.19-5.50); Red Cell Distribution Width 14.5 % (11.5-14.5); Segmented Neutrophils % 73.6 %
--- NOTE | 2017-03-29 09:23 | Emergency Department Note ---
Disposition Clinical Impression: CHF exacerbation Qualifiers: Congestive heart failure type: unspecified congestive heart failure type Qualified Code(s): I50.9 - Heart failure, unspecified Disposition: Admitted As Inpatient Condition: Fair Time of Disposition: 11:16 SOB HPI - General Chief Complaint: ED Shortness of Breath/Dyspnea Stated Complaint: shortness of breath Time Seen by Provider: 03/29/17 06:43 Source: patient, EMS Nursing Notes Reviewed: Yes Vital Signs Reviewed: Yes - History of Present Illness Patient is a 71-year-old male who presents to [facility] ED with a chief complaint of difficulty breathing. States symptoms have been ongoing over the last few days and have worsened this morning. Patient is on 2 L of oxygen via nasal cannula normally. States he updated 5 L this morning he was feeling so short of breath. Also complained of some chest pain which she states goes along with when he feels short of breath. Patient requested BiPAP upon arrival stating this helps him more than anything else. He had also taken a nitroglycerin this morning. Past medical history significant for CAD with 11 stents, congestive heart failure, COPD. Patient was recently admitted at the beginning of the month for acute on chronic respiratory failure as well as C. difficile colitis. States his diarrhea has resolved though he is still taking the oral vancomycin. Pt Subjective Complaint: shortness of breath Onset (ago): day(s) Severity: moderate Consistency/Duration: gradually worsening Improves with: nothing Known history of: COPD, congestive heart failure Associated symptoms: Reports: chest pain. Denies: fever, cough, nausea/vomiting , abdominal pain Treatment prior to arrival: oxygen, bronchodilator Cough present: No - Related Data Home oxygen amount: 2 liters Home Medications Medication Instructions Recorded Confirmed ALPRAZolam [Xanax 0.5 MG Tablet] 0.5 mg PO TID PRN 11/21/16 03/29/17 Albuterol Sulfate [Albuterol 2 puff IH Q6HR PRN 11/21/16 03/29/17 Inhaler] Apixaban [Eliquis] 5 mg PO BID 11/21/16 03/29/17 Ascorbic Acid [Vitamin C] 1,000 mg PO DAILY 11/21/16 03/29/17 Budesonide/Formoterol 160/4.5 2 puff IH BIDR 11/21/16 03/29/17 [Symbicort 160/4.5] Carvedilol [Coreg] 3.125 mg PO BID 11/21/16 03/29/17 Cholecalciferol (D-3) [Vitamin D] 3,000 unit PO DAILY 11/21/16 03/29/17 Clopidogrel [Plavix] 75 mg PO DAILY 11/21/16 03/29/17 Fish Oil/Dha/Epa [Fish Oil 1,200 1,200 mg PO DAILY 11/21/16 03/29/17 mg Fish Oil] Folic Acid 0.8 mg PO DAILY 11/21/16 03/29/17 Isosorbide MONOnitrate (24 HR) 120 mg PO DAILY 11/21/16 03/29/17 [Imdur] Multivitamin [One Daily 1 tab PO DAILY 11/21/16 03/29/17 Multivitamin] Nitroglycerin [Nitrostat] 0.4 mg SL AD PRN 11/21/16 03/29/17 Oxygen 2 l NS AD 11/21/16 03/29/17 Ranolazine [Ranexa] 1,000 mg PO BID 11/21/16 03/29/17 Trazodone HCl 200 mg PO HS 11/21/16 03/29/17 Vitamin B Complex [B Complex] 1 tab PO DAILY 11/21/16 03/29/17 Aspirin [Lo-Dose Aspirin EC] 81 mg PO DAILY 02/10/17 03/29/17 Saccharomyces Boulardii [Florastor] 250 mg PO BID 02/10/17 03/29/17 Potassium Chloride [Klor-Con 10] 10 meq PO BID 02/11/17 03/29/17 Ipratropium/Albuterol Neb [Duoneb] 3 ml IH Q4HR PRN 03/12/17 03/29/17 Tamsulosin [Flomax] 0.4 mg PO DAILY 03/12/17 03/29/17 Lactobacillus [Culturelle] 1 cap PO BID 03/29/17 03/29/17 Previous Rx's Medication Instructions Recorded Bumetanide [Bumex] 1 mg PO BID #30 tab 03/15/17 Fidaxomicin [Dificid] 200 mg PO BID #20 tablet 03/15/17 Allergies Allergy/AdvReac Type Severity Reaction Status Date / Time Penicillins Allergy Redness of Verified 03/29/17 06:42 Skin All systems ED: reviewed and negative except as stated. Past Medical History - Past Medical History Attestation: Yes The following information was validated with the patient. Source: patient Medical history: Reports: CHF, COPD, coronary artery disease, hyperlipidemia, hypertension, myocardial infarction, valvular heart disease Surgical history: Reports: coronary bypass (CABG), herniorrhaphy, pacemaker/AICD , vascular surgery Psychiatric history: Reports: anxiety - Social History Smoking Status: Former smoker Smokeless Tobacco Status: No Alcohol use: Reports: none Drug use: Reports: none Physical Exam - General Limitations: no limitations General appearance: anxious - Head Head exam: atraumatic, normocephalic, normal inspection - Eye Eye exam: Present: normal appearance, EOMI - ENT ENT exam: normal exam, normal oropharynx, mucous membranes moist - Neck Neck exam: Present: normal inspection, full ROM, trachea midline - Chest Chest inspection: Present: normal inspection, symmetric chest wall rise - Respiratory Respiratory exam: Present: other (decreased breath sounds b/l) - Cardiovascular Cardiovascular exam: Present: regular rate, normal rhythm, normal heart sounds - Abdominal Exam Abdominal exam: Present: soft, Non-Tender. Absent: tenderness, distention, guarding, rebound, rigidity - Extremities Exam Extremities exam: Present: normal inspection, full ROM, pedal edema (2+ b/l). Absent: tenderness - Back Exam Back exam: Present: normal inspection, full ROM. Absent: tenderness - Neurological Exam Neurological exam: Present: alert, oriented X3 - Psychiatric Psychiatric exam: Present: normal affect, normal mood - Skin Skin exam: Present: warm, dry, intact, normal color Course Course Narrative: Patient seen and examined. Shortness of breath. Patient currently on BiPAP. Cardiopulmonary workup initiated. With patient's history of congestive heart failure and extensive cardiac history, along with increased O2 requirements, suspect patient will be needing admission. - Reevaluation(s) Reevaluation #1: Lab work appears unremarkable. Chest x-ray shows congestive heart failure. BNP elevated and 1600s though he has been higher in the past. Bumex 1 mg IV ordered. With his increased work of breathing and increased oxygen requirement today, we will go ahead and admit for acute on chronic respiratory failure. Discussed with hospitalist Dr. Jalloh who has accepted patient for admission. Time: 11:13 Vital Signs Temperature 97.6 F 03/29/17 06:42 Pulse Rate 98 03/29/17 06:42 Respiratory Rate 28 03/29/17 06:42 Blood Pressure 159/92 03/29/17 06:42 O2 Sat by Pulse Oximetry 99 03/29/17 06:42 Temperature 97.6 F 03/29/17 06:42 Pulse Rate 68 03/29/17 09:00 Respiratory Rate 21 03/29/17 09:49 Blood Pressure 123/71 03/29/17 09:49 O2 Sat by Pulse Oximetry 100 03/29/17 09:49 Oxygen Delivery Oxygen Delivery Bipap Shortness of Breath/Dyspnea - Medical Records Medical records reviewed: Yes I reviewed the patient's medical records. - Lab Data Lab results reviewed: Yes I reviewed the patient's lab results. Result diagrams: 03/29/17 06:50 03/29/17 06:50 Lab Results 03/29/17 03/29/17 03/29/17 Range/Units 06:50 06:50 06:50 WBC 6.7 (4.3-11.1) K/mcL RBC 3.85 L (4.19-5.50) M/mcL Hgb 11.5 L (12.9-16.9) g/dL Hct 36.3 L (37.5-50.1) % MCV 94.3 (83.0-100.0) fL MCH 29.9 (28.0-33.3) pg MCHC 31.7 (31.6-35.5) g/dL RDW 14.5 (11.5-14.5) % Plt Count 253 (140-400) K/mcL MPV 9.3 L (9.4-12.4) fL Immature Gran % 0.3 (0-4) % Seg Neutrophils % 73.6 % Lymphocytes % 16.2 % Monocytes % 7.7 % Eosinophils % 1.9 % Basophils % 0.3 % Neutrophils # 5.0 (1.6-8.9) K/mcL Lymphocytes # 1.1 (0.6-4.6) K/mcL Monocytes # 0.5 (0.0-1.3) K/mcL Eosinophils # 0.1 (0.0-0.6) K/mcL Basophils # 0.0 (0.0-0.2) K/mcL Sodium 138 (136-145) mEq/L Potassium 4.0 (3.5-4.5) mEq/L Chloride 100 (98-109) mEq/L Carbon Dioxide 28 (19-29) mEq/L BUN 11 (8-26) mg/dL Creatinine 1.20 (0.72-1.25) mg/dL Est GFR ( Amer) > 60 (> 60) Est GFR (Non-Af Amer) > 60 (> 60) BUN/Creatinine Ratio 9 (6-26) Glucose 129 H (70-99) mg/dL Calculated Osmolality 287 (280-300) Lactic Acid (0.5-2.2) mmol/L Calcium 9.1 (8.6-10.8) mg/dL Troponin I 0.01 (0-0.03) ng/mL B-Natriuretic Peptide (0-100) pg/mL 03/29/17 03/29/17 Range/Units 06:50 07:34 WBC (4.3-11.1) K/mcL RBC (4.19-5.50) M/mcL Hgb (12.9-16.9) g/dL Hct (37.5-50.1) % MCV (83.0-100.0) fL MCH (28.0-33.3) pg MCHC (31.6-35.5) g/dL RDW (11.5-14.5) % Plt Count (140-400) K/mcL MPV (9.4-12.4) fL Immature Gran % (0-4) % Seg Neutrophils % % Lymphocytes % % Monocytes % % Eosinophils % % Basophils % % Neutrophils # (1.6-8.9) K/mcL Lymphocytes # (0.6-4.6) K/mcL Monocytes # (0.0-1.3) K/mcL Eosinophils # (0.0-0.6) K/mcL Basophils # (0.0-0.2) K/mcL Sodium (136-145) mEq/L Potassium (3.5-4.5) mEq/L Chloride (98-109) mEq/L Carbon Dioxide (19-29) mEq/L BUN (8-26) mg/dL Creatinine (0.72-1.25) mg/dL Est GFR ( Amer) (> 60) Est GFR (Non-Af Amer) (> 60) BUN/Creatinine Ratio (6-26) Glucose (70-99) mg/dL Calculated Osmolality (280-300) Lactic Acid 1.5 (0.5-2.2) mmol/L Calcium (8.6-10.8) mg/dL Troponin I (0-0.03) ng/mL B-Natriuretic Peptide 1684 H (0-100) pg/mL - Radiology Data Radiology results reviewed: Yes I reviewed the patient's radiology results. Chest X-Ray 03/29/17 06:42 IMPRESSION: Congestive heart failure. D/ / 03/29/2017 08:36:31 Eliazar Figueroa MD / dat Interpreting Provider: Eliazar Figueroa MD - EKG Data EKG attestation: Yes I reviewed and interpreted this EKG. EKG results narrative: EKG done at 647 shows borderline sinus tachycardia with a rate of [address] elevation. There is some ST depression in leads V4 through V6. Moderate intraventricular conduction delay. Critical Care Time Critical Care Time: Yes Total Critical Care Time: 35 Attestation: Critical care time 35 minutes managing patient's acute CHF exacerbation. Attestation Statement - Attestation Attestation: Patient was seen with resident physician. I reviewed the history, physical, assessment and plan, and agree with the findings. I also personally evaluated this patient and had [id number] time with this patient. 71-year-old male presents to the emergency department requesting BiPAP for what he feels is a COPD exacerbation. Patient has a history of both COPD and CHF, and he feels this is more COPD related. He thinks this because although he has been gaining weight the last couple days he has been treating at home with increased doses of his diuretic. He said the swelling is come down as has some of the weight, but he still significant short of breath which prompted his visit to the emergency Department today. No fevers or chills. No chest pain. On examination vital signs are stable. Lungs mild crackles with no wheezes. Heart regular rhythm and rate. Abdomen soft and nontender. Extremities patient has 1-2+ edema in the lower extremities bilaterally and symmetrically. Neurologically intact. ED course BNP was elevated. Chest x-ray shows CHF. Patient was given a nebulizer treatment just to help for symptomatic treatment. The patient was on BiPAP for several hours and then requested that he get office he was feeling better. He was also given IV medication to help with diuresis. Hospitalist was notified as to the need for admission and hospitalization was arranged. He was accepted by the hospitalist service for further evaluation treatment. Agree with the resident physician assessment and plan. Critical care time 35 minutes.
[2017-03-29] MEDS ORDERED: Bumetanide 1 MG/4 ML VIAL IVP ONE (10:46)
[2017-03-29] MEDS ORDERED: Nitroglycerin 0.4 MG TAB.SUBL SL PRN (13:27)
--- NOTE | 2017-03-29 13:27 | Internal Med History&Physical ---
Date of Encounter: 03/29/17 Time of Encounter: 13:27 Assessment and Plan (1) Anxiety Current visit: Yes Status: Acute We will continue his home dose of Xanax. (2) Acute on chronic systolic (congestive) heart failure Current visit: No Status: Acute He reports worsening shortness of breath and increasing in weight. He reports an episode of paroxysmal nocturnal dyspnea as well as nocturia. He says that when he takes an extra tablet of Bumex he can usually loses weight and breathing was improved. BNP is elevated. Chest x-ray shows findings consistent with CHF. He has rails on exam. No wheezes. We will treat him with oral Bumex 3 milligrams daily. Strict I's and O's. Daily weights. Fluid restriction of 1200 mL daily. Sodium restricted diet. (3) Coronary artery disease Current visit: No Status: Chronic Continue with aspirin and statin beta abhi and Ranexa. Trend troponin. Qualifiers: Coronary Disease-Associated Artery/Lesion type: [place] artery [place] vs. transplanted heart: [place] heart Associated angina: with stable angina Qualified Code(s): I25.118 - Atherosclerotic heart disease of [place] coronary artery with other forms of angina pectoris (4) Clostridium difficile colitis Current visit: No Status: Acute Continue oral Dificid. Monitor for symptoms such as diarrhea and abdominal pain. (5) DVT prophylaxis Current visit: No Status: Acute (6) COPD (chronic obstructive pulmonary disease) Current visit: No Status: Chronic No evidence of exacerbation. We will treat with inhaled albuterol and ipratropium. Qualifiers: COPD type: chronic bronchitis Chronic bronchitis type: simple Qualified Code(s): J41.0 - Simple chronic bronchitis Internal Medicine - H&P: HPI Chief complaint: Transplant breath Admitted From: Emergency Dept Plans for Post Hospital Care: Home History of present illness: Mr. Bernardo is a 71 year old male with past medical history significant for congestive heart failure and COPD who presented to the hospital for evaluation of shortness of breath. He reports being more short of breath today than his usual. He checks his weight daily and at baseline is 140 pounds. 3 days ago his weight went up to 143. He increased his Bumex to 1 tablet 3 times daily and his weight is starting to come back down and yesterday it was 140. He feels that he urinates more at night and less during the day. Last night he woke up suddenly at 4 AM with severe shortness of breath, no chest pain, diaphoresis or cough, no wheezing. He took his inhaled albuterol with no relief and he decided to come to the hospital. Later that morning he did have some wheezing per his report. He called an ambulance is most brought to the hospital. He required 5 L of oxygen to maintain his saturation above 92%. Usually he uses 2 L/m. In the emergency department his BNP was elevated at 1600. Chest x-ray showed findings consistent with CHF. Review of systems: Chronic shortness of breath and dyspnea on exertion, lower extremity swelling, anxiety. The reminder of the 10 point review of systems was negative. Past Med Surg Social Fam HX - Past Medical History Medical history: CHF, COPD, coronary artery disease, hyperlipidemia, hypertension, myocardial infarction, valvular heart disease Psychiatric history: anxiety - Past Surgical History Surgical History: coronary bypass (CABG), herniorrhaphy, pacemaker/AICD, vascular surgery - Social History Smoking Status: Former smoker Smokeless Tobacco Status: No Alcohol use: none Drug use: none - Family History Father Living Status: Hx Family Cardiac Disorders: Yes (cardiomyopathy) Internal Medicine - H&P: Meds ALPRAZolam [Xanax 0.5 MG Tablet] 0.5 mg PO TID PRN 11/21/16 [History] Albuterol Sulfate [Albuterol Inhaler] 2 puff IH Q6HR PRN 11/21/16 [History] Apixaban [Eliquis] 5 mg PO BID 11/21/16 [History] Ascorbic Acid [Vitamin C] 1,000 mg PO DAILY 11/21/16 [History] Budesonide/Formoterol 160/4.5 [Symbicort 160/4.5] 2 puff IH BIDR 11/21/16 [ History] Carvedilol [Coreg] 3.125 mg PO BID 11/21/16 [History] Cholecalciferol (D-3) [Vitamin D] 3,000 unit PO DAILY 11/21/16 [History] Clopidogrel [Plavix] 75 mg PO DAILY 11/21/16 [History] Fish Oil/Dha/Epa [Fish Oil 1,200 mg Fish Oil] 1,200 mg PO DAILY 11/21/16 [ History] Folic Acid 0.8 mg PO DAILY 11/21/16 [History] Isosorbide MONOnitrate (24 HR) [Imdur] 120 mg PO DAILY 11/21/16 [History] Multivitamin [One Daily Multivitamin] 1 tab PO DAILY 11/21/16 [History] Nitroglycerin [Nitrostat] 0.4 mg SL AD PRN 11/21/16 [History] Oxygen 2 l NS AD 11/21/16 [History] Ranolazine [Ranexa] 1,000 mg PO BID 11/21/16 [History] Trazodone HCl 200 mg PO HS 11/21/16 [History] Vitamin B Complex [B Complex] 1 tab PO DAILY 11/21/16 [History] Aspirin [Lo-Dose Aspirin EC] 81 mg PO DAILY 02/10/17 [History] Saccharomyces Boulardii [Florastor] 250 mg PO BID 02/10/17 [History] Potassium Chloride [Klor-Con 10] 10 meq PO BID 02/11/17 [History] Ipratropium/Albuterol Neb [Duoneb] 3 ml IH Q4HR PRN 03/12/17 [History] Tamsulosin [Flomax] 0.4 mg PO DAILY 03/12/17 [History] Bumetanide [Bumex] 1 mg PO BID #30 tab 03/15/17 [Rx] Fidaxomicin [Dificid] 200 mg PO BID #20 tablet 03/15/17 [Rx] Lactobacillus [Culturelle] 1 cap PO BID 03/29/17 [History] 3 Allergy/AdvReac Type Severity Reaction Status Date / Time Penicillins Allergy Redness of Verified 03/29/17 06:42 Skin All Systems PM: A 10-system review of systems was performed and is negative for pertinent findings except as documented above in the HPI. - Constitutional Vitals: Temp Pulse Resp BP Pulse Ox 97.4 F L 65 17 124/56 99 03/29/17 12:30 03/29/17 12:30 03/29/17 12:30 03/29/17 12:30 03/29/17 12:30 General appearance: Present: A&O X 3, no acute distress - Eye Eye exam: Present: PERRL, conjuntiva pink, sclera anicteric Pupils: Present: PERRL - Neck Neck exam general surgery: Present: supple, trachea midline. Absent: lymphadenopathy - Respiratory Respiratory exam: Present: rales. Absent: accessory muscle use, rhonchi, wheezes - Cardiovascular Cardiovascular exam: Present: RRR, +S1, +S2. Absent: diastolic murmur, gallop, rubs, systolic murmur - GI/Abdominal GI/Abdominal exam: Present: normal bowel sounds, soft, no peritoneal signs. Absent: distended, tenderness - Extremities Exam Extremities exam: Present: pedal edema (2+ lower extremity pitting edema), warm , radial pulses palpable and symmetrical. Absent: calf tenderness, cyanotic - Neurological Exam Neurological exam: Present: CN II-XII intact, oriented X3, no focal deficits. Absent: pronater drift, facial droop, speech deficit - Skin Skin exam: Present: dry, intact Internal Med - H&P Results - Labs CBC & Chem 7: 03/29/17 06:50 03/29/17 06:50 - EKG Data -: EKG Interpreted by Myself (Sinus tach first-degree AV block 100 bpm. Nonspecific T-wave changes.) EKG shows normal: sinus rhythm, intervals, QRS complexes
[2017-03-29] MEDS ORDERED: Acetaminophen 325 MG TABLET PO PRN (13:30)
[2017-03-29] MEDS ORDERED: Naloxone 0.4 MG/ML INJ IVP PRN (13:30)
[2017-03-29] MEDS ORDERED: Ondansetron 4 MG/2 ML VIAL IVP PRN (13:30)
[2017-03-29] MEDS ORDERED: *HR* HYDROcodone/Acet 5/325 mg TABLET PO PRN (13:30)
[2017-03-29] MEDS: ALPRAZolam 0.5 MG TABLET PO PRN ×2 (13:52→17:59)
[2017-03-29] MEDS: APIXABAN 5 MG TABLET PO SCH ×2 (13:52→20:28)
[2017-03-29] MEDS: Bumetanide 1 MG TABLET PO SCH ×2 (17:59→20:31)
[2017-03-29] MEDS: Budesonide/Formoterol 160/4.5 MDI IH SCH (20:07)
[2017-03-29] MEDS: Ipratropium/Albuterol Neb 3 ML IH PRN (20:07)
[2017-03-29] MEDS: Ranolazine 500 MG TAB.ER.12H PO SCH (20:30)
[2017-03-29] MEDS: Fidaxomicin 200 MG TABLET PO SCH (20:39)
[2017-03-29] MEDS: Isosorbide MONOnitrate (24 HR) 60 MG TAB.ER.24H PO SCH (20:49)
[2017-03-29] MEDS ORDERED: traZODone 50 MG TABLET PO SCH (21:00)
[2017-03-30 03:00] LABS: Basophils % 0.4 %; Eosinophils # 0.1 K/mcL (0.0-0.6); Eosinophils % 2.4 %; Hematocrit 31.2 % (37.5-50.1); Immature Granulocytes % 0.5 % (0-4); Lymphocytes # 1.2 K/mcL (0.6-4.6); Lymphocytes % 21.8 %; Mean Corpuscular HGB Conc 31.7 g/dL (31.6-35.5); Mean Corpuscular Hemoglobin 29.7 pg (28.0-33.3); Mean Corpuscular Volume 93.7 fL (83.0-100.0); Mean Platelet Volume 8.7 fL (9.4-12.4); Monocytes # 0.7 K/mcL (0.0-1.3); Monocytes % 12.8 %; Neutrophils # 3.4 K/mcL (1.6-8.9); Platelet Count 222 K/mcL (140-400); Red Blood Count 3.33 M/mcL (4.19-5.50); Red Cell Distribution Width 14.3 % (11.5-14.5); Segmented Neutrophils % 62.1 %
[2017-03-30 03:02] LABS: Hemoglobin 9.9 g/dL (12.9-16.9)
[2017-03-30 03:12] LABS: Calcium 8.4 mg/dL (8.6-10.8); Magnesium 1.8 mg/dL (1.6-2.6)
[2017-03-30] MEDS: ALPRAZolam 0.5 MG TABLET PO PRN (04:53)
[2017-03-30] MEDS: Budesonide/Formoterol 160/4.5 MDI IH SCH (07:41)
[2017-03-30] MEDS: Ipratropium/Albuterol Neb 3 ML IH PRN (07:41)
[2017-03-30] MEDS: Fidaxomicin 200 MG TABLET PO SCH (08:03)
[2017-03-30] MEDS: Isosorbide MONOnitrate (24 HR) 60 MG TAB.ER.24H PO SCH (08:03)
[2017-03-30] MEDS: Bumetanide 1 MG TABLET PO SCH ×3 (08:04→15:23)
[2017-03-30] MEDS: APIXABAN 5 MG TABLET PO SCH (08:04)
[2017-03-30] MEDS: Ranolazine 500 MG TAB.ER.12H PO SCH (08:04)
[2017-03-30] MEDS ORDERED: Aspirin Enteric Coated 81 MG Tablet PO SCH (09:00)
[2017-03-30] MEDS ORDERED: Isosorbide MONOnitrate (24 HR) 60 MG TAB.ER.24H PO SCH (09:00)
--- NOTE | 2017-03-30 10:25 | Discharge Summary ---
Date of Encounter: 03/30/17 Time of Encounter: 10:22 - Discharge Diagnosis (1) Acute on chronic systolic (congestive) heart failure Priority: Primary Status: Acute Comments: Acute on chronic hypoxic respiratory failure secondary to acute pulmonary edema as a result of acute systolic CHF exacerbation (2) Pulmonary edema Priority: Primary Status: Acute Qualifiers: Chronicity: chronic Qualified Code(s): J81.1 - Chronic pulmonary edema (3) Acute respiratory failure with hypoxia Priority: Primary Status: Acute (4) Coronary artery disease Priority: Secondary Status: Chronic Qualifiers: Coronary Disease-Associated Artery/Lesion type: [place] artery [place] vs. transplanted heart: [place] heart Associated angina: with stable angina Qualified Code(s): I25.118 - Atherosclerotic heart disease of [place] coronary artery with other forms of angina pectoris (5) BPH (benign prostatic hyperplasia) Priority: Secondary Status: Chronic Qualifiers: Lower urinary tract symptom presence: unspecified whether lower urinary tract symptoms present Qualified Code(s): N40.0 - Benign prostatic hyperplasia without lower urinary tract symptoms (6) Recurrent colitis due to Clostridium difficile Priority: Secondary Status: Acute Comments: The patient could not afford Dificid, has been managed by ID as an outpatient with vancomycin oral (7) Chronic kidney disease, stage 3 Priority: Secondary Status: Chronic - Discharge Medications Prescriptions: Bumetanide [Bumex] 1 mg PO TID #90 tab Home Medications: ALPRAZolam [Xanax 0.5 MG Tablet] 0.5 mg PO TID PRN 11/21/16 [History] Albuterol Sulfate [Albuterol Inhaler] 2 puff IH Q6HR PRN 11/21/16 [History] Apixaban [Eliquis] 5 mg PO BID 11/21/16 [History] Ascorbic Acid [Vitamin C] 1,000 mg PO DAILY 11/21/16 [History] Budesonide/Formoterol 160/4.5 [Symbicort 160/4.5] 2 puff IH BIDR 11/21/16 [ History] Carvedilol [Coreg] 3.125 mg PO BID 11/21/16 [History] Cholecalciferol (D-3) [Vitamin D] 3,000 unit PO DAILY 11/21/16 [History] Clopidogrel [Plavix] 75 mg PO DAILY 11/21/16 [History] Fish Oil/Dha/Epa [Fish Oil 1,200 mg Fish Oil] 1,200 mg PO DAILY 11/21/16 [ History] Folic Acid 0.8 mg PO DAILY 11/21/16 [History] Isosorbide MONOnitrate (24 HR) [Imdur] 120 mg PO DAILY 11/21/16 [History] Multivitamin [One Daily Multivitamin] 1 tab PO DAILY 11/21/16 [History] Nitroglycerin [Nitrostat] 0.4 mg SL AD PRN 11/21/16 [History] Oxygen 2 l NS AD 11/21/16 [History] Ranolazine [Ranexa] 1,000 mg PO BID 11/21/16 [History] Trazodone HCl 200 mg PO HS 11/21/16 [History] Vitamin B Complex [B Complex] 1 tab PO DAILY 11/21/16 [History] Aspirin [Lo-Dose Aspirin EC] 81 mg PO DAILY 02/10/17 [History] Saccharomyces Boulardii [Florastor] 250 mg PO BID 02/10/17 [History] Potassium Chloride [Klor-Con 10] 10 meq PO BID 02/11/17 [History] Ipratropium/Albuterol Neb [Duoneb] 3 ml IH Q4HR PRN 03/12/17 [History] Tamsulosin [Flomax] 0.4 mg PO DAILY 03/12/17 [History] Lactobacillus [Culturelle] 1 cap PO BID 03/29/17 [History] Bumetanide [Bumex] 1 mg PO TID #90 tab 03/30/17 [Rx] Vancomycin Oral Soln [Vancocin] 125 mg PO QID udc 03/30/17 [Rx] Allergies/Adverse Reactions: 3 Allergy/AdvReac Type Severity Reaction Status Date / Time Penicillins Allergy Redness of Verified 03/29/17 06:42 Skin Date of admission: 03/29/17 11:09 Primary care physician: PCP NONE - Patient Status Disposition: Home Health Service Condition: Fair Overall status at discharge: patient is back to baseline - Discharge Instructions Follow Up With: NONE,PCP [Primary Care Provider] - Additional Instructions: Follow up with primary care physician within the next 7 days. Continue taking Bumex 1 mg 3 times a day, fluid restriction, follow up with ID, continue tapering down oral vancomycin - Diet and Activity Activity: increase activity as tolerated, wear oxygen at all times Diet: low fat, low cholesterol, low salt diet Hospital course: Mr. Bernardo is a 71 year old male with past medical history significant for systolic congestive heart failure fraction of 40%, pacemaker, CAD, hypertension , hyperlipidemia, valvular heart disease, CABG, C. difficile treated with oral vancomycin and COPD oxygen dependent who presented to the hospital for evaluation of shortness of breath. He reported being more short of breath than his usual. He checks his weight daily and at baseline is 140 pounds. 3 days or to his admission, his weight went up to 143. He increased his Bumex to 1 tablet 3 times daily and his weight was starting to come back down. He feels that he urinates more at night and less during the day. He woke up suddenly at 4 AM with severe shortness of breath, no chest pain, diaphoresis or cough, no wheezing. He took his inhaled albuterol with no relief and he decided to come to the hospital. Later that morning he did have some wheezing per his report. He called an ambulance.l. He required 5 L of oxygen to maintain his saturation above 92%. Usually he uses 2 L/m. During the last hospitalization he was discharged on DIficid to treat his C. difficile colitis but could not afford this very expensive medication for which the ID service switched him to oral vancomycin. In the emergency department his BNP was elevated at 1600. Chest x-ray showed findings consistent with CHF. Bumex was continued at an increased dose of 3 times a day. Used the BiPAP momentarily, feels better this morning and is stable to be discharged. During his last hospitalization he did not qualify to have the Bi[facility]AP and [facility] - Time Spent with Patient Total time spent providing and/or coordinating discharge services: Greater than 30 minutes (40 min) - Constitutional Vitals: Temp Pulse Resp BP Pulse Ox 97.8 F 56 12 106/79 99 03/30/17 07:47 03/30/17 07:47 03/30/17 07:47 03/30/17 07:47 03/30/17 07:47 General appearance: Present: A&O X 3, no acute distress - Head Head exam: Present: atraumatic, normocephalic - Eye Eye exam: Present: PERRL, conjuntiva pink, sclera anicteric Pupils: Present: PERRL - Neck Neck exam general surgery: Present: supple, trachea midline. Absent: lymphadenopathy - Respiratory Respiratory exam: Present: decreased breath sounds, CTAB. Absent: accessory muscle use, rales, rhonchi, wheezes - Cardiovascular Cardiovascular exam: Present: RRR, +S1, +S2. Absent: diastolic murmur, gallop, rubs, systolic murmur - GI/Abdominal GI/Abdominal exam: Present: normal bowel sounds, soft, no peritoneal signs. Absent: distended, tenderness - Extremities Exam Extremities exam: Present: warm, radial pulses palpable and symmetrical. Absent : calf tenderness, cyanotic, pedal edema - Neurological Exam Neurological exam: Present: CN II-XII intact, oriented X3, no focal deficits. Absent: pronater drift, facial droop, speech deficit - Skin Skin exam: Present: dry, intact
--- NOTE | 2017-03-30 10:36 | Physician Discharge Referral ---
Home Health/Hosp Referral Info Transfer to: Home Health Provider in Charge Post Discharge: PCP - Diagnosis (1) Acute on chronic systolic (congestive) heart failure Status: Acute (2) Pulmonary edema Status: Acute (3) Acute respiratory failure with hypoxia Status: Acute (4) Coronary artery disease Status: Chronic (5) BPH (benign prostatic hyperplasia) Status: Chronic (6) Recurrent colitis due to Clostridium difficile Status: Acute (7) Chronic kidney disease, stage 3 Status: Chronic - Respiratory Orders Smoking Cessation: Smoking cessation has been advised. For more information, call the [place] Tobacco Quit Line at 4-970-MOSM-NOW. - Diet/Nutrition Diet/Nutrition Orders: No Added Salt (REGINE) - Services Needed Following services are medically necessary services: Home Health Aide, Physical Therapy, Occupational Therapy Home Care Orders: Follow up with primary care physician within the next 7 days. Continue taking Bumex 1 mg 3 times a day, fluid restriction, follow up with ID, continue tapering down oral vancomycin - Transfer Medications Prescriptions: Bumetanide [Bumex] 1 mg PO TID #90 tab Home Medications: ALPRAZolam [Xanax 0.5 MG Tablet] 0.5 mg PO TID PRN 11/21/16 [History] Albuterol Sulfate [Albuterol Inhaler] 2 puff IH Q6HR PRN 11/21/16 [History] Apixaban [Eliquis] 5 mg PO BID 11/21/16 [History] Ascorbic Acid [Vitamin C] 1,000 mg PO DAILY 11/21/16 [History] Budesonide/Formoterol 160/4.5 [Symbicort 160/4.5] 2 puff IH BIDR 11/21/16 [ History] Carvedilol [Coreg] 3.125 mg PO BID 11/21/16 [History] Cholecalciferol (D-3) [Vitamin D] 3,000 unit PO DAILY 11/21/16 [History] Clopidogrel [Plavix] 75 mg PO DAILY 11/21/16 [History] Fish Oil/Dha/Epa [Fish Oil 1,200 mg Fish Oil] 1,200 mg PO DAILY 11/21/16 [ History] Folic Acid 0.8 mg PO DAILY 11/21/16 [History] Isosorbide MONOnitrate (24 HR) [Imdur] 120 mg PO DAILY 11/21/16 [History] Multivitamin [One Daily Multivitamin] 1 tab PO DAILY 11/21/16 [History] Nitroglycerin [Nitrostat] 0.4 mg SL AD PRN 11/21/16 [History] Oxygen 2 l NS AD 11/21/16 [History] Ranolazine [Ranexa] 1,000 mg PO BID 11/21/16 [History] Trazodone HCl 200 mg PO HS 11/21/16 [History] Vitamin B Complex [B Complex] 1 tab PO DAILY 11/21/16 [History] Aspirin [Lo-Dose Aspirin EC] 81 mg PO DAILY 02/10/17 [History] Saccharomyces Boulardii [Florastor] 250 mg PO BID 02/10/17 [History] Potassium Chloride [Klor-Con 10] 10 meq PO BID 02/11/17 [History] Ipratropium/Albuterol Neb [Duoneb] 3 ml IH Q4HR PRN 03/12/17 [History] Tamsulosin [Flomax] 0.4 mg PO DAILY 03/12/17 [History] Lactobacillus [Culturelle] 1 cap PO BID 03/29/17 [History] Bumetanide [Bumex] 1 mg PO TID #90 tab 03/30/17 [Rx] Vancomycin Oral Soln [Vancocin] 125 mg PO QID udc 03/30/17 [Rx] Allergies/Adverse Reactions: 3 Allergy/AdvReac Type Severity Reaction Status Date / Time Penicillins Allergy Redness of Verified 03/29/17 06:42 Skin Certification: Further, I certify that my clinical findings support that this patient is homebound (i.e. absences from home require considerable and taxing effort and are for medical reasons or [employer] services or infrequently or short duration when for other reasons) because: Homebound Reason: Patient requires assistance of a person or device to safely leave home Attestation: My signature below is to certify that this patient is under my care and that I, or nurse practitioner, or a physician's assistant county attorney working with me, has a face-to -face encounter with this patient.
[2017-03-30 11:26] VITALS: BP 110/54
[2017-03-30] MEDS: Vancomycin Oral Soln 250 MG/5 ML UDC PO SCH ×2 (11:29→15:24)
== END 2017-03-30 16:31 | disposition home health service (06) ==
LOC: EMEROO 06:40 → 2NENU 06:40 → SUATTDRO 11:09 → 2NENU 12:10
PROVIDERS: ADMIT Internal Medicine; ATTEND Internal Medicine

== ENCOUNTER 2017-04-02 06:29 | Inpatient (IN) ==
[2017-04-02] MEDS ORDERED: Ipratropium/Albuterol Neb 3 ML ONE (06:34)
--- NOTE | 2017-04-02 07:13 | Emergency Department Note ---
Disposition Clinical Impression: Acute exacerbation of chronic obstructive airways disease, Acute and chronic respiratory failure ([id number]) Disposition: Still a Patient Referrals: NONE,PCP [Primary Care Provider] - SOB HPI - General Chief Complaint: ED Shortness of Breath/Dyspnea Stated Complaint: RAMSEY Time Seen by Provider: 04/02/17 07:07 Source: patient Limitations: no limitations Nursing Notes Reviewed: Yes Vital Signs Reviewed: Yes - History of Present Illness Mr. Mahoney, 71-year-old male, presents from home via EMS for acute onset dyspnea. Patient notes this began last night has been progressive throughout the night. Improved with his at-home nebulizer treatment. He presents requesting BiPAP as he states this feels identical to previous exacerbations of his COPD which have previously been managed with BiPAP. PMH includes: COPD, CAD with ACS s/p stents, CABG. CHF, CKD. - Related Data Home Medications Medication Instructions Recorded Confirmed ALPRAZolam [Xanax 0.5 MG Tablet] 0.5 mg PO TID PRN 11/21/16 03/29/17 Albuterol Sulfate [Albuterol 2 puff IH Q6HR PRN 11/21/16 03/29/17 Inhaler] Apixaban [Eliquis] 5 mg PO BID 11/21/16 03/29/17 Ascorbic Acid [Vitamin C] 1,000 mg PO DAILY 11/21/16 03/29/17 Budesonide/Formoterol 160/4.5 2 puff IH BIDR 11/21/16 03/29/17 [Symbicort 160/4.5] Carvedilol [Coreg] 3.125 mg PO BID 11/21/16 03/29/17 Cholecalciferol (D-3) [Vitamin D] 3,000 unit PO DAILY 11/21/16 03/29/17 Clopidogrel [Plavix] 75 mg PO DAILY 11/21/16 03/29/17 Fish Oil/Dha/Epa [Fish Oil 1,200 1,200 mg PO DAILY 11/21/16 03/29/17 mg Fish Oil] Folic Acid 0.8 mg PO DAILY 11/21/16 03/29/17 Isosorbide MONOnitrate (24 HR) 120 mg PO DAILY 11/21/16 03/29/17 [Imdur] Multivitamin [One Daily 1 tab PO DAILY 11/21/16 03/29/17 Multivitamin] Nitroglycerin [Nitrostat] 0.4 mg SL AD PRN 11/21/16 03/29/17 Oxygen 2 l NS AD 11/21/16 03/29/17 Ranolazine [Ranexa] 1,000 mg PO BID 11/21/16 03/29/17 Trazodone HCl 200 mg PO HS 11/21/16 03/29/17 Vitamin B Complex [B Complex] 1 tab PO DAILY 11/21/16 03/29/17 Aspirin [Lo-Dose Aspirin EC] 81 mg PO DAILY 02/10/17 03/29/17 Saccharomyces Boulardii [Florastor] 250 mg PO BID 02/10/17 03/29/17 Potassium Chloride [Klor-Con 10] 10 meq PO BID 02/11/17 03/29/17 Ipratropium/Albuterol Neb [Duoneb] 3 ml IH Q4HR PRN 03/12/17 03/29/17 Tamsulosin [Flomax] 0.4 mg PO DAILY 03/12/17 03/29/17 Lactobacillus [Culturelle] 1 cap PO BID 03/29/17 03/29/17 Previous Rx's Medication Instructions Recorded Bumetanide [Bumex] 1 mg PO TID #90 tab 03/30/17 Vancomycin Oral Soln [Vancocin] 125 mg PO QID udc 03/30/17 Allergies Allergy/AdvReac Type Severity Reaction Status Date / Time Penicillins Allergy Redness of Verified 03/29/17 06:42 Skin All systems ED: reviewed and negative except as stated. Past Medical History - Past Medical History Medical history: Reports: CHF, COPD, coronary artery disease, hyperlipidemia, hypertension, myocardial infarction, valvular heart disease Surgical history: Reports: coronary bypass (CABG), herniorrhaphy, pacemaker/AICD , vascular surgery Psychiatric history: Reports: anxiety - Social History Smoking Status: Former smoker Smokeless Tobacco Status: No Alcohol use: Reports: none Drug use: Reports: none Physical Exam Vital Signs Reviewed General: Patient is alert, oriented, and in acute respiratory distress-tachypnea , using accessory muscles, hypoxic on nonrebreather. HEENT: No facial asymmetry. Head is normocephalic and atraumatic. PERRL, EOMI. oral mucosa tacky. Trachea midline. Cardiovascular: Heart tachycardic rate and regular rhythm without clicks, rubs, gallops, or murmurs. No JVD. PMI nondisplaced. Respiratory: Symmetric chest rise with poor respiratory effort. Right breast sounds have basilar wheeze, left breast sounds are reduced with no wheeze. Abdomen: Bowel sounds present normoactive x-4 quadrants. Abdomen is soft, nondistended, and nontender. No organomegaly noted. Psych: Patient's affect is appropriate for situation. - General Limitations: no limitations General appearance: in distress Course Course Narrative: Patient presents with rest 3 distress and acute exacerbation of COPD. He denies any chest pain at all this time. States this feels identical to his previous COPD exacerbations. He was quickly placed on BiPAP with his work of breathing reduced substantially and his O2 saturation rapidly increased to 100% . He was provided with a triple head of DuoNeb therapy as well as SoluMedrol. Remainder of workup is pending when patient was signed out to the day team, Dr. Medrano. Vital Signs Respiratory Rate 35 04/02/17 06:30 O2 Sat by Pulse Oximetry 94 04/02/17 06:30 Temperature 93.3 F L 04/02/17 06:31 Pulse Rate 78 04/02/17 07:00 Respiratory Rate 21 04/02/17 07:00 Blood Pressure 145/75 04/02/17 07:00 O2 Sat by Pulse Oximetry 100 04/02/17 07:00 Oxygen Delivery Oxygen Delivery Bipap
[2017-04-02] MEDS ORDERED: methylPREDNISolone 125 MG/2 ML VIAL IVP ONE (07:23)
--- NOTE | 2017-04-02 07:30 | Emergency Department Note ---
Disposition Clinical Impression: Acute exacerbation of chronic obstructive airways disease Acute and chronic respiratory failure ([id number]) Qualifiers: Respiratory failure complication: hypoxia Qualified Code(s): J96.21 - Acute and chronic respiratory failure with hypoxia Community acquired pneumonia Qualifiers: Laterality: right Lung location: lower lobe of lung Qualified Code(s): J18.1 - Lobar pneumonia, unspecified organism Disposition: Admitted As Inpatient Condition: Fair Referrals: NONE,PCP [Primary Care Provider] - Forms: ED Satisfaction Letter Time of Disposition: 08:36 General Adult HPI - General Chief complaint: ED Shortness of Breath/Dyspnea Stated complaint: RAMSEY Time Seen by Provider: 04/02/17 07:07 Source: patient Limitations: no limitations Nursing Notes Reviewed: Yes Vital Signs Reviewed: Yes - History of Present Illness HPI Narrative: 71-year-old with history COPD comes in with increasing shortness of breath. Patient was seen initially by shift superintendent caustic cresylate and started on BiPAP due to significant shortness of breath. Patient did have improvement according to shift superintendent caustic cresylate team with treatment and BiPAP continued to have wheezing. Pain Scale: 0 - Related Data Home Medications Medication Instructions Recorded Confirmed ALPRAZolam [Xanax 0.5 MG Tablet] 0.5 mg PO TID PRN 11/21/16 03/29/17 Albuterol Sulfate [Albuterol 2 puff IH Q6HR PRN 11/21/16 03/29/17 Inhaler] Apixaban [Eliquis] 5 mg PO BID 11/21/16 03/29/17 Ascorbic Acid [Vitamin C] 1,000 mg PO DAILY 11/21/16 03/29/17 Budesonide/Formoterol 160/4.5 2 puff IH BIDR 11/21/16 03/29/17 [Symbicort 160/4.5] Carvedilol [Coreg] 3.125 mg PO BID 11/21/16 03/29/17 Cholecalciferol (D-3) [Vitamin D] 3,000 unit PO DAILY 11/21/16 03/29/17 Clopidogrel [Plavix] 75 mg PO DAILY 11/21/16 03/29/17 Fish Oil/Dha/Epa [Fish Oil 1,200 1,200 mg PO DAILY 11/21/16 03/29/17 mg Fish Oil] Folic Acid 0.8 mg PO DAILY 11/21/16 03/29/17 Isosorbide MONOnitrate (24 HR) 120 mg PO DAILY 11/21/16 03/29/17 [Imdur] Multivitamin [One Daily 1 tab PO DAILY 11/21/16 03/29/17 Multivitamin] Nitroglycerin [Nitrostat] 0.4 mg SL AD PRN 11/21/16 03/29/17 Oxygen 2 l NS AD 11/21/16 03/29/17 Ranolazine [Ranexa] 1,000 mg PO BID 11/21/16 03/29/17 Trazodone HCl 200 mg PO HS 11/21/16 03/29/17 Vitamin B Complex [B Complex] 1 tab PO DAILY 11/21/16 03/29/17 Aspirin [Lo-Dose Aspirin EC] 81 mg PO DAILY 02/10/17 03/29/17 Saccharomyces Boulardii [Florastor] 250 mg PO BID 02/10/17 03/29/17 Potassium Chloride [Klor-Con 10] 10 meq PO BID 02/11/17 03/29/17 Ipratropium/Albuterol Neb [Duoneb] 3 ml IH Q4HR PRN 03/12/17 03/29/17 Tamsulosin [Flomax] 0.4 mg PO DAILY 03/12/17 03/29/17 Lactobacillus [Culturelle] 1 cap PO BID 03/29/17 03/29/17 Previous Rx's Medication Instructions Recorded Bumetanide [Bumex] 1 mg PO TID #90 tab 03/30/17 Vancomycin Oral Soln [Vancocin] 125 mg PO QID c 03/30/17 Allergies Allergy/AdvReac Type Severity Reaction Status Date / Time Penicillins Allergy Redness of Verified 03/29/17 06:42 Skin Past Medical History - Past Medical History Medical history: Reports: CHF, COPD, coronary artery disease, hyperlipidemia, hypertension, myocardial infarction, valvular heart disease Surgical history: Reports: coronary bypass (CABG), herniorrhaphy, pacemaker/AICD , vascular surgery Psychiatric history: Reports: anxiety - Social History Smoking Status: Former smoker Smokeless Tobacco Status: No Alcohol use: Reports: none Drug use: Reports: none Physical Exam - General Limitations: no limitations General appearance: in distress Course - Reevaluation(s) Reevaluation #1: 71-year-old with a history of COPD who had increasing shortness of breath. Patient's workup included a chest x-ray that shows what appears to be a right lower lobe infiltrate. His BNP is elevated at over 2000 he does have a history of cardiomyopathy with EF of 40% on his last echocardiogram. He with antibiotics Time: 08:32 - Consultations Consultation #1: Discussed with Dr Sampson, admit. Time: 08:34 Vital Signs Respiratory Rate 35 04/02/17 06:30 O2 Sat by Pulse Oximetry 94 04/02/17 06:30 Temperature 93.3 F L 04/02/17 06:31 Pulse Rate 72 04/02/17 07:34 Respiratory Rate 18 04/02/17 07:34 Blood Pressure 129/63 04/02/17 07:34 O2 Sat by Pulse Oximetry 100 04/02/17 07:34 Oxygen Delivery Oxygen Delivery Bipap Medical Decision Making - Lab Data Lab results reviewed: Yes I reviewed the patient's lab results. Result diagrams: 04/02/17 06:13 04/02/17 06:13 Lab Results 04/02/17 04/02/17 04/02/17 Range/Units 06:13 06:13 06:13 WBC 5.4 (4.3-11.1) K/mcL RBC 4.10 L (4.19-5.50) M/mcL Hgb 12.2 L D (12.9-16.9) g/dL Hct 39.1 (37.5-50.1) % MCV 95.4 (83.0-100.0) fL MCH 29.8 (28.0-33.3) pg MCHC 31.2 L (31.6-35.5) g/dL RDW 14.2 (11.5-14.5) % Plt Count 257 (140-400) K/mcL MPV 9.7 (9.4-12.4) fL Immature Gran % 0.4 (0-4) % Seg Neutrophils % 57.7 % Lymphocytes % 30.8 % Monocytes % 8.1 % Eosinophils % 2.6 % Basophils % 0.4 % Neutrophils # 3.1 (1.6-8.9) K/mcL Lymphocytes # 1.7 (0.6-4.6) K/mcL Monocytes # 0.4 (0.0-1.3) K/mcL Eosinophils # 0.1 (0.0-0.6) K/mcL Basophils # 0.0 (0.0-0.2) K/mcL PT (9.4-12.1) Seconds INR APTT (26.0-36.0) Seconds ABG pH (7.32-7.45) pH Units ABG pCO2 (35-45) mmHg ABG pO2 (85-104) mmHg ABG HCO3 (21-27) mEq/L ABG Total CO2 (20-26) mEq/L ABG O2 Saturation (95-98) % ABG Base Excess (-2 to 3) mEq/L Sodium 139 (136-145) mEq/L Potassium 4.8 H (3.5-4.5) mEq/L Chloride 102 (98-109) mEq/L Carbon Dioxide 32 H (19-29) mEq/L BUN 13 (8-26) mg/dL Creatinine 1.53 H (0.72-1.25) mg/dL Est GFR ( Amer) 55 L (> 60) Est GFR (Non-Af Amer) 45 L (> 60) BUN/Creatinine Ratio 8 (6-26) Glucose 184 H (70-99) mg/dL Calculated Osmolality 293 (280-300) Lactic Acid (0.5-2.2) mmol/L Calcium 9.3 (8.6-10.8) mg/dL Troponin I 0.02 (0-0.03) ng/mL B-Natriuretic Peptide (0-100) pg/mL 04/02/17 04/02/17 04/02/17 Range/Units 06:13 06:13 07:51 WBC (4.3-11.1) K/mcL RBC (4.19-5.50) M/mcL Hgb (12.9-16.9) g/dL Hct (37.5-50.1) % MCV (83.0-100.0) fL MCH (28.0-33.3) pg MCHC (31.6-35.5) g/dL RDW (11.5-14.5) % Plt Count (140-400) K/mcL MPV (9.4-12.4) fL Immature Gran % (0-4) % Seg Neutrophils % % Lymphocytes % % Monocytes % % Eosinophils % % Basophils % % Neutrophils # (1.6-8.9) K/mcL Lymphocytes # (0.6-4.6) K/mcL Monocytes # (0.0-1.3) K/mcL Eosinophils # (0.0-0.6) K/mcL Basophils # (0.0-0.2) K/mcL PT 15.7 H (9.4-12.1) Seconds INR 1.4 APTT 35.6 (26.0-36.0) Seconds ABG pH 7.44 (7.32-7.45) pH Units ABG pCO2 40 (35-45) mmHg ABG pO2 125 H (85-104) mmHg ABG HCO3 28 H (21-27) mEq/L ABG Total CO2 29 H (20-26) mEq/L ABG O2 Saturation 99 H (95-98) % ABG Base Excess 3 (-2 to 3) mEq/L Sodium (136-145) mEq/L Potassium (3.5-4.5) mEq/L Chloride (98-109) mEq/L Carbon Dioxide (19-29) mEq/L BUN (8-26) mg/dL Creatinine (0.72-1.25) mg/dL Est GFR ( Amer) (> 60) Est GFR (Non-Af Amer) (> 60) BUN/Creatinine Ratio (6-26) Glucose (70-99) mg/dL Calculated Osmolality (280-300) Lactic Acid (0.5-2.2) mmol/L Calcium (8.6-10.8) mg/dL Troponin I (0-0.03) ng/mL B-Natriuretic Peptide 2326 H (0-100) pg/mL 04/02/17 Range/Units 07:56 WBC (4.3-11.1) K/mcL RBC (4.19-5.50) M/mcL Hgb (12.9-16.9) g/dL Hct (37.5-50.1) % MCV (83.0-100.0) fL MCH (28.0-33.3) pg MCHC (31.6-35.5) g/dL RDW (11.5-14.5) % Plt Count (140-400) K/mcL MPV (9.4-12.4) fL Immature Gran % (0-4) % Seg Neutrophils % % Lymphocytes % % Monocytes % % Eosinophils % % Basophils % % Neutrophils # (1.6-8.9) K/mcL Lymphocytes # (0.6-4.6) K/mcL Monocytes # (0.0-1.3) K/mcL Eosinophils # (0.0-0.6) K/mcL Basophils # (0.0-0.2) K/mcL PT (9.4-12.1) Seconds INR APTT (26.0-36.0) Seconds ABG pH (7.32-7.45) pH Units ABG pCO2 (35-45) mmHg ABG pO2 (85-104) mmHg ABG HCO3 (21-27) mEq/L ABG Total CO2 (20-26) mEq/L ABG O2 Saturation (95-98) % ABG Base Excess (-2 to 3) mEq/L Sodium (136-145) mEq/L Potassium (3.5-4.5) mEq/L Chloride (98-109) mEq/L Carbon Dioxide (19-29) mEq/L BUN (8-26) mg/dL Creatinine (0.72-1.25) mg/dL Est GFR ( Amer) (> 60) Est GFR (Non-Af Amer) (> 60) BUN/Creatinine Ratio (6-26) Glucose (70-99) mg/dL Calculated Osmolality (280-300) Lactic Acid 2.1 (0.5-2.2) mmol/L Calcium (8.6-10.8) mg/dL Troponin I (0-0.03) ng/mL B-Natriuretic Peptide (0-100) pg/mL - Radiology Data Radiology results reviewed: Yes I reviewed the patient's radiology results. Critical Care Time Critical Care Time: Yes Total Critical Care Time: 30 Attestation: The high probability of a clinically significant, sudden or life threatening deterioration of the [respiratory] system(s) required my full and direct attention, intervention and personal management. The aggregate critical care time was [30] minutes. This time is in addition to time spent performing reported procedures but includes the following: [x] Data Review and interpretation [x] Patient assessment and monitoring of vital signs [x] Documentation [x] Medication orders and management
[2017-04-02] MEDS ORDERED: *HR* LORazepam 2 MG/ML VIAL IVP ONE ×2 (07:31→10:19)
[2017-04-02 07:51] LABS: INR 1.4; Prothrombin Time 15.7 Seconds (9.4-12.1)
[2017-04-02 07:52] LABS: Basophils % 0.4 %; Eosinophils # 0.1 K/mcL (0.0-0.6); Eosinophils % 2.6 %; Hematocrit 39.1 % (37.5-50.1); Immature Granulocytes % 0.4 % (0-4); Lymphocytes # 1.7 K/mcL (0.6-4.6); Lymphocytes % 30.8 %; Mean Corpuscular HGB Conc 31.2 g/dL (31.6-35.5); Mean Corpuscular Hemoglobin 29.8 pg (28.0-33.3); Mean Corpuscular Volume 95.4 fL (83.0-100.0); Mean Platelet Volume 9.7 fL (9.4-12.4); Monocytes # 0.4 K/mcL (0.0-1.3); Monocytes % 8.1 %; Neutrophils # 3.1 K/mcL (1.6-8.9); Platelet Count 257 K/mcL (140-400); Red Cell Distribution Width 14.2 % (11.5-14.5); Segmented Neutrophils % 57.7 %
[2017-04-02 07:53] LABS: Hemoglobin 12.2 g/dL (12.9-16.9)
[2017-04-02 07:54] LABS: Activated Partial Thrombo Time 35.6 Seconds (26.0-36.0); Calcium 9.3 mg/dL (8.6-10.8); Potassium 4.8 mEq/L (3.5-4.5)
[2017-04-02 08:04] LABS: ABG Base Excess 3 mEq/L (-2 to 3); ABG HCO3 28 mEq/L (21-27); ABG Oxygen Saturation 99 % (95-98); ABG PCO2 40 mmHg (35-45); ABG PH 7.44 pH Units (7.32-7.45); ABG PO2 125 mmHg (85-104); ABG TCO2 29 mEq/L (20-26)
[2017-04-02] MEDS ORDERED: Levofloxacin 750 MG/150 ML 750 MG/150 ML BAG IVPB ONE (08:28)
[2017-04-02] MEDS ORDERED: Furosemide 40 MG/4 ML VIAL IVP ONE (08:30)
[2017-04-02] MEDS ORDERED: Acetaminophen 325 MG TABLET PO PRN (12:48)
[2017-04-02] MEDS ORDERED: Ondansetron 4 MG/2 ML VIAL IVP PRN (12:48)
[2017-04-02] MEDS ORDERED: ALPRAZolam 0.5 MG TABLET PO PRN (12:51)
[2017-04-02] MEDS ORDERED: Nitroglycerin 0.4 MG TAB.SUBL SL PRN (12:51)
--- NOTE | 2017-04-02 12:54 | Internal Med History&Physical ---
Date of Encounter: 04/02/17 Time of Encounter: 12:30 Assessment and Plan (1) COPD exacerbation Current visit: Yes Status: Acute Mild acute on chronic bronchitis. Chest x-ray reviewed-shows bibasilar opacities, however review of previous images show no notable difference. We will hold off on antibiotics at this time due to history of recurrent Clostridium difficile infection. Continue bronchodilators and start IV steroids. Supplemental oxygen as needed. Patient does have continuous home oxygen at 3 L/m via nasal cannula. Continue nocturnal BiPAP. (2) PAD (peripheral artery disease) Current visit: Yes Status: Chronic Follows with vascular surgery. Continue aspirin, Plavix. (3) History of implantable cardioverter-defibrillator (ICD) placement Current visit: Yes Status: Chronic (4) Coronary artery disease Current visit: Yes Status: Chronic Stable. Continue aspirin, Plavix, beta abhi, statin. Telemetry monitoring. Qualifiers: Coronary Disease-Associated Artery/Lesion type: bypass graft [place] vs. transplanted heart: [place] heart Associated angina: with stable angina Qualified Code(s): I25.708 - Atherosclerosis of coronary artery bypass graft(s) , unspecified, with other forms of angina pectoris (5) BPH (benign prostatic hyperplasia) Current visit: Yes Status: Chronic Qualifiers: Lower urinary tract symptom presence: unspecified whether lower urinary tract symptoms present Qualified Code(s): N40.0 - Benign prostatic hyperplasia without lower urinary tract symptoms (6) Congestive heart failure Current visit: Yes Status: Chronic Patient has underlying cardiomyopathy with ejection fraction 40%. Continue oral Bumex, beta abhi, nitrate. Qualifiers: Congestive heart failure type: combined Congestive heart failure chronicity : chronic Qualified Code(s): I50.42 - Chronic combined systolic (congestive) and diastolic (congestive) heart failure (7) History of Clostridium difficile colitis Current visit: Yes Status: Chronic Patient follows with infectious diseases as outpatient, has been started on pulse dose tapering off vancomycin. Dosing verified by pharmacy with infectious diseases-to continue by mouth vancomycin twice daily for 7 days and then once daily for 7 days. Continue probiotics. Diarrhea has resolved at this time. (8) Chronic kidney disease, stage 3 Current visit: Yes Status: Chronic Serum creatinine stable, around his baseline. Likely due to the use of diuretics and contrast. (9) Anxiety Current visit: Yes Status: Chronic Patient is noted to be on by mouth Xanax as needed at home, however request for Ativan here as he says it makes him less drowsy. Internal Medicine - H&P: HPI Chief complaint: Shortness of breath Admitted From: Emergency Dept Plans for Post Hospital Care: Home History of present illness: Mr. Bernardo is a 71 year old male with history of COPD, cardiomyopathy, CAD status post CABG, presents with complaints of sudden onset of shortness of breath. Patient has had multiple hospitalizations in the last 4 months with similar complaints and with C. difficile infection. Patient reports feeling tired with generalized weakness and feeling ill for the last 2 days. However, he started to get more short of breath with difficulty breathing and air hunger since last evening, associated with wheezing. No fever, chills, palpitations, dizziness or syncope. He did not qualify for BiPAP at home during his recent hospitalization, however [facility] and he feels he would not have been hospitalized at this time if he had BiPAP at home. He does have history of severe COPD, treated with multiple courses of steroids and antibiotics and due to which he developed C. difficile infection and refuses further antibiotics at this time. He also has history of long-standing cardiomyopathy, cardiology recommended medical management as he already underwent quadruple bypass and 11 stents and his coronary disease is not amenable to revascularization at this time. Past Med Surg Social Fam HX - Past Medical History Medical history: CHF, COPD, coronary artery disease, hyperlipidemia, hypertension, myocardial infarction, peripheral artery disease, valvular heart disease Psychiatric history: anxiety - Past Surgical History Surgical History: coronary bypass (CABG), herniorrhaphy, pacemaker/AICD, vascular surgery (Bilateral femoropopliteal bypass surgeries) - Social History Smoking Status: Former smoker Smokeless Tobacco Status: No Alcohol use: none Drug use: none Occupational status: retired Current living situation: Home - Independent Activity Level: Independent ambulation Recent Out of Country Travel Within the Last 8 Weeks: No Exposure or Possible Exposure to Illness During Travel: No - Family History Father Living Status: Hx Family Cardiac Disorders: Yes (cardiomyopathy) Internal Medicine - H&P: Meds ALPRAZolam [Xanax 0.5 MG Tablet] 0.5 mg PO TID PRN 11/21/16 [History] Albuterol Sulfate [Albuterol Inhaler] 2 puff IH Q6HR PRN 11/21/16 [History] Apixaban [Eliquis] 5 mg PO BID 11/21/16 [History] Ascorbic Acid [Vitamin C] 1,000 mg PO DAILY 11/21/16 [History] Budesonide/Formoterol 160/4.5 [Symbicort 160/4.5] 2 puff IH BIDR 11/21/16 [ History] Carvedilol [Coreg] 3.125 mg PO BID 11/21/16 [History] Cholecalciferol (D-3) [Vitamin D] 3,000 unit PO DAILY 11/21/16 [History] Clopidogrel [Plavix] 75 mg PO DAILY 11/21/16 [History] Fish Oil/Dha/Epa [Fish Oil 1,200 mg Fish Oil] 1,200 mg PO DAILY 11/21/16 [ History] Folic Acid 0.8 mg PO DAILY 11/21/16 [History] Isosorbide MONOnitrate (24 HR) [Imdur] 120 mg PO DAILY 11/21/16 [History] Multivitamin [One Daily Multivitamin] 1 tab PO DAILY 11/21/16 [History] Nitroglycerin [Nitrostat] 0.4 mg SL AD PRN 11/21/16 [History] Oxygen 2 l NS AD 11/21/16 [History] Ranolazine [Ranexa] 1,000 mg PO BID 11/21/16 [History] Trazodone HCl 200 mg PO HS 11/21/16 [History] Vitamin B Complex [B Complex] 1 tab PO DAILY 11/21/16 [History] Aspirin [Lo-Dose Aspirin EC] 81 mg PO DAILY 02/10/17 [History] Saccharomyces Boulardii [Florastor] 250 mg PO BID 02/10/17 [History] Potassium Chloride [Klor-Con 10] 10 meq PO BID 02/11/17 [History] Ipratropium/Albuterol Neb [Duoneb] 3 ml IH Q4HR PRN 03/12/17 [History] Tamsulosin [Flomax] 0.4 mg PO DAILY 03/12/17 [History] Lactobacillus [Culturelle] 1 cap PO BID 03/29/17 [History] Bumetanide [Bumex] 1 mg PO TID #90 tab 03/30/17 [Rx] Vancomycin Oral Soln [Vancocin] 125 mg PO QID [facility] 03/30/17 [Rx] 3 Allergy/AdvReac Type Severity Reaction Status Date / Time Penicillins Allergy Redness of Verified 03/29/17 06:42 Skin All Systems PM: A 10-system review of systems was performed and is negative for pertinent findings except as documented above in the HPI. - Constitutional Constitutional: malaise, weakness, no chills, no fever(s), no night sweats - EENT Eyes: no change in vision, no discharge, no pain, no photophobia Ears: no ear discharge, no ear pain, no tinnitus Nose, mouth and throat: no dysphagia, no nasal discharge, no neck pain, no sore throat - Cardiovascular Cardiovascular ROS IM: no chest pain, no diaphoresis, no dyspnea, no lightheadedness, no palpitations, no syncope - Respiratory Respiratory: cough, dyspnea, dyspnea on exertion, wheezing - Gastrointestinal Gastrointestinal: no abdominal pain, no diarrhea, no hematemesis, no hematochezia, no melena, no nausea, no vomiting - Musculoskeletal Musculoskeletal ROS IM: no numbness, no tingling - Integumentary Integumentary IM: no rash, no unusual bruising - Neurological Neurological ROS: no confusion, no convulsions, no focal weakness, no numbness, no tingling, no tremor(s) - Hematologic/Lymphatic Hematologic/Lymphatic: no easy bruising - Constitutional Vitals: Temp Pulse Resp BP Pulse Ox 97.4 F L 71 18 125/70 98 04/02/17 12:09 04/02/17 12:09 04/02/17 12:09 04/02/17 12:09 04/02/17 12:09 General appearance: Present: A&O X 3, answers questions appropriately - Respiratory Respiratory exam: Present: CTAB (Coarse rhonchorous breath sounds bilaterally). Absent: accessory muscle use, rales, rhonchi, wheezes - Cardiovascular Cardiovascular exam: Present: RRR, +S1, +S2. Absent: diastolic murmur, gallop, rubs, systolic murmur - GI/Abdominal GI/Abdominal exam: Present: normal bowel sounds, soft, no peritoneal signs. Absent: distended, tenderness - Extremities Exam Extremities exam: Present: warm, radial pulses palpable and symmetrical. Absent : calf tenderness, cyanotic, pedal edema - Neurological Exam Neurological exam: Present: CN II-XII intact, oriented X3, no focal deficits. Absent: pronater drift, facial droop, speech deficit - Skin Skin exam: Present: dry, intact Internal Med - H&P Results - Labs CBC & Chem 7: 04/02/17 06:13 04/02/17 06:13 - EKG Data -: EKG Interpreted by Myself (Sinus tachycardia 106 bpm, left ventricular hypertrophy and repolarization ) EKG shows normal: sinus rhythm Rate: tachycardia
[2017-04-02] MEDS: *HR* LORazepam 1 MG TABLET PO PRN ×2 (13:26→20:34)
[2017-04-02] MEDS ORDERED: Bumetanide 1 MG TABLET PO SCH (15:00)
[2017-04-02] MEDS ORDERED: Vancomycin Oral Soln 250 MG/5 ML UDC PO SCH (15:00)
[2017-04-02] MEDS: MethylPREDNISolone 40 MG/ML VIAL IVP SCH ×2 (16:47→23:50)
[2017-04-02] MEDS: Bumetanide 1 MG TABLET PO SCH (16:47)
[2017-04-02] MEDS: Ranolazine 500 MG TAB.ER.12H PO SCH (20:34)
[2017-04-02] MEDS: APIXABAN 5 MG TABLET PO SCH (20:34)
[2017-04-02] MEDS: Lactobacillus 1 EACH CAP.SPRINK PO SCH (20:35)
[2017-04-02] MEDS: Vancomycin Oral Soln 250 MG/5 ML UDC PO SCH (20:39)
[2017-04-02] MEDS ORDERED: Lactobacillus 1 EACH CAP.SPRINK PO SCH (21:00)
[2017-04-02] MEDS: Ipratropium/Albuterol Neb 3 ML IH PRN (21:10)
[2017-04-02] MEDS: Budesonide/Formoterol 160/4.5 MDI IH SCH (21:10)
[2017-04-02] MEDS: traZODone 50 MG TABLET PO SCH (23:50)
[2017-04-03 03:31] LABS: Hematocrit 32.6 % (37.5-50.1); Hemoglobin 10.7 g/dL (12.9-16.9); Immature Granulocytes % 0.4 % (0-4); Lymphocytes # 0.5 K/mcL (0.6-4.6); Lymphocytes % 11.1 %; Mean Corpuscular HGB Conc 32.8 g/dL (31.6-35.5); Mean Corpuscular Volume 91.3 fL (83.0-100.0); Mean Platelet Volume 9.6 fL (9.4-12.4); Monocytes # 0.2 K/mcL (0.0-1.3); Monocytes % 4.1 %; Platelet Count 193 K/mcL (140-400); Red Blood Count 3.57 M/mcL (4.19-5.50); Red Cell Distribution Width 14.1 % (11.5-14.5); Segmented Neutrophils % 84.4 %
[2017-04-03 03:44] LABS: BUN/Creatinine Ratio 16 (6-26); Blood Urea Nitrogen 21 mg/dL (8-26); Calcium 8.7 mg/dL (8.6-10.8); Carbon Dioxide 26 mEq/L (19-29); Chloride 101 mEq/L (98-109); Glucose 157 mg/dL (70-99); Osmolality,Calculated 292 (280-300); Sodium 138 mEq/L (136-145); eGFR For African Americans > 60 (> 60); eGFR For Non-African Americans 56 (> 60)
[2017-04-03] MEDS: Ipratropium/Albuterol Neb 3 ML IH PRN ×4 (03:49→20:12)
[2017-04-03] MEDS: *HR* LORazepam 1 MG TABLET PO PRN ×2 (04:07→13:23)
[2017-04-03] MEDS: Budesonide/Formoterol 160/4.5 MDI IH SCH ×2 (07:26→20:12)
[2017-04-03] MEDS ORDERED: EPA PO SCH (09:00)
[2017-04-03] MEDS ORDERED: FISH OIL PO SCH (09:00)
[2017-04-03] MEDS ORDERED: DHA PO SCH (09:00)
[2017-04-03] MEDS: Ascorbic Acid 500 MG TABLET PO SCH (09:38)
[2017-04-03] MEDS: MethylPREDNISolone 40 MG/ML VIAL IVP SCH (09:38)
[2017-04-03] MEDS: Lactobacillus 1 EACH CAP.SPRINK PO SCH ×2 (09:39→22:06)
[2017-04-03] MEDS: Vitamin B Complex/Vit C/Vit E 1 EACH TABLET PO SCH (09:39)
[2017-04-03] MEDS: APIXABAN 5 MG TABLET PO SCH ×2 (09:39→22:07)
[2017-04-03] MEDS: Folic Acid 1 MG TABLET PO SCH (09:39)
[2017-04-03] MEDS: Ranolazine 500 MG TAB.ER.12H PO SCH ×2 (09:39→22:06)
[2017-04-03] MEDS: Aspirin Enteric Coated 81 MG Tablet PO SCH (09:39)
[2017-04-03] MEDS: Isosorbide MONOnitrate (24 HR) 60 MG TAB.ER.24H PO SCH (09:40)
[2017-04-03] MEDS: Vancomycin Oral Soln 250 MG/5 ML UDC PO SCH ×2 (09:41→22:10)
[2017-04-03] MEDS: Multivit/Ca/Min/Fe/FA 1 TAB TABLET PO SCH (09:41)
[2017-04-03] MEDS: Cholecalciferol (D-3) 1,000 UNIT TABLET PO SCH (09:43)
[2017-04-03] MEDS: Bumetanide 1 MG TABLET PO SCH ×3 (09:43→16:27)
--- NOTE | 2017-04-03 16:45 | Internal Med Progress Note ---
Date of Encounter: 04/03/17 Time of Encounter: 11:00 - Assessment and plan (1) Acute respiratory failure with hypoxia Current Visit: No Status: Acute Assessment and plan: -Suspect secondary to COPD exacerbation. -Patient reports a feeling better and is currently on baseline supplemental oxygen requirements. -Management as below. (2) Acute exacerbation of chronic obstructive airways disease Current Visit: Yes Status: Acute Assessment and plan: -Patient at baseline O2 requirements as above -We will de-escalate IV Solu-Medrol to oral prednisone and continue DuoNeb. (3) Coronary artery disease Current Visit: Yes Status: Chronic Assessment and plan: -Stable; continue home medications. Qualifiers: Coronary Disease-Associated Artery/Lesion type: bypass graft [place] vs. transplanted heart: [place] heart Associated angina: with stable angina Qualified Code(s): I25.708 - Atherosclerosis of coronary artery bypass graft(s) , unspecified, with other forms of angina pectoris (4) Chronic kidney disease, stage 3 Current Visit: Yes Status: Chronic Assessment and plan: -Stable; continue to monitor. (5) DVT prophylaxis Current Visit: No Status: Acute Assessment and plan: -Continue home Eliquis - Constitutional Vitals: Temp Pulse Resp BP Pulse Ox 98.2 F 73 18 120/66 98 04/03/17 15:31 04/03/17 15:31 04/03/17 15:31 04/03/17 15:31 04/03/17 15:31 General appearance: Present: A&O X 3, answers questions appropriately - Respiratory Respiratory exam: Present: CTAB. Absent: accessory muscle use, rales, rhonchi, wheezes - Cardiovascular Cardiovascular exam: Present: RRR, +S1, +S2. Absent: diastolic murmur, gallop, rubs, systolic murmur Internal Medicine: Result - Labs CBC & Chem 7: 04/03/17 03:10 04/03/17 03:10 Labs: Short CBC 04/03/17 Range/Units 03:10 WBC 4.7 (4.3-11.1) K/mcL Hgb 10.7 L D (12.9-16.9) g/dL Hct 32.6 L (37.5-50.1) % Plt Count 193 (140-400) K/mcL Neutrophils # 4.0 (1.6-8.9) K/mcL BMP 04/03/17 03:10 Sodium 138 Potassium 4.0 Chloride 101 Carbon Dioxide 26 BUN 21 Creatinine 1.28 H Glucose 157 H Calcium 8.7 - ABG Interpretation ABG results: ABG ABG pH 7.44 pH Units (7.32-7.45) 04/02/17 07:51 ABG pCO2 40 mmHg (35-45) 04/02/17 07:51 ABG pO2 125 mmHg (85-104) H 04/02/17 07:51 ABG O2 Saturation 99 % (95-98) H 04/02/17 07:51 PT/INR, D-dimer PT 15.7 Seconds (9.4-12.1) H 04/02/17 06:13 Consult Discharge Plan - Plan Referrals: NONE,PCP [Primary Care Provider] -
[2017-04-03] MEDS: predniSONE 20 MG TABLET PO SCH (17:07)
[2017-04-03] MEDS: traZODone 50 MG TABLET PO SCH ×2 (22:06→23:52)
[2017-04-04] MEDS: Budesonide/Formoterol 160/4.5 MDI IH SCH (08:28)
[2017-04-04] MEDS: Ipratropium/Albuterol Neb 3 ML IH PRN (08:28)
[2017-04-04] MEDS: Bumetanide 1 MG TABLET PO SCH ×3 (09:03→16:36)
[2017-04-04] MEDS: Folic Acid 1 MG TABLET PO SCH (09:03)
[2017-04-04] MEDS: Cholecalciferol (D-3) 1,000 UNIT TABLET PO SCH (09:03)
[2017-04-04] MEDS: Ascorbic Acid 500 MG TABLET PO SCH (09:03)
[2017-04-04] MEDS: Vitamin B Complex/Vit C/Vit E 1 EACH TABLET PO SCH (09:03)
[2017-04-04] MEDS: APIXABAN 5 MG TABLET PO SCH (09:04)
[2017-04-04] MEDS: Multivit/Ca/Min/Fe/FA 1 TAB TABLET PO SCH (09:04)
[2017-04-04] MEDS: Aspirin Enteric Coated 81 MG Tablet PO SCH (09:04)
[2017-04-04] MEDS: Lactobacillus 1 EACH CAP.SPRINK PO SCH (09:04)
[2017-04-04] MEDS: Isosorbide MONOnitrate (24 HR) 60 MG TAB.ER.24H PO SCH (09:04)
[2017-04-04] MEDS: predniSONE 20 MG TABLET PO SCH (09:05)
[2017-04-04] MEDS: Ranolazine 500 MG TAB.ER.12H PO SCH (09:05)
[2017-04-04] MEDS: Vancomycin Oral Soln 250 MG/5 ML UDC PO SCH (09:06)
[2017-04-04 09:55] LABS: Hematocrit 34.3 % (37.5-50.1); Hemoglobin 10.9 g/dL (12.9-16.9); Immature Granulocytes % 0.6 % (0-4); Lymphocytes # 0.6 K/mcL (0.6-4.6); Lymphocytes % 7.1 %; Mean Corpuscular HGB Conc 31.8 g/dL (31.6-35.5); Mean Corpuscular Hemoglobin 29.7 pg (28.0-33.3); Mean Corpuscular Volume 93.5 fL (83.0-100.0); Mean Platelet Volume 10.3 fL (9.4-12.4); Monocytes # 0.4 K/mcL (0.0-1.3); Monocytes % 4.9 %; Neutrophils # 6.8 K/mcL (1.6-8.9); Platelet Count 216 K/mcL (140-400); Red Blood Count 3.67 M/mcL (4.19-5.50); Red Cell Distribution Width 14.4 % (11.5-14.5); Segmented Neutrophils % 87.4 %
[2017-04-04 10:08] LABS: BUN/Creatinine Ratio 26 (6-26); Calcium 8.8 mg/dL (8.6-10.8); Carbon Dioxide 24 mEq/L (19-29); Chloride 101 mEq/L (98-109); Glucose 214 mg/dL (70-99); Osmolality,Calculated 294 (280-300); Potassium 4.7 mEq/L (3.5-4.5); Sodium 135 mEq/L (136-145); eGFR For African Americans > 60 (> 60); eGFR For Non-African Americans 54 (> 60)
[2017-04-04 10:11] LABS: Blood Urea Nitrogen 34 mg/dL (8-26)
[2017-04-04] MEDS: *HR* LORazepam 1 MG TABLET PO PRN (11:52)
[2017-04-04 12:09] VITALS: BP 115/59
--- NOTE | 2017-04-04 15:57 | Discharge Summary ---
Date of Encounter: 04/04/17 Time of Encounter: 11:00 - Discharge Diagnosis (1) Acute respiratory failure with hypoxia Priority: Primary Status: Acute (2) Acute exacerbation of chronic obstructive airways disease Priority: Primary Status: Acute (3) Coronary artery disease Priority: Secondary Status: Chronic Qualifiers: Coronary Disease-Associated Artery/Lesion type: bypass graft [place] vs. transplanted heart: [place] heart Associated angina: with stable angina Qualified Code(s): I25.708 - Atherosclerosis of coronary artery bypass graft(s) , unspecified, with other forms of angina pectoris (4) Chronic kidney disease, stage 3 Priority: Secondary Status: Chronic - Discharge Medications Prescriptions: predniSONE [PredniSONE] 60 mg PO DAILY #5 tablet Vancomycin Oral Soln [Vancocin] 125 mg PO BID #10 udc Vancomycin Oral Soln [Vancocin] 125 mg PO DAILY #7 udc Home Medications: ALPRAZolam [Xanax 0.5 MG Tablet] 0.5 mg PO TID PRN 11/21/16 [History] Albuterol Sulfate [Albuterol Inhaler] 2 puff IH Q6HR PRN 11/21/16 [History] Apixaban [Eliquis] 5 mg PO BID 11/21/16 [History] Ascorbic Acid [Vitamin C] 1,000 mg PO DAILY 11/21/16 [History] Budesonide/Formoterol 160/4.5 [Symbicort 160/4.5] 2 puff IH BIDR 11/21/16 [ History] Carvedilol [Coreg] 3.125 mg PO BID 11/21/16 [History] Cholecalciferol (D-3) [Vitamin D] 3,000 unit PO DAILY 11/21/16 [History] Clopidogrel [Plavix] 75 mg PO DAILY 11/21/16 [History] Fish Oil/Dha/Epa [Fish Oil 1,200 mg Fish Oil] 1,200 mg PO DAILY 11/21/16 [ History] Folic Acid 0.8 mg PO DAILY 11/21/16 [History] Isosorbide MONOnitrate (24 HR) [Imdur] 120 mg PO DAILY 11/21/16 [History] Multivitamin [One Daily Multivitamin] 1 tab PO DAILY 11/21/16 [History] Nitroglycerin [Nitrostat] 0.4 mg SL AD PRN 11/21/16 [History] Oxygen 2 l NS AD 11/21/16 [History] Ranolazine [Ranexa] 1,000 mg PO BID 11/21/16 [History] Trazodone HCl 200 mg PO HS 11/21/16 [History] Vitamin B Complex [B Complex] 1 tab PO DAILY 11/21/16 [History] Aspirin [Lo-Dose Aspirin EC] 81 mg PO DAILY 02/10/17 [History] Saccharomyces Boulardii [Florastor] 250 mg PO BID 02/10/17 [History] Potassium Chloride [Klor-Con 10] 10 meq PO BID 02/11/17 [History] Ipratropium/Albuterol Neb [Duoneb] 3 ml IH Q4HR PRN 03/12/17 [History] Tamsulosin [Flomax] 0.4 mg PO DAILY 03/12/17 [History] Lactobacillus [Culturelle] 1 cap PO BID 03/29/17 [History] Bumetanide [Bumex] 1 mg PO TID #90 tab 03/30/17 [Rx] Vancomycin Oral Soln [Vancocin] 125 mg PO BID #10 udc 04/04/17 [Rx] Vancomycin Oral Soln [Vancocin] 125 mg PO DAILY #7 udc 04/04/17 [Rx] predniSONE [PredniSONE] 60 mg PO DAILY #5 tablet 04/04/17 [Rx] Allergies/Adverse Reactions: 3 Allergy/AdvReac Type Severity Reaction Status Date / Time Penicillins Allergy Redness of Verified 03/29/17 06:42 Skin Date of admission: 04/02/17 10:25 Primary care physician: PCP NONE Consults: 04/03/17 12:28 Consult to Nutrition [CONS] Routine Comment: Consulting Provider: NUTRITION Reason for Dietary Consult: Diet Education - Patient Status Disposition: Home, Self-Care Condition: Fair - Discharge Instructions Follow Up With: NONE,PCP [Primary Care Provider] - (please call upon discharge at [facility]) Hospital course: Patient is a 71 year old male with past medical history significant for COPD, ischemic cardiomyopathy status post CABG, who presented to the ER on 04/02/17 with shortness of breath. She reports that approximately 2 days prior to admission generalized weakness with difficulty breathing as well as he describes as air hungry. Note, patient has had multiple hospitalizations within the last 4 months for similar complaints and is now being treated for C. difficile infection with oral vancomycin. Patient did not qualify for BiPAP at home during his recent hospitalization, however [facility] and he feels he would not have been hospitalized at this time if he had BiPAP at home. Patient was admitted to the medical floor for COPD exacerbation. During patients hospital stay, he was maintained on his baseline oxygen supplementation and his symptoms of shortness of breath resolved on duo nebs and oral prednisone. Patient will be discharged to complete a 5 day course of oral prednisone. - Time Spent with Patient Total time spent providing and/or coordinating discharge services: Less than 30 minutes - Constitutional Vitals: Temp Pulse Resp BP Pulse Ox 98.1 F 63 18 115/59 100 04/04/17 12:06 04/04/17 12:06 04/04/17 12:06 04/04/17 12:06 04/04/17 12:06 General appearance: Present: A&O X 3, answers questions appropriately - Respiratory Respiratory exam: Present: CTAB. Absent: accessory muscle use, rales, rhonchi, wheezes - Cardiovascular Cardiovascular exam: Present: RRR, +S1, +S2. Absent: diastolic murmur, gallop, rubs, systolic murmur
--- NOTE | 2017-04-07 19:21 | Event Note ---
Date of Encounter: 04/07/17 Time of Encounter: 00:00 New sputum cultures grew E.coli Called patient to discussed results and treatment plan Levaquin 750 mg , 1 tab, daily x 7 days
[2017-04-10] MEDS ORDERED: Vancomycin Oral Soln 250 MG/5 ML UDC PO SCH (09:00)
== END 2017-04-04 17:34 | disposition home or self-care (01) | DRG 190 ==
LOC: EMEROO 06:29 → 2ANU 06:29
PROVIDERS: ADMIT Hospitalist; ATTEND Hospitalist

== ENCOUNTER 2017-04-09 03:19 | Inpatient (IN) ==
[2017-04-09] MEDS ORDERED: Ipratropium/Albuterol Neb 3 ML IH ONE (03:20)
[2017-04-09] MEDS ORDERED: Ipratropium/Albuterol Neb 3 ML ONE (03:22)
[2017-04-09 03:44] LABS: Basophils % 0.1 %; Eosinophils # 0.3 K/mcL (0.0-0.6); Eosinophils % 2.7 %; Hematocrit 36.8 % (37.5-50.1); Hemoglobin 11.6 g/dL (12.9-16.9); Immature Granulocytes % 0.5 % (0-4); Lymphocytes % 8.4 %; Mean Corpuscular HGB Conc 31.5 g/dL (31.6-35.5); Mean Corpuscular Hemoglobin 29.4 pg (28.0-33.3); Mean Corpuscular Volume 93.2 fL (83.0-100.0); Mean Platelet Volume 10.1 fL (9.4-12.4); Monocytes # 0.7 K/mcL (0.0-1.3); Platelet Count 205 K/mcL (140-400); Red Blood Count 3.95 M/mcL (4.19-5.50); Red Cell Distribution Width 14.3 % (11.5-14.5); Segmented Neutrophils % 82.3 %
[2017-04-09] MEDS ORDERED: Nitroglycerin 1 INCH/GM PACKET TP ONE (03:53)
[2017-04-09] MEDS ORDERED: Vancomycin 1,250 MG in D5% in Water 250 ML IVPB ONE (04:03)
[2017-04-09] MEDS ORDERED: *HR* LORazepam 2 MG/ML VIAL IVP ONE (04:03)
[2017-04-09] MEDS ORDERED: Levofloxacin 750 MG/150 ML 750 MG/150 ML BAG IVPB ONE (04:03)
[2017-04-09 04:04] LABS: ABG Base Excess 3 mEq/L (-2 to 3); ABG HCO3 27 mEq/L (21-27); ABG Oxygen Saturation 99 % (95-98); ABG PCO2 36 mmHg (35-45); ABG PH 7.48 pH Units (7.32-7.45); ABG PO2 119 mmHg (85-104); ABG TCO2 28 mEq/L (20-26)
[2017-04-09] MEDS ORDERED: Cefepime HCl 2,000 MG in D5% in Water (Mini-Bag+) 100 ML IVPB STA (04:04)
[2017-04-09 04:07] LABS: BUN/Creatinine Ratio 16 (6-26); Blood Urea Nitrogen 21 mg/dL (8-26); Carbon Dioxide 27 mEq/L (19-29); Chloride 98 mEq/L (98-109); Glucose 167 mg/dL (70-99); Osmolality,Calculated 287 (280-300); Potassium 4.3 mEq/L (3.5-4.5); Sodium 135 mEq/L (136-145); eGFR For African Americans > 60 (> 60); eGFR For Non-African Americans 56 (> 60)
--- NOTE | 2017-04-09 04:24 | Emergency Department Note ---
Disposition Clinical Impression: HCAP (healthcare-associated pneumonia) CHF (congestive heart failure) Qualifiers: Congestive heart failure type: unspecified congestive heart failure type Congestive heart failure chronicity: unspecified congestive heart failure chronicity Qualified Code(s): I50.9 - Heart failure, unspecified COPD (chronic obstructive pulmonary disease) Qualifiers: COPD type: unspecified COPD Qualified Code(s): J44.9 - Chronic obstructive pulmonary disease, unspecified Disposition: Admitted As Inpatient Condition: Fair SOB HPI - General Chief Complaint: ED Shortness of Breath/Dyspnea Stated Complaint: SOB Time Seen by Provider: 04/09/17 03:20 Source: EMS Limitations: no limitations Nursing Notes Reviewed: Yes Vital Signs Reviewed: Yes - Related Data Home Medications Medication Instructions Recorded Confirmed ALPRAZolam [Xanax 0.5 MG Tablet] 0.5 mg PO TID PRN 11/21/16 04/02/17 Albuterol Sulfate [Albuterol 2 puff IH Q6HR PRN 11/21/16 04/02/17 Inhaler] Apixaban [Eliquis] 5 mg PO BID 11/21/16 04/02/17 Ascorbic Acid [Vitamin C] 1,000 mg PO DAILY 11/21/16 04/02/17 Budesonide/Formoterol 160/4.5 2 puff IH BIDR 11/21/16 04/02/17 [Symbicort 160/4.5] Carvedilol [Coreg] 3.125 mg PO BID 11/21/16 04/02/17 Cholecalciferol (D-3) [Vitamin D] 3,000 unit PO DAILY 11/21/16 04/02/17 Clopidogrel [Plavix] 75 mg PO DAILY 11/21/16 04/02/17 Fish Oil/Dha/Epa [Fish Oil 1,200 1,200 mg PO DAILY 11/21/16 04/02/17 mg Fish Oil] Folic Acid 0.8 mg PO DAILY 11/21/16 04/02/17 Isosorbide MONOnitrate (24 HR) 120 mg PO DAILY 11/21/16 04/02/17 [Imdur] Multivitamin [One Daily 1 tab PO DAILY 11/21/16 04/02/17 Multivitamin] Nitroglycerin [Nitrostat] 0.4 mg SL AD PRN 11/21/16 04/02/17 Oxygen 2 l NS AD 11/21/16 04/02/17 Ranolazine [Ranexa] 1,000 mg PO BID 11/21/16 04/02/17 Trazodone HCl 200 mg PO HS 11/21/16 04/02/17 Vitamin B Complex [B Complex] 1 tab PO DAILY 11/21/16 04/02/17 Aspirin [Lo-Dose Aspirin EC] 81 mg PO DAILY 02/10/17 04/02/17 Saccharomyces Boulardii [Florastor] 250 mg PO BID 02/10/17 04/02/17 Potassium Chloride [Klor-Con 10] 10 meq PO BID 02/11/17 04/02/17 Ipratropium/Albuterol Neb [Duoneb] 3 ml IH Q4HR PRN 03/12/17 04/02/17 Tamsulosin [Flomax] 0.4 mg PO DAILY 03/12/17 04/02/17 Lactobacillus [Culturelle] 1 cap PO BID 03/29/17 04/02/17 Previous Rx's Medication Instructions Recorded Bumetanide [Bumex] 1 mg PO TID #90 tab 03/30/17 LORazepam [Ativan] 1 mg PO BID PRN #14 tablet 04/04/17 Vancomycin Oral Soln [Vancocin] 125 mg PO BID #10 udc 04/04/17 Vancomycin Oral Soln [Vancocin] 125 mg PO DAILY #7 udc 04/04/17 predniSONE [PredniSONE] 60 mg PO DAILY #5 tablet 04/04/17 Allergies Allergy/AdvReac Type Severity Reaction Status Date / Time Penicillins Allergy Redness of Verified 04/09/17 03:20 Skin Past Medical History - Past Medical History Medical history: Reports: CHF, COPD, coronary artery disease, hyperlipidemia, hypertension, myocardial infarction, peripheral artery disease, valvular heart disease Surgical history: Reports: coronary bypass (CABG), herniorrhaphy, pacemaker/AICD , vascular surgery (Bilateral femoropopliteal bypass surgeries) Psychiatric history: Reports: anxiety - Social History Smoking Status: Former smoker Smokeless Tobacco Status: No Alcohol use: Reports: none Drug use: Reports: none Physical Exam - General Limitations: no limitations General appearance: alert Course Vital Signs Respiratory Rate 32 04/09/17 03:19 Blood Pressure 147/81 04/09/17 03:19 O2 Sat by Pulse Oximetry 100 11/01/17 03:19 Temperature 97.5 F L 04/09/17 05:56 Pulse Rate 69 04/09/17 05:56 Respiratory Rate 30 04/09/17 06:07 Blood Pressure 134/69 04/09/17 05:56 O2 Sat by Pulse Oximetry 99 04/09/17 06:07 Oxygen Delivery Oxygen Delivery Bipap Shortness of Breath/Dyspnea - Medical Records Medical records reviewed: Yes I reviewed the patient's medical records. - Lab Data Lab results reviewed: Yes I reviewed the patient's lab results. Result diagrams: 04/09/17 03:36 04/09/17 03:36 Lab Results 04/09/17 04/09/17 04/09/17 Range/Units 03:36 03:36 03:36 WBC 12.1 H D (4.3-11.1) K/mcL RBC 3.95 L (4.19-5.50) M/mcL Hgb 11.6 L (12.9-16.9) g/dL Hct 36.8 L (37.5-50.1) % MCV 93.2 (83.0-100.0) fL MCH 29.4 (28.0-33.3) pg MCHC 31.5 L (31.6-35.5) g/dL RDW 14.3 (11.5-14.5) % Plt Count 205 (140-400) K/mcL MPV 10.1 (9.4-12.4) fL Immature Gran % 0.5 (0-4) % Seg Neutrophils % 82.3 % Lymphocytes % 8.4 % Monocytes % 6.0 % Eosinophils % 2.7 % Basophils % 0.1 % Neutrophils # 10.0 H (1.6-8.9) K/mcL Lymphocytes # 1.0 (0.6-4.6) K/mcL Monocytes # 0.7 (0.0-1.3) K/mcL Eosinophils # 0.3 (0.0-0.6) K/mcL Basophils # 0.0 (0.0-0.2) K/mcL ABG pH (7.32-7.45) pH Units ABG pCO2 (35-45) mmHg ABG pO2 (85-104) mmHg ABG HCO3 (21-27) mEq/L ABG Total CO2 (20-26) mEq/L ABG O2 Saturation (95-98) % ABG Base Excess (-2 to 3) mEq/L Sodium 135 L (136-145) mEq/L Potassium 4.3 (3.5-4.5) mEq/L Chloride 98 (98-109) mEq/L Carbon Dioxide 27 (19-29) mEq/L BUN 21 (8-26) mg/dL Creatinine 1.28 H (0.72-1.25) mg/dL Est GFR ( Amer) > 60 (> 60) Est GFR (Non-Af Amer) 56 L (> 60) BUN/Creatinine Ratio 16 (6-26) Glucose 167 H (70-99) mg/dL Calculated Osmolality 287 (280-300) Lactic Acid 2.3 H (0.5-2.2) mmol/L Calcium 9.0 (8.6-10.8) mg/dL Troponin I (0-0.03) ng/mL B-Natriuretic Peptide (0-100) pg/mL 04/09/17 04/09/17 04/09/17 Range/Units 03:36 03:36 04:01 WBC (4.3-11.1) K/mcL RBC (4.19-5.50) M/mcL Hgb (12.9-16.9) g/dL Hct (37.5-50.1) % MCV (83.0-100.0) fL MCH (28.0-33.3) pg MCHC (31.6-35.5) g/dL RDW (11.5-14.5) % Plt Count (140-400) K/mcL MPV (9.4-12.4) fL Immature Gran % (0-4) % Seg Neutrophils % % Lymphocytes % % Monocytes % % Eosinophils % % Basophils % % Neutrophils # (1.6-8.9) K/mcL Lymphocytes # (0.6-4.6) K/mcL Monocytes # (0.0-1.3) K/mcL Eosinophils # (0.0-0.6) K/mcL Basophils # (0.0-0.2) K/mcL ABG pH 7.48 H (7.32-7.45) pH Units ABG pCO2 36 (35-45) mmHg ABG pO2 119 H (85-104) mmHg ABG HCO3 27 (21-27) mEq/L ABG Total CO2 28 H (20-26) mEq/L ABG O2 Saturation 99 H (95-98) % ABG Base Excess 3 (-2 to 3) mEq/L Sodium (136-145) mEq/L Potassium (3.5-4.5) mEq/L Chloride (98-109) mEq/L Carbon Dioxide (19-29) mEq/L BUN (8-26) mg/dL Creatinine (0.72-1.25) mg/dL Est GFR ( Amer) (> 60) Est GFR (Non-Af Amer) (> 60) BUN/Creatinine Ratio (6-26) Glucose (70-99) mg/dL Calculated Osmolality (280-300) Lactic Acid (0.5-2.2) mmol/L Calcium (8.6-10.8) mg/dL Troponin I 0.02 (0-0.03) ng/mL B-Natriuretic Peptide 1877 H (0-100) pg/mL - Radiology Data Radiology results reviewed: Yes I reviewed the patient's radiology results. Chest X-Ray 04/09/17 03:20 IMPRESSION: Pulmonary edema with left basilar atelectasis versus pneumonia. D/ / Arnaldo Freeman MD / Arnaldo Freeman MD Interpreting Provider: Arnaldo Freeman MD - EKG Data EKG attestation: Yes I reviewed and interpreted this EKG. EKG results narrative: Sinus rhythm, first-degree AV block, rate 84, IA interval 219, QRS 114, QTC 401 , normal axis, ST segment depression in V2, V3, V4 and V5. Unchanged from previous Attestation Statement - Attestation Attestation: I examined this patient and my medical decision-making was reviewed with the Resident Physician. I agree with the documented findings, disposition and treatment plan as described except to the extent set forth below. Male patient with hypoxic respiratory failure he is on home BiPAP. He arrives on BiPAP. He is to Take with diminished lung sounds. He improved with our BiPAP settings. His respiratory failure is multifactorial and likely possible pulmonary edema and underlying COPD. I do believe he probably has pneumonia at this time as well. Plan to admit to the hospital for further evaluation. Antibiotics initiated. Patient remains on BiPAP. I spent greater than 35 minutes of critical care time resuscitating this acutely ill male suffering from hypoxic respiratory failure this is excluding billable procedures.
--- NOTE | 2017-04-09 05:06 | Emergency Department Note ---
Disposition Clinical Impression: HCAP (healthcare-associated pneumonia) CHF (congestive heart failure) Qualifiers: Congestive heart failure type: unspecified congestive heart failure type Congestive heart failure chronicity: unspecified congestive heart failure chronicity Qualified Code(s): I50.9 - Heart failure, unspecified COPD (chronic obstructive pulmonary disease) Qualifiers: COPD type: unspecified COPD Qualified Code(s): J44.9 - Chronic obstructive pulmonary disease, unspecified Disposition: Admitted As Inpatient Condition: Fair Referrals: Hu Yeboah MD [Primary Care Provider] - Forms: ED Satisfaction Letter Time of Disposition: 05:06 SOB HPI - General Chief Complaint: ED Shortness of Breath/Dyspnea Stated Complaint: SOB Time Seen by Provider: 04/09/17 03:20 Source: EMS Limitations: no limitations - History of Present Illness Patient presents to the ED with the chief complaint of shortness of breath. Patient was recently admitted for difficulty breathing. Since he went home and feels like it is worse now. Woke up early this morning feeling very short of breath. EMS reports the patient was on BiPAP and when they took him off that he got very short of breath despite normal vital signs, so they placed him back on it. Patient denies any chest pain. States he feels like he cannot breathe. Also has a history of CHF - Related Data Home Medications Medication Instructions Recorded Confirmed ALPRAZolam [Xanax 0.5 MG Tablet] 0.5 mg PO TID PRN 11/21/16 04/02/17 Albuterol Sulfate [Albuterol 2 puff IH Q6HR PRN 11/21/16 04/02/17 Inhaler] Apixaban [Eliquis] 5 mg PO BID 11/21/16 04/02/17 Ascorbic Acid [Vitamin C] 1,000 mg PO DAILY 11/21/16 04/02/17 Budesonide/Formoterol 160/4.5 2 puff IH BIDR 11/21/16 04/02/17 [Symbicort 160/4.5] Carvedilol [Coreg] 3.125 mg PO BID 11/21/16 04/02/17 Cholecalciferol (D-3) [Vitamin D] 3,000 unit PO DAILY 11/21/16 04/02/17 Clopidogrel [Plavix] 75 mg PO DAILY 11/21/16 04/02/17 Fish Oil/Dha/Epa [Fish Oil 1,200 1,200 mg PO DAILY 11/21/16 04/02/17 mg Fish Oil] Folic Acid 0.8 mg PO DAILY 11/21/16 04/02/17 Isosorbide MONOnitrate (24 HR) 120 mg PO DAILY 11/21/16 04/02/17 [Imdur] Multivitamin [One Daily 1 tab PO DAILY 11/21/16 04/02/17 Multivitamin] Nitroglycerin [Nitrostat] 0.4 mg SL AD PRN 11/21/16 04/02/17 Oxygen 2 l NS AD 11/21/16 04/02/17 Ranolazine [Ranexa] 1,000 mg PO BID 11/21/16 04/02/17 Trazodone HCl 200 mg PO HS 11/21/16 04/02/17 Vitamin B Complex [B Complex] 1 tab PO DAILY 11/21/16 04/02/17 Aspirin [Lo-Dose Aspirin EC] 81 mg PO DAILY 02/10/17 04/02/17 Saccharomyces Boulardii [Florastor] 250 mg PO BID 02/10/17 04/02/17 Potassium Chloride [Klor-Con 10] 10 meq PO BID 02/11/17 04/02/17 Ipratropium/Albuterol Neb [Duoneb] 3 ml IH Q4HR PRN 03/12/17 04/02/17 Tamsulosin [Flomax] 0.4 mg PO DAILY 03/12/17 04/02/17 Lactobacillus [Culturelle] 1 cap PO BID 03/29/17 04/02/17 Previous Rx's Medication Instructions Recorded Bumetanide [Bumex] 1 mg PO TID #90 tab 03/30/17 LORazepam [Ativan] 1 mg PO BID PRN #14 tablet 04/04/17 Vancomycin Oral Soln [Vancocin] 125 mg PO BID #10 udc 04/04/17 Vancomycin Oral Soln [Vancocin] 125 mg PO DAILY #7 udc 04/04/17 predniSONE [PredniSONE] 60 mg PO DAILY #5 tablet 04/04/17 Allergies Allergy/AdvReac Type Severity Reaction Status Date / Time Penicillins Allergy Redness of Verified 04/09/17 03:20 Skin All systems ED: reviewed and negative except as stated. Constitutional: Denies: fever Cardiovascular: Reports: dyspnea on exertion. Denies: chest pain Respiratory: Reports: cough, dyspnea, wheezes Gastrointestinal: Denies: abdominal pain, vomiting Past Medical History - Past Medical History Attestation: Yes The following information was validated with the patient. Source: patient Medical history: Reports: CHF, COPD, coronary artery disease, hyperlipidemia, hypertension, myocardial infarction, peripheral artery disease, valvular heart disease Surgical history: Reports: coronary bypass (CABG), herniorrhaphy, pacemaker/AICD , vascular surgery (Bilateral femoropopliteal bypass surgeries) Psychiatric history: Reports: anxiety - Social History Smoking Status: Former smoker Smokeless Tobacco Status: No Alcohol use: Reports: none Drug use: Reports: none Physical Exam - General Limitations: no limitations General appearance: alert, anxious, in distress - Head Head exam: atraumatic, normocephalic, normal inspection - ENT ENT exam: mucous membranes dry - Chest Chest inspection: Present: normal inspection, symmetric chest wall rise - Respiratory Respiratory exam: Present: respiratory distress, wheezes, accessory muscle use. Absent: normal lung sounds bilaterally - Cardiovascular Cardiovascular exam: Present: tachycardia, normal heart sounds - Abdominal Exam Abdominal exam: Present: soft, Non-Tender. Absent: tenderness, distention, guarding, rebound, rigidity - Extremities Exam Extremities exam: Present: normal inspection, full ROM. Absent: tenderness, pedal edema - Neurological Exam Neurological exam: Present: alert, oriented X3 - Psychiatric Psychiatric exam: Present: normal affect, normal mood - Skin Skin exam: Present: warm, dry, intact, normal color Course Course Narrative: Patient arrives on BiPAP and moderate respiratory distress. BiPAP and labs ordered. Will admit. Vital Signs Respiratory Rate 32 04/09/17 03:19 Blood Pressure 147/81 04/09/17 03:19 O2 Sat by Pulse Oximetry 100 04/09/17 03:19 Temperature 97.5 F L 04/09/17 03:20 Pulse Rate 66 04/09/17 04:59 Respiratory Rate 21 04/09/17 04:59 Blood Pressure 134/69 04/09/17 04:59 O2 Sat by Pulse Oximetry 100 04/09/17 04:59 Oxygen Delivery Oxygen Delivery Bipap Shortness of Breath/Dyspnea - Lab Data Result diagrams: 04/09/17 03:36 04/09/17 03:36 Lab Results 04/09/17 04/09/17 04/09/17 Range/Units 03:36 03:36 03:36 WBC 12.1 H D (4.3-11.1) K/mcL RBC 3.95 L (4.19-5.50) M/mcL Hgb 11.6 L (12.9-16.9) g/dL Hct 36.8 L (37.5-50.1) % MCV 93.2 (83.0-100.0) fL MCH 29.4 (28.0-33.3) pg MCHC 31.5 L (31.6-35.5) g/dL RDW 14.3 (11.5-14.5) % Plt Count 205 (140-400) K/mcL MPV 10.1 (9.4-12.4) fL Immature Gran % 0.5 (0-4) % Seg Neutrophils % 82.3 % Lymphocytes % 8.4 % Monocytes % 6.0 % Eosinophils % 2.7 % Basophils % 0.1 % Neutrophils # 10.0 H (1.6-8.9) K/mcL Lymphocytes # 1.0 (0.6-4.6) K/mcL Monocytes # 0.7 (0.0-1.3) K/mcL Eosinophils # 0.3 (0.0-0.6) K/mcL Basophils # 0.0 (0.0-0.2) K/mcL ABG pH (7.32-7.45) pH Units ABG pCO2 (35-45) mmHg ABG pO2 (85-104) mmHg ABG HCO3 (21-27) mEq/L ABG Total CO2 (20-26) mEq/L ABG O2 Saturation (95-98) % ABG Base Excess (-2 to 3) mEq/L Sodium 135 L (136-145) mEq/L Potassium 4.3 (3.5-4.5) mEq/L Chloride 98 (98-109) mEq/L Carbon Dioxide 27 (19-29) mEq/L BUN 21 (8-26) mg/dL Creatinine 1.28 H (0.72-1.25) mg/dL Est GFR ( Amer) > 60 (> 60) Est GFR (Non-Af Amer) 56 L (> 60) BUN/Creatinine Ratio 16 (6-26) Glucose 167 H (70-99) mg/dL Calculated Osmolality 287 (280-300) Lactic Acid 2.3 H (0.5-2.2) mmol/L Calcium 9.0 (8.6-10.8) mg/dL Troponin I (0-0.03) ng/mL B-Natriuretic Peptide (0-100) pg/mL 04/09/17 04/09/17 04/09/17 Range/Units 03:36 03:36 04:01 WBC (4.3-11.1) K/mcL RBC (4.19-5.50) M/mcL Hgb (12.9-16.9) g/dL Hct (37.5-50.1) % MCV (83.0-100.0) fL MCH (28.0-33.3) pg MCHC (31.6-35.5) g/dL RDW (11.5-14.5) % Plt Count (140-400) K/mcL MPV (9.4-12.4) fL Immature Gran % (0-4) % Seg Neutrophils % % Lymphocytes % % Monocytes % % Eosinophils % % Basophils % % Neutrophils # (1.6-8.9) K/mcL Lymphocytes # (0.6-4.6) K/mcL Monocytes # (0.0-1.3) K/mcL Eosinophils # (0.0-0.6) K/mcL Basophils # (0.0-0.2) K/mcL ABG pH 7.48 H (7.32-7.45) pH Units ABG pCO2 36 (35-45) mmHg ABG pO2 119 H (85-104) mmHg ABG HCO3 27 (21-27) mEq/L ABG Total CO2 28 H (20-26) mEq/L ABG O2 Saturation 99 H (95-98) % ABG Base Excess 3 (-2 to 3) mEq/L Sodium (136-145) mEq/L Potassium (3.5-4.5) mEq/L Chloride (98-109) mEq/L Carbon Dioxide (19-29) mEq/L BUN (8-26) mg/dL Creatinine (0.72-1.25) mg/dL Est GFR ( Amer) (> 60) Est GFR (Non-Af Amer) (> 60) BUN/Creatinine Ratio (6-26) Glucose (70-99) mg/dL Calculated Osmolality (280-300) Lactic Acid (0.5-2.2) mmol/L Calcium (8.6-10.8) mg/dL Troponin I 0.02 (0-0.03) ng/mL B-Natriuretic Peptide 1877 H (0-100) pg/mL
--- NOTE | 2017-04-09 08:05 | Electrocardiograph Report ---
[place] [id number] Test Date: 2017-04-09 Pat Name: Chadwick Bernardo Department: 103 Room: 2A Gender: M Appointment Specialist: RENA : [id number] Requested By: Efe Christensen Order Number: [id number] Reading MD: Nan Lopez Measurements Intervals [place] Rate: 84 P: 66 WI: 219 QRS: 31 QRSD: 114 T: 85 QT: 360 QTc: 401 Interpretive Statements ARTIFACT LIMITS INTERPRETATION PROBABLY SINUS RHYTHM INTRAVENTRICULAR CONDUCTION DELAY ST DEVIATION AND MODERATE T-WAVE ABNORMALITY, CONSIDER LATERAL ISCHEMIA Electronically Signed On 04-09-2017 8:04:20 EDT by Nan Lopez
--- NOTE | 2017-04-09 08:17 | Internal Med History&Physical ---
Date of Encounter: 04/09/17 Time of Encounter: 08:14 Assessment and Plan (1) Traumatic hematoma of left upper arm Current visit: Yes Status: Acute Traumatic left arm hematoma. Patient is on aspirin Plavix and eloquis. Will continue aspirin Plavix hold eloquence for now. Left arm ultrasound. Patient is up-to-date on his tetanus Qualifiers: Qualified Code(s): S40.022A - Contusion of left upper arm, initial encounter (2) Acute exacerbation of CHF (congestive heart failure) Current visit: No Status: Acute Patient is on Bumex at home. Will give the patient bumex IV 1 mg twice a day Qualifiers: Qualified Code(s): I50.9 - Heart failure, unspecified (3) Healthcare-associated pneumonia Current visit: Yes Status: Acute Sputum 1 week ago grew E. coli sensitive to Levaquin. Will continue for novancomycin and Levaquin for now given worsening of his respiratory status. Repeat sputum culture (4) Acute respiratory failure with hypoxia Current visit: No Status: Acute Patient is currently on BiPAP. Will down-titrate oxygen requirements as the patient tolerate. Internal Medicine - H&P: HPI Chief complaint: sob History of present illness: Mr. Bernardo is a 72 year old male with multiple medical problems including COPD on 2 L of oxygen, coronary artery disease status was cabbage, diastolic CHF, recent C diff colitis presents with emergency room today with a man complaining of shortness of breath. Patient has been having productive cough for the past few days. Patient was called after sputum culture during last hospitalization E. coli. Patient has been more short of breath than usual the past few days. He was placed on BiPAP on arrival to the emergency room. He denies any fevers or chills. No chest pain. He still has bilateral lower extremity edema. Patient has been on antibiotics for C. difficile infection. He denies any further diarrhea. Patient had a fall 2 days ago and sustain the left arm hematoma. He is on aspirin Plavix and eloquis. Past Med Surg Social Fam HX - Past Medical History Medical history: CHF, COPD, coronary artery disease, hyperlipidemia, hypertension, myocardial infarction, peripheral artery disease, valvular heart disease Psychiatric history: anxiety - Past Surgical History Surgical History: coronary bypass (CABG), herniorrhaphy, pacemaker/AICD, vascular surgery (Bilateral femoropopliteal bypass surgeries) - Social History Smoking Status: Former smoker Smokeless Tobacco Status: No Alcohol use: none Drug use: none - Family History Father Living Status: Hx Family Cardiac Disorders: Yes (cardiomyopathy) Internal Medicine - H&P: Meds ALPRAZolam [Xanax 0.5 MG Tablet] 0.5 mg PO TID PRN 11/21/16 [History] Albuterol Sulfate [Albuterol Inhaler] 2 puff IH Q6HR PRN 11/21/16 [History] Apixaban [Eliquis] 5 mg PO BID 11/21/16 [History] Ascorbic Acid [Vitamin C] 1,000 mg PO DAILY 11/21/16 [History] Budesonide/Formoterol 160/4.5 [Symbicort 160/4.5] 2 puff IH BIDR 11/21/16 [ History] Carvedilol [Coreg] 3.125 mg PO BID 11/21/16 [History] Cholecalciferol (D-3) [Vitamin D] 3,000 unit PO DAILY 11/21/16 [History] Clopidogrel [Plavix] 75 mg PO DAILY 11/21/16 [History] Fish Oil/Dha/Epa [Fish Oil 1,200 mg Fish Oil] 1,200 mg PO DAILY 11/21/16 [ History] Folic Acid 0.8 mg PO DAILY 11/21/16 [History] Isosorbide MONOnitrate (24 HR) [Imdur] 120 mg PO DAILY 11/21/16 [History] Multivitamin [One Daily Multivitamin] 1 tab PO DAILY 11/21/16 [History] Nitroglycerin [Nitrostat] 0.4 mg SL AD PRN 11/21/16 [History] Oxygen 2 l NS AD 11/21/16 [History] Ranolazine [Ranexa] 1,000 mg PO BID 11/21/16 [History] Trazodone HCl 200 mg PO HS 11/21/16 [History] Vitamin B Complex [B Complex] 1 tab PO DAILY 11/21/16 [History] Aspirin [Lo-Dose Aspirin EC] 81 mg PO DAILY 02/10/17 [History] Saccharomyces Boulardii [Florastor] 250 mg PO BID 02/10/17 [History] Potassium Chloride [Klor-Con 10] 10 meq PO BID 02/11/17 [History] Ipratropium/Albuterol Neb [Duoneb] 3 ml IH Q4HR PRN 03/12/17 [History] Tamsulosin [Flomax] 0.4 mg PO DAILY 03/12/17 [History] Lactobacillus [Culturelle] 1 cap PO BID 03/29/17 [History] Bumetanide [Bumex] 1 mg PO TID #90 tab 03/30/17 [Rx] LORazepam [Ativan] 1 mg PO BID PRN #14 tablet 04/04/17 [Rx] Vancomycin Oral Soln [Vancocin] 125 mg PO BID #10 udc 04/04/17 [Rx] Vancomycin Oral Soln [Vancocin] 125 mg PO DAILY #7 udc 04/04/17 [Rx] predniSONE [PredniSONE] 60 mg PO DAILY #5 tablet 04/04/17 [Rx] 3 Allergy/AdvReac Type Severity Reaction Status Date / Time Penicillins Allergy Redness of Verified 04/09/17 03:20 Skin All Systems PM: A 10-system review of systems was performed and is negative for pertinent findings except as documented above in the HPI. Review of systems: 10 point review of systems is negative except for HPI - Constitutional Vitals: Temp Pulse Resp BP Pulse Ox 97.5 F L 69 30 134/69 99 04/09/17 05:56 04/09/17 05:56 04/09/17 06:07 04/09/17 05:56 04/09/17 06:07 Exam: Gen.: patient is alert oriented times 3 cardiac: normal S1 S2 no additional sounds or murmurs chest: Bronchial breathing on right lung posteriorly abdomen soft nontender nondistended normal bowel sounds lower extremity 1+ swelling. Neuro: no new focal deficits Left arm hematoma Internal Med - H&P Results - Labs CBC & Chem 7: 04/09/17 03:36 04/09/17 03:36 - Impressions ITS Impressions Humerus X-Ray 04/09/17 05:32 IMPRESSION: 1. No fracture or malalignment. 2. Soft tissue densities could represent foreign bodies or dystrophic calcifications. D/ / Arnaldo Freeman MD / Arnaldo Freeman MD Interpreting Provider: Arnaldo Freeman MD
[2017-04-09] MEDS: Levofloxacin 750 MG/150 ML 750 MG/150 ML BAG IVPB SCH (08:54)
[2017-04-09] MEDS: Aspirin Enteric Coated 81 MG Tablet PO SCH (08:55)
[2017-04-09] MEDS: Bumetanide 1 MG/4 ML VIAL IVP SCH ×2 (08:58→16:05)
[2017-04-09] MEDS ORDERED: ALPRAZolam 0.5 MG TABLET PO PRN ×3 (09:06→20:51)
[2017-04-09] MEDS ORDERED: Vancomycin 1,000 MG in D5% in Water 250 ML IVPB SCH (11:00)
[2017-04-09] MEDS ORDERED: Aminoglycoside Consult 1 EACH MC ONE (14:22)
[2017-04-09] MEDS ORDERED: Vancomycin 1,500 MG in D5% in Water 250 ML IVPB SCH (16:00)
[2017-04-09] MEDS ORDERED: Nitroglycerin 0.4 MG TAB.SUBL SL PRN (20:51)
[2017-04-09] MEDS ORDERED: traZODone 50 MG TABLET PO SCH (21:00)
[2017-04-09] MEDS: Lactobacillus 1 EACH CAP.SPRINK PO SCH (21:23)
[2017-04-09] MEDS: Ranolazine 500 MG TAB.ER.12H PO SCH (21:24)
[2017-04-10 05:59] LABS: Eosinophils # 0.3 K/mcL (0.0-0.6); Hematocrit 33.5 % (37.5-50.1); Hemoglobin 10.4 g/dL (12.9-16.9); Immature Granulocytes % 0.5 % (0-4); Lymphocytes # 1.1 K/mcL (0.6-4.6); Mean Corpuscular Hemoglobin 28.7 pg (28.0-33.3); Mean Corpuscular Volume 92.3 fL (83.0-100.0); Mean Platelet Volume 10.1 fL (9.4-12.4); Monocytes # 0.6 K/mcL (0.0-1.3); Monocytes % 10.6 %; Platelet Count 201 K/mcL (140-400); Red Blood Count 3.63 M/mcL (4.19-5.50); Red Cell Distribution Width 14.6 % (11.5-14.5); Segmented Neutrophils % 65.9 %
[2017-04-10 06:16] LABS: BUN/Creatinine Ratio 16 (6-26); Blood Urea Nitrogen 19 mg/dL (8-26); Calcium 8.7 mg/dL (8.6-10.8); Carbon Dioxide 30 mEq/L (19-29); Chloride 104 mEq/L (98-109); Glucose 96 mg/dL (70-99); Magnesium 1.9 mg/dL (1.6-2.6); Osmolality,Calculated 294 (280-300); Sodium 141 mEq/L (136-145); eGFR For African Americans > 60 (> 60); eGFR For Non-African Americans 60 (> 60)
[2017-04-10] MEDS ORDERED: Vancomycin Oral Soln 250 MG/5 ML UDC PO SCH (09:00)
--- NOTE | 2017-04-10 10:26 | Internal Med Progress Note ---
Date of Encounter: 04/10/17 Time of Encounter: 09:50 - Assessment and plan (1) Pneumonia Current Visit: Yes Status: Suspected Assessment and plan: Patient was recently discharged after being treated for acute bronchitis. Sputum culture from April 03 grows pansensitive Escherichia coli. Prescription for Levaquin has been called into patient's pharmacy and he reports picking up the prescription and taking 1 tablet so far. Continue IV Levaquin, hold IV vancomycin for now. Supportive care and supplemental oxygen. Blood cultures from April 09 so far negative. Qualifiers: Pneumonia type: due to Escherichia coli Laterality: left Lung location: lower lobe of lung Qualified Code(s): J15.5 - Pneumonia due to Escherichia coli (2) Traumatic hematoma of left upper arm Current Visit: Yes Status: Acute Assessment and plan: Patient sustained a mechanical fall 3 days ago, injuring her left arm. Ultrasound left upper extremity shows no focal collection of fluid but possibly resolving hematoma. Continue to hold Eliquis for 2 more days; continue ASA and Plavix. Pain control with PRN Oxycodone and IV Morphine. Qualifiers: Encounter type: subsequent encounter Qualified Code(s): S40.022D - Contusion of left upper arm, subsequent encounter (3) Acute exacerbation of CHF (congestive heart failure) Current Visit: Yes Status: Acute Assessment and plan: Patient has had multiple hospitalizations in the last 3-4 months due to acute CHF. No previous echocardiogram report seen on [facility], but previous notes document ejection fraction as low as 25% with known ischemic cardiomyopathy. Continue IV Bumex, beta abhi, nitrates; check 2-D echocardiogram. Patient requests cardiology input regarding his prognosis. Cardiology consulted, with follow-up recommendations. Qualifiers: Congestive heart failure type: combined Qualified Code(s): I50.43 - Acute on chronic combined systolic (congestive) and diastolic (congestive) heart failure (4) History of implantable cardioverter-defibrillator (ICD) placement Current Visit: Yes Status: Chronic (5) Coronary artery disease Current Visit: Yes Status: Chronic Assessment and plan: History of CABG and several stents in the past, currently not amenable to further revascularization according to the patient. Continue aspirin, Plavix, beta abhi, statin, Ranexa. Patient is also noted to be on anticoagulation with Eliquis for unclear reasons, possibly A.fib; F/up Cardiology consult. Continue Telemetry monitoring. Qualifiers: Coronary Disease-Associated Artery/Lesion type: bypass graft [place] vs. transplanted heart: [place] heart Associated angina: with stable angina Qualified Code(s): I25.708 - Atherosclerosis of coronary artery bypass graft(s) , unspecified, with other forms of angina pectoris (6) BPH (benign prostatic hyperplasia) Current Visit: Yes Status: Chronic Qualifiers: Lower urinary tract symptom presence: unspecified whether lower urinary tract symptoms present Qualified Code(s): N40.0 - Benign prostatic hyperplasia without lower urinary tract symptoms (7) Severe peripheral arterial disease Current Visit: Yes Status: Chronic Assessment and plan: Follows with vascular surgery. Continue aspirin and Plavix. (8) Recurrent colitis due to Clostridium difficile Current Visit: Yes Status: Chronic Assessment and plan: Patient was evaluated by infectious diseases in the past and started on pulse dose tapering of PO vancomycin. Continue home regimen. Probiotics. (9) Chronic kidney disease, stage 3 Current Visit: Yes Status: Chronic Assessment and plan: Serum creatinine noted to be at baseline. Continue to monitor closely. (10) Anxiety Current Visit: Yes Status: Chronic Assessment and plan: Continue when necessary benzodiazepines. Changed to Ativan instead of Xanax, per patient request as he claims annex makes him very drowsy. (11) Chronic respiratory failure Current Visit: Yes Status: Chronic Assessment and plan: Due to underlying CHF and COPD. Continue supplemental oxygen. Qualifiers: Respiratory failure complication: hypoxia Qualified Code(s): J96.11 - Chronic respiratory failure with hypoxia (12) COPD (chronic obstructive pulmonary disease) Current Visit: Yes Status: Chronic Assessment and plan: Continue when necessary bronchodilators and supplemental oxygen. Empiric IV antibiotics. Patient has been prescribed BiPAP IV. Continue nocturnal BiPAP. Qualifiers: COPD type: emphysema Emphysema type: unspecified Qualified Code(s): J43.9 - Emphysema, unspecified - Subjective Interval history: Feels better; has chronic fatigue. Received BiPAP at home from MD; no cough, chest pain, does have some ankle swelling; reports having picked up the Levaquin that was called in and taken one tablet; - Constitutional Vitals: Temp Pulse Resp BP Pulse Ox 97.5 F L 62 18 139/79 99 04/10/17 06:32 04/10/17 06:32 04/10/17 06:32 04/10/17 06:32 04/10/17 06:32 General appearance: Present: cachectic, A&O X 3 (appears chronically ill), answers questions appropriately - Respiratory Respiratory exam: Present: CTAB (coarse breath sounds B/L). Absent: accessory muscle use, rales, rhonchi, wheezes - Cardiovascular Cardiovascular exam: Present: RRR, +S1, +S2. Absent: diastolic murmur, gallop, rubs, systolic murmur - GI/Abdominal GI/Abdominal exam: Present: normal bowel sounds, soft, no peritoneal signs. Absent: distended, tenderness - Extremities Exam Extremities exam: Present: pedal edema (B/L trace ankle edema), warm, radial pulses palpable and symmetrical. Absent: calf tenderness, cyanotic - Neurological Exam Neurological exam: Present: CN II-XII intact, oriented X3, no focal deficits. Absent: pronater drift, facial droop, speech deficit Internal Medicine: Result - Labs CBC & Chem 7: 04/10/17 05:23 04/10/17 05:23 Labs: Short CBC 04/10/17 Range/Units 05:23 WBC 6.1 (4.3-11.1) K/mcL Hgb 10.4 L (12.9-16.9) g/dL Hct 33.5 L (37.5-50.1) % Plt Count 201 (140-400) K/mcL Neutrophils # 4.0 (1.6-8.9) K/mcL BMP 04/10/17 05:23 Sodium 141 Potassium 4.0 Chloride 104 Carbon Dioxide 30 H BUN 19 Creatinine 1.20 Glucose 96 Calcium 8.7 - ABG Interpretation ABG results: ABG ABG pH 7.48 pH Units (7.32-7.45) H 04/09/17 04:01 ABG pCO2 36 mmHg (35-45) 04/09/17 04:01 ABG pO2 119 mmHg (85-104) H 04/09/17 04:01 ABG O2 Saturation 99 % (95-98) H 04/09/17 04:01 - Impressions Impressions Extremity Ultrasound 04/09/17 12:30 IMPRESSION: No focal fluid collection although there is mild heterogeneity suggesting resolving hematoma at the palpable abnormality in the left upper arm. D/ / Terrance Call MD / Terrance Call MD Interpreting Provider: Terrance Call MD - VTE Documentation of Mechanical Device: Intermittent pneumatic compression device Consult Discharge Plan - Plan Referrals: Hu Yeboah MD [Primary Care Provider] - (please call upon discharge)
[2017-04-10] MEDS: Bumetanide 1 MG/4 ML VIAL IVP SCH ×2 (10:40→16:41)
[2017-04-10] MEDS: Aspirin Enteric Coated 81 MG Tablet PO SCH (10:41)
[2017-04-10] MEDS: Lactobacillus 1 EACH CAP.SPRINK PO SCH ×2 (10:41→20:29)
[2017-04-10] MEDS: Folic Acid 1 MG TABLET PO SCH (10:41)
[2017-04-10] MEDS: Isosorbide MONOnitrate (24 HR) 60 MG TAB.ER.24H PO SCH (10:42)
[2017-04-10] MEDS: Levofloxacin 750 MG/150 ML 750 MG/150 ML BAG IVPB SCH (10:43)
[2017-04-10] MEDS: Ranolazine 500 MG TAB.ER.12H PO SCH ×2 (10:43→20:29)
[2017-04-10] MEDS: Vancomycin Oral Soln 250 MG/5 ML UDC PO SCH (10:45)
[2017-04-10] MEDS ORDERED: *HR* LORazepam 0.5 MG TABLET ONE (11:41)
[2017-04-10] MEDS: *HR* LORazepam 0.5 MG TABLET PO PRN (11:44)
[2017-04-10] MEDS: Albuterol 2.5 MG/3 ML NEBULIZER IH PRN ×2 (11:53→16:30)
[2017-04-10] MEDS: Budesonide/Formoterol 160/4.5 MDI IH SCH ×2 (11:54→20:09)
--- NOTE | 2017-04-10 14:56 | Cardiology Consult Note ---
Date of Encounter: 04/10/17 Time of Encounter: 14:00 Assessment and Plan (1) Acute on chronic systolic (congestive) heart failure Current Visit: No Status: Acute Per cardiology: -Admitted with worsening shortness of breath. -BNP 1877 on admission. -Chest xray with pulmonary edema. -Mild pedal edema noted. -weight [facility] 70.2kg. -Weight 01/2017 [facility] 67.6kg. -Reports compliance with sodium and fluid restriction. Reports compliance with daily weights. -States has been on lasix previously and most recently on bumex. -Currently on bumex 1mg IV BID. -Net negative 1200ml. -Strict i/os, fluid restriction, daily weights. -Will continue to monitor. (2) Coronary artery disease Current Visit: Yes Status: Chronic Per cardiology: -Known CAD s/p CABG and PCI. -Previously followed at [facility]. -11/2015 [facility] with LVEF 40%, global hypokinesis with regional variations, -Current echo pending. -On asa, statin, beta abhi, plavix, imdur, and ranexa. -Will obtain records from previous cardiology. Qualifiers: Coronary Disease-Associated Artery/Lesion type: bypass graft [place] vs. transplanted heart: [place] heart Associated angina: with stable angina Qualified Code(s): I25.708 - Atherosclerosis of coronary artery bypass graft(s) , unspecified, with other forms of angina pectoris (3) History of implantable cardioverter-defibrillator (ICD) placement Current Visit: Yes Status: Chronic Per cardiology: -Has ICD for ischemic cardiomyopathy. -Will continue to monitor. Discussion w patient/family: The assessment and plan as outlined above was discussed with the patient who expressed understanding and agreement. All questions were answered. Thank you for involving us in the care of your patient. Please call with any questions. Discussed and reviewed with . History of Present Illness Consult date: 04/10/17 Requesting physician: Joycelyn Sampson Consult reason: multiple admission for CHF Chief complaint: shortness of breath History of present illness: Mr. Bernardo is a 72 year old male with a relevant past medical history of CAD s/p CABG and PCI, [place], HTN, hyperlipidemia, CHF, ischemic cardiomyopathy, COPD, PAD. Patient presented to [facility] with complaints of worsening shortness of breath. Patient also reports increased weight at home. Patient reports he has had multiple admissions in the last 6 months for CHF. Patient reports compliance with sodium and fluid restriction. Patient also reports compliance with daily weights. Patient states he has tried to take extra diuretics at home when his weight is up, however he states it "never works." Patient denies chest pain. Past Med Surg Social Fam HX - Past Medical History Attestation: Yes The following information was validated with the patient. Source: patient, old records reviewed Medical history: CHF, COPD, coronary artery disease, hyperlipidemia, hypertension, myocardial infarction, peripheral artery disease, valvular heart disease Psychiatric history: anxiety - Past Surgical History Surgical History: coronary bypass (CABG), herniorrhaphy, pacemaker/AICD, vascular surgery (Bilateral femoropopliteal bypass surgeries) - Social History Smoking Status: Former smoker Smokeless Tobacco Status: No Alcohol use: none Drug use: none - Family History Father Living Status: Hx Family Cardiac Disorders: Yes (cardiomyopathy) Medications and Allergies ALPRAZolam [Xanax 0.5 MG Tablet] 0.5 mg PO TID PRN 11/21/16 [History] Albuterol Sulfate [Albuterol Inhaler] 2 puff IH Q6HR PRN 11/21/16 [History] Apixaban [Eliquis] 5 mg PO BID 11/21/16 [History] Ascorbic Acid [Vitamin C] 1,000 mg PO DAILY 11/21/16 [History] Budesonide/Formoterol 160/4.5 [Symbicort 160/4.5] 2 puff IH BIDR 11/21/16 [ History] Cholecalciferol (D-3) [Vitamin D] 3,000 unit PO DAILY 11/21/16 [History] Clopidogrel [Plavix] 75 mg PO DAILY 11/21/16 [History] Fish Oil/Dha/Epa [Fish Oil 1,200 mg Fish Oil] 1,200 mg PO DAILY 11/21/16 [ History] Folic Acid 0.8 mg PO DAILY 11/21/16 [History] Isosorbide MONOnitrate (24 HR) [Imdur] 120 mg PO DAILY 11/21/16 [History] Multivitamin [One Daily Multivitamin] 1 tab PO DAILY 11/21/16 [History] Nitroglycerin [Nitrostat] 0.4 mg SL AD PRN 11/21/16 [History] Oxygen 2 l NS AD 11/21/16 [History] Ranolazine [Ranexa] 1,000 mg PO BID 11/21/16 [History] Trazodone HCl 200 mg PO HS 11/21/16 [History] Vitamin B Complex [B Complex] 1 tab PO DAILY 11/21/16 [History] Aspirin [Lo-Dose Aspirin EC] 81 mg PO DAILY 02/10/17 [History] Saccharomyces Boulardii [Florastor] 250 mg PO BID 02/10/17 [History] Potassium Chloride [Klor-Con 10] 10 meq PO BID 02/11/17 [History] Tamsulosin [Flomax] 0.4 mg PO DAILY 03/12/17 [History] Lactobacillus [Culturelle] 1 cap PO BID 03/29/17 [History] Vancomycin Oral Soln [Vancocin] 125 mg PO DAILY #7 udc 04/04/17 [Rx] predniSONE [PredniSONE] 60 mg PO DAILY #5 tablet 04/04/17 [Rx] Bumetanide [Bumex] 1 mg PO BID 04/09/17 [History] Carvedilol [Coreg] 6.25 mg PO BID 04/09/17 [History] Rosuvastatin [Crestor] 40 mg PO HS 04/09/17 [History] 3 Allergy/AdvReac Type Severity Reaction Status Date / Time Penicillins Allergy Redness of Verified 04/09/17 03:20 Skin All Systems Review: A 10-system review of systems was performed and is negative for pertinent findings except as documented above in the HPI. - Constitutional Constitutional: weight gain - Cardiovascular Cardiovascular: as per HPI, dyspnea at rest, dyspnea on exertion Physical Examination Vital Signs, Last 4 Hours Temp Pulse Resp BP Pulse Ox 04/10/17 11:54 18 97 04/10/17 11:26 97.8 F 67 20 120/56 98 General: Conversant, No Apparent Distress HEENT: Atraumatic, Normocephaly, Mucus Membranes Moist Neck: No JVD, Normal carotid pulses Cardiac: Reg Rate and Rhythm, Normal S1 and S2, No Murmur Lungs: Normal Breath Sounds, No Wheeze, Rales, Rhonchi Neuro: Alert and responsive, No focal deficits noted Abdomen: Soft, Non-Tender Skin: No rashes noted on visualized skin Musculoskeletal: No Chest Wall Tenderness Extremities: No Clubbing, No Cyanosis, Normal Pulses, Other (Mild bilateral pedal edema noted. ) Results 04/10/17 05:23 04/10/17 05:23 Lab Results Active Medications Albuterol Sulfate (Proventil Neb) 2.5 mg IH Q2H PRN; Protocol PRN Reason: Shortness Of Breath/Wheezing Stop: 10/10/17 08:46 Last Admin: 04/10/17 11:53 Dose: 2.5 mg Aspirin (Aspirin Ec) 81 mg PO DAILY DIANE Stop: 10/09/17 09:01 Last Admin: 04/10/17 10:41 Dose: 81 mg Budesonide/Formoterol Fumarate (Symbicort) 2 puff IH BIDR DIANE PRN Reason: Protocol Stop: 10/10/17 10:01 Last Admin: 04/10/17 11:54 Dose: 2 puff Bumetanide (Bumex) 1 mg IVP BIDDIURETIC DIANE Stop: 10/09/17 09:01 Last Admin: 04/10/17 10:40 Dose: 1 mg Carvedilol (Coreg) 6.25 mg PO BIDWM DIANE PRN Reason: Protocol Stop: 10/10/17 08:47 Last Admin: 04/10/17 10:41 Dose: 6.25 mg Clopidogrel Bisulfate (Plavix) 75 mg PO DAILY [facility] Stop: 10/09/17 09:01 Last Admin: 04/10/17 10:43 Dose: 75 mg Folic Acid (Folic Acid) 1 mg PO DAILY DIANE Stop: 10/10/17 09:01 Last Admin: 04/10/17 10:41 Dose: 1 mg Levofloxacin/Dextrose (Levaquin Premix 750mg/150 Ml) 750 mg in 150 mls @ 100 mls/hr IVPB DAILY DIANE PRN Reason: Protocol Stop: 10/09/17 09:01 Last Infusion: 04/10/17 12:30 Dose: Infused Isosorbide Mononitrate (Imdur) 120 mg PO DAILY [facility] Stop: 10/10/17 09:01 Last Admin: 04/10/17 10:42 Dose: 120 mg Lactobacillus Acidophilus/Rhamnosus (Culturelle) 1 each PO BID DIANE Stop: 10/09/17 21:01 Last Admin: 04/10/17 10:41 Dose: 1 each Lorazepam (Ativan) 0.5 mg PO TID PRN PRN Reason: Anxiety Stop: 10/10/17 11:19 Last Admin: 04/10/17 11:44 Dose: 0.5 mg Nitroglycerin (Nitroglycerin) 0.4 mg SL AD PRN PRN Reason: Chest Pain Stop: 10/09/17 20:52 Potassium Chloride (Potassium Chloride) 10 meq PO BID DIANE Stop: 10/09/17 21:01 Last Admin: 04/10/17 10:43 Dose: 10 meq Ranolazine (Ranexa) 1,000 mg PO BID [facility] Stop: 10/09/17 21:01 Last Admin: 04/10/17 10:43 Dose: 1,000 mg Rosuvastatin Calcium (Crestor) 40 mg PO HS [facility] Stop: 10/09/17 21:01 Last Admin: 04/09/17 21:24 Dose: 40 mg Tamsulosin HCl (Flomax) 0.4 mg PO DAILY DIANE PRN Reason: Protocol Stop: 10/10/17 09:01 Last Admin: 04/10/17 10:42 Dose: 0.4 mg Trazodone HCl (Trazodone) 200 mg PO HS [facility] Stop: 10/09/17 21:01 Last Admin: 04/09/17 22:50 Dose: 200 mg Vancomycin HCl (Vancocin) 125 mg PO DAILY [facility] Stop: 04/16/17 09:01 Last Admin: 04/10/17 10:45 Dose: 125 mg Laboratory Tests 04/02/17 04/03/17 04/04/17 06:13 03:10 09:00 Hgb Creatinine 1.53 H 1.28 H 1.32 H Troponin I B-Natriuretic Peptide 04/09/17 04/09/17 04/09/17 03:36 03:36 03:36 Hgb Creatinine 1.28 H Troponin I 0.02 B-Natriuretic Peptide 1877 H 04/10/17 04/10/17 05:23 05:23 Hgb 10.4 L Creatinine 1.20 Troponin I B-Natriuretic Peptide - Imaging and Cardiology Chest Xray: report reviewed Echo: pending, report reviewed - EKG Interpretation EKG results cardiology: personally reviewed (ECG with SR, HR 84. Baseline artifact noted.), other (Telemetry reviewed with average HR previous 12 hours noted to be 64, sinus rhythm.) Consult Discharge Plan - Plan Referrals: Hu Yeboah MD [Primary Care Provider] - (please call upon discharge)
--- NOTE | 2017-04-10 18:58 | Event Note ---
Date of Encounter: 04/10/17 Time of Encounter: 18:55 Unable to insert attestation to nurse practitioners consultation due to technical issues. Please consider this and attestation to that report. I have personally performed a face to face evaluation on this patient. I have reviewed and agree with the care plan. History and Exam by me shows: Patient independently seen and examined. Significant history of CAD, cardiomyopathy. Unfortunate, he is having recurrent hospitalizations over the past several months. Per reports, he has been told that nothing further can be done from an invasive standpoint. He has done a good job with sodium and fluid restrictions at home. Despite his efforts, recurrent admissions for heart failure have been occurring. Agree with IV diuresis. Recommend Zaroxolyn 2.5 mg Friday, Friday, Friday 30 minutes before a.m. loop diuretic. Recommend change MAMI inhibitor to Entresto. Continue aspirin/Plavix/carvedilol/statin/Ranexa/Imdur therapy. Please call with any questions or concerns, Bart Schofield DO, FACC
[2017-04-10] MEDS: traZODone 50 MG TABLET PO SCH (23:10)
[2017-04-11] MEDS: Budesonide/Formoterol 160/4.5 MDI IH SCH ×2 (08:14→20:09)
[2017-04-11] MEDS: Albuterol 2.5 MG/3 ML NEBULIZER IH PRN ×2 (08:17→11:27)
[2017-04-11] MEDS: Lactobacillus 1 EACH CAP.SPRINK PO SCH ×2 (09:09→21:13)
[2017-04-11] MEDS: Folic Acid 1 MG TABLET PO SCH (09:09)
[2017-04-11] MEDS: Ranolazine 500 MG TAB.ER.12H PO SCH ×2 (09:10→21:13)
[2017-04-11] MEDS: Isosorbide MONOnitrate (24 HR) 60 MG TAB.ER.24H PO SCH (09:10)
[2017-04-11] MEDS: Aspirin Enteric Coated 81 MG Tablet PO SCH (09:10)
[2017-04-11] MEDS: Vancomycin Oral Soln 250 MG/5 ML UDC PO SCH (09:11)
[2017-04-11] MEDS: Bumetanide 1 MG/4 ML VIAL IVP SCH ×2 (09:11→17:49)
[2017-04-11] MEDS: Levofloxacin 750 MG/150 ML 750 MG/150 ML BAG IVPB SCH (09:11)
[2017-04-11] MEDS: *HR* LORazepam 0.5 MG TABLET PO PRN ×2 (09:25→17:49)
--- NOTE | 2017-04-11 10:13 | Cardiology Progress Note ---
Date of Encounter: 04/11/17 Time of Encounter: 09:30 Assessment and Plan (1) Acute on chronic systolic (congestive) heart failure Current Visit: No Status: Acute Per cardiology: -Admitted with worsening shortness of breath. -BNP 1877 on admission. -Chest xray with pulmonary edema. -Mild pedal edema noted. -weight [facility] 70.2kg. Erroneous weight recorded today. -Weight 01/2017 [facility] 67.6kg. -Reports compliance with sodium and fluid restriction. Reports compliance with daily weights. -States has been on lasix previously and most recently on bumex. -Currently on bumex 1mg IV BID. -Net negative 2716ml. -Reports symptoms have improved today. -Strict i/os, fluid restriction, daily weights. -Recommend conitnuing IV diuresis until euvolemic. -Recommend starting entresto tomorrow. No ezequiel/arb with entresto. -Recommend patient be discharged with zaroxolyn 2.5mg on Friday, Friday, Friday, to be taken 30 minutes prior to morning bumex dose at home. -Recommend repeat BMP in one week after discharge. -Will charlton check entresto with cardiology office. -Cardiology will sign off and will follow in outpatient setting. Follow up set. (2) Coronary artery disease Current Visit: Yes Status: Chronic Per cardiology: -Known CAD s/p CABG and PCI. -Previously followed at [facility]. -11/2015 TTE with LVEF 40%, global hypokinesis with regional variations, -Current echo pending. -On asa, statin, beta abhi, plavix, imdur, and ranexa. -Will continue to monitor in outpatient setting. Qualifiers: Coronary Disease-Associated Artery/Lesion type: bypass graft [place] vs. transplanted heart: [place] heart Associated angina: with stable angina Qualified Code(s): I25.708 - Atherosclerosis of coronary artery bypass graft(s) , unspecified, with other forms of angina pectoris (3) History of implantable cardioverter-defibrillator (ICD) placement Current Visit: Yes Status: Chronic Per cardiology: -Has ICD for ischemic cardiomyopathy. -Will continue to monitor in outpatient setting. Discussion w patient/family: The assessment and plan as outlined above was discussed with the patient who expressed understanding and agreement. All questions were answered. Thank you for involving us in the care of your patient. Please call with any questions. Discussed and reviewed with . Subjective Principal diagnosis: CHF Interval history: Patient states he feels much better today. Patient reports breathing has much improved. Objective Vital Signs, Last 4 Hours Temp Pulse Resp BP Pulse Ox 04/11/17 09:49 98.8 F 81 17 133/78 100 04/11/17 08:19 18 95 04/11/17 08:07 99.0 F 65 18 134/61 96 General: Conversant, No Apparent Distress HEENT: Atraumatic, Normocephaly, Mucus Membranes Moist Neck: No JVD, Normal carotid pulses Cardiac: Reg Rate and Rhythm, Normal S1 and S2, No Murmur Lungs: Normal Breath Sounds, No Wheeze, Rales, Rhonchi Neuro: Alert and responsive, No focal deficits noted Abdomen: Soft, Non-Tender Skin: No rashes noted on visualized skin Musculoskeletal: No Chest Wall Tenderness Extremities: No Clubbing, No Cyanosis, Normal Pulses, Other (Mild bilateral pedal edema noted, non-pitting. ) Results 04/10/17 05:23 04/10/17 05:23 Impressions Echocardiogram 04/10/17 10:19 Impressions: LVEF 35-40%. Global and regional moderate LV systolic dysfunction. Moderate left ventricular diastolic dysfunction. Moderate aortic regurgitation. Mild-moderate mitral regurgitation. Mild tricuspid regurgitation. Normal RV size with low normal function. Mild pulmonary hypertension. Left Ventricular Wall Motion: Rest Echo Findings The apex, apical inferior, mid inferior, basal inferior, apical anterior, mid anterior, basal anterior, apical septal, mid inferior septal, basal inferior septal, apical lateral, mid anterior lateral, basal anterior lateral, mid anterior septal, mid inferior lateral, basal anterior septal and basal inferior lateral andino were hypokinetic. Findings: Study Quality * Technically adequate exam. ECG Findings * Normal sinus rhythm. Left Ventricle * Moderate left ventricular diastolic dysfunction. * LVEF 35-40%. * Normal LV size. Left Atrium * Severely dilated left atrium by volume. Right Atrium * Normal right atrial size. Aortic Valve * Trileaflet aortic valve. * No aortic stenosis. * Moderate aortic regurgitation. Mitral Valve * Normal mitral valve structure. * No mitral stenosis. * Mild-moderate mitral regurgitation. Tricuspid Valve * Normal tricuspid valve structure. * Mild tricuspid regurgitation. * Estimated RA pressure is 3 mmHg. * Estimated RVSP is 39 mmHg. * Mild pulmonary hypertension. Pulmonic Valve * Pulmonic valve is not well visualized. * No pulmonic stenosis. * Trace pulmonic regurgitation. Pulmonary Artery * Pulmonary artery not well visualized. Aorta * Normally sized aortic root. Pericardium * There is no pericardial effusion present. Device lead * A device lead was visualized in the right atrium and right ventricle. Right Ventricle * Normal RV size with low normal function. Interatrial Septum * No evidence of PFO by color Doppler. IVC * Normal IVC dimensions and inspiratory collapse. Active Medications Albuterol Sulfate (Proventil Neb) 2.5 mg IH Q2H PRN; Protocol PRN Reason: Shortness Of Breath/Wheezing Stop: 10/10/17 08:46 Last Admin: 04/11/17 08:17 Dose: 2.5 mg Aspirin (Aspirin Ec) 81 mg PO DAILY [facility] Stop: 10/09/17 09:01 Last Admin: 04/11/17 09:10 Dose: 81 mg Budesonide/Formoterol Fumarate (Symbicort) 2 puff IH BIDR [facility] PRN Reason: Protocol Stop: 10/10/17 10:01 Last Admin: 04/11/17 08:14 Dose: 2 puff Bumetanide (Bumex) 1 mg IVP BIDDIURETIC [facility] Stop: 10/09/17 09:01 Last Admin: 04/11/17 09:11 Dose: 1 mg Carvedilol (Coreg) 6.25 mg PO BIDWM DIANE PRN Reason: Protocol Stop: 10/10/17 08:47 Last Admin: 04/11/17 09:10 Dose: 6.25 mg Clopidogrel Bisulfate (Plavix) 75 mg PO DAILY [facility] Stop: 10/09/17 09:01 Last Admin: 04/11/17 09:10 Dose: 75 mg Folic Acid (Folic Acid) 1 mg PO DAILY [facility] Stop: 10/10/17 09:01 Last Admin: 04/11/17 09:09 Dose: 1 mg Levofloxacin/Dextrose (Levaquin Premix 750mg/150 Ml) 750 mg in 150 mls @ 100 mls/hr IVPB DAILY [facility] PRN Reason: Protocol Stop: 10/09/17 09:01 Last Admin: 04/11/17 09:11 Dose: 100 mls/hr Isosorbide Mononitrate (Imdur) 120 mg PO DAILY [facility] Stop: 10/10/17 09:01 Last Admin: 04/11/17 09:10 Dose: 120 mg Lactobacillus Acidophilus/Rhamnosus (Culturelle) 1 each PO BID [facility] Stop: 10/09/17 21:01 Last Admin: 04/11/17 09:09 Dose: 1 each Lorazepam (Ativan) 0.5 mg PO TID PRN PRN Reason: Anxiety Stop: 10/10/17 11:19 Last Admin: 04/11/17 09:25 Dose: 0.5 mg Nitroglycerin (Nitroglycerin) 0.4 mg SL AD PRN PRN Reason: Chest Pain Stop: 10/09/17 20:52 Potassium Chloride (Potassium Chloride) 10 meq PO BID [facility] Stop: 10/09/17 21:01 Last Admin: 04/11/17 09:10 Dose: 10 meq Ranolazine (Ranexa) 1,000 mg PO BID [facility] Stop: 10/09/17 21:01 Last Admin: 04/11/17 09:10 Dose: 1,000 mg Rosuvastatin Calcium (Crestor) 40 mg PO HS [facility] Stop: 10/09/17 21:01 Last Admin: 04/10/17 20:29 Dose: Not Given Tamsulosin HCl (Flomax) 0.4 mg PO DAILY [facility] PRN Reason: Protocol Stop: 10/10/17 09:01 Last Admin: 04/11/17 09:10 Dose: 0.4 mg Trazodone HCl (Trazodone) 200 mg PO 2300 [facility] Stop: 10/09/17 21:01 Last Admin: 04/10/17 23:10 Dose: 200 mg Vancomycin HCl (Vancocin) 125 mg PO DAILY [facility] Stop: 04/16/17 09:01 Last Admin: 04/11/17 09:11 Dose: 125 mg Laboratory Tests 04/10/17 04/10/17 05:23 05:23 Hgb 10.4 L Creatinine 1.20 - Imaging and Cardiology Chest Xray: report reviewed Echo: report reviewed - EKG Interpretation EKG results cardiology: other (Telemetry reviewed with average HR previous 12 hours noted to be 63, sinus rhythm. PVCs and PACs noted.) - VTE Documentation of Mechanical Device: Intermittent pneumatic compression device Consult Discharge Plan - Plan Referrals: Hu Yeboah MD [Primary Care Provider] - (please call upon discharge)
--- NOTE | 2017-04-11 15:43 | Event Note ---
Date of Encounter: 04/11/17 Time of Encounter: 15:42 - Cardiology Event Note [place] check for entresto noted to be $238.50/month. Per [facility] pharmacy, patient would be eligible for free 30 day trial. Also, cardiology office has paperwork available for patient to fill out for assistance with entresto. Patient updated.
[2017-04-11] MEDS: Ipratropium/Albuterol Neb 3 ML IH SCH ×3 (16:26→23:57)
--- NOTE | 2017-04-11 18:22 | Internal Med Progress Note ---
Date of Encounter: 04/11/17 Time of Encounter: 06:30 - Assessment and plan (1) Acute exacerbation of CHF (congestive heart failure) Current Visit: Yes Status: Acute Qualifiers: Congestive heart failure type: combined Qualified Code(s): I50.43 - Acute on chronic combined systolic (congestive) and diastolic (congestive) heart failure (2) Acute respiratory failure with hypoxia Current Visit: No Status: Acute (3) History of implantable cardioverter-defibrillator (ICD) placement Current Visit: Yes Status: Chronic (4) Coronary artery disease Current Visit: Yes Status: Chronic Qualifiers: Coronary Disease-Associated Artery/Lesion type: bypass graft [place] vs. transplanted heart: [place] heart Associated angina: with stable angina Qualified Code(s): I25.708 - Atherosclerosis of coronary artery bypass graft(s) , unspecified, with other forms of angina pectoris - Time Spent With Patient Nocturnal pulse oximetry to monitor for oxygen titration tonight, continue current diuretics. I appreciate cardiology input for arranging medication approval for CHF. Possible discharge tomorrow morning, we will discuss with cardiology team, check CBC BMP next morning less than 15 minutes - Subjective Interval history: Patient denies any cough, shortness of breath is better, patient denies any chest pain, complaining of lower extremity edema - Constitutional Vitals: Temp Pulse Resp BP Pulse Ox 97.6 F 64 18 132/68 95 04/11/17 16:17 04/11/17 16:17 04/11/17 16:27 04/11/17 16:17 04/11/17 16:27 General appearance: Present: cachectic, answers questions appropriately - Head Head exam: Present: atraumatic, normocephalic - Neck Neck exam general surgery: Present: supple, trachea midline. Absent: lymphadenopathy - Respiratory Respiratory exam: Present: decreased breath sounds, prolonged expiratory phase, rales (Bilateral lung base). Absent: accessory muscle use, rhonchi, wheezes - Cardiovascular Cardiovascular exam: Present: diastolic murmur, +S1, +S2. Absent: gallop, rubs , systolic murmur - GI/Abdominal GI/Abdominal exam: Present: normal bowel sounds, soft, no peritoneal signs. Absent: distended, tenderness - Extremities Exam Extremities exam: Present: pedal edema (+1-2 bilateral), warm, radial pulses palpable and symmetrical. Absent: calf tenderness, cyanotic - Neurological Exam Neurological exam: Present: CN II-XII intact, oriented X3, no focal deficits. Absent: pronater drift, facial droop, speech deficit Internal Medicine: Result - Labs CBC & Chem 7: 04/10/17 05:23 04/10/17 05:23 - ABG Interpretation ABG results: ABG ABG pH 7.48 pH Units (7.32-7.45) H 04/09/17 04:01 ABG pCO2 36 mmHg (35-45) 04/09/17 04:01 ABG pO2 119 mmHg (85-104) H 04/09/17 04:01 ABG O2 Saturation 99 % (95-98) H 04/09/17 04:01 - VTE Documentation of Mechanical Device: Graduated compression elastic hosiery Consult Discharge Plan - Plan Referrals: Hu Yeboah MD [Primary Care Provider] - (please call upon discharge)
[2017-04-11] MEDS: Thiamine (B-1) 100 MG TABLET PO SCH (21:13)
[2017-04-11] MEDS: traZODone 50 MG TABLET PO SCH (23:26)
[2017-04-12] MEDS: Ipratropium/Albuterol Neb 3 ML IH SCH ×3 (04:05→11:41)
[2017-04-12 04:37] LABS: Eosinophils # 0.2 K/mcL (0.0-0.6); Eosinophils % 3.5 %; Hematocrit 29.5 % (37.5-50.1); Hemoglobin 9.5 g/dL (12.9-16.9); Immature Granulocytes % 0.3 % (0-4); Lymphocytes # 1.2 K/mcL (0.6-4.6); Lymphocytes % 19.6 %; Mean Corpuscular HGB Conc 32.2 g/dL (31.6-35.5); Mean Corpuscular Hemoglobin 29.6 pg (28.0-33.3); Mean Corpuscular Volume 91.9 fL (83.0-100.0); Mean Platelet Volume 10.2 fL (9.4-12.4); Monocytes # 0.5 K/mcL (0.0-1.3); Neutrophils # 4.1 K/mcL (1.6-8.9); Platelet Count 194 K/mcL (140-400); Red Blood Count 3.21 M/mcL (4.19-5.50); Red Cell Distribution Width 14.4 % (11.5-14.5); Segmented Neutrophils % 67.6 %
[2017-04-12 04:48] LABS: Albumin 2.6 g/dL (3.5-5.0); BUN/Creatinine Ratio 18 (6-26); Blood Urea Nitrogen 25 mg/dL (8-26); Calcium 8.7 mg/dL (8.6-10.8); Carbon Dioxide 27 mEq/L (19-29); Chloride 103 mEq/L (98-109); Glucose 107 mg/dL (70-99); Osmolality,Calculated 289 (280-300); Phosphorous 3.6 mg/dL (2.3-4.7); Sodium 137 mEq/L (136-145); eGFR For African Americans > 60 (> 60); eGFR For Non-African Americans 51 (> 60)
[2017-04-12] MEDS: Thiamine (B-1) 100 MG TABLET PO SCH (08:10)
[2017-04-12] MEDS: Lactobacillus 1 EACH CAP.SPRINK PO SCH (08:10)
[2017-04-12] MEDS: Aspirin Enteric Coated 81 MG Tablet PO SCH (08:10)
[2017-04-12] MEDS: Isosorbide MONOnitrate (24 HR) 60 MG TAB.ER.24H PO SCH (08:10)
[2017-04-12] MEDS: Levofloxacin 750 MG/150 ML 750 MG/150 ML BAG IVPB SCH (08:11)
[2017-04-12] MEDS: Bumetanide 1 MG/4 ML VIAL IVP SCH (08:11)
[2017-04-12] MEDS: Ranolazine 500 MG TAB.ER.12H PO SCH (08:11)
[2017-04-12] MEDS: Folic Acid 1 MG TABLET PO SCH (08:11)
[2017-04-12] MEDS: Vancomycin Oral Soln 250 MG/5 ML UDC PO SCH (08:22)
[2017-04-12] MEDS: Budesonide/Formoterol 160/4.5 MDI IH SCH (08:57)
--- NOTE | 2017-04-12 09:59 | Discharge Summary ---
Date of Encounter: 04/12/17 Time of Encounter: 09:42 - Discharge Diagnosis (1) Acute exacerbation of CHF (congestive heart failure) Priority: Primary Status: Acute Qualifiers: Congestive heart failure type: combined Qualified Code(s): I50.43 - Acute on chronic combined systolic (congestive) and diastolic (congestive) heart failure (2) Acute respiratory failure with hypoxia Priority: Secondary Status: Acute (3) History of implantable cardioverter-defibrillator (ICD) placement Priority: Secondary Status: Chronic (4) Coronary artery disease Priority: Secondary Status: Chronic Qualifiers: Coronary Disease-Associated Artery/Lesion type: bypass graft [place] vs. transplanted heart: [place] heart Associated angina: with stable angina Qualified Code(s): I25.708 - Atherosclerosis of coronary artery bypass graft(s) , unspecified, with other forms of angina pectoris - Discharge Medications Prescriptions: Ipratropium/Albuterol Neb [Duoneb] 3 ml IH Q6HR #360 inhsol Budesonide/Formoterol 160/4.5 [Symbicort 160/4.5] 2 puff IH BIDR #1 inhaler metOLazone [Zaroxolyn] 2.5 mg PO MOWEFR #20 tablet predniSONE [PredniSONE] See Taper PO DAILY #13 tablet Sacubitril/Valsartan 24/26 mg [Entresto 24 mg-26 mg Tablet] 1 each PO BID #92 tablet Thiamine (B-1) [Vitamin B-1] 200 mg PO BID #180 tablet Home Medications: Apixaban [Eliquis] 5 mg PO BID 11/21/16 [History] Ascorbic Acid [Vitamin C] 1,000 mg PO DAILY 11/21/16 [History] Budesonide/Formoterol 160/4.5 [Symbicort 160/4.5] 2 puff IH BIDR 11/21/16 [ History] Cholecalciferol (D-3) [Vitamin D] 3,000 unit PO DAILY 11/21/16 [History] Clopidogrel [Plavix] 75 mg PO DAILY 11/21/16 [History] Fish Oil/Dha/Epa [Fish Oil 1,200 mg Fish Oil] 1,200 mg PO DAILY 11/21/16 [ History] Folic Acid 0.8 mg PO DAILY 11/21/16 [History] Isosorbide MONOnitrate (24 HR) [Imdur] 120 mg PO DAILY 11/21/16 [History] Multivitamin [One Daily Multivitamin] 1 tab PO DAILY 11/21/16 [History] Nitroglycerin [Nitrostat] 0.4 mg SL AD PRN 11/21/16 [History] Oxygen 2 l NS AD 11/21/16 [History] Ranolazine [Ranexa] 1,000 mg PO BID 11/21/16 [History] Trazodone HCl 200 mg PO HS 11/21/16 [History] Vitamin B Complex [B Complex] 1 tab PO DAILY 11/21/16 [History] Aspirin [Lo-Dose Aspirin EC] 81 mg PO DAILY 02/10/17 [History] Saccharomyces Boulardii [Florastor] 250 mg PO BID 02/10/17 [History] Potassium Chloride [Klor-Con 10] 10 meq PO BID 02/11/17 [History] Tamsulosin [Flomax] 0.4 mg PO DAILY 03/12/17 [History] Lactobacillus [Culturelle] 1 cap PO BID 03/29/17 [History] Bumetanide [Bumex] 1 mg PO BID 04/09/17 [History] Carvedilol [Coreg] 6.25 mg PO BID 04/09/17 [History] Rosuvastatin [Crestor] 40 mg PO HS 04/09/17 [History] ALPRAZolam [Xanax 0.5 MG Tablet] 0.25 mg PO TID PRN #0 04/12/17 [Rx] Budesonide/Formoterol 160/4.5 [Symbicort 160/4.5] 2 puff IH BIDR #1 inhaler 09/23 [Rx] Ipratropium/Albuterol Neb [Duoneb] 3 ml IH Q6HR #360 inhsol 04/12/17 [Rx] Sacubitril/Valsartan 24/26 mg [Entresto 24 mg-26 mg Tablet] 1 each PO BID #92 tablet 04/12/17 [Rx] Thiamine (B-1) [Vitamin B-1] 200 mg PO BID #180 tablet 04/12/17 [Rx] metOLazone [Zaroxolyn] 2.5 mg PO MOWEFR #20 tablet 04/12/17 [Rx] predniSONE [PredniSONE] See Taper PO DAILY #13 tablet 04/12/17 [Rx] Allergies/Adverse Reactions: 3 Allergy/AdvReac Type Severity Reaction Status Date / Time Penicillins Allergy Redness of Verified 04/09/17 03:20 Skin Procedures/tests Complete & Pending: Procedures Performed prior 72 hours Category Date Time Status EV echocardiogram Routine Y 04/10/17 10:19 Completed Date of admission: 04/09/17 08:07 Primary care physician: Hu Yeboah MD Consults: 04/10/17 10:20 Consult to Cardiology [CONS] Routine Comment: Consulting Provider: [facility] Reason for Consult: Multiple readmissions for acute CHF, patient requesting Cardiology input, follows with Call Completed: Yes Discharging clinician: Catalina Benz Anticipated date of discharge: 04/12/17 - Patient Status Disposition: Home Health Service Condition: Good Functional capacity at discharge: independent ambulation Overall status at discharge: patient is progressing back to baseline - Discharge Instructions Instructions: Heart Failure (DC), Acute Respiratory Distress Syndrome (DC) Follow Up With: Hu Yeboah MD [Primary Care Provider] - (please call upon discharge) - Diet and Activity Activity: as per physical therapy, resume usual activities as tolerated Diet: low fat, low cholesterol, low salt diet Hospital course: Mr. Bernardo is a 72 year old male with past medical history of CAD s/p CABG and PCI, ischemic cardiomyopathy and COPD Patient presented to emergency room with worsening of shortness of breath. Patient stated that he was admitted multiple times for CHF exacerbation and COPD exacerbation. His BNP was 18 77, patient gained about 4 kg since discharge, patient stated that he is very compliant with daily weight, fluid and sodium restriction. Patient was placed on IV Bumex twice daily . continue to monitor the patient's intake and output during hospitalization , last cardiac echo done on November 2015 left ventricular ejection fraction was 40%, global hypokinesia with regional variation, cardiology was consulted he recommend Zaroxolyn 2.5 mg Friday, Friday, Friday 30 minutes before a.m. loop diuretic. change MAMI inhibitor to Entresto. Continue aspirin/ Plavix/carvedilol/statin/Ranexa/Imdur therapy. We continue aerosol treatment for the patient in addition to home on Lovenox. Patient has history of C. difficile and he was on tapering dose of oral vancomycin , We continue treatment. I had long discussion with patient counseling about exercise counseling about the deep breathing. Counseled about daily weight and monitoring his vital sign. Discussed with respiratory therapy about medication patient about the BiPAP and oxygenation. Discussed with cardiology who agreed with discharge and prescription is ready for his medication in the pharmacy - Time Spent with Patient Total time spent providing and/or coordinating discharge services: Greater than 30 minutes - Constitutional Vitals: Temp Pulse Resp BP Pulse Ox 98.6 F 66 16 120/68 95 04/12/17 06:40 04/12/17 06:40 04/12/17 06:40 04/12/17 06:40 04/12/17 06:40 General appearance: Present: cachectic, answers questions appropriately - Head Head exam: Present: atraumatic, normocephalic - Neck Neck exam general surgery: Present: supple, trachea midline. Absent: lymphadenopathy - Respiratory Respiratory exam: Present: prolonged expiratory phase. Absent: accessory muscle use, rales, rhonchi, wheezes - Cardiovascular Cardiovascular exam: Present: RRR, +S1, +S2. Absent: diastolic murmur, gallop, rubs, systolic murmur - GI/Abdominal GI/Abdominal exam: Present: normal bowel sounds, soft, no peritoneal signs. Absent: distended, tenderness - Extremities Exam Extremities exam: Present: warm, radial pulses palpable and symmetrical. Absent : calf tenderness, cyanotic, pedal edema - Neurological Exam Neurological exam: Present: CN II-XII intact, oriented X3, no focal deficits. Absent: pronater drift, facial droop, speech deficit - Skin Skin exam: Present: dry, intact - VTE Documentation of Mechanical Device: Graduated compression elastic hosiery
[2017-04-12] MEDS: *HR* LORazepam 0.5 MG TABLET PO PRN (10:35)
[2017-04-12 11:17] VITALS: BP 121/55
== END 2017-04-12 13:58 | disposition home health service (06) | DRG 291 ==
LOC: 2ANU 03:19 → EMEROO 03:19 → 2ANU 05:50 → SUATTDRO 08:07
PROVIDERS: ADMIT Internal Medicine; ATTEND Internal Medicine

== ENCOUNTER 2018-01-26 17:59 | Inpatient (IN) ==
[2018-01-26] MEDS ORDERED: 0.9 % Sodium Chloride 250 ML IVC ONE (18:29)
[2018-01-26] MEDS ORDERED: predniSONE 20 MG TABLET PO ONE (18:29)
[2018-01-26] MEDS ORDERED: Ipratropium/Albuterol Neb 3 ML IH ONE (18:29)
--- NOTE | 2018-01-26 18:32 | Emergency Department Note ---
Disposition Clinical Impression: COPD (chronic obstructive pulmonary disease) Qualifiers: COPD type: chronic bronchitis Chronic bronchitis type: mixed simple and mucopurulent Qualified Code(s): J41.8 - Mixed simple and mucopurulent chronic bronchitis Disposition: Still a Patient Referrals: Hu Yeboah MD [Primary Care Provider] - General Adult HPI - General Chief complaint: ED Shortness of Breath/Dyspnea Stated complaint: increased RAMSEY Time Seen by Provider: 01/26/18 18:10 Source: patient - History of Present Illness Pain Scale: 0 - Related Data Home Medications Medication Instructions Recorded Confirmed Apixaban [Eliquis] 5 mg PO BID 11/21/16 04/09/17 Ascorbic Acid [Vitamin C] 1,000 mg PO DAILY 11/21/16 04/09/17 Budesonide/Formoterol 160/4.5 2 puff IH BIDR 11/21/16 04/09/17 [Symbicort 160/4.5] Cholecalciferol (D-3) [Vitamin D] 3,000 unit PO DAILY 11/21/16 04/09/17 Clopidogrel [Plavix] 75 mg PO DAILY 11/21/16 04/09/17 Fish Oil/Dha/Epa [Fish Oil 1,200 1,200 mg PO DAILY 11/21/16 04/09/17 mg Fish Oil] Isosorbide MONOnitrate (24 HR) 120 mg PO DAILY 11/21/16 04/09/17 [Imdur] Multivitamin [One Daily 1 tab PO DAILY 11/21/16 04/09/17 Multivitamin] Nitroglycerin [Nitrostat] 0.4 mg SL AD PRN 11/21/16 04/09/17 Oxygen 2 l NS AD 11/21/16 04/09/17 Ranolazine [Ranexa] 1,000 mg PO BID 11/21/16 04/09/17 Trazodone HCl 200 mg PO HS 11/21/16 04/09/17 Aspirin [Lo-Dose Aspirin EC] 81 mg PO DAILY 02/10/17 04/09/17 Saccharomyces Boulardii [Florastor] 250 mg PO BID 02/10/17 04/09/17 Tamsulosin [Flomax] 0.4 mg PO DAILY 03/12/17 04/09/17 Bumetanide [Bumex] 1 mg PO BID 04/09/17 04/09/17 Previous Rx's Medication Instructions Recorded Ipratropium/Albuterol Neb [Duoneb] 3 ml IH Q6HR #360 inhsol 04/12/17 metOLazone [Zaroxolyn] 2.5 mg PO MOWEFR #20 tablet 04/12/17 Allergies Allergy/AdvReac Type Severity Reaction Status Date / Time Penicillins Allergy Redness of Verified 04/09/17 03:20 Skin Past Medical History - Past Medical History Medical history: Reports: CHF, COPD, coronary artery disease, hyperlipidemia, hypertension, myocardial infarction, peripheral artery disease, valvular heart disease Surgical history: Reports: coronary bypass (CABG), herniorrhaphy, pacemaker/AICD , vascular surgery (Bilateral femoropopliteal bypass surgeries) Psychiatric history: Reports: anxiety - Social History Smoking Status: Former smoker Smokeless Tobacco Status: No Alcohol use: Reports: none Drug use: Reports: none Physical Exam - General General appearance: alert, in no apparent distress Course - Reevaluation(s) Reevaluation #1: ED ATTESTATION NOTE: I examined this patient and my medical decision-making was reviewed with the Resident Physician/NAVY SENIOR OFFICER/PA/Student. I have personally performed a face to face evaluation on this patient & I agree with the documented findings, disposition and treatment plan as described except to the extent set forth below. Patient was seen with the resident Dr. Lacy, please see copy of her note for details of this encounter Briefly: 72-year-old male history of oxygen dependent COPD long-time smoker presents with 2 days of increasing shortness of breath decreased exertional tolerance and increased O2 requirement home. Normally uses 3 L/m but he said he had a troponin up to 5 L/m he still short of breath even after just a few steps. He has some trace pedal edema but no rales has bilateral auditory wheezes and poor air movement. Satting 99% on 5 L per nasal cannula. Patient will get an EKG chest x-ray steroids DuoNeb screening labs with admission anticipated for COPD flare. We will look for I abnormalities we will treat dehydration cautiously and we will disposition pending Time: 18:29 Vital Signs Temperature 98.0 F 01/26/18 18:03 Pulse Rate 65 01/26/18 18:03 Respiratory Rate 22 01/26/18 18:03 Blood Pressure 165/74 08/20/18 18:03 O2 Sat by Pulse Oximetry 99 01/26/18 18:03 Temperature 98.0 F 01/26/18 18:10 Pulse Rate 65 01/26/18 18:10 Respiratory Rate 22 01/26/18 18:10 Blood Pressure 165/74 01/26/18 18:10 O2 Sat by Pulse Oximetry 99 01/26/18 18:10 Oxygen Delivery Oxygen Delivery Nasal Cannula
--- NOTE | 2018-01-26 18:35 | Emergency Department Note ---
Disposition Clinical Impression: Hyponatremia, COPD exacerbation COPD (chronic obstructive pulmonary disease) Qualifiers: COPD type: chronic bronchitis Chronic bronchitis type: mixed simple and mucopurulent Qualified Code(s): J41.8 - Mixed simple and mucopurulent chronic bronchitis Disposition: Admitted As Inpatient Condition: Fair Referrals: Hu Yeboah MD [Primary Care Provider] - Forms: ED Satisfaction Letter Time of Disposition: 20:08 SOB HPI - General Chief Complaint: ED Shortness of Breath/Dyspnea Stated Complaint: increased RAMSEY Time Seen by Provider: 01/26/18 18:10 Source: patient Mode of arrival: private vehicle Limitations: no limitations Nursing Notes Reviewed: Yes Vital Signs Reviewed: Yes - History of Present Illness 72-year-old male presents with shortness of breath. He has a history of oxygen dependent COPD on 3L, emphysema, smoking history, CAD. He states that started feeling SOB yesterday. He was unable to take more than 20 feet without feeling short of breath. he was using his albuterol inhaler and neb without improvement. He has a BIPAP machine at home that he states does not help as well as the hospital ones do. He notes that he has been feeling weak and has not been eating or drinking well. He feels like his legs are weak and like they are disconnected from his body. He feels slightly confused like he can't get his thoughts together. He states that his SOB has been making his anxiety worse. Denies fevers, chills, n/v/d, abd pain. - Related Data Home Medications Medication Instructions Recorded Confirmed Apixaban [Eliquis] 5 mg PO BID 11/21/16 01/26/18 Ascorbic Acid [Vitamin C] 1,000 mg PO DAILY 11/21/16 01/26/18 Budesonide/Formoterol 160/4.5 2 puff IH BIDR 11/21/16 01/26/18 [Symbicort 160/4.5] Cholecalciferol (D-3) [Vitamin D] 3,000 unit PO DAILY 11/21/16 01/26/18 Clopidogrel [Plavix] 75 mg PO DAILY 11/21/16 01/26/18 Fish Oil/Dha/Epa [Fish Oil 1,200 1,200 mg PO DAILY 11/21/16 01/26/18 mg Fish Oil] Isosorbide MONOnitrate (24 HR) 120 mg PO DAILY 11/21/16 01/26/18 [Imdur] Multivitamin [One Daily 1 tab PO DAILY 11/21/16 01/26/18 Multivitamin] Nitroglycerin [Nitrostat] 0.4 mg SL AD PRN 11/21/16 01/26/18 Oxygen 2 l NS AD 11/21/16 01/26/18 Ranolazine [Ranexa] 1,000 mg PO BID 11/21/16 01/26/18 Trazodone HCl 200 mg PO HS 11/21/16 01/26/18 Aspirin [Lo-Dose Aspirin EC] 81 mg PO DAILY 02/10/17 01/26/18 Saccharomyces Boulardii [Florastor] 250 mg PO BID 02/10/17 01/26/18 Tamsulosin [Flomax] 0.4 mg PO DAILY 03/12/17 01/26/18 Bumetanide [Bumex] 1 mg PO BID 04/09/17 01/26/18 Albuterol Sulfate [Proair Hfa] 2 puff IH Q4-6H PRN 01/26/18 01/26/18 Carvedilol 3.125 mg PO BID 01/26/18 01/26/18 LORazepam [Ativan] 1 mg PO DAILY PRN 01/26/18 01/26/18 Potassium Chloride 20 meq PO BID 01/26/18 01/26/18 Previous Rx's Medication Instructions Recorded Ipratropium/Albuterol Neb [Duoneb] 3 ml IH Q6HR #360 inhsol 04/12/17 metOLazone [Zaroxolyn] 2.5 mg PO MOWEFR #20 tablet 04/12/17 Allergies Allergy/AdvReac Type Severity Reaction Status Date / Time Penicillins Allergy Redness of Verified 04/09/17 03:20 Skin Constitutional: Reports: weakness. Denies: fever, chills Eyes: Denies: vision change Cardiovascular: Reports: palpitations, dyspnea on exertion. Denies: chest pain Respiratory: Reports: dyspnea. Denies: wheezes Neurological: Reports: weakness, confusion. Denies: headache Psychiatric: Reports: anxiety Endocrine: Reports: fatigue Past Medical History - Past Medical History Attestation: Yes The following information was validated with the patient. Source: patient Medical history: Reports: CHF, COPD, coronary artery disease, hyperlipidemia, hypertension, myocardial infarction, peripheral artery disease, valvular heart disease Surgical history: Reports: coronary bypass (CABG), herniorrhaphy, pacemaker/AICD , vascular surgery (Bilateral femoropopliteal bypass surgeries) Psychiatric history: Reports: anxiety - Social History Smoking Status: Former smoker Smokeless Tobacco Status: No Alcohol use: Reports: none Drug use: Reports: none Physical Exam - General General appearance: alert, anxious - Head Head exam: atraumatic, normocephalic, normal inspection - Eye Eye exam: Present: normal appearance, PERRL, EOMI - ENT ENT exam: normal exam, normal oropharynx, mucous membranes moist - Neck Neck exam: Present: normal inspection, full ROM, trachea midline. Absent: tenderness, lymphadenopathy - Chest Chest inspection: Present: normal inspection, symmetric chest wall rise, other ( pacemaker present in the left chest) - Respiratory Respiratory exam: Present: normal lung sounds bilaterally, accessory muscle use. Absent: respiratory distress, wheezes, stridor - Expanded Respiratory Exam Location: decreased breath sounds: Left, Right, Upper, Lower - Cardiovascular Cardiovascular exam: Present: regular rate, normal rhythm, normal heart sounds, +S1, +S2. Absent: systolic murmur, diastolic murmur - Abdominal Exam Abdominal exam: Present: soft, Non-Tender. Absent: tenderness, distention, guarding, rebound, rigidity - Extremities Exam Extremities exam: Present: pedal edema (trace) - Back Exam Back exam: Present: normal inspection, full ROM. Absent: tenderness - Neurological Exam Neurological exam: Present: alert, oriented X3, CN II-XII intact. Absent: motor sensory deficit - Expanded Neurological Exam Patient oriented to: Present: person, place, time Speech: Present: fluid speech Cranial nerves: EOM function (II, III, IV, ): Normal, facial sensation (V): Normal, facial palsy (VII): Normal, gag reflex (IX): Normal, spinal accessory function (XI): Normal, tongue deviation (XII): Normal Motor strength - LUE: 5/5 Motor strength - RUE: 5/5 Motor strength - LLE: 5/5 Motor strength - RLE: 5/5 Sensory exam upper extremity: light touch: Normal Sensory exam lower extremity: light touch: Normal Coma Scale Eye Opening: Spontaneous Coma Scale Motor Response: Obeys Commands Coma Scale Verbal Response: Oriented Coma Scale Total: 15 - Psychiatric Psychiatric exam: Present: agitated, anxious - Skin Skin exam: Present: warm, dry, intact, normal color Course Course Narrative: 72-year-old male with a history of oxygen dependent COPD on 3L, emphysema, smoking history, CAD presents with shortness of breath that has been worsening since yesterday. He was unable to take more than 20 feet without feeling short of breath. He was using his albuterol inhaler and neb without improvement. He notes that he has been feeling weak and has not been eating or drinking well. He feels like his legs are weak and like they are disconnected from his body. He feels slightly confused like he can't get his thoughts together. He states that his SOB has been making his anxiety worse. On exam pt is afebrile, but tachypnic and requiring 4L oxygen to maintain oxygen saturation. LCTAB, no wheezes, rhonchi or rales, RRR, trace pedal edema. Pt is alert and oriented with normal neuro exam, but he did have trouble thinking of answers to orientation questions. Pt complaining of terrible anxiety currently will give versed, get labs, CXR, give steroids and duonebs. Since he is requiring more oxygen than his home dose he will likely require admission. - Reevaluation(s) Reevaluation #1: Na 122. Will admit for hyponatremia. Time: 19:14 - Consultations Consultation #1: Discussed the case with the hospitalist service Dr. Pina who has accepted the pt for admission. Time: 19:55 Vital Signs Temperature 98.0 F 01/26/18 18:03 Pulse Rate 65 01/26/18 18:03 Respiratory Rate 22 01/26/18 18:03 Blood Pressure 165/74 01/26/18 18:03 O2 Sat by Pulse Oximetry 99 01/26/18 18:03 Temperature 98.0 F 01/26/18 18:10 Pulse Rate 65 01/26/18 18:10 Respiratory Rate 20 01/26/18 19:17 Blood Pressure 165/74 01/26/18 18:10 O2 Sat by Pulse Oximetry 100 01/26/18 19:17 Oxygen Delivery Oxygen Delivery Nasal Cannula Shortness of Breath/Dyspnea - MDM Narrative Medical decision making narrative: 2-year-old male with a history of oxygen dependent COPD on 3L, emphysema, smoking history, CAD presents with shortness of breath that has been worsening since yesterday. He was unable to take more than 20 feet without feeling short of breath. He was using his albuterol inhaler and neb without improvement. He notes that he has been feeling weak and has not been eating or drinking well. He feels like his legs are weak and like they are disconnected from his body. He feels slightly confused like he can't get his thoughts together. He states that his SOB has been making his anxiety worse. On exam pt is afebrile, but tachypnic and requiring 4L oxygen to maintain oxygen saturation. LCTAB, no wheezes, rhonchi or rales, RRR, trace pedal edema. Pt is alert and oriented with normal neuro exam, but he did have trouble thinking of answers to orientation questions. Pt complaining of terrible anxiety currently will give versed. XR stable from prior, no PNA or pleural effusions. CBC wnl. Pt is hyponatremic at 122. Pt breathing improved with versed, steroids and duonebs. Pt admitted in stable condition for hyponatremia. - Differential Diagnosis Likely: acute exacerbation of chronic obstructive airways disease, congestive heart failure, pneumonia - Medical Records Medical records reviewed: Yes I reviewed the patient's medical records. - Lab Data Lab results reviewed: Yes I reviewed the patient's lab results. Result diagrams: 01/26/18 18:23 01/26/18 18:23 Lab Results 01/26/18 01/26/18 01/26/18 Range/Units 18:23 18:23 18:30 WBC 6.4 (4.3-11.1) K/mcL RBC 4.67 (4.19-5.50) M/mcL Hgb 14.6 (12.9-16.9) g/dL Hct 41.0 (37.5-50.1) % MCV 87.8 (83.0-100.0) fL MCH 31.3 (28.0-33.3) pg MCHC 35.6 H (31.6-35.5) g/dL RDW 13.1 (11.5-14.5) % Plt Count 198 (140-400) K/mcL MPV 8.8 L (9.4-12.4) fL Immature Gran % 0.5 (0-4) % Seg Neutrophils % 67.2 % Lymphocytes % 18.3 % Monocytes % 11.4 % Eosinophils % 2.4 % Basophils % 0.2 % Neutrophils # 4.3 (1.6-8.9) K/mcL Lymphocytes # 1.2 (0.6-4.6) K/mcL Monocytes # 0.7 (0.0-1.3) K/mcL Eosinophils # 0.2 (0.0-0.6) K/mcL Basophils # 0.0 (0.0-0.2) K/mcL Sodium 122 L (136-145) mEq/L Potassium 3.1 L (3.5-5.1) mEq/L Chloride 78 L (98-107) mEq/L Carbon Dioxide 35 H (23-29) mEq/L BUN 14 (8-23) mg/dL Creatinine 1.29 (0.70-1.30) mg/dL Est GFR ( Amer) > 60 (> 60) Est GFR (Non-Af Amer) 55 L (> 60) BUN/Creatinine Ratio 11 (6-26) Glucose 134 H (70-105) mg/dL Calculated Osmolality 256 L (280-300) Calcium 9.6 (8.6-10.3) mg/dL Troponin I < 0.03 (< 0.04) ng/mL B-Natriuretic Peptide 512 H (Less than 100) pg/mL - Radiology Data Radiology results reviewed: Yes I reviewed the patient's radiology results. Chest X-Ray 01/26/18 18:29 IMPRESSION: No acute findings. D/ / Toya Mosqueda MD / Toya Mosqueda MD Interpreting Provider: Toya Mosqueda MD - EKG Data EKG attestation: Yes I reviewed and interpreted this EKG. EKG results narrative: Atrial paced rhythm without ST elevation or depression. VR 66, SC 86, QRS 134, QT 487, QTc 503. Interpretation: Reports: no acute changes
[2018-01-26 18:39] LABS: Basophils % 0.2 %; Eosinophils # 0.2 K/mcL (0.0-0.6); Eosinophils % 2.4 %; Hemoglobin 14.6 g/dL (12.9-16.9); Immature Granulocytes % 0.5 % (0-4); Lymphocytes # 1.2 K/mcL (0.6-4.6); Lymphocytes % 18.3 %; Mean Corpuscular HGB Conc 35.6 g/dL (31.6-35.5); Mean Corpuscular Hemoglobin 31.3 pg (28.0-33.3); Mean Corpuscular Volume 87.8 fL (83.0-100.0); Mean Platelet Volume 8.8 fL (9.4-12.4); Monocytes # 0.7 K/mcL (0.0-1.3); Monocytes % 11.4 %; Neutrophils # 4.3 K/mcL (1.6-8.9); Platelet Count 198 K/mcL (140-400); Red Blood Count 4.67 M/mcL (4.19-5.50); Red Cell Distribution Width 13.1 % (11.5-14.5); Segmented Neutrophils % 67.2 %
[2018-01-26] MEDS ORDERED: *HR* Midazolam HCl 2 MG/2 ML VIAL IVP ONE ×3 (18:45→22:28)
[2018-01-26 19:04] LABS: BUN/Creatinine Ratio 11 (6-26); Blood Urea Nitrogen 14 mg/dL (8-23); Calcium 9.6 mg/dL (8.6-10.3); Carbon Dioxide 35 mEq/L (23-29); Chloride 78 mEq/L (98-107); Glucose 134 mg/dL (70-105); Osmolality,Calculated 256 (280-300); Potassium 3.1 mEq/L (3.5-5.1); Sodium 122 mEq/L (136-145); Troponin I < 0.03 ng/mL (< 0.04); eGFR For Non-African Americans 55 (> 60)
[2018-01-26] MEDS ORDERED: Naloxone 0.4 MG/ML INJ IVP PRN (21:45)
[2018-01-26] MEDS ORDERED: 0.9 % Sodium Chloride w KCl 20 MEQ/1,000 ML MLS IVC SCH (21:45)
[2018-01-26] MEDS ORDERED: Nitroglycerin 0.4 MG TAB.SUBL SL PRN (22:39)
[2018-01-26] MEDS: Ipratropium/Albuterol Neb 3 ML IH SCH (23:17)
[2018-01-26] MEDS: traZODone 50 MG TABLET PO SCH (23:35)
[2018-01-26] MEDS: Apixaban 5 MG TABLET PO SCH (23:35)
[2018-01-26] MEDS: Ranolazine 500 MG TAB.ER.12H PO SCH (23:35)
[2018-01-26] MEDS: Budesonide/Formoterol 160/4.5 1 PUFF INH IH SCH (23:48)
[2018-01-27 00:37] LABS: Hematocrit 38.3 % (37.5-50.1); Hemoglobin 13.9 g/dL (12.9-16.9); Mean Corpuscular HGB Conc 36.3 g/dL (31.6-35.5); Mean Corpuscular Hemoglobin 31.4 pg (28.0-33.3); Mean Corpuscular Volume 86.5 fL (83.0-100.0); Mean Platelet Volume 8.9 fL (9.4-12.4); Platelet Count 185 K/mcL (140-400); Red Blood Count 4.43 M/mcL (4.19-5.50); Red Cell Distribution Width 13.1 % (11.5-14.5)
[2018-01-27 00:58] LABS: Alanine Aminotransferase 10 Units/L (7-52); Albumin/Globulin Ratio 1.6 (1.1-2.2); Alkaline Phosphatase 63 Units/L (34-104); Aspartate Amino Transferase 13 Units/L (13-39); BUN/Creatinine Ratio 11 (6-26); Bilirubin,Total 0.7 mg/dL (0.3-1.0); Blood Urea Nitrogen 13 mg/dL (8-23); Carbon Dioxide 31 mEq/L (23-29); Chloride 83 mEq/L (98-107); Globulin 2.5 g/dL (2.4-3.5); Glucose 211 mg/dL (70-105); Osmolality,Calculated 260 (280-300); Sodium 122 mEq/L (136-145); Total Protein 6.5 g/dL (6.4-8.9); eGFR For Non-African Americans > 60 (> 60)
[2018-01-27] MEDS: Ipratropium/Albuterol Neb 3 ML IH SCH ×5 (03:30→21:37)
[2018-01-27] MEDS: *HR* LORazepam 1 MG TABLET PO PRN ×3 (04:06→22:21)
--- NOTE | 2018-01-27 05:21 | Internal Med History&Physical ---
Date of Encounter: 02/05/18 Time of Encounter: 20:30 Internal Medicine - H&P: HPI Chief complaint: SOB/Anxiety History of present illness: Mr. Bernardo is a 72 year old male with a past medical history of coronary artery disease status post CABG and PCI, ischemic cardiomyopathy with an EF of 40% and COPD who presented to [facility] complaining of anxiety and shortness of breath. Patient states he was in his usual state of health yesterday until around 1 PM when he felt that he "started going downhill". At which time he states he was having difficulty breathing as if he was panting. This was occurring at rest and his usual albuterol inhaler did not help. Patient states that as of late he has been having a lot on his mind and cannot stop thinking. H he states that his home anxiolytics have not been helping and decided to come into the hospital. He currently sees on 2 pillows but denies any paroxysmal nocturnal dyspnea. No new edema. He states that his weight has been pretty much the same and is compliant with all his medications. Denies any dietary indiscretions and reports that he is conscious of his salt intake. No reports of cough, fever, chills, nausea, vomiting or abdominal pain. In the ED patient was found to be afebrile but Requiring 4 L of oxygen to maintain oxygen saturation. Patient is normally on 3 L at home. He received several doses of Versed in the ED which seemed to alleviate some of his anxiety and work of breathing. I spoke to the patient he states that once again he has been very anxious and when he becomes this way he tends to feel short of breath. Past Med Surg Social Fam HX - Past Medical History Medical history: CHF, COPD, coronary artery disease, hyperlipidemia, hypertension, myocardial infarction, peripheral artery disease, valvular heart disease Additional medical history: arthritis in the neck Psychiatric history: anxiety - Past Surgical History Surgical History: coronary bypass (CABG), herniorrhaphy, pacemaker/AICD, vascular surgery Additional surgical history: Quadruple bypass in 1990, 11 heart stents-last one June of this year. - Social History Smoking Status: Former smoker Smokeless Tobacco Status: No Alcohol use: none Drug use: none - Family History Father Living Status: Hx Family Cardiac Disorders: Yes (cardiomyopathy) Internal Medicine - H&P: Meds Apixaban [Eliquis] 5 mg PO BID 11/21/16 [History] Ascorbic Acid [Vitamin C] 1,000 mg PO DAILY 11/21/16 [History] Budesonide/Formoterol 160/4.5 [Symbicort 160/4.5] 2 puff IH BIDR 11/21/16 [ History] Cholecalciferol (D-3) [Vitamin D] 3,000 unit PO DAILY 11/21/16 [History] Clopidogrel [Plavix] 75 mg PO DAILY 11/21/16 [History] Fish Oil/Dha/Epa [Fish Oil 1,200 mg Fish Oil] 1,200 mg PO DAILY 11/21/16 [ History] Isosorbide MONOnitrate (24 HR) [Imdur] 120 mg PO DAILY 11/21/16 [History] Multivitamin [One Daily Multivitamin] 1 tab PO DAILY 11/21/16 [History] Nitroglycerin [Nitrostat] 0.4 mg SL AD PRN 11/21/16 [History] Oxygen 2 l NS AD 11/21/16 [History] Ranolazine [Ranexa] 1,000 mg PO BID 11/21/16 [History] Trazodone HCl 200 mg PO HS 11/21/16 [History] Aspirin [Lo-Dose Aspirin EC] 81 mg PO DAILY 02/10/17 [History] Saccharomyces Boulardii [Florastor] 250 mg PO BID 02/10/17 [History] Tamsulosin [Flomax] 0.4 mg PO DAILY 03/12/17 [History] Bumetanide [Bumex] 1 mg PO BID 04/09/17 [History] Ipratropium/Albuterol Neb [Duoneb] 3 ml IH Q6HR #360 inhsol 04/12/17 [Rx] Albuterol Sulfate [Proair Hfa] 2 puff IH Q4-6H PRN 01/26/18 [History] Carvedilol 3.125 mg PO BID 01/26/18 [History] LORazepam [Ativan] 1 mg PO DAILY PRN 01/26/18 [History] Potassium Chloride 30 meq PO BID #60 tab.er.prt 01/29/18 [Rx] 3 Allergy/AdvReac Type Severity Reaction Status Date / Time Penicillins Allergy Redness of Verified 04/09/17 03:20 Skin All Systems PM: A 10-system review of systems was performed and is negative for pertinent findings except as documented above in the HPI. - Constitutional Constitutional: no chills, no fever(s), no night sweats - EENT Eyes: no change in vision, no discharge, no pain, no photophobia Ears: no ear discharge, no ear pain, no tinnitus Nose, mouth and throat: no dysphagia, no nasal discharge, no neck pain, no sore throat - Cardiovascular Cardiovascular ROS IM: no chest pain, no diaphoresis, no dyspnea, no lightheadedness, no palpitations, no syncope - Respiratory Respiratory: no cough, no dyspnea, no wheezing, no excessive phlegm production - Gastrointestinal Gastrointestinal: no abdominal pain, no diarrhea, no hematemesis, no hematochezia, no melena, no nausea, no vomiting - Musculoskeletal Musculoskeletal ROS IM: no numbness, no tingling - Integumentary Integumentary IM: no rash, no unusual bruising - Neurological Neurological ROS: no confusion, no convulsions, no focal weakness, no numbness, no tingling, no tremor(s) - Hematologic/Lymphatic Hematologic/Lymphatic: no easy bruising - Constitutional Vitals: Temp Pulse Resp BP Pulse Ox 98.0 F 72 16 165/72 99 01/27/18 03:33 01/27/18 03:33 01/27/18 03:50 01/27/18 03:33 01/27/18 03:50 General: Alert and oriented 3; appeared to be anxious at times preferring to stand up during the history. Skin:Normal color, no rash, no lesions. HEENT:EOM, pupils equal, round and reactive. Cardiovascular: Normal S1 & S2, no rubs, 3/6 systolic murmur; No gallops. No JVD. Pulse regular. Lungs: Normal breath sounds, no wheezes or crackles. Abdomen:Soft, mildly distended non-tender, no rigidity. Extremities:No deformity, no edema or tenderness, no joint swelling or clubbing. Neurological:Normal cognition and motor skills. Pulses:Carotid and radial pulses normal +2. Rest of the physical exam is non contributory Exam: General: Alert and oriented 3; appeared to be anxious at times preferring to stand up during the history. Skin:Normal color, no rash, no lesions. HEENT:EOM, pupils equal, round and reactive. Cardiovascular: Normal S1 & S2, no rubs, 3/6 systolic murmur; No gallops. No JVD. Pulse regular. Lungs: Normal breath sounds, no wheezes or crackles. Abdomen:Soft, mildly distended non-tender, no rigidity. Extremities:No deformity, no edema or tenderness, no joint swelling or clubbing. Neurological:Normal cognition and motor skills. Pulses:Carotid and radial pulses normal +2. Rest of the physical exam is non contributory Internal Med - H&P Results - Labs CBC & Chem 7: 01/29/18 04:52 01/29/18 04:52 Labs: Short CBC 01/27/18 Range/Units 00:17 WBC 6.7 (4.3-11.1) K/mcL Hgb 13.9 (12.9-16.9) g/dL Hct 38.3 (37.5-50.1) % Plt Count 185 (140-400) K/mcL BMP 01/27/18 01/27/18 00:17 00:17 Sodium 122 L 121 L Potassium 3.0 L Chloride 83 L Carbon Dioxide 31 H BUN 13 Creatinine 1.19 Glucose 211 H Calcium 9.0 Liver Function 01/27/18 Range/Units 00:17 Total Bilirubin 0.7 (0.3-1.0) mg/dL AST 13 (13-39) Units/L ALT 10 (7-52) Units/L Alkaline Phosphatase 63 (34-104) Units/L Albumin 4.0 (3.5-5.7) g/dL - Assessment and plan (1) Shortness of breath Status: Acute Assessment and plan: Shortness of breath likely secondary to anxiety. Unlikely CHF exacerbation as patient's BNP is relatively low compared to previous hospitalizations. Furthermore he has no evidence of any wheezing, or crackles, or lower extremity edema. Possible mild COPD exacerbation. We will continue patient's home inhalers as well as his heart failure medications in addition to breathing treatment. (2) Hyponatremia Status: Acute Assessment and plan: Moderate likely chronic hyponatremia (greater than 48 hours) in the setting of heart failure with reduced ejection fraction on Lasix. Patient currently asymptomatic. Patient did not respond with normal saline and potassium supplementation. Fluids were discontinued upon rechecking sodium. Patient will likely need fluid restriction. Would recommend nephrology consult for further management. Consult ordered but will need to be called in. We will hold diuretics for now. (3) Hypokalemia Status: Acute Assessment and plan: Hypokalemia likely secondary to diuretic use. Patient failed to respond to IV repletion. We will give by mouth potassium replacement and reassess. (4) Heart failure Status: Acute Assessment and plan: Heart failure with reduced ejection fraction with an EF of 40%. Patient does not appear to be in acute exacerbation. We will continue patient's home heart failure medications with the exception of his diuretic. Await nephrology's recommendation on electrolyte management before resuming. Qualifiers: Heart failure type: systolic Heart failure chronicity: chronic Qualified Code(s): I50.22 - Chronic systolic (congestive) heart failure (5) COPD (chronic obstructive pulmonary disease) Status: Chronic Assessment and plan: Low suspicion for exacerbation. No evidence of wheezing on physical exam and patient's breathing improved with treatment of his underlying anxiety. We will give 1 more breathing treatment and continue with home medications. Qualifiers: COPD type: chronic bronchitis Chronic bronchitis type: mixed simple and mucopurulent Qualified Code(s): J41.8 - Mixed simple and mucopurulent chronic bronchitis - Time Spent With Patient Total time spent is greater than 50% in coordination of care (as documented) at patient's floor/unit and/or counseling patient:
[2018-01-27 05:36] LABS: Hematocrit 38.9 % (37.5-50.1); Hemoglobin 14.1 g/dL (12.9-16.9); Immature Granulocytes % 0.4 % (0-4); Lymphocytes # 0.7 K/mcL (0.6-4.6); Lymphocytes % 14.1 %; Mean Corpuscular HGB Conc 36.2 g/dL (31.6-35.5); Mean Corpuscular Hemoglobin 31.7 pg (28.0-33.3); Mean Corpuscular Volume 87.4 fL (83.0-100.0); Mean Platelet Volume 8.7 fL (9.4-12.4); Monocytes # 0.2 K/mcL (0.0-1.3); Monocytes % 4.9 %; Neutrophils # 3.9 K/mcL (1.6-8.9); Platelet Count 165 K/mcL (140-400); Red Blood Count 4.45 M/mcL (4.19-5.50); Red Cell Distribution Width 13.1 % (11.5-14.5); Segmented Neutrophils % 80.6 %
[2018-01-27] MEDS ORDERED: Dextrose Gel 15 GM/37.5 ML TUBE PO PRN ×2 (05:42)
[2018-01-27] MEDS ORDERED: D5% in Water 1,000 ML IVC PRN (05:42)
[2018-01-27] MEDS ORDERED: *HR* Dextrose 50 % in Water (Syg) 50 ML SYRINGE IVP PRN (05:42)
[2018-01-27 05:52] LABS: Alanine Aminotransferase 9 Units/L (7-52); Albumin 3.8 g/dL (3.5-5.7); Albumin/Globulin Ratio 1.6 (1.1-2.2); Alkaline Phosphatase 60 Units/L (34-104); Aspartate Amino Transferase 12 Units/L (13-39); BUN/Creatinine Ratio 12 (6-26); Bilirubin,Total 0.6 mg/dL (0.3-1.0); Blood Urea Nitrogen 14 mg/dL (8-23); Carbon Dioxide 30 mEq/L (23-29); Chloride 87 mEq/L (98-107); Globulin 2.4 g/dL (2.4-3.5); Glucose 201 mg/dL (70-105); Osmolality,Calculated 264 (280-300); Potassium 3.2 mEq/L (3.5-5.1); Sodium 124 mEq/L (136-145); Total Protein 6.2 g/dL (6.4-8.9); eGFR For Non-African Americans > 60 (> 60)
--- NOTE | 2018-01-27 08:57 | Internal Med Progress Note ---
<Bipin Hutson W - Last Filed: 01/27/18 15:05> Hospitalist Progress Note - Encounter Date of Encounter: 01/27/18 Time of Encounter: 08:54 - Subjective Interval History: Patient states he has improved slightly today. However is still having difficulty shortness of breath especially with exertion. Patient admits to being very anxious knows his breathing gets much worse when he is anxious. Currently on lorazepam 3 times a day when necessary which he takes at home. Patient admits that eating makes more short of breath. Patient also admits to diffuse weakness slightly getting better. Patient denies fever, chills, night sweats, nausea, vomiting, diarrhea, cough. Patient does admit to having constipation, a chronic issue for him. Patient hyponatremic 124, hypokalemic at 3.2. - Exam Vitals: Temp Pulse Resp BP Pulse Ox 96.9 F L 66 16 137/67 92 01/27/18 06:54 01/27/18 06:54 01/27/18 03:50 01/27/18 06:54 01/27/18 06:54 Exam: General: Alert and oriented 3; appeared to be anxious Skin:Normal color, no rash, no lesions. HEENT: EOM, pupils equal, round and reactive. Cardiovascular: Normal S1 & S2, no rubs, 3/6 systolic murmur; No gallops. No JVD. Pulse regular. Lungs: Normal breath sounds, no wheezes or crackles. Extremities:No deformity, no edema or tenderness, no joint swelling or clubbing. Neurological:Normal cognition and motor skills. Rest of the physical exam is non contributory - Assessment and Plan (1) Hyponatremia Current Visit: Yes Status: Acute Assessment and Plan: - Hyponatremia in the setting of CHF with a reduced EF of 40% on lasix - Na 124 today - Patient did not respond to normal saline and potassium supplementation - Patient is strict about his sodium intact at home - Was on KCL 20 meq in 0.9% NS currently holding Plan - Nephrology consulted appreciate recs - Currently holding diuretics (3) COPD (chronic obstructive pulmonary disease) Current Visit: Yes Status: Chronic Assessment and Plan: - Known history of COPD - Low suspicion for exacerbation. - No evidence of wheezing on physical exam and patient's breathing improved with treatment of his underlying anxiety. Plan - As above for SOB (4) Congestive heart failure Current Visit: No Status: Chronic Assessment and Plan: - Heart failure with reduced ejection fraction with an EF of 40%. - Patient does not appear to be in acute exacerbation. - We will continue patient's home heart failure medications with the exception of his diuretic. - Await nephrology's recommendation on electrolyte management before resuming. (5) Shortness of breath Current Visit: Yes Status: Acute Assessment and Plan: - Shortness of breath likely secondary to anxiety - On lorazepam at home - Improvement with Lorazepam - History of congestive heart failure and COPD - CHF exacerbation low likelihood due to relatively low BNP from previous hospitalizations. - Possible mild COPD exacerbation Plan - Duonebs q6 HRs likley switch to prn - Albuterol PRN - Continue home meds - Lorazepam TID prn - Prednisone 60 mg PO daily, day 2 (6) Hypokalemia Current Visit: Yes Status: Acute Assessment and Plan: - Hypokalemia likely secondary to diuretic use. - On oral Potassium supplementation at home. - Patient failed to respond to IV repletion. - PO potassium replacement and reassess. - Time Spent with Patient Total time spent is greater than 50% in coordination of care (as documented) at patient's floor/unit and/or counseling patient: Internal Medicine: Result - Labs CBC & Chem 7: 01/27/18 05:20 01/27/18 05:20 Labs: Short CBC 01/27/18 01/27/18 Range/Units 00:17 05:20 WBC 6.7 4.9 (4.3-11.1) K/mcL Hgb 13.9 14.1 (12.9-16.9) g/dL Hct 38.3 38.9 (37.5-50.1) % Plt Count 185 165 (140-400) K/mcL Neutrophils # 3.9 (1.6-8.9) K/mcL BMP 01/27/18 01/27/18 01/27/18 00:17 00:17 05:20 Sodium 122 L 121 L 124 L Potassium 3.0 L 3.2 L Chloride 83 L 87 L Carbon Dioxide 31 H 30 H BUN 13 14 Creatinine 1.19 1.13 Glucose 211 H 201 H Calcium 9.0 9.0 Liver Function 01/27/18 01/27/18 Range/Units 00:17 05:20 Total Bilirubin 0.7 0.6 (0.3-1.0) mg/dL AST 13 12 L (13-39) Units/L ALT 10 9 (7-52) Units/L Alkaline Phosphatase 63 60 (34-104) Units/L Albumin 4.0 3.8 (3.5-5.7) g/dL Consult Discharge Plan - Plan Referrals: Hu Yeboah MD [Primary Care Provider] - <Brannon Garza - Last Filed: 01/28/18 15:04> Hospitalist Progress Note - Encounter Date of Encounter: 01/27/18 - Exam Vitals: Temp Pulse Resp BP Pulse Ox 97.8 F 62 18 128/68 94 01/28/18 11:39 01/28/18 11:39 01/28/18 11:39 01/28/18 11:39 01/28/18 11:39 - Assessment and Plan (1) Hyponatremia Current Visit: Yes Status: Acute (2) Acute respiratory failure with hypoxia Current Visit: No Status: Acute (3) Acute on chronic systolic heart failure Current Visit: Yes Status: Acute (4) COPD (chronic obstructive pulmonary disease) Current Visit: Yes Status: Chronic (5) Hypokalemia Current Visit: Yes Status: Acute - Time Spent with Patient Total time spent is greater than 50% in coordination of care (as documented) at patient's floor/unit and/or counseling patient: 25 - 35 minutes Plan of Care Discussed with: patient Internal Medicine: Result - Labs CBC & Chem 7: 01/28/18 06:33 01/28/18 06:33 Labs: Short CBC 01/28/18 Range/Units 06:33 WBC 6.1 (4.3-11.1) K/mcL Hgb 13.4 (12.9-16.9) g/dL Hct 38.6 (37.5-50.1) % Plt Count 165 (140-400) K/mcL Neutrophils # 4.0 (1.6-8.9) K/mcL BMP 01/28/18 06:33 Sodium 132 L Potassium 3.2 L Chloride 94 L Carbon Dioxide 30 H BUN 17 Creatinine 1.29 Glucose 112 H Calcium 9.4 - Attending Attestation I SAW/EXAMINED AND EVALUATED THE PATIENT WITH THE RESIDENT ON THE DAY OF VISIT. THE CASE WAS DISCUSSED WITH HIM/HER. I AGREE WITH THE FINDINGS/PLAN, DOCUMENTED IN THE RESIDENT'S NOTE. THE DOCUMENT WAS EDITED BY ME TO CORRECT ERRORS AND ADD MISSING DATA. <Bipin Hutson W - Last Filed: 01/27/18 15:05> (3) COPD (chronic obstructive pulmonary disease) Qualifiers: COPD type: chronic bronchitis Chronic bronchitis type: mixed simple and mucopurulent Qualified Code(s): J41.8 - Mixed simple and mucopurulent chronic bronchitis <Brannon Garza M - Last Filed: 01/28/18 15:04> (4) COPD (chronic obstructive pulmonary disease) Qualifiers: COPD type: chronic bronchitis Chronic bronchitis type: mixed simple and mucopurulent Qualified Code(s): J41.8 - Mixed simple and mucopurulent chronic bronchitis
[2018-01-27] MEDS ORDERED: Bumetanide 1 MG TABLET PO SCH ×2 (09:00→09:01)
[2018-01-27] MEDS ORDERED: FLORASTOR PO SCH (09:00)
--- NOTE | 2018-01-27 09:02 | Electrocardiograph Report ---
[employer] Test Date: 2018-01-26 Pat Name: Chadwick Bernardo Department: Room: 2NE21 Gender: M [employer] Operator: : [id number] Requested By: Kimmy Lacy Order Number: [id number] Reading MD: Christiano Santoyo Measurements Intervals [place] Rate: 66 P: 0 VT: 86 QRS: 25 QRSD: 134 T: 69 QT: 487 QTc: 503 Interpretive Statements Atrial-paced complexes Ventricular premature complex Nonspecific intraventricular conduction delay Repol abnrm suggests ischemia, diffuse leads Artifact in lead(s) and baseline wander in Electronically Signed On 01-27-2018 9:00:15 EDT by Christiano Santoyo
[2018-01-27] MEDS: Isosorbide MONOnitrate (24 HR) 60 MG TAB.ER.24H PO SCH (09:15)
[2018-01-27] MEDS: Aspirin Enteric Coated 81 MG Tablet PO SCH (09:15)
[2018-01-27] MEDS: Apixaban 5 MG TABLET PO SCH ×2 (09:15→22:21)
[2018-01-27] MEDS: Ranolazine 500 MG TAB.ER.12H PO SCH ×2 (09:15→22:21)
[2018-01-27] MEDS: Insulin LISPRO 300 UNITS/3 ML VIAL SQ SCH ×2 (09:16→11:53)
[2018-01-27] MEDS ORDERED: Ipratropium/Albuterol Neb 3 ML IH SCH (10:00)
[2018-01-27] MEDS: Budesonide/Formoterol 160/4.5 1 PUFF INH IH SCH ×2 (10:45→21:37)
[2018-01-27] MEDS: Lactobacillus 1 EACH CAP.SPRINK PO SCH (22:22)
[2018-01-27] MEDS: traZODone 50 MG TABLET PO SCH (22:22)
[2018-01-28] MEDS: Ipratropium/Albuterol Neb 3 ML IH SCH ×4 (04:15→22:55)
[2018-01-28 07:02] LABS: Basophils % 0.3 %; Eosinophils # 0.1 K/mcL (0.0-0.6); Eosinophils % 1.3 %; Hematocrit 38.6 % (37.5-50.1); Hemoglobin 13.4 g/dL (12.9-16.9); Immature Granulocytes % 0.2 % (0-4); Lymphocytes # 1.2 K/mcL (0.6-4.6); Lymphocytes % 20.2 %; Mean Corpuscular HGB Conc 34.7 g/dL (31.6-35.5); Mean Corpuscular Hemoglobin 30.8 pg (28.0-33.3); Mean Corpuscular Volume 88.7 fL (83.0-100.0); Mean Platelet Volume 8.9 fL (9.4-12.4); Monocytes # 0.7 K/mcL (0.0-1.3); Monocytes % 11.2 %; Platelet Count 165 K/mcL (140-400); Red Blood Count 4.35 M/mcL (4.19-5.50); Red Cell Distribution Width 13.7 % (11.5-14.5); Segmented Neutrophils % 66.8 %
[2018-01-28 07:24] LABS: BUN/Creatinine Ratio 13 (6-26); Blood Urea Nitrogen 17 mg/dL (8-23); Calcium 9.4 mg/dL (8.6-10.3); Carbon Dioxide 30 mEq/L (23-29); Chloride 94 mEq/L (98-107); Glucose 112 mg/dL (70-105); Magnesium 2.1 mg/dL (1.6-2.6); Osmolality,Calculated 276 (280-300); Potassium 3.2 mEq/L (3.5-5.1); Sodium 132 mEq/L (136-145); eGFR For Non-African Americans 55 (> 60)
--- NOTE | 2018-01-28 09:12 | Internal Med Progress Note ---
<Bipin Hutson W - Last Filed: 01/28/18 11:19> Hospitalist Progress Note - Encounter Date of Encounter: 01/28/18 Time of Encounter: 09:09 - Subjective Interval History: Nila reports he is not doing well today. States he is still having trouble reading. He still complains of weakness in the lower extremities has difficulty walking. Patient states he is still very anxious that the lorazepam to help. Patient denies fevers, chills, night sweats, nausea, vomiting, diarrhea, cough. Sodium level increased today at 132 potassium level did not change 3.2. - Exam Vitals: Temp Pulse Resp BP Pulse Ox 97.9 F 67 18 149/58 94 01/28/18 07:48 01/28/18 07:48 01/28/18 07:48 01/28/18 07:48 01/28/18 07:48 Exam: General: Alert and oriented 3; appeared to be anxious Skin:Normal color, no rash, no lesions. HEENT: EOM, pupils equal, round and reactive. Cardiovascular: Normal S1 & S2, no rubs, 3/6 systolic murmur; No gallops. No JVD. Pulse regular. Lungs: Normal breath sounds, no wheezes or crackles. Extremities:No deformity, no edema or tenderness, no joint swelling or clubbing. MSK: strength 4/5 bl lower extremities Neurological:Normal cognition and motor skills. Psych: anxious - Assessment and Plan (1) Hyponatremia Current Visit: Yes Status: Acute Assessment and Plan: - Hyponatremia in the setting of CHF with a reduced EF of 40% - Na 124 to 132 today - Patient did not respond to normal saline and potassium supplementation - Patient is strict about his sodium intact at home - Was on KCL 20 meq in 0.9% NS currently holding Plan - Nephrology consulted appreciate recs - Currently holding diuretics - Continuing mild fluid restricted diet (2) Acute respiratory failure with hypoxia Current Visit: No Status: Acute Assessment and Plan: - Shortness of breath likely secondary to anxiety - On lorazepam at home - Improvement with Lorazepam - History of congestive heart failure and COPD - CHF exacerbation low likelihood due to relatively low BNP from previous hospitalizations. - Possible mild COPD exacerbation - Diuretics held due to hyponatremia Plan - Duonebs q6 HRs luz switch to prn - Albuterol PRN - Continue home meds - Lorazepam TID prn (3) COPD (chronic obstructive pulmonary disease) Current Visit: Yes Status: Chronic Assessment and Plan: - Known history of COPD - Low suspicion for exacerbation. - No evidence of wheezing on physical exam and patient's breathing improved with treatment of his underlying anxiety. Plan - As above for SOB (4) Congestive heart failure Current Visit: No Status: Chronic Assessment and Plan: - Heart failure with reduced ejection fraction with an EF of 40%. - Patient does not appear to be in acute exacerbation. - We will continue patient's home heart failure medications with the exception of his diuretic. - Await nephrology's recommendation on electrolyte management before resuming. (5) Hypokalemia Current Visit: Yes Status: Acute Assessment and Plan: - Hypokalemia likely secondary to diuretic use. - On oral Potassium supplementation at home. - Patient failed to respond to IV repletion. - PO potassium replacement and reassess. - Time Spent with Patient Total time spent is greater than 50% in coordination of care (as documented) at patient's floor/unit and/or counseling patient: Internal Medicine: Result - Labs CBC & Chem 7: 01/28/18 06:33 01/28/18 06:33 Labs: Short CBC 01/28/18 Range/Units 06:33 WBC 6.1 (4.3-11.1) K/mcL Hgb 13.4 (12.9-16.9) g/dL Hct 38.6 (37.5-50.1) % Plt Count 165 (140-400) K/mcL Neutrophils # 4.0 (1.6-8.9) K/mcL BMP 01/28/18 06:33 Sodium 132 L Potassium 3.2 L Chloride 94 L Carbon Dioxide 30 H BUN 17 Creatinine 1.29 Glucose 112 H Calcium 9.4 Consult Discharge Plan - Plan Referrals: Hu Yeboah MD [Primary Care Provider] - <Brannon Garza - Last Filed: 01/28/18 15:08> Hospitalist Progress Note - Encounter Date of Encounter: 01/28/18 - Exam Vitals: Temp Pulse Resp BP Pulse Ox 97.8 F 62 18 128/68 94 01/28/18 11:39 01/28/18 11:39 01/28/18 11:39 01/28/18 11:39 01/28/18 11:39 - Assessment and Plan (1) Hyponatremia Current Visit: Yes Status: Acute (2) Acute respiratory failure with hypoxia Current Visit: No Status: Acute (3) Acute on chronic systolic heart failure Current Visit: Yes Status: Acute (4) COPD (chronic obstructive pulmonary disease) Current Visit: Yes Status: Chronic (5) Hypokalemia Current Visit: Yes Status: Acute - Time Spent with Patient Total time spent is greater than 50% in coordination of care (as documented) at patient's floor/unit and/or counseling patient: 25 - 35 minutes Plan of Care Discussed with: patient Internal Medicine: Result - Labs CBC & Chem 7: 01/28/18 06:33 01/28/18 06:33 Labs: Short CBC 01/28/18 Range/Units 06:33 WBC 6.1 (4.3-11.1) K/mcL Hgb 13.4 (12.9-16.9) g/dL Hct 38.6 (37.5-50.1) % Plt Count 165 (140-400) K/mcL Neutrophils # 4.0 (1.6-8.9) K/mcL BMP 01/28/18 06:33 Sodium 132 L Potassium 3.2 L Chloride 94 L Carbon Dioxide 30 H BUN 17 Creatinine 1.29 Glucose 112 H Calcium 9.4 - Attending Attestation I SAW/EXAMINED AND EVALUATED THE PATIENT WITH THE RESIDENT ON THE DAY OF VISIT. THE CASE WAS DISCUSSED WITH HIM/HER. I AGREE WITH THE FINDINGS/PLAN, DOCUMENTED IN THE RESIDENT'S NOTE. THE DOCUMENT WAS EDITED BY ME TO CORRECT ERRORS AND ADD MISSING DATA. <Bipin Hutson - Last Filed: 01/28/18 11:19> (3) COPD (chronic obstructive pulmonary disease) Qualifiers: COPD type: chronic bronchitis Chronic bronchitis type: mixed simple and mucopurulent Qualified Code(s): J41.8 - Mixed simple and mucopurulent chronic bronchitis <Brannon Garza - Last Filed: 01/28/18 15:08> (4) COPD (chronic obstructive pulmonary disease) Qualifiers: COPD type: chronic bronchitis Chronic bronchitis type: mixed simple and mucopurulent Qualified Code(s): J41.8 - Mixed simple and mucopurulent chronic bronchitis
[2018-01-28] MEDS: Isosorbide MONOnitrate (24 HR) 60 MG TAB.ER.24H PO SCH (09:26)
[2018-01-28] MEDS: *HR* LORazepam 1 MG TABLET PO PRN ×2 (09:26→22:09)
[2018-01-28] MEDS: Aspirin Enteric Coated 81 MG Tablet PO SCH (09:26)
[2018-01-28] MEDS: Apixaban 5 MG TABLET PO SCH ×2 (09:31→21:15)
[2018-01-28] MEDS: Lactobacillus 1 EACH CAP.SPRINK PO SCH ×2 (09:31→21:15)
[2018-01-28] MEDS: Ranolazine 500 MG TAB.ER.12H PO SCH ×2 (09:31→21:15)
[2018-01-28] MEDS: Budesonide/Formoterol 160/4.5 1 PUFF INH IH SCH ×2 (09:59→22:56)
[2018-01-28] MEDS ORDERED: Bumetanide 1 MG TABLET PO ONE (16:05)
--- NOTE | 2018-01-28 20:28 | Nephrology Progress Note ---
Date of Encounter: 01/28/18 Time of Encounter: 20:26 - Assessment and Plan (1) Hyponatremia Current Visit: Yes Status: Acute Sodium is improved.. Patient was to be restarted on his diuretics. I spoke to the primary team and agree with adding back his loop diuretic and reevaluating his sodium level in the morning. (2) Acute on chronic systolic heart failure Current Visit: Yes Status: Acute The primary team. (3) COPD exacerbation Current Visit: Yes Status: Acute Per the primary team. Subjective Principal diagnosis: hyponatremia Interval history: Patient seen and evaluated. He is complaining of dyspnea secondary to his diuretics being stopped. He wants to be restarted on his diuretics. Objective - Vital Signs Vital signs: Vital Signs Temp Pulse Resp BP Pulse Ox 01/28/18 16:34 97.6 F 64 16 140/60 99 01/28/18 16:24 18 99 01/28/18 11:39 97.8 F 62 18 128/68 94 01/28/18 10:01 18 94 01/28/18 07:48 97.9 F 67 18 149/58 94 01/28/18 04:36 68 14 118/59 93 01/27/18 21:37 16 95 01/27/18 21:23 97.9 F 70 16 120/65 96 Intake and Output 01/28/18 01/28/18 01/28/18 07:59 15:59 23:59 Intake Total 540 / 540 Output Total 400 / 400 750 / 750 125 / 125 Balance -400 / -400 -210 / -210 -125 / -125 Intake: Oral 540 / 540 Output: Urine 400 / 400 750 / 750 125 / 125 Other: Meal Lunch Percent of Meal Consumed 95% Weight 74.5 kg Patient Weight 01/28/18 23:59 Weight 74.5 kg - General Appearance General appearance: Present: well-developed, well-nourished EENT: Present: ATNC Integumentary: Present: warm and dry Neurologic: Present: alert and oriented x3 - Lab 01/28/18 06:33 01/28/18 06:33 Most recent lab results Calcium 9.4 mg/dL (8.6-10.3) 01/28/18 06:33 Magnesium 2.1 mg/dL (1.6-2.6) 01/28/18 06:33 Urine Sodium 34.2 mEq/L 01/27/18 16:19 Consult Discharge Plan - Plan Referrals: Hu Yeboah MD [Primary Care Provider] -
[2018-01-28] MEDS: traZODone 50 MG TABLET PO SCH (22:09)
[2018-01-29] MEDS: Ipratropium/Albuterol Neb 3 ML IH SCH ×3 (04:11→16:15)
[2018-01-29 05:30] LABS: Basophils % 0.2 %; Eosinophils # 0.1 K/mcL (0.0-0.6); Eosinophils % 2.4 %; Hemoglobin 13.3 g/dL (12.9-16.9); Immature Granulocytes % 0.4 % (0-4); Lymphocytes # 1.2 K/mcL (0.6-4.6); Lymphocytes % 22.6 %; Mean Corpuscular Hemoglobin 31.5 pg (28.0-33.3); Mean Platelet Volume 8.9 fL (9.4-12.4); Monocytes # 0.6 K/mcL (0.0-1.3); Monocytes % 11.1 %; Neutrophils # 3.5 K/mcL (1.6-8.9); Platelet Count 174 K/mcL (140-400); Red Blood Count 4.22 M/mcL (4.19-5.50); Red Cell Distribution Width 13.7 % (11.5-14.5); Segmented Neutrophils % 63.3 %
[2018-01-29 05:45] LABS: BUN/Creatinine Ratio 15 (6-26); Blood Urea Nitrogen 19 mg/dL (8-23); Calcium 9.3 mg/dL (8.6-10.3); Carbon Dioxide 28 mEq/L (23-29); Chloride 97 mEq/L (98-107); Glucose 119 mg/dL (70-105); Osmolality,Calculated 279 (280-300); Potassium 3.2 mEq/L (3.5-5.1); Sodium 133 mEq/L (136-145); eGFR For Non-African Americans 58 (> 60)
[2018-01-29] MEDS: *HR* LORazepam 1 MG TABLET PO PRN (09:32)
[2018-01-29] MEDS: Ranolazine 500 MG TAB.ER.12H PO SCH (09:33)
[2018-01-29] MEDS: Aspirin Enteric Coated 81 MG Tablet PO SCH (09:35)
[2018-01-29] MEDS: Apixaban 5 MG TABLET PO SCH (09:35)
[2018-01-29] MEDS: Lactobacillus 1 EACH CAP.SPRINK PO SCH (09:36)
[2018-01-29] MEDS: Isosorbide MONOnitrate (24 HR) 60 MG TAB.ER.24H PO SCH (09:40)
--- NOTE | 2018-01-29 09:48 | Discharge Summary ---
<Bipin Hutson - Last Filed: 01/29/18 11:51> - NOTES TO OUTPATIENT PROVIDER Notes to Outpatient Provider: Patient admitted for SOB albuteral did not help. SOB mostly though to be anxiety related. History of COPD and CHF exacerbation unlikely. On admission patietn was hyponatremic. Diuretics were held and he was placed on a fluid restricted diet. sodium levels responded. Patient also hypokalemic. Date of Encounter: 01/29/18 Time of Encounter: 09:45 - Discharge Diagnosis (1) Hyponatremia Priority: Primary Status: Acute Assessment and Plan: - Hyponatremia in the setting of CHF with a reduced EF of 40% - Na 133 today - Patient did not respond to normal saline and potassium supplementation - Patient is strict about his sodium intact at home - Was on KCL 20 meq in 0.9% NS currently holding Plan - Nephrology consulted appreciate recs - Restart home diuretic BUmex - Continuing mild fluid restricted diet (2) Acute respiratory failure with hypoxia Priority: Primary Status: Acute Assessment and Plan: - Shortness of breath likely secondary to anxiety - On lorazepam at home - Improvement with Lorazepam - History of congestive heart failure and COPD - CHF exacerbation low likelihood due to relatively low BNP from previous hospitalizations. - Possible mild COPD exacerbation - Diuretics held due to hyponatremia Plan - Duonebs q6 HRs luz switch to prn - Albuterol PRN - Continue home meds - Lorazepam TID prn (3) Hypokalemia Priority: Primary Status: Acute Assessment and Plan: - Hypokalemia likely secondary to diuretic use. - On oral Potassium supplementation at home increase to 30 meq BID - Patient failed to respond to IV repletion. - PO potassium replacement and reassess. (4) COPD (chronic obstructive pulmonary disease) Priority: Secondary Status: Chronic Assessment and Plan: - Known history of COPD - Low suspicion for exacerbation. - No evidence of wheezing on physical exam and patient's breathing improved with treatment of his underlying anxiety. Plan - As above for acute respiratory failure Qualifiers: COPD type: chronic bronchitis Chronic bronchitis type: mixed simple and mucopurulent Qualified Code(s): J41.8 - Mixed simple and mucopurulent chronic bronchitis (5) Acute on chronic systolic heart failure Priority: Secondary Status: Acute Assessment and Plan: - Heart failure with reduced ejection fraction with an EF of 40%. - Patient does not appear to be in acute exacerbation. - We will continue patient's home heart failure medications with the exception of his diuretic. - Resume patient's home [facility] course: Mr. Bernardo is a 72 year old male with past medical history of coronary artery disease status post CABG and PCI, ischemic cardiomyopathy with an ejection fraction of 40%, and COPD who presented to the [facility] complaining of anxiety shortness of breath. Patient said he had difficulty breathing and was like he was panting. Occurred at rest did not alleviate with help of his albuterol inhaler. Patient admits having anxiety and that lorazepam is helping. Patient does not have any new edema, denied paroxysmal nocturnal dyspnea, and no weight changes. Patient is compliant with all his medications. In the ED as found to be afebrile needed 4 L of oxygen to maintain saturation. Normally on 3 L at home. Patient received Versed in the ED to alleviate some of his anxiety. Patient was found to be hyponatremic and hypokalemic. Patient was given potassium chloride and sodium chloride however is sodium and potassium levels did not respond appropriate. Patient was then placed on a fluid restricted diet , all fluids were discontinued. His diuretics were discontinued. After this patient has anincrease in his sodium levels from 124 to 132. Today it is 133. Patient is encouraged to maintain a fluid shift diet and is plan to resume 1 of his home diuretics but not both. - Time Spent with Patient Total time spent providing and/or coordinating discharge services: - Discharge Medications Prescriptions: Potassium Chloride 30 meq PO BID #60 [email or web address] Home Medications: Apixaban [Eliquis] 5 mg PO BID 11/21/16 [History] Ascorbic Acid [Vitamin C] 1,000 mg PO DAILY 11/21/16 [History] Budesonide/Formoterol 160/4.5 [Symbicort 160/4.5] 2 puff IH BIDR 11/21/16 [ History] Cholecalciferol (D-3) [Vitamin D] 3,000 unit PO DAILY 11/21/16 [History] Clopidogrel [Plavix] 75 mg PO DAILY 11/21/16 [History] Fish Oil/Dha/Epa [Fish Oil 1,200 mg Fish Oil] 1,200 mg PO DAILY 11/21/16 [ History] Isosorbide MONOnitrate (24 HR) [Imdur] 120 mg PO DAILY 11/21/16 [History] Multivitamin [One Daily Multivitamin] 1 tab PO DAILY 11/21/16 [History] Nitroglycerin [Nitrostat] 0.4 mg SL AD PRN 11/21/16 [History] Oxygen 2 l NS AD 11/21/16 [History] Ranolazine [Ranexa] 1,000 mg PO BID 11/21/16 [History] Trazodone HCl 200 mg PO HS 11/21/16 [History] Aspirin [Lo-Dose Aspirin EC] 81 mg PO DAILY 02/10/17 [History] Saccharomyces Boulardii [Florastor] 250 mg PO BID 02/10/17 [History] Tamsulosin [Flomax] 0.4 mg PO DAILY 03/12/17 [History] Bumetanide [Bumex] 1 mg PO BID 04/09/17 [History] Ipratropium/Albuterol Neb [Duoneb] 3 ml IH Q6HR #360 inhsol 04/12/17 [Rx] Albuterol Sulfate [Proair Hfa] 2 puff IH Q4-6H PRN 01/26/18 [History] Carvedilol 3.125 mg PO BID 01/26/18 [History] LORazepam [Ativan] 1 mg PO DAILY PRN 01/26/18 [History] Potassium Chloride 30 meq PO BID #60 tab.er.prt 01/29/18 [Rx] Allergies/Adverse Reactions: 3 Allergy/AdvReac Type Severity Reaction Status Date / Time Penicillins Allergy Redness of Verified 04/09/17 03:20 Skin Date of admission: 01/27/18 16:10 Primary care physician: Hu Yeboah MD Consults: Nephrology Discharging clinician: Bipin Hutson Anticipated date of discharge: 01/29/18 - Constitutional Vitals: Temp Pulse Resp BP Pulse Ox 98 F 63 17 142/57 97 01/29/18 06:52 01/29/18 06:52 01/29/18 06:52 01/29/18 06:52 01/29/18 06:52 General appearance: Present: mild distress, A&O X 3 Exam: see below - Head Head exam: Present: atraumatic, normocephalic - Eye Eye exam: Present: PERRL, conjuntiva pink, sclera anicteric Pupils: Present: PERRL - Respiratory Respiratory exam: Present: CTAB. Absent: accessory muscle use, rales, rhonchi, wheezes - Cardiovascular Cardiovascular exam: Present: RRR, +S1, +S2. Absent: diastolic murmur, gallop, rubs, systolic murmur - Extremities Exam Extremities exam: Present: warm, radial pulses palpable and symmetrical. Absent : calf tenderness, cyanotic, pedal edema, tenderness - Neurological Exam Neurological exam: Present: CN II-XII intact, oriented X3, no focal deficits. Absent: pronater drift, facial droop, speech deficit - Psychiatric Psychiatric exam: Present: anxious - Patient Status Disposition: Home, Self-Care Condition: Fair Functional capacity at discharge: independent ambulation Overall status at discharge: patient is back to baseline - Discharge Instructions Instructions: Potassium Chloride (By mouth), Hyponatremia (DC) Follow Up With: Hu Yeboah MD [Primary Care Provider] - 02/06/18 11:00 am Additional Instructions: Lab draw before outpatient Doctors appointment Your Potassium Chloride prescription was electronically sent to [facility]. Continue Errol Oxygen per previous. - Diet and Activity Activity: increase activity as tolerated Diet: low salt diet <Gerald Henriquez T - Last Filed: 01/29/18 15:27> Date of Encounter: 01/29/18 - Discharge Diagnosis (1) Acute respiratory failure with hypoxia Status: Acute (2) COPD (chronic obstructive pulmonary disease) Status: Chronic Qualifiers: COPD type: chronic bronchitis Chronic bronchitis type: mixed simple and mucopurulent Qualified Code(s): J41.8 - Mixed simple and mucopurulent chronic bronchitis (3) Hyponatremia Status: Acute (4) Hypokalemia Status: Acute (5) Acute on chronic systolic heart failure Status: Acute Hospital course: Mr. Bernardo is a 72 year old male Discharge discussed with: patient, nurse, senior energy consultant - Time Spent with Patient Total time spent providing and/or coordinating discharge services: Greater than 30 minutes (50 mins spent on chart review, face to face, med rec, discussion with specialist and documentation) Date of admission: 01/27/18 16:10 Primary care physician: Hu Yeboah MD - Constitutional Vitals: Temp Pulse Resp BP Pulse Ox 97.5 F L 64 17 138/63 99 01/29/18 11:21 01/29/18 11:21 01/29/18 11:21 01/29/18 11:21 01/29/18 11:21 - Attending Attestation I have personally seen and examined this patient on 01/29/18 and reviewed her chart and labs, including medications, I have discussed plan of care with the resident physician, whose documentation reflect our plan of care. With the additions/exceptions set forth below. Seen sitting out of bed, patient with chronic resp failure, COPD, Chronic CHF, Anxiety who was admitted for hypoosmolar hyponatremia, which has been improving , with fluid restriction and holding of diuretics, Bumex was resumed one day ago and patient continues to improve, there is no significant finding on exam and he can be discharged home on current meds, hold metolazone till follow up with PCP, schedule Chem in one week with PCP's visit, patient is asymptomatic and clinically stable Rest of details as in the resident physician's documentation
[2018-01-29] MEDS: Budesonide/Formoterol 160/4.5 1 PUFF INH IH SCH (11:04)
[2018-01-29 11:24] VITALS: BP 138/63
--- NOTE | 2018-01-29 12:37 | Nephrology Progress Note ---
Date of Encounter: 01/29/18 Time of Encounter: 09:00 - Assessment and Plan (1) Hyponatremia Current Visit: Yes Status: Acute Sodium level this morning 133. Yesterday 132. It has gradually improved since his admissions. Kidney function is near baseline with SCr = 1.24. hyponatremia and hypokalemia likely secondary to volume overload. Continue with Bumex home dose. I expect electrolytes will return to baseline with diuretics. Avoid nephrotoxins if possible. Strict I/Os. Patient is requesting to be discharged. He can be discharged on nephrology's perspective with close follow-up with outpatient nephrology. (2) Acute on chronic systolic heart failure Current Visit: Yes Status: Acute The primary team. (3) COPD exacerbation Current Visit: Yes Status: Acute Per the primary team. Subjective Principal diagnosis: hyponatremia Interval history: Patient has complaints of anxiety. Reports that dypsnea has improved with his diuretics. Voiding and eating without difficulty. Denies headaches, dizziness, weakness, blurry vision, CP, nausea, vomiting, diarrhea, abdominal pain. He is on fall precautions and would like to ambulate. Requesting to be discharged home. Objective - Vital Signs Vital signs: Vital Signs Temp Pulse Resp BP Pulse Ox 01/29/18 11:21 97.5 F L 64 17 138/63 99 01/29/18 11:05 16 99 01/29/18 06:52 98 F 63 17 142/57 97 01/29/18 04:12 19 98 01/29/18 04:00 98.2 F 59 15 139/84 91 01/29/18 00:00 97.8 F 79 20 141/69 99 01/28/18 22:59 16 99 01/28/18 19:55 98.6 F 70 14 139/50 97 01/28/18 16:34 97.6 F 64 16 140/60 99 01/28/18 16:24 18 99 Intake and Output 01/28/18 01/29/18 01/29/18 23:59 07:59 15:59 Intake Total 60 / 60 120 / 120 Output Total 125 / 125 1450 / 1450 250 / 250 Balance -125 / -125 -1390 / -1390 -130 / -130 Intake: Oral 60 / 60 120 / 120 Output: Urine 125 / 125 1450 / 1450 250 / 250 Other: Meal Breakfast Percent of Meal Consumed 100% Weight 73.6 kg Patient Weight 01/29/18 23:59 Weight 73.6 kg - General Appearance General appearance: Present: well-developed, well-nourished Neck: Present: supple Respiratory: Present: clear Cardiology: Present: no murmurs, no rub, edema (1+ on all extremities. ), regular rate, regular rhythm Gastrointestinal: Present: normoactive bowel sounds Neurologic: Present: alert and oriented x3, strength 5/5 Musculoskeletal: Present: no cyanosis, no clubbing Psychiatric: Present: mood/affect appropriate, cooperative - Lab 01/29/18 04:52 01/29/18 04:52 Most recent lab results Calcium 9.3 mg/dL (8.6-10.3) 01/29/18 04:52 Magnesium 2.1 mg/dL (1.6-2.6) 01/28/18 06:33 Urine Sodium 34.2 mEq/L 01/27/18 16:19 Consult Discharge Plan - Plan Additional Instructions: Lab before outpatient Doctors appointment Referrals: Hu Yeboah MD [Primary Care Provider] - 02/06/18 11:00 am Prescriptions: Potassium Chloride 30 meq PO BID #60 tab.er.prt
== END 2018-01-29 16:41 | disposition home or self-care (01) | DRG 291 ==
LOC: 2NENU 17:59 → EMEROOARM 17:59 → 2NENU 20:39 → SUATTDRO 01-27 16:10
PROVIDERS: ADMIT Internal Medicine; ATTEND Internal Medicine

== ENCOUNTER 2018-02-15 20:07 | Observation (INO) ==
[2018-02-15] MEDS ORDERED: methylPREDNISolone 125 MG/2 ML VIAL IVP ONE (20:27)
[2018-02-15] MEDS ORDERED: Ipratropium/Albuterol Neb 3 ML IH ONE (20:27)
--- NOTE | 2018-02-15 20:34 | Emergency Department Note ---
Disposition Clinical Impression: COPD exacerbation, Anxiety, SERGIO (acute kidney injury) Disposition: Admitted As Inpatient Condition: Good Time of Disposition: 23:00 General Adult HPI - General Stated complaint: Trouble Breathing Time Seen by Provider: 02/15/18 20:17 Source: patient Mode of arrival: ambulatory Limitations: no limitations Nursing Notes Reviewed: Yes Vital Signs Reviewed: Yes - History of Present Illness HPI Narrative: Patient is a 72-year-old male that presents the emergency department with shortness of breath. Patient states that it began this afternoon. Patient states that he has a history of COPD and congestive heart failure. Patient states that he just feels like he cannot catch his breath. Patient states that he is on 3 L of home oxygen. Patient states that he has been using breathing treatments at home which has provided some relief but she will feel short of breath. Patient denies any chest pain at this time. - Related Data Home Medications Medication Instructions Recorded Confirmed Apixaban [Eliquis] 5 mg PO BID 11/21/16 01/26/18 Ascorbic Acid [Vitamin C] 1,000 mg PO DAILY 11/21/16 01/26/18 Budesonide/Formoterol 160/4.5 2 puff IH BIDR 11/21/16 01/26/18 [Symbicort 160/4.5] Cholecalciferol (D-3) [Vitamin D] 3,000 unit PO DAILY 11/21/16 01/26/18 Clopidogrel [Plavix] 75 mg PO DAILY 11/21/16 01/26/18 Fish Oil/Dha/Epa [Fish Oil 1,200 1,200 mg PO DAILY 11/21/16 01/26/18 mg Fish Oil] Isosorbide MONOnitrate (24 HR) 120 mg PO DAILY 11/21/16 01/26/18 [Imdur] Multivitamin [One Daily 1 tab PO DAILY 11/21/16 01/26/18 Multivitamin] Nitroglycerin [Nitrostat] 0.4 mg SL AD PRN 11/21/16 01/26/18 Oxygen 2 l NS AD 11/21/16 01/26/18 Ranolazine [Ranexa] 1,000 mg PO BID 11/21/16 01/26/18 Trazodone HCl 200 mg PO HS 11/21/16 01/26/18 Aspirin [Lo-Dose Aspirin EC] 81 mg PO DAILY 02/10/17 01/26/18 Saccharomyces Boulardii [Florastor] 250 mg PO BID 02/10/17 01/26/18 Tamsulosin [Flomax] 0.4 mg PO DAILY 03/12/17 01/26/18 Bumetanide [Bumex] 1 mg PO BID 04/09/17 01/26/18 Albuterol Sulfate [Proair Hfa] 2 puff IH Q4-6H PRN 01/26/18 01/26/18 Carvedilol 3.125 mg PO BID 01/26/18 01/26/18 LORazepam [Ativan] 1 mg PO DAILY PRN 01/26/18 01/26/18 Previous Rx's Medication Instructions Recorded Ipratropium/Albuterol Neb [Duoneb] 3 ml IH Q6HR #360 inhsol 04/12/17 Potassium Chloride 30 meq PO BID #60 tab.er.prt 01/29/18 Allergies Allergy/AdvReac Type Severity Reaction Status Date / Time Penicillins Allergy Redness of Verified 04/09/17 03:20 Skin All systems ED: reviewed and negative except as stated. Constitutional: Denies: fever Cardiovascular: Denies: chest pain Respiratory: Reports: dyspnea. Denies: hemoptysis Gastrointestinal: Denies: abdominal pain Past Medical History - Past Medical History Medical history: Reports: CHF, COPD, coronary artery disease, hyperlipidemia, hypertension, myocardial infarction, peripheral artery disease, valvular heart disease Surgical history: Reports: coronary bypass (CABG), herniorrhaphy, pacemaker/AICD , vascular surgery Psychiatric history: Reports: anxiety - Social History Smoking Status: Former smoker Smokeless Tobacco Status: No Alcohol use: Reports: none Drug use: Reports: none Physical Exam - General Limitations: no limitations General appearance: alert, in no apparent distress - Head Head exam: atraumatic, normocephalic - Eye Eye exam: Present: normal appearance, EOMI - Neck Neck exam: Present: normal inspection, full ROM, trachea midline - Respiratory Respiratory exam: Present: other (Decreased air movement bilaterally). Absent: respiratory distress, wheezes - Cardiovascular Cardiovascular exam: Present: regular rate, normal rhythm, normal heart sounds, +S1, +S2 - Abdominal Exam Abdominal exam: Present: soft, Non-Tender, normal bowel sounds - Neurological Exam Neurological exam: Present: alert, oriented X3 - Psychiatric Psychiatric exam: Present: normal affect, normal mood - Skin Skin exam: Present: warm, dry, intact Course Vital Signs Temperature 97.5 F L 02/15/18 20:26 Pulse Rate 73 02/15/18 20:26 Respiratory Rate 31 02/15/18 20:26 Blood Pressure 171/54 02/15/18 20:26 O2 Sat by Pulse Oximetry 99 02/15/18 20:26 Temperature 97.3 F L 02/15/18 20:29 Pulse Rate 65 02/15/18 22:32 Respiratory Rate 18 02/15/18 22:32 Blood Pressure 129/75 02/15/18 22:32 O2 Sat by Pulse Oximetry 95 02/15/18 22:32 Oxygen Delivery Oxygen Delivery Nasal Cannula Medical Decision Making - MDM Narrative Medical decision making narrative: Due the patient is not emergency Department shortness of breath we will obtain basic laboratory testing, EKG and chest x-ray. We will also provide the patient with DuoNeb breathing treatments and steroids. Patient's chest x-ray did not show any acute findings. His EKG showed a sinus rhythm. Patient did have a mild acute kidney injury. Patient was given breathing treatments and steroids. Patient stated that he was still feeling like he is crawling out of his skin. Patient was given Ativan which did provide some relief and the patient stated that he was feeling a little bit better at this time. Based on the patient having acute kidney injury and having what appears to be a COPD exacerbation likely secondary to his anxiety we will admit the patient the hospital for further evaluation and management. I called and spoke with the admitting hospitalist Dr. Coleman and he is except the patient to their service. Patient be admitted to the hospital at this time for further evaluation and management. - Medical Records Medical records reviewed: Yes I reviewed the patient's medical records. - Lab Data Lab results reviewed: Yes I reviewed the patient's lab results. Result diagrams: 02/15/18 20:25 02/15/18 20:25 Lab Results 02/15/18 02/15/18 02/15/18 Range/Units 20:25 20:25 20:25 WBC 6.7 (4.3-11.1) K/mcL RBC 4.51 (4.19-5.50) M/mcL Hgb 13.8 (12.9-16.9) g/dL Hct 41.1 (37.5-50.1) % MCV 91.1 (83.0-100.0) fL MCH 30.6 (28.0-33.3) pg MCHC 33.6 (31.6-35.5) g/dL RDW 13.4 (11.5-14.5) % Plt Count 222 (140-400) K/mcL MPV 8.9 L (9.4-12.4) fL Immature Gran % 0.3 (0-4) % Seg Neutrophils % 66.3 % Lymphocytes % 19.7 % Monocytes % 10.8 % Eosinophils % 2.6 % Basophils % 0.3 % Neutrophils # 4.4 (1.6-8.9) K/mcL Lymphocytes # 1.3 (0.6-4.6) K/mcL Monocytes # 0.7 (0.0-1.3) K/mcL Eosinophils # 0.2 (0.0-0.6) K/mcL Basophils # 0.0 (0.0-0.2) K/mcL Sodium 131 L (136-145) mEq/L Potassium 3.5 (3.5-5.1) mEq/L Chloride 91 L (98-107) mEq/L Carbon Dioxide 31 H (23-29) mEq/L BUN 21 (8-23) mg/dL Creatinine 1.51 H (0.70-1.30) mg/dL Est GFR ( Amer) 56 L (> 60) Est GFR (Non-Af Amer) 46 L (> 60) BUN/Creatinine Ratio 14 (6-26) Glucose 131 H (70-105) mg/dL Calculated Osmolality 277 L (280-300) Calcium 9.7 (8.6-10.3) mg/dL Troponin I < 0.03 (< 0.04) ng/mL B-Natriuretic Peptide 596 H (Less than 100) pg/mL - Radiology Data Radiology results reviewed: Yes I reviewed the patient's radiology results. Chest X-Ray 02/15/18 20:25 IMPRESSION: No acute process. D/ / Bart Mcdonald MD / Bart Mcdonald MD Interpreting Provider: Bart Mcdonald MD - EKG Data EKG #1 EKG attestation: Yes I reviewed and interpreted this EKG. EKG results narrative: Patient's EKG shows a sinus rhythm at 70 bpm, TX interval of 229, QRS duration of 117, QTc of 450. Patient was no evidence of STEMI on EKG. This is compared to previous EKG on 01/26/18 which showed a paced rhythm at 66 bpm. Attestation Statement - Attestation Attestation: I examined this patient and my medical decision-making was reviewed with the Resident Physician, Dr. Forbes. I agree with the documented findings, disposition and treatment plan as described except to the extent set forth below. Patient is a 72-year-old white male with history of COPD and CHF on 3 L nasal cannula oxygen at all times who presents to emergency permit today complaining of gradually worsening shortness of breath since this afternoon. Patient denies any fevers or chills, no preceding URI symptoms or cough, no productive cough, no hemoptysis or posttussive emesis. Patient denies any lower extremity edema or weight gain. Patient has been taking medications as prescribed. Patient is very anxious and felt the patient pacing in his room requesting something to "calm his nerves". I agree with patient's physical exam findings as documented. Patient's blood pressures mildly elevated but is quite anxious at bedside. Patient has no signs of respiratory distress or hypoxia on arrival. Patient had an EKG performed as he has extensive cardiac history. Patient's EKG shows a normal sinus rhythm at [address] or T-wave changes are appreciated since compared to prior EKG from January 26. Patient was started on a breathing treatment, steroids and had full lab evaluation including chest x- ray. Patient has mild renal insufficiency compared to his baseline creatinine this could be secondary to his decreased by mouth intake he reports over the past few days. Patient received Ativan and is still anxious and pacing in the room. Patient's chest x-ray is within normal limits. Remainder of labs are unremarkable. Patient will be admitted for acute exacerbation of COPD, acute kidney injury, and anxiety. Clinically suspect a lot of patient's reported shortness of breath is coming from his anxiety which is only mildly improved at this time. Patient has remained hemodynamically stable throughout his ED course , case was discussed with hospitalist who accepted patient for admission.
[2018-02-15 20:47] LABS: Basophils % 0.3 %; Eosinophils # 0.2 K/mcL (0.0-0.6); Eosinophils % 2.6 %; Hematocrit 41.1 % (37.5-50.1); Hemoglobin 13.8 g/dL (12.9-16.9); Immature Granulocytes % 0.3 % (0-4); Lymphocytes # 1.3 K/mcL (0.6-4.6); Lymphocytes % 19.7 %; Mean Corpuscular HGB Conc 33.6 g/dL (31.6-35.5); Mean Corpuscular Hemoglobin 30.6 pg (28.0-33.3); Mean Corpuscular Volume 91.1 fL (83.0-100.0); Mean Platelet Volume 8.9 fL (9.4-12.4); Monocytes # 0.7 K/mcL (0.0-1.3); Monocytes % 10.8 %; Neutrophils # 4.4 K/mcL (1.6-8.9); Platelet Count 222 K/mcL (140-400); Red Blood Count 4.51 M/mcL (4.19-5.50); Red Cell Distribution Width 13.4 % (11.5-14.5); Segmented Neutrophils % 66.3 %
[2018-02-15] MEDS ORDERED: *HR* LORazepam 0.5 MG TABLET PO ONE (20:52)
[2018-02-15 21:07] LABS: BUN/Creatinine Ratio 14 (6-26); Blood Urea Nitrogen 21 mg/dL (8-23); Calcium 9.7 mg/dL (8.6-10.3); Carbon Dioxide 31 mEq/L (23-29); Chloride 91 mEq/L (98-107); Glucose 131 mg/dL (70-105); Osmolality,Calculated 277 (280-300); Potassium 3.5 mEq/L (3.5-5.1); Sodium 131 mEq/L (136-145); Troponin I < 0.03 ng/mL (< 0.04); eGFR For Non-African Americans 46 (> 60)
[2018-02-15] MEDS ORDERED: *HR* LORazepam 2 MG/ML VIAL IVP ONE (21:56)
[2018-02-16] MEDS: *HR* LORazepam 2 MG/ML VIAL IVP PRN ×4 (01:14→22:01)
[2018-02-16] MEDS ORDERED: Naloxone 0.4 MG/ML INJ IVP PRN (02:06)
[2018-02-16] MEDS ORDERED: Albuterol 2.5 MG/3 ML NEBULIZER IH PRN (02:08)
[2018-02-16] MEDS ORDERED: 0.9 % Sodium Chloride 1,000 ML IVC ONE (02:14)
--- NOTE | 2018-02-16 02:17 | Internal Med History&Physical ---
Date of Encounter: 02/16/18 Time of Encounter: 12:40 Internal Medicine - H&P: HPI Chief complaint: COPD exacerbation, anxiety Admitted From: Emergency Dept Plans for Post Hospital Care: Home History of present illness: Mr. Bernardo is a 72 year old male Patient states that he feels weak, short of breath, pins and needles in his fingers and increased anxiety. He was recently admitted a few weeks ago for similar complaints. He ran out of his anxiety medication 3 days ago, and was unable to refill it at his pharmacy as they told him that it was too soon for a refill. On the morning prior to coming to the ER he felt light headed, could not breath even with his home oxygen particularly with exertion. He came to the hospital for further evaluation. In the ER he was saturating at 99% on 3-4L, but had a respiratory rate of 31. This improved after getting a dose of ativan. Chest x-ray showed no acute process. His sodium was 131 and kidney function was slightly worse than his baseline. BNP was 596 but this is better than his previous admissions. He was given additional breathing treatments and admitted for further management of his COPD and anxiety. Upon my assessment patient appears very anxious, he is pacing around the room. He states that he is breathing a little easier, but still feels pins and needles. He denies chest pain, nausea, vomiting, diarrhea and constipation. He states he has a significant history of quadruple bypass back in the has had 11 stents placed in his heart, and had a 2-3 pack per day smoking history, quitting last year. Past Med Surg Social Fam HX - Past Medical History Medical history: CHF, COPD, coronary artery disease, hyperlipidemia, hypertension, myocardial infarction, peripheral artery disease, valvular heart disease Additional medical history: arthritis in the neck Psychiatric history: anxiety - Past Surgical History Surgical History: coronary bypass (CABG), herniorrhaphy, pacemaker/AICD, vascular surgery Additional surgical history: 11 STENTS - Social History Smoking Status: Former smoker Smokeless Tobacco Status: No Alcohol use: none Drug use: none - Family History Father History Unknown: Yes Living Status: Hx Family Cardiac Disorders: Yes (cardiomyopathy) Internal Medicine - H&P: Meds Apixaban [Eliquis] 5 mg PO BID 11/21/16 [History] Ascorbic Acid [Vitamin C] 1,000 mg PO DAILY 11/21/16 [History] Budesonide/Formoterol 160/4.5 [Symbicort 160/4.5] 2 puff IH BIDR 11/21/16 [ History] Cholecalciferol (D-3) [Vitamin D] 3,000 unit PO DAILY 11/21/16 [History] Clopidogrel [Plavix] 75 mg PO DAILY 11/21/16 [History] Fish Oil/Dha/Epa [Fish Oil 1,200 mg Fish Oil] 1,200 mg PO DAILY 11/21/16 [ History] Isosorbide MONOnitrate (24 HR) [Imdur] 120 mg PO DAILY 11/21/16 [History] Multivitamin [One Daily Multivitamin] 1 tab PO DAILY 11/21/16 [History] Nitroglycerin [Nitrostat] 0.4 mg SL AD PRN 11/21/16 [History] Oxygen 2 l NS AD 11/21/16 [History] Ranolazine [Ranexa] 1,000 mg PO BID 11/21/16 [History] Trazodone HCl 200 mg PO HS 11/21/16 [History] Aspirin [Lo-Dose Aspirin EC] 81 mg PO DAILY 02/10/17 [History] Saccharomyces Boulardii [Florastor] 250 mg PO BID 02/10/17 [History] Tamsulosin [Flomax] 0.4 mg PO DAILY 03/12/17 [History] Bumetanide [Bumex] 1 mg PO BID 04/09/17 [History] Ipratropium/Albuterol Neb [Duoneb] 3 ml IH Q6HR #360 inhsol 04/12/17 [Rx] Albuterol Sulfate [Proair Hfa] 2 puff IH Q4-6H PRN 01/26/18 [History] Carvedilol 3.125 mg PO BID 01/26/18 [History] LORazepam [Ativan] 1 mg PO DAILY PRN 01/26/18 [History] Potassium Chloride 30 meq PO BID #60 tab.er.prt 01/29/18 [Rx] 3 Allergy/AdvReac Type Severity Reaction Status Date / Time Penicillins Allergy Redness of Verified 04/09/17 03:20 Skin All Systems PM: A 10-system review of systems was performed and is negative for pertinent findings except as documented above in the HPI. - Constitutional Vitals: Temp Pulse Resp BP Pulse Ox 98.6 F 66 17 152/67 99 02/16/18 00:14 02/16/18 00:14 02/16/18 00:14 02/16/18 00:14 02/16/18 00:14 General appearance: Present: cooperative, mild distress, A&O X 3, pleasant, answers questions appropriately Exam: as above - Head Head exam: Present: normal inspection - Eye Eye exam: Present: EOMI, normal appearance - Neck Neck exam general surgery: Present: full ROM - Respiratory Respiratory exam: Present: CTAB, wheezes. Absent: accessory muscle use, chest wall tenderness, respiratory distress - Cardiovascular Cardiovascular exam: Present: RRR. Absent: diastolic murmur, systolic murmur - GI/Abdominal GI/Abdominal exam: Present: normal bowel sounds, soft. Absent: tenderness - Extremities Exam Extremities exam: Present: warm, radial pulses palpable and symmetrical. Absent : calf tenderness, pedal edema, tenderness Additional comments: Lower extremities are purple, but at baseline as per patient. - Neurological Exam Neurological exam: Present: no focal deficits, strengths equal and symetr throughout. Absent: motor sensory deficit, facial droop, speech deficit - Skin Skin exam: Present: dry, warm Additional comments: Lower extremities are purple, secondary to peripheral vascular disease. Internal Med - H&P Results - Labs CBC & Chem 7: 02/16/18 05:02 02/16/18 05:02 - Assessment and plan (1) COPD exacerbation Current Visit: Yes Status: Acute Assessment and plan: Improving with breathing treatments. Continue Duoneb/albuterol Prednisone 40mg daily Azithromycin 500mg IV daily Oxygen supplimentation. (2) Dyspnea Current Visit: No Status: Acute Assessment and plan: Secondary to COPD. Chest x-ray negative. Improving with breathing treatments. Less likely to be PE, patient on eliquis at home. Qualifiers: Dyspnea type: shortness of breath Qualified Code(s): R06.02 - Shortness of breath; R06.00 - Dyspnea, unspecified; R06.01 - Orthopnea (3) Anxiety Current Visit: Yes Status: Chronic Assessment and plan: Could be related to his COPD, he takes ativan at home and recently ran out. Continue ativan 1mg Q6H, caution with oversedation and oxygen status. Check TSH in the morning Treat COPD exacerbation as above. (4) SERGIO (acute kidney injury) Current Visit: No Status: Acute Assessment and plan: Slightly worse than baseline. IVF tonight Recheck labs in the morning. (5) Hyponatremia Current Visit: No Status: Acute Assessment and plan: Patient has history of hyponatremia, baseline in low 130's. IVF tonight Recheck labs in AM. (6) DVT prophylaxis Current Visit: No Status: Acute Assessment and plan: Patient takes eliquis for PVD Continue eliquis - Time Spent With Patient Total time spent is greater than 50% in coordination of care (as documented) at patient's floor/unit and/or counseling patient: 25 - 35 minutes
[2018-02-16] MEDS: Azithromycin 500 MG in D5% in Water 250 ML IVPB SCH (03:10)
[2018-02-16] MEDS: Ipratropium/Albuterol Neb 3 ML IH SCH ×4 (04:01→22:28)
[2018-02-16 05:32] LABS: Hematocrit 38.9 % (37.5-50.1); Mean Corpuscular HGB Conc 33.4 g/dL (31.6-35.5); Mean Corpuscular Hemoglobin 30.3 pg (28.0-33.3); Mean Corpuscular Volume 90.7 fL (83.0-100.0); Mean Platelet Volume 9.4 fL (9.4-12.4); Platelet Count 185 K/mcL (140-400); Red Blood Count 4.29 M/mcL (4.19-5.50); Red Cell Distribution Width 13.3 % (11.5-14.5)
[2018-02-16 05:52] LABS: Potassium 3.5 mEq/L (3.5-5.1)
[2018-02-16] MEDS ORDERED: D5% in Water 1,000 ML IVC PRN (08:43)
[2018-02-16] MEDS ORDERED: *HR* Dextrose 50 % in Water (Syg) 50 ML SYRINGE IVP PRN (08:43)
[2018-02-16] MEDS ORDERED: Dextrose Gel 15 GM/37.5 ML TUBE PO PRN ×2 (08:43)
[2018-02-16] MEDS ORDERED: 0.9 % Sodium Chloride 1,000 ML IVC SCH (09:00)
--- NOTE | 2018-02-16 09:00 | Event Note ---
<Reynold Louie - Last Filed: 02/16/18 13:48> Date of Encounter: 02/16/18 Time of Encounter: 09:30 S: 72 year old male who presented to the ED on the evening of 02/15 with complaint of shortness of breath and anxiety for 1 day. He is on 3L at home, he had been 3 days without his anxiety medication (benzodiazepine). He endorsed lightheadedness, tingling and dyspnea worse with exertion. He denied chest pain , fever, nausea, vomiting, or diarrhea. His past medical history is significant for 11 stents, s/p AICD, follows Dr. Escobar, COPD on home O2, PVD on Eliquis. His initial exam showed a tachypneic male with normal O2 sats which subsided with Ativan. In the interval since admission basic chemistries show negative troponin, mild hyponatremia, unremarkable CXR. He was started on a q6h Lorazepam and given abx, steroids, aerosols, o2 titration. O: - Head: atraumatic, normocephalic - Eye: EOMI, normal appearance - Neck: full ROM - Respiratory: CTAB, wheezes. Absent: accessory muscle use, chest wall tenderness, respiratory distress - Cardiovascular: Present: RRR. Absent: diastolic murmur, systolic murmur - GI/Abdominal: Present: normal bowel sounds, soft. Absent: tenderness - Extremities: warm, radial pulses palpable and symmetrical. Absent: calf tenderness, pedal edema, tenderness - Neurological: no focal deficits, strengths equal and symmetric throughout. Absent: motor sensory deficit, facial droop, speech deficit - Skin: Present: dry, warm A/P: 1. COPD exacerbation Has not desaturated throughout presentation to admission Continue Duoneb/albuterol, Prednisone 40mg daily, Azithromycin 500mg IV daily, Oxygen supplimentation. 2. Dyspnea Secondary to COPD and anxiety. Chest x-ray negative. Improving with breathing treatments and ativan. Less likely to be PE, patient on eliquis at home. 3. Anxiety Rebound anxiety off of home benzodiazepine, COPD may be partial contributor however patient has been saturating well since initial presentation. Continue ativan 1mg Q6H, caution with oversedation and oxygen status. Trial Hydroxyzine Likely discharge tomorrow; plan to Rx 2 days Ativan until his outpatient appt on the Euthyroid 4. SERGIO (acute kidney injury) Slightly worse than baseline. Normal saline, and monitoring 5. Hyponatremia Patient has history of hyponatremia, baseline in low 130's. Normal saline, and recheck in AM 6. DVT prophylaxis Patient takes eliquis for PVD Continue eliquis <Milo Stratton - Last Filed: 02/16/18 14:41> Date of Encounter: 02/16/18 Time of Encounter: 09:00 I saw evaluated and examined this patient and my medical decision-making was reviewed with the Resident Physician, Reynold Louie. I agree with the documented findings, disposition and treatment plan as described except to any changes set forth below. We independently had [id number] contact with the patient.
[2018-02-16] MEDS ORDERED: 0.9 % Sodium Chloride 1,000 ML ONE (09:13)
[2018-02-16] MEDS: Apixaban 5 MG TABLET PO SCH ×2 (09:25→22:01)
[2018-02-16] MEDS: predniSONE 20 MG TABLET PO SCH (09:25)
[2018-02-16 09:46] LABS: Thyroid Stimulating Hormone 0.717 mcIU/mL (0.340-5.600)
[2018-02-16 11:01] LABS: Estimated Average Glucose 111 mg/dl; Hemoglobin A1C 5.5 %
[2018-02-16] MEDS: Insulin LISPRO 300 UNITS/3 ML VIAL SQ SCH ×2 (17:47)
[2018-02-16] MEDS ORDERED: traZODone 50 MG TABLET PO SCH (21:00)
[2018-02-16] MEDS ORDERED: Insulin LISPRO 300 UNITS/3 ML VIAL SQ SCH (21:00)
[2018-02-17] MEDS: Azithromycin 500 MG in D5% in Water 250 ML IVPB SCH (03:36)
[2018-02-17] MEDS: Ipratropium/Albuterol Neb 3 ML IH SCH ×2 (04:05→09:57)
[2018-02-17 04:39] LABS: Hematocrit 40.4 % (37.5-50.1); Hemoglobin 13.6 g/dL (12.9-16.9); Mean Corpuscular HGB Conc 33.7 g/dL (31.6-35.5); Mean Corpuscular Hemoglobin 31.3 pg (28.0-33.3); Mean Corpuscular Volume 92.9 fL (83.0-100.0); Mean Platelet Volume 9.4 fL (9.4-12.4); Platelet Count 208 K/mcL (140-400); Red Blood Count 4.35 M/mcL (4.19-5.50); Red Cell Distribution Width 13.5 % (11.5-14.5)
[2018-02-17 05:01] LABS: Sodium 139 mEq/L (136-145)
[2018-02-17 05:22] LABS: BUN/Creatinine Ratio 21 (6-26); Blood Urea Nitrogen 25 mg/dL (8-23); Calcium 9.2 mg/dL (8.6-10.3); Carbon Dioxide 25 mEq/L (23-29); Chloride 105 mEq/L (98-107); Glucose 119 mg/dL (70-105); Osmolality,Calculated 294 (280-300); Potassium 3.1 mEq/L (3.5-5.1); eGFR For Non-African Americans 59 (> 60)
--- NOTE | 2018-02-17 07:57 | Discharge Summary ---
<Reynold Louie - Last Filed: 02/17/18 14:26> - NOTES TO OUTPATIENT PROVIDER Notes to Outpatient Provider: Patient admitted for Ativan withdrawal versus copd exacerbation; Rx'd 3 tablets of Ativan until seen and evaluated by PCP. Trial of Vistaril started inpatient, has 1 month supply. Date of Encounter: 02/17/18 Time of Encounter: 08:15 - Discharge Diagnosis (1) Dyspnea Priority: Primary Status: Acute Qualifiers: Dyspnea type: shortness of breath Qualified Code(s): R06.02 - Shortness of breath; R06.00 - Dyspnea, unspecified; R06.01 - Orthopnea (2) Anxiety Priority: Secondary Status: Chronic (3) COPD exacerbation Priority: Secondary Status: Acute (4) SERGIO (acute kidney injury) Priority: Secondary Status: Acute (5) Hyponatremia Priority: Secondary Status: Acute (6) DVT prophylaxis Priority: Secondary Status: Acute Hospital course: Mr. Bernardo is a 72 year old male who presented to the ED on the evening of 02/15 with rapid breathing, complaint of shortness of breath, and anxiety. He states he was off of his home Ativan for 3 days for running out, he states some of his Ativan fell into the sink. He was saturating in the high 90s throughout his ED workup, respiratory rate improving after receiving Ativan. He was admitted in the setting of dyspnea, copd exacerbation, and sergio with low suspicion of PE, pneumonia, or ACS based on basic chemistries, HPI, and imaging. It is likely the largest component to his dyspnea was a rebound anxiety while off of his Ativan. During his stay he receiving prn Ativan q6h, we also started him on a trial of Vistaril. He was discharged today with a few days of Ativan until his appointment with his PCP on the as well as a month supply of Vistaril to trial a non-scheduled medication for anxiety. - Time Spent with Patient Total time spent providing and/or coordinating discharge services: - Discharge Medications Prescriptions: HydrOXYzine Pamoate [Vistaril] 50 mg PO QID #120 capsule LORazepam [Ativan] 1 mg PO DAILY PRN 3 Days #3 tablet PRN Reason: Anxiety Home Medications: Apixaban [Eliquis] 5 mg PO BID 11/21/16 [History] Ascorbic Acid [Vitamin C] 1,000 mg PO DAILY 11/21/16 [History] Budesonide/Formoterol 160/4.5 [Symbicort 160/4.5] 2 puff IH BIDR 11/21/16 [ History] Cholecalciferol (D-3) [Vitamin D] 3,000 unit PO DAILY 11/21/16 [History] Clopidogrel [Plavix] 75 mg PO DAILY 11/21/16 [History] Fish Oil/Dha/Epa [Fish Oil 1,200 mg Fish Oil] 1,200 mg PO DAILY 11/21/16 [ History] Isosorbide MONOnitrate (24 HR) [Imdur] 120 mg PO DAILY 11/21/16 [History] Multivitamin [One Daily Multivitamin] 1 tab PO DAILY 11/21/16 [History] Nitroglycerin [Nitrostat] 0.4 mg SL AD PRN 11/21/16 [History] Oxygen 2 l NS AD 11/21/16 [History] Ranolazine [Ranexa] 1,000 mg PO BID 11/21/16 [History] Trazodone HCl 200 mg PO HS 11/21/16 [History] Aspirin [Lo-Dose Aspirin EC] 81 mg PO DAILY 02/10/17 [History] Saccharomyces Boulardii [Florastor] 250 mg PO BID 02/10/17 [History] Tamsulosin [Flomax] 0.4 mg PO DAILY 03/12/17 [History] Bumetanide [Bumex] 1 mg PO BID 04/09/17 [History] Ipratropium/Albuterol Neb [Duoneb] 3 ml IH Q6HR #360 inhsol 04/12/17 [Rx] Albuterol Sulfate [Proair Hfa] 2 puff IH Q4-6H PRN 01/26/18 [History] Carvedilol 3.125 mg PO BID 01/26/18 [History] Potassium Chloride 30 meq PO BID #60 tab.er.prt 01/29/18 [Rx] HydrOXYzine Pamoate [Vistaril] 50 mg PO QID #120 capsule 02/17/18 [Rx] LORazepam [Ativan] 1 mg PO DAILY PRN 3 Days #3 tablet 02/17/18 [Rx] Allergies/Adverse Reactions: 3 Allergy/AdvReac Type Severity Reaction Status Date / Time Penicillins Allergy Redness of Verified 04/09/17 03:20 Skin Date of admission: 02/15/18 23:09 Primary care physician: Hu Yeboah MD Consults: 02/16/18 02:08 Consult to Nurse Navigator [CONS] Routine Comment: - Constitutional Vitals: Temp Pulse Resp BP Pulse Ox 98.1 F 74 18 138/63 99 02/17/18 04:25 02/17/18 04:25 02/17/18 04:25 02/17/18 04:25 02/17/18 04:25 General appearance: Present: cooperative, mild distress, A&O X 3, pleasant, answers questions appropriately Exam: . - Head Head exam: Present: atraumatic, normocephalic - Eye Eye exam: Present: EOMI, conjuntiva pink, sclera anicteric - Neck Neck exam general surgery: Present: supple, trachea midline. Absent: lymphadenopathy - Respiratory Respiratory exam: Present: CTAB. Absent: accessory muscle use, rales, rhonchi, wheezes - Cardiovascular Cardiovascular exam: Present: RRR, +S1, +S2. Absent: diastolic murmur, gallop, rubs, systolic murmur - GI/Abdominal GI/Abdominal exam: Present: normal bowel sounds, soft, no peritoneal signs. Absent: distended, tenderness - Extremities Exam Extremities exam: Present: warm, radial pulses palpable and symmetrical. Absent : calf tenderness, cyanotic, pedal edema - Neurological Exam Neurological exam: Present: oriented X3, no focal deficits. Absent: pronater drift, facial droop, speech deficit - Skin Skin exam: Present: dry, intact - Patient Status Disposition: Home, Self-Care Condition: Good Functional capacity at discharge: independent ambulation Overall status at discharge: patient is progressing back to baseline - Discharge Instructions Follow Up With: Hu Yeboah MD [Primary Care Provider] - 02/27/18 10:00 am (Please follow up as schedule....) Forms: ED Satisfaction Letter - Diet and Activity Activity: increase activity as tolerated Diet: advance to your usual diet <Phil Bustillo - Last Filed: 02/17/18 17:14> Date of Encounter: 02/17/18 - Discharge Diagnosis (1) Acute exacerbation of chronic obstructive airways disease Priority: Primary Status: Resolved (2) Anxiety Status: Chronic (3) Coronary artery disease Priority: Secondary Status: Chronic Qualifiers: Coronary Disease-Associated Artery/Lesion type: bypass graft [place] vs. transplanted heart: [place] heart Associated angina: with stable angina Qualified Code(s): I25.708 - Atherosclerosis of coronary artery bypass graft(s) , unspecified, with other forms of angina pectoris (4) Benzodiazepine withdrawal without complication Priority: Secondary Status: Resolved Hospital course: Mr. Bernardo is a 72 year old male - Time Spent with Patient Total time spent providing and/or coordinating discharge services: Date of admission: 02/15/18 23:09 Primary care physician: Hu Yeboah MD Consults: 02/16/18 02:08 Consult to Nurse Navigator [CONS] Routine Comment: - Constitutional Vitals: Temp Pulse Resp BP Pulse Ox 96.9 F L 72 18 134/62 100 02/17/18 08:16 02/17/18 08:16 02/17/18 09:59 02/17/18 08:16 02/17/18 09:59 - Attending Attestation I examined this patient and my medical decision-making was reviewed with the Resident Physician on 02/17/18. I agree with the documented findings, disposition and treatment plan as described except to the extent set forth below. Mr Bernardo has been hospitalized for benzodiazepine withdrawal and mild COPD exac. He has improved with restarting meds. His breathing has improved as well. He is now afebrile and ready for discharge home. Exam alert Comfortable up in chair. Mucus membranes dry Heart reg No wheeze Abd soft No edema Plan D/C home today.
[2018-02-17] MEDS: predniSONE 20 MG TABLET PO SCH (08:09)
[2018-02-17] MEDS: Apixaban 5 MG TABLET PO SCH (08:09)
[2018-02-17] MEDS: *HR* LORazepam 2 MG/ML VIAL IVP PRN (08:10)
[2018-02-17] MEDS: Insulin LISPRO 300 UNITS/3 ML VIAL SQ SCH (08:12)
[2018-02-17 08:22] VITALS: BP 134/62
[2018-02-17] MEDS ORDERED: Azithromycin 250 MG TABLET PO SCH (09:30)
--- NOTE | 2018-02-19 15:31 | Electrocardiograph Report ---
[address] [place] [address] Test Date: 2018-02-15 Pat Name: Chadwick Bernardo Department: EXAM4 Room: 2A Gender: M [employer]: : 1945 Requested By: Keaton Forbes Order Number: [id number] Reading MD: Ran Bello Measurements Intervals Waterfall Rate: 70 P: 37 MT: 229 QRS: -31 QRSD: 117 T: QT: 417 QTc: 450 Interpretive Statements Sinus rhythm Prolonged MT interval Nonspecific intraventricular conduction delay Repol abnrm suggests ischemia, diffuse leads Electronically Signed On 02-19-2018 15:29:38 EDT by Ran Bello
== END 2018-02-17 11:53 | disposition home or self-care (01) ==
LOC: 2ANU 20:07 → EMEROOARM 20:07 → SUATTDRO 23:09 → 2ANU 02-16
PROVIDERS: ADMIT Family Medicine; ATTEND Internal Medicine

== ENCOUNTER 2019-08-31 08:55 | Inpatient (IN) ==
[2019-08-31] MEDS ORDERED: methylPREDNISolone 125 MG/2 ML VIAL IVP ONE (09:13)
[2019-08-31] MEDS ORDERED: Ipratropium/Albuterol Neb 3 ML IH ONE (09:13)
[2019-08-31 09:39] LABS: Eosinophils % 0.3 %; Immature Granulocytes % 0.3 % (0-4); Lymphocytes # 0.6 K/mcL (0.6-4.6); Lymphocytes % 10.7 %; Mean Corpuscular HGB Conc 29.3 g/dL (31.6-35.5); Mean Corpuscular Hemoglobin 26.9 pg (28.0-33.3); Mean Corpuscular Volume 91.9 fL (83.0-100.0); Mean Platelet Volume 9.5 fL (9.4-12.4); Monocytes # 0.4 K/mcL (0.0-1.3); Monocytes % 6.5 %; Neutrophils # 4.7 K/mcL (1.6-8.9); Platelet Count 221 K/mcL (140-400); Red Blood Count 4.46 M/mcL (4.19-5.50); Red Cell Distribution Width 20.1 % (11.5-14.5); Segmented Neutrophils % 82.2 %; White Blood Count 5.7 K/mcL (4.3-11.1)
[2019-08-31 09:45] LABS: INR 1.3; Prothrombin Time 14.4 Seconds (9.4-12.1)
[2019-08-31 09:48] LABS: Activated Partial Thrombo Time 41.9 Seconds (26.0-36.0)
[2019-08-31] MEDS ORDERED: *HR* LORazepam 2 MG/ML VIAL IVP ONE ×2 (10:01→16:47)
[2019-08-31 10:02] LABS: BUN/Creatinine Ratio 21 (6-26); Blood Urea Nitrogen 28 mg/dL (8-23); Calcium 9.4 mg/dL (8.6-10.3); Carbon Dioxide 26 mEq/L (23-29); Chloride 98 mEq/L (98-107); Glucose 167 mg/dL (70-105); Osmolality,Calculated 285 (280-300); Potassium 4.6 mEq/L (3.5-5.1); Sodium 133 mEq/L (136-145); Troponin I < 0.03 ng/mL (< 0.04); eGFR For African Americans > 60 (> 60); eGFR For Non-African Americans 53 (> 60)
[2019-08-31] MEDS ORDERED: Isovue-370 500 ML BOTTLE IVP ONE (10:10)
[2019-08-31] MEDS ORDERED: levoFLOXacin 750 MG/150 ML 750 MG/150 ML BAG IVPB ONE (10:17)
[2019-08-31] MEDS ORDERED: Furosemide 40 MG/4 ML VIAL IVP ONE (10:59)
[2019-08-31] MEDS ORDERED: Naloxone 0.4 MG/ML INJ IVP PRN (11:32)
[2019-08-31] MEDS ORDERED: Ondansetron 4 MG/2 ML VIAL IVP PRN (11:32)
[2019-08-31] MEDS: *HR* LORazepam 2 MG/ML VIAL IVP PRN ×2 (13:25→20:16)
[2019-08-31 14:10] LABS: Adenovirus Not Detected (Not Detect); Bordetella Pertussis Not Detected (Not Detect); Chlamydophila pneumoniae Not Detected (Not Detect); Coronavirus 229E Not Detected (Not Detect); Coronavirus HKU1 Not Detected (Not Detect); Coronavirus NL63 Not Detected (Not Detect); Coronavirus OC43 Not Detected (Not Detect); Human Metapneumovirus Not Detected (Not Detect); Human Rhinovirus/Enterovirus Not Detected (Not Detect); Influenza A Subtype 2009 H1 Not Detected (Not Detect); Influenza B Not Detected (Not Detect); Mycoplasma pneumoniae Not Detected (Not Detect); Parainfluenza Virus 1 Not Detected (Not Detect); Parainfluenza Virus 2 Not Detected (Not Detect); Parainfluenza Virus 3 Not Detected (Not Detect); Parainfluenza Virus 4 Not Detected (Not Detect); Respiratory Syncytial Virus Not Detected (Not Detect)
[2019-08-31] MEDS: Ipratropium/Albuterol Neb 3 ML IH SCH ×4 (15:18→23:06)
[2019-08-31 15:35] LABS: VBG HCO3 29 mEq/L (21-27); VBG PCO2 59 mmHg (41-51); VBG PH 7.29 pH Units (7.32-7.42); VBG PO2 43 mmHg (25-50)
[2019-08-31] MEDS: Budesonide/Formoterol 160/4.5 1 PUFF INH IH SCH (19:38)
[2019-08-31] MEDS: Furosemide 40 MG/4 ML VIAL IVP SCH (20:16)
[2019-08-31] MEDS: Ranolazine 500 MG TAB.ER.12H PO SCH (20:18)
[2019-08-31] MEDS: Melatonin 3 MG TABLET PO SCH (20:23)
[2019-08-31] MEDS ORDERED: Apixaban 5 MG TABLET PO SCH (21:00)
[2019-08-31] MEDS ORDERED: carvediloL 6.25 MG TABLET PO SCH (21:00)
[2019-08-31] MEDS ORDERED: NON-FORMULARY MEDICATION 1 EACH EACH (Mometasone/Formoterol [Dulera 200 Mcg/5 Mcg Inhaler] IH SCH (21:00)
[2019-08-31] MEDS ORDERED: Haloperidol Lactate 5 MG/ML VIAL IVP ONE (22:14)
[2019-08-31] MEDS: traZODone 50 MG TABLET PO SCH (22:36)
[2019-09-01 02:19] LABS: Basophils % 0.1 %; Eosinophils % 0.1 %; Hematocrit 36.3 % (37.5-50.1); Immature Granulocytes % 0.5 % (0-4); Lymphocytes % 12.5 %; Mean Corpuscular HGB Conc 30.3 g/dL (31.6-35.5); Mean Corpuscular Hemoglobin 27.6 pg (28.0-33.3); Monocytes # 0.8 K/mcL (0.0-1.3); Platelet Count 220 K/mcL (140-400); Red Blood Count 3.99 M/mcL (4.19-5.50); Red Cell Distribution Width 20.7 % (11.5-14.5); Segmented Neutrophils % 76.8 %; White Blood Count 7.8 K/mcL (4.3-11.1)
[2019-09-01 02:38] LABS: Magnesium 2.3 mg/dL (1.6-2.6); Potassium 4.2 mEq/L (3.5-5.1)
[2019-09-01 02:40] LABS: Troponin I 0.54 ng/mL (< 0.04)
[2019-09-01] MEDS ORDERED: *HR* Heparin 5,000 UNIT/ML VIAL IVP PRN ×4 (02:55→09:00)
[2019-09-01] MEDS ORDERED: *HR* Heparin 5,000 UNIT/ML VIAL IVP ONE ×2 (02:55→09:00)
[2019-09-01] MEDS ORDERED: Heparin 25,000 UNIT/250 ML D5W 25,000 UNIT/250 ML IV.SOLN IVC SCH ×2 (03:00→09:00)
[2019-09-01] MEDS: Ipratropium/Albuterol Neb 3 ML IH SCH ×6 (03:50→23:18)
[2019-09-01 04:01] LABS: Hematocrit 36.8 % (37.5-50.1); Hemoglobin 11.1 g/dL (12.9-16.9); Mean Corpuscular HGB Conc 30.2 g/dL (31.6-35.5); Mean Corpuscular Hemoglobin 27.3 pg (28.0-33.3); Mean Corpuscular Volume 90.4 fL (83.0-100.0); Mean Platelet Volume 9.8 fL (9.4-12.4); Platelet Count 217 K/mcL (140-400); Red Blood Count 4.07 M/mcL (4.19-5.50); Red Cell Distribution Width 20.7 % (11.5-14.5); White Blood Count 6.8 K/mcL (4.3-11.1)
[2019-09-01 04:10] LABS: INR 1.4; Prothrombin Time 16.2 Seconds (9.4-12.1)
[2019-09-01 04:16] LABS: Heparin anti-factor XA UFH 1.73 IU/mL (0.30-0.70)
[2019-09-01] MEDS: Ipratropium/Albuterol Neb 3 ML IH PRN (04:55)
[2019-09-01] MEDS: *HR* LORazepam 2 MG/ML VIAL IVP PRN (04:57)
[2019-09-01] MEDS ORDERED: Lactulose Oral Soln 20 GM/30 ML UDC PO PRN (07:32)
[2019-09-01] MEDS ORDERED: MethylPREDNISolone 40 MG/ML VIAL IVP SCH (08:00)
[2019-09-01] MEDS ORDERED: metOLazone 2.5 MG TABLET PO SCH (09:00)
[2019-09-01] MEDS ORDERED: *HR* LORazepam 2 MG/ML VIAL IVP ONE (09:21)
[2019-09-01] MEDS: Furosemide 40 MG/4 ML VIAL IVP SCH (09:47)
[2019-09-01] MEDS: Doxycycline 100 MG in 0.9 % Sodium Chloride Mini Bag 100 ML IVPB SCH ×2 (09:48→16:32)
[2019-09-01] MEDS: Cholecalciferol (D-3) 1,000 UNIT (25MCG) TABLET PO SCH (09:53)
[2019-09-01] MEDS: Aspirin Enteric Coated 81 MG Tablet PO SCH (09:53)
[2019-09-01] MEDS: Isosorbide MONOnitrate (24 HR) 60 MG TAB.ER.24H PO SCH (09:53)
[2019-09-01] MEDS: predniSONE 20 MG TABLET PO SCH (09:53)
[2019-09-01] MEDS: Gabapentin 100 MG CAPSULE PO SCH ×2 (09:53→21:15)
[2019-09-01] MEDS: Ranolazine 500 MG TAB.ER.12H PO SCH ×2 (09:53→21:16)
[2019-09-01] MEDS: Ascorbic Acid 500 MG TABLET PO SCH (09:53)
[2019-09-01] MEDS: carvediloL 6.25 MG TABLET PO SCH ×2 (09:54→16:32)
[2019-09-01] MEDS ORDERED: Morphine Sulfate 2 MG/ML SYRINGE IVP ONE (10:19)
[2019-09-01] MEDS ORDERED: Morphine Sulfate 2 MG/ML SYRINGE IVP PRN ×2 (11:03→11:40)
[2019-09-01] MEDS: Budesonide/Formoterol 160/4.5 1 PUFF INH IH SCH ×2 (11:20→19:58)
[2019-09-01] MEDS ORDERED: Furosemide 40 MG/4 ML VIAL IVP ONE (12:02)
[2019-09-01 12:17] LABS: VBG HCO3 30 mEq/L (21-27); VBG PCO2 43 mmHg (41-51); VBG PH 7.44 pH Units (7.32-7.42); VBG PO2 192 mmHg (25-50)
[2019-09-01] MEDS: *HR* LORazepam 1 MG TABLET PO PRN ×2 (15:35→23:30)
[2019-09-01] MEDS ORDERED: Menthol 9.1 MG LOZENGE PO PRN (17:12)
[2019-09-01] MEDS: Acetaminophen 325 MG TABLET PO PRN ×2 (17:33→23:30)
[2019-09-01] MEDS ORDERED: Furosemide 40 MG/4 ML VIAL IVP SCH ×2 (21:00→22:45)
[2019-09-01] MEDS ORDERED: *HR* LORazepam 1 MG TABLET PO SCH (21:00)
[2019-09-01] MEDS: Melatonin 3 MG TABLET PO SCH (21:15)
[2019-09-01] MEDS: traZODone 50 MG TABLET PO SCH (21:15)
[2019-09-01] MEDS: Apixaban 5 MG TABLET PO SCH (21:16)
[2019-09-01 23:08] LABS: Acinetobacter baumannii by PCR Not Detected (Not Detect); Enterobacter cloacae Cmplx PCR Not Detected (Not Detect); Enterobacteriaceae by PCR Not Detected (Not Detect); Enterococcus by PCR Not Detected (Not Detect); Escherichia coli by PCR Not Detected (Not Detect); Klebsiella oxytoca by PCR Not Detected (Not Detect); Klebsiella pneumoniae by PCR Not Detected (Not Detect); Proteus by PCR Not Detected (Not Detect); Serratia marcescens by PCR Not Detected (Not Detect); Staphylococcus aureus by PCR Not Detected (Not Detect); Staphylococcus by PCR DETECTED (Not Detect); Streptococcus agalactiae(B)PCR Not Detected (Not Detect); Streptococcus by PCR Not Detected (Not Detect); Streptococcus pneumoniae PCR Not Detected (Not Detect); Streptococcus pyogenes (A) PCR Not Detected (Not Detect); blaKPC Carbapenem-Resist Gene Not Detected (Not Detect); mecA Methicillin-Resist Gene Not Detected (Not Detect); vanA/B Vancomycin-Resist Genes Not Detected (Not Detect)
[2019-09-01 23:09] LABS: Candida albicans by PCR Not Detected (Not Detect); Candida glabrata by PCR Not Detected (Not Detect); Candida krusei by PCR Not Detected (Not Detect); Candida parapsilosis by PCR Not Detected (Not Detect); Candida tropicalis by PCR Not Detected (Not Detect); Pseudomonas aeruginosa by PCR Not Detected (Not Detect)
[2019-09-02] MEDS ORDERED: Furosemide 40 MG/4 ML VIAL IVP SCH
[2019-09-02 03:25] LABS: Calcium 8.6 mg/dL (8.6-10.3); Potassium 4.2 mEq/L (3.5-5.1)
[2019-09-02] MEDS: Ipratropium/Albuterol Neb 3 ML IH SCH ×5 (03:33→20:03)
[2019-09-02 05:21] LABS: Hemoglobin 11.6 g/dL (12.9-16.9); Mean Corpuscular HGB Conc 30.5 g/dL (31.6-35.5); Mean Corpuscular Hemoglobin 27.7 pg (28.0-33.3); Mean Corpuscular Volume 90.7 fL (83.0-100.0); Mean Platelet Volume 9.5 fL (9.4-12.4); Platelet Count 263 K/mcL (140-400); Red Blood Count 4.19 M/mcL (4.19-5.50); Red Cell Distribution Width 20.1 % (11.5-14.5); White Blood Count 6.4 K/mcL (4.3-11.1)
[2019-09-02] MEDS: Doxycycline 100 MG in 0.9 % Sodium Chloride Mini Bag 100 ML IVPB SCH ×2 (06:38→17:30)
[2019-09-02] MEDS: Budesonide/Formoterol 160/4.5 1 PUFF INH IH SCH ×2 (07:18→20:05)
[2019-09-02] MEDS: *HR* LORazepam 1 MG TABLET PO PRN ×2 (09:06→22:13)
[2019-09-02] MEDS: Aspirin Enteric Coated 81 MG Tablet PO SCH (09:19)
[2019-09-02] MEDS: Ranolazine 500 MG TAB.ER.12H PO SCH ×2 (09:19→20:47)
[2019-09-02] MEDS: Cholecalciferol (D-3) 1,000 UNIT (25MCG) TABLET PO SCH (09:19)
[2019-09-02] MEDS: predniSONE 20 MG TABLET PO SCH (09:19)
[2019-09-02] MEDS: Gabapentin 100 MG CAPSULE PO SCH ×2 (09:19→20:47)
[2019-09-02] MEDS: Ascorbic Acid 500 MG TABLET PO SCH (09:20)
[2019-09-02] MEDS: Isosorbide MONOnitrate (24 HR) 60 MG TAB.ER.24H PO SCH (09:20)
[2019-09-02] MEDS: Apixaban 5 MG TABLET PO SCH ×2 (09:20→20:47)
[2019-09-02] MEDS: carvediloL 6.25 MG TABLET PO SCH ×2 (09:20→17:30)
[2019-09-02] MEDS: Furosemide 40 MG/4 ML VIAL IVP SCH ×2 (09:21→20:46)
[2019-09-02] MEDS: Acetaminophen 325 MG TABLET PO PRN (18:28)
[2019-09-02] MEDS: Melatonin 3 MG TABLET PO SCH (20:47)
[2019-09-02] MEDS: traZODone 50 MG TABLET PO SCH (22:13)
[2019-09-03] MEDS: Ipratropium/Albuterol Neb 3 ML IH SCH ×6 (00:09→19:35)
[2019-09-03 01:20] LABS: Calcium 8.8 mg/dL (8.6-10.3); Magnesium 2.1 mg/dL (1.6-2.6); Potassium 3.5 mEq/L (3.5-5.1)
[2019-09-03] MEDS: Doxycycline 100 MG in 0.9 % Sodium Chloride Mini Bag 100 ML IVPB SCH ×2 (05:21→16:52)
[2019-09-03] MEDS: Budesonide/Formoterol 160/4.5 1 PUFF INH IH SCH ×2 (07:29→19:35)
[2019-09-03] MEDS: Ranolazine 500 MG TAB.ER.12H PO SCH ×2 (07:42→19:52)
[2019-09-03] MEDS: Cholecalciferol (D-3) 1,000 UNIT (25MCG) TABLET PO SCH (07:42)
[2019-09-03] MEDS: predniSONE 20 MG TABLET PO SCH (07:42)
[2019-09-03] MEDS: Acetaminophen 325 MG TABLET PO PRN (07:42)
[2019-09-03] MEDS: Gabapentin 100 MG CAPSULE PO SCH ×2 (07:43→19:52)
[2019-09-03] MEDS: carvediloL 6.25 MG TABLET PO SCH ×2 (07:43→16:52)
[2019-09-03] MEDS: Apixaban 5 MG TABLET PO SCH ×2 (07:44→19:52)
[2019-09-03] MEDS: Ascorbic Acid 500 MG TABLET PO SCH (07:44)
[2019-09-03] MEDS: Isosorbide MONOnitrate (24 HR) 60 MG TAB.ER.24H PO SCH (07:44)
[2019-09-03] MEDS: Furosemide 40 MG/4 ML VIAL IVP SCH ×2 (07:44→19:52)
[2019-09-03] MEDS ORDERED: Methyl Salicylate/Menthol 28 GM TUBE TP PRN (09:06)
[2019-09-03] MEDS: Spironolactone 25 MG TABLET PO SCH (09:19)
[2019-09-03] MEDS ORDERED: Methyl Salicylate/Menthol 57 APPL/57 GM TUBE TP PRN (09:30)
[2019-09-03] MEDS ORDERED: *HR* OxyCODONE Immed Rel 5 MG TABLET PO PRN (09:31)
[2019-09-03] MEDS: *HR* LORazepam 1 MG TABLET PO PRN (14:51)
[2019-09-03] MEDS: Melatonin 3 MG TABLET PO SCH (19:52)
[2019-09-04] MEDS: traZODone 50 MG TABLET PO SCH
[2019-09-04] MEDS: Ipratropium/Albuterol Neb 3 ML IH SCH ×4 (00:11→11:04)
[2019-09-04 02:52] LABS: Calcium 8.5 mg/dL (8.6-10.3)
[2019-09-04] MEDS: Doxycycline 100 MG in 0.9 % Sodium Chloride Mini Bag 100 ML IVPB SCH (05:27)
[2019-09-04] MEDS: Ipratropium/Albuterol Neb 3 ML IH PRN (06:43)
[2019-09-04 07:02] VITALS: BP 123/62
[2019-09-04] MEDS: Budesonide/Formoterol 160/4.5 1 PUFF INH IH SCH (07:37)
[2019-09-04] MEDS ORDERED: metOLazone 2.5 MG TABLET PO SCH (09:00)
[2019-09-04] MEDS ORDERED: Bumetanide 1 MG TABLET PO SCH ×2 (09:00)
[2019-09-04] MEDS: Isosorbide MONOnitrate (24 HR) 60 MG TAB.ER.24H PO SCH (09:28)
[2019-09-04] MEDS: Gabapentin 100 MG CAPSULE PO SCH (09:28)
[2019-09-04] MEDS: Cholecalciferol (D-3) 1,000 UNIT (25MCG) TABLET PO SCH (09:28)
[2019-09-04] MEDS: Ranolazine 500 MG TAB.ER.12H PO SCH (09:28)
[2019-09-04] MEDS: carvediloL 6.25 MG TABLET PO SCH (09:29)
[2019-09-04] MEDS: predniSONE 20 MG TABLET PO SCH (09:29)
[2019-09-04] MEDS: Ascorbic Acid 500 MG TABLET PO SCH (09:29)
[2019-09-04] MEDS: Spironolactone 25 MG TABLET PO SCH (09:29)
[2019-09-04] MEDS: *HR* LORazepam 1 MG TABLET PO PRN ×2 (10:54)
== END 2019-09-04 12:42 | disposition home health service (06) | DRG 280 ==
LOC: 2ANU 08:55 → EMEROOARM 08:55 → 2ANU 12:30
PROVIDERS: ADMIT Internal Medicine; ATTEND Internal Medicine

== ENCOUNTER 2019-09-16 15:21 | Inpatient (IN) ==
[2019-09-16] MEDS ORDERED: *HR* LORazepam 2 MG/ML VIAL IVP ONE (15:40)
[2019-09-16 15:51] LABS: Basophils % 0.1 %; Eosinophils % 0.1 %; Hematocrit 39.8 % (37.5-50.1); Hemoglobin 12.2 g/dL (12.9-16.9); Immature Granulocytes % 0.6 % (0-4); Lymphocytes # 0.8 K/mcL (0.6-4.6); Lymphocytes % 7.3 %; Mean Corpuscular HGB Conc 30.7 g/dL (31.6-35.5); Mean Corpuscular Hemoglobin 27.7 pg (28.0-33.3); Mean Corpuscular Volume 90.5 fL (83.0-100.0); Mean Platelet Volume 9.6 fL (9.4-12.4); Monocytes # 0.3 K/mcL (0.0-1.3); Monocytes % 2.9 %; Neutrophils # 10.1 K/mcL (1.6-8.9); Platelet Count 288 K/mcL (140-400); Red Cell Distribution Width 19.3 % (11.5-14.5); White Blood Count 11.4 K/mcL (4.3-11.1)
[2019-09-16] MEDS ORDERED: cefTRIAXone 1,000 MG in 0.9 % Sodium Chloride Mini Bag 100 ML IVPB ONE (16:05)
[2019-09-16] MEDS ORDERED: Azithromycin 500 MG in 0.9 % Sodium Chloride 250 ML IVPB ONE (16:05)
[2019-09-16 16:13] LABS: BUN/Creatinine Ratio 20 (6-26); Blood Urea Nitrogen 27 mg/dL (8-23); Calcium 9.5 mg/dL (8.6-10.3); Carbon Dioxide 33 mEq/L (23-29); Chloride 90 mEq/L (98-107); Glucose 185 mg/dL (70-105); Osmolality,Calculated 286 (280-300); Sodium 133 mEq/L (136-145); Troponin I < 0.03 ng/mL (< 0.04); eGFR For African Americans > 60 (> 60); eGFR For Non-African Americans 52 (> 60)
[2019-09-16] MEDS ORDERED: cefTRIAXone 1,000 MG in Water for inj. (sterile) 10 ML IVPB ONE (16:15)
[2019-09-16] MEDS ORDERED: Ondansetron 4 MG/2 ML VIAL IVP PRN (17:07)
[2019-09-16] MEDS ORDERED: Naloxone 0.4 MG/ML INJ IVP PRN (17:07)
[2019-09-16] MEDS ORDERED: polyethylene glycoL 3350 17 GM POWD.PACK PO PRN (17:09)
[2019-09-16] MEDS: Furosemide 40 MG/4 ML VIAL IVP SCH (18:47)
[2019-09-16] MEDS: *HR* Heparin 5,000 UNIT/ML VIAL SQ SCH (18:47)
[2019-09-16] MEDS: *HR* LORazepam 2 MG/ML VIAL IVP PRN (18:48)
[2019-09-16] MEDS: Gabapentin 100 MG CAPSULE PO SCH (20:49)
[2019-09-16] MEDS: carvediloL 6.25 MG TABLET PO SCH (20:49)
[2019-09-16] MEDS: Ranolazine 500 MG TAB.ER.12H PO SCH (20:49)
[2019-09-16] MEDS: traZODone 50 MG TABLET PO SCH (20:49)
[2019-09-16] MEDS: Budesonide/Formoterol 160/4.5 1 PUFF INH IH SCH (21:10)
[2019-09-17 01:33] LABS: Eosinophils % 0.1 %; Hematocrit 36.1 % (37.5-50.1); Immature Granulocytes % 0.5 % (0-4); Lymphocytes % 10.8 %; Mean Corpuscular HGB Conc 30.5 g/dL (31.6-35.5); Mean Corpuscular Hemoglobin 27.5 pg (28.0-33.3); Mean Corpuscular Volume 90.3 fL (83.0-100.0); Mean Platelet Volume 9.6 fL (9.4-12.4); Monocytes # 0.6 K/mcL (0.0-1.3); Monocytes % 6.3 %; Neutrophils # 7.2 K/mcL (1.6-8.9); Platelet Count 250 K/mcL (140-400); Segmented Neutrophils % 82.3 %; White Blood Count 8.8 K/mcL (4.3-11.1)
[2019-09-17 02:20] LABS: BUN/Creatinine Ratio 21 (6-26); Blood Urea Nitrogen 28 mg/dL (8-23); Carbon Dioxide 31 mEq/L (23-29); Chloride 92 mEq/L (98-107); Glucose 155 mg/dL (70-105); Magnesium 2.3 mg/dL (1.6-2.6); Osmolality,Calculated 289 (280-300); Potassium 3.7 mEq/L (3.5-5.1); Sodium 135 mEq/L (136-145); eGFR For African Americans > 60 (> 60); eGFR For Non-African Americans 52 (> 60)
[2019-09-17] MEDS: *HR* Heparin 5,000 UNIT/ML VIAL SQ SCH ×2 (06:13→16:43)
[2019-09-17] MEDS: *HR* LORazepam 2 MG/ML VIAL IVP PRN ×2 (08:09→17:11)
[2019-09-17] MEDS: Isosorbide MONOnitrate (24 HR) 60 MG TAB.ER.24H PO SCH (08:12)
[2019-09-17] MEDS: Furosemide 40 MG/4 ML VIAL IVP SCH ×2 (08:12→20:47)
[2019-09-17] MEDS: metOLazone 2.5 MG TABLET PO SCH (08:13)
[2019-09-17] MEDS: Aspirin Enteric Coated 81 MG Tablet PO SCH (08:13)
[2019-09-17] MEDS: Spironolactone 25 MG TABLET PO SCH (08:14)
[2019-09-17] MEDS: carvediloL 6.25 MG TABLET PO SCH ×2 (08:14→20:48)
[2019-09-17] MEDS: Gabapentin 100 MG CAPSULE PO SCH ×2 (08:14→20:48)
[2019-09-17] MEDS: Venlafaxine XR (24 HR) 150 MG CAP.ER.24H PO SCH (08:15)
[2019-09-17] MEDS: Venlafaxine XR (24 HR) 37.5 MG CAP.ER.24H PO SCH (08:15)
[2019-09-17] MEDS: Ranolazine 500 MG TAB.ER.12H PO SCH ×2 (08:15→20:49)
[2019-09-17] MEDS: Budesonide/Formoterol 160/4.5 1 PUFF INH IH SCH ×2 (08:24→21:54)
[2019-09-17] MEDS: Nystatin SUSP 5 ML UD.LIQ BC SCH ×2 (17:11→20:48)
[2019-09-17] MEDS: traZODone 50 MG TABLET PO SCH (20:48)
[2019-09-18] MEDS: *HR* LORazepam 2 MG/ML VIAL IVP PRN ×3 (00:32→17:13)
[2019-09-18] MEDS: *HR* Heparin 5,000 UNIT/ML VIAL SQ SCH ×2 (04:48→16:43)
[2019-09-18 07:22] LABS: Basophils % 0.1 %; Eosinophils # 0.2 K/mcL (0.0-0.6); Eosinophils % 1.6 %; Hematocrit 38.3 % (37.5-50.1); Hemoglobin 11.4 g/dL (12.9-16.9); Immature Granulocytes % 0.5 % (0-4); Lymphocytes # 1.3 K/mcL (0.6-4.6); Mean Corpuscular HGB Conc 29.8 g/dL (31.6-35.5); Mean Corpuscular Hemoglobin 27.4 pg (28.0-33.3); Mean Corpuscular Volume 92.1 fL (83.0-100.0); Mean Platelet Volume 10.1 fL (9.4-12.4); Monocytes # 0.7 K/mcL (0.0-1.3); Monocytes % 6.3 %; Neutrophils # 8.4 K/mcL (1.6-8.9); Platelet Count 280 K/mcL (140-400); Red Blood Count 4.16 M/mcL (4.19-5.50); Segmented Neutrophils % 79.5 %; White Blood Count 10.5 K/mcL (4.3-11.1)
[2019-09-18 07:44] LABS: BUN/Creatinine Ratio 21 (6-26); Blood Urea Nitrogen 28 mg/dL (8-23); Calcium 9.2 mg/dL (8.6-10.3); Carbon Dioxide 36 mEq/L (23-29); Chloride 92 mEq/L (98-107); Glucose 94 mg/dL (70-105); Magnesium 2.2 mg/dL (1.6-2.6); Osmolality,Calculated 289 (280-300); Potassium 3.6 mEq/L (3.5-5.1); Sodium 137 mEq/L (136-145); eGFR For African Americans > 60 (> 60); eGFR For Non-African Americans 54 (> 60)
[2019-09-18] MEDS: carvediloL 6.25 MG TABLET PO SCH ×2 (09:15→20:41)
[2019-09-18] MEDS: Venlafaxine XR (24 HR) 150 MG CAP.ER.24H PO SCH (09:16)
[2019-09-18] MEDS: Spironolactone 25 MG TABLET PO SCH (09:16)
[2019-09-18] MEDS: Isosorbide MONOnitrate (24 HR) 60 MG TAB.ER.24H PO SCH (09:16)
[2019-09-18] MEDS: Venlafaxine XR (24 HR) 37.5 MG CAP.ER.24H PO SCH (09:16)
[2019-09-18] MEDS: Gabapentin 100 MG CAPSULE PO SCH ×2 (09:16→20:41)
[2019-09-18] MEDS: Ranolazine 500 MG TAB.ER.12H PO SCH ×2 (09:17→20:41)
[2019-09-18] MEDS: Aspirin Enteric Coated 81 MG Tablet PO SCH (09:17)
[2019-09-18] MEDS: Nystatin SUSP 5 ML UD.LIQ BC SCH ×4 (09:17→20:41)
[2019-09-18] MEDS: Furosemide 40 MG/4 ML VIAL IVP SCH (09:17)
[2019-09-18] MEDS: metOLazone 2.5 MG TABLET PO SCH (09:42)
[2019-09-18] MEDS: Budesonide/Formoterol 160/4.5 1 PUFF INH IH SCH ×2 (10:46→20:03)
[2019-09-18] MEDS ORDERED: Furosemide 40 MG/4 ML VIAL IVP ONE (13:48)
[2019-09-18] MEDS ORDERED: methylPREDNISolone 125 MG/2 ML VIAL IVP ONE (13:49)
[2019-09-18] MEDS: Tiotropium 18 MCG inhalation IH SCH (14:42)
[2019-09-18] MEDS: Fluconazole 100 MG TABLET PO SCH (16:44)
[2019-09-18] MEDS: MethylPREDNISolone 40 MG/ML VIAL IVP SCH (20:40)
[2019-09-19] MEDS: MethylPREDNISolone 40 MG/ML VIAL IVP SCH ×4 (00:22→20:44)
[2019-09-19] MEDS: traZODone 50 MG TABLET PO SCH ×2 (00:23→23:57)
[2019-09-19] MEDS: *HR* LORazepam 2 MG/ML VIAL IVP PRN ×2 (03:30→16:02)
[2019-09-19 03:53] LABS: BUN/Creatinine Ratio 23 (6-26); Blood Urea Nitrogen 31 mg/dL (8-23); Calcium 9.2 mg/dL (8.6-10.3); Carbon Dioxide 33 mEq/L (23-29); Chloride 91 mEq/L (98-107); Glucose 198 mg/dL (70-105); Magnesium 2.1 mg/dL (1.6-2.6); Osmolality,Calculated 286 (280-300); Potassium 4.1 mEq/L (3.5-5.1); Sodium 132 mEq/L (136-145); eGFR For African Americans > 60 (> 60); eGFR For Non-African Americans 53 (> 60)
[2019-09-19] MEDS: *HR* Heparin 5,000 UNIT/ML VIAL SQ SCH ×2 (06:17→16:02)
[2019-09-19] MEDS ORDERED: *HR* LORazepam 2 MG/ML VIAL IVP ONE ×2 (06:24→20:12)
[2019-09-19] MEDS: Levalbuterol Neb 1.25 MG/3 ML IH SCH ×2 (06:59→07:48)
[2019-09-19] MEDS: Budesonide/Formoterol 160/4.5 1 PUFF INH IH SCH ×2 (07:45→22:02)
[2019-09-19] MEDS: Tiotropium 18 MCG inhalation IH SCH (07:48)
[2019-09-19] MEDS ORDERED: Cefepime HCl 2,000 MG in Water for inj. (sterile) 20 ML IVP SCH (07:50)
[2019-09-19] MEDS ORDERED: Morphine Sulfate 2 MG/ML SYRINGE IVP PRN (08:48)
[2019-09-19] MEDS ORDERED: Nitroglycerin 0.4 MG TAB.SUBL SL PRN (08:51)
[2019-09-19] MEDS: Aspirin Enteric Coated 81 MG Tablet PO SCH (09:28)
[2019-09-19] MEDS: Venlafaxine XR (24 HR) 37.5 MG CAP.ER.24H PO SCH (09:29)
[2019-09-19] MEDS: Fluconazole 100 MG TABLET PO SCH (09:29)
[2019-09-19] MEDS: Isosorbide MONOnitrate (24 HR) 60 MG TAB.ER.24H PO SCH (09:29)
[2019-09-19] MEDS: Spironolactone 25 MG TABLET PO SCH (09:30)
[2019-09-19] MEDS: Gabapentin 100 MG CAPSULE PO SCH ×2 (09:30→20:45)
[2019-09-19] MEDS: Nystatin SUSP 5 ML UD.LIQ BC SCH ×4 (09:31→20:44)
[2019-09-19] MEDS: carvediloL 6.25 MG TABLET PO SCH ×2 (09:31→20:46)
[2019-09-19] MEDS: metOLazone 2.5 MG TABLET PO SCH (09:31)
[2019-09-19] MEDS: Venlafaxine XR (24 HR) 150 MG CAP.ER.24H PO SCH (09:31)
[2019-09-19] MEDS: Ranolazine 500 MG TAB.ER.12H PO SCH ×2 (09:31→20:45)
[2019-09-19] MEDS: Furosemide 40 MG/4 ML VIAL IVP SCH ×3 (09:32→20:43)
[2019-09-19] MEDS: levoFLOXacin 750 MG TABLET PO SCH (15:00)
[2019-09-20] MEDS: MethylPREDNISolone 40 MG/ML VIAL IVP SCH ×3 (04:46→20:30)
[2019-09-20] MEDS: *HR* Heparin 5,000 UNIT/ML VIAL SQ SCH ×2 (04:47→17:12)
[2019-09-20] MEDS: *HR* LORazepam 2 MG/ML VIAL IVP PRN ×2 (04:54→10:57)
[2019-09-20 05:16] LABS: Calcium 9.1 mg/dL (8.6-10.3)
[2019-09-20] MEDS: Gabapentin 100 MG CAPSULE PO SCH ×2 (08:49→20:29)
[2019-09-20] MEDS: Ranolazine 500 MG TAB.ER.12H PO SCH ×2 (08:50→20:29)
[2019-09-20] MEDS: Isosorbide MONOnitrate (24 HR) 60 MG TAB.ER.24H PO SCH (08:50)
[2019-09-20] MEDS: Fluconazole 100 MG TABLET PO SCH (08:50)
[2019-09-20] MEDS: Venlafaxine XR (24 HR) 37.5 MG CAP.ER.24H PO SCH (08:50)
[2019-09-20] MEDS: carvediloL 6.25 MG TABLET PO SCH ×2 (08:50→20:29)
[2019-09-20] MEDS: Nystatin SUSP 5 ML UD.LIQ BC SCH ×4 (08:50→20:31)
[2019-09-20] MEDS: Spironolactone 25 MG TABLET PO SCH (08:51)
[2019-09-20] MEDS: Venlafaxine XR (24 HR) 150 MG CAP.ER.24H PO SCH (08:51)
[2019-09-20] MEDS: metOLazone 2.5 MG TABLET PO SCH (08:51)
[2019-09-20] MEDS: levoFLOXacin 750 MG TABLET PO SCH (08:52)
[2019-09-20] MEDS: Aspirin Enteric Coated 81 MG Tablet PO SCH (08:52)
[2019-09-20] MEDS: Tiotropium 18 MCG inhalation IH SCH (11:10)
[2019-09-20] MEDS: Budesonide/Formoterol 160/4.5 1 PUFF INH IH SCH ×2 (11:10→22:07)
[2019-09-20] MEDS: hydrOXYzine pamoate 25 MG CAPSULE PO PRN ×2 (14:19→20:40)
[2019-09-20 14:48] LABS: ABG Base Excess 8 mEq/L (-2 to 3); ABG HCO3 33 mEq/L (21-27); ABG Oxygen Saturation 95 % (95-98); ABG PCO2 45 mmHg (35-45); ABG PH 7.47 pH Units (7.32-7.45); ABG PO2 73 mmHg (85-104); ABG TCO2 34 mEq/L (20-26)
[2019-09-20] MEDS: Ipratropium/Albuterol Neb 3 ML IH SCH ×2 (15:50→22:07)
[2019-09-20] MEDS ORDERED: Bumetanide 1 MG TABLET PO SCH (17:00)
[2019-09-20] MEDS: traZODone 50 MG TABLET PO SCH (21:58)
[2019-09-21 02:11] LABS: Hematocrit 37.8 % (37.5-50.1); Hemoglobin 11.5 g/dL (12.9-16.9); Mean Corpuscular HGB Conc 30.4 g/dL (31.6-35.5); Mean Platelet Volume 10.1 fL (9.4-12.4); Platelet Count 258 K/mcL (140-400); Red Blood Count 4.11 M/mcL (4.19-5.50); Red Cell Distribution Width 18.7 % (11.5-14.5); White Blood Count 7.9 K/mcL (4.3-11.1)
[2019-09-21 02:33] LABS: Calcium 9.4 mg/dL (8.6-10.3); Potassium 4.1 mEq/L (3.5-5.1)
[2019-09-21] MEDS: Ipratropium/Albuterol Neb 3 ML IH SCH ×4 (03:52→22:46)
[2019-09-21] MEDS: MethylPREDNISolone 40 MG/ML VIAL IVP SCH (04:47)
[2019-09-21] MEDS: *HR* Heparin 5,000 UNIT/ML VIAL SQ SCH ×2 (04:47→17:20)
[2019-09-21] MEDS ORDERED: predniSONE 20 MG TABLET PO SCH (09:00)
[2019-09-21] MEDS: Ranolazine 500 MG TAB.ER.12H PO SCH ×2 (09:12→19:48)
[2019-09-21] MEDS: Isosorbide MONOnitrate (24 HR) 60 MG TAB.ER.24H PO SCH (09:13)
[2019-09-21] MEDS: Fluconazole 100 MG TABLET PO SCH (09:13)
[2019-09-21] MEDS: Spironolactone 25 MG TABLET PO SCH (09:13)
[2019-09-21] MEDS: Aspirin Enteric Coated 81 MG Tablet PO SCH (09:13)
[2019-09-21] MEDS: Gabapentin 100 MG CAPSULE PO SCH ×2 (09:13→19:48)
[2019-09-21] MEDS: predniSONE 20 MG TABLET PO SCH (09:13)
[2019-09-21] MEDS: Venlafaxine XR (24 HR) 150 MG CAP.ER.24H PO SCH (09:13)
[2019-09-21] MEDS: levoFLOXacin 750 MG TABLET PO SCH (09:13)
[2019-09-21] MEDS: Bumetanide 1 MG TABLET PO SCH ×2 (09:14→17:20)
[2019-09-21] MEDS: carvediloL 6.25 MG TABLET PO SCH ×2 (09:14→19:52)
[2019-09-21] MEDS: Nystatin SUSP 5 ML UD.LIQ BC SCH ×4 (09:14→19:53)
[2019-09-21] MEDS: Venlafaxine XR (24 HR) 37.5 MG CAP.ER.24H PO SCH (09:14)
[2019-09-21] MEDS: hydrOXYzine pamoate 25 MG CAPSULE PO PRN ×2 (09:23→19:52)
[2019-09-21] MEDS: Budesonide/Formoterol 160/4.5 1 PUFF INH IH SCH ×2 (10:32→22:47)
[2019-09-21] MEDS ORDERED: traZODone 50 MG TABLET PO PRN (11:00)
[2019-09-21] MEDS: *HR* LORazepam 2 MG/ML VIAL IVP PRN (13:18)
[2019-09-22 02:57] LABS: Hematocrit 37.7 % (37.5-50.1); Hemoglobin 11.7 g/dL (12.9-16.9); Mean Corpuscular Hemoglobin 27.8 pg (28.0-33.3); Mean Corpuscular Volume 89.5 fL (83.0-100.0); Platelet Count 234 K/mcL (140-400); Red Blood Count 4.21 M/mcL (4.19-5.50); Red Cell Distribution Width 18.3 % (11.5-14.5)
[2019-09-22 03:13] LABS: Calcium 9.1 mg/dL (8.6-10.3); Potassium 3.6 mEq/L (3.5-5.1)
[2019-09-22] MEDS: Ipratropium/Albuterol Neb 3 ML IH SCH ×2 (03:45→10:49)
[2019-09-22] MEDS: *HR* Heparin 5,000 UNIT/ML VIAL SQ SCH (05:06)
[2019-09-22] MEDS: Venlafaxine XR (24 HR) 37.5 MG CAP.ER.24H PO SCH (09:01)
[2019-09-22] MEDS: hydrOXYzine pamoate 25 MG CAPSULE PO PRN (09:01)
[2019-09-22] MEDS: Bumetanide 1 MG TABLET PO SCH (09:02)
[2019-09-22] MEDS: Gabapentin 100 MG CAPSULE PO SCH (09:02)
[2019-09-22] MEDS: Venlafaxine XR (24 HR) 150 MG CAP.ER.24H PO SCH (09:02)
[2019-09-22] MEDS: predniSONE 20 MG TABLET PO SCH (09:02)
[2019-09-22] MEDS: Ranolazine 500 MG TAB.ER.12H PO SCH (09:02)
[2019-09-22] MEDS: Aspirin Enteric Coated 81 MG Tablet PO SCH (09:02)
[2019-09-22] MEDS: carvediloL 6.25 MG TABLET PO SCH (09:02)
[2019-09-22] MEDS: Isosorbide MONOnitrate (24 HR) 60 MG TAB.ER.24H PO SCH (09:02)
[2019-09-22] MEDS: Spironolactone 25 MG TABLET PO SCH (09:02)
[2019-09-22] MEDS: Nystatin SUSP 5 ML UD.LIQ BC SCH ×2 (09:03→12:53)
[2019-09-22] MEDS: levoFLOXacin 750 MG TABLET PO SCH (09:03)
[2019-09-22] MEDS: Fluconazole 100 MG TABLET PO SCH (09:03)
[2019-09-22 10:44] VITALS: BP 127/72
[2019-09-22] MEDS: Budesonide/Formoterol 160/4.5 1 PUFF INH IH SCH (10:49)
[2019-09-22] MEDS: *HR* LORazepam 2 MG/ML VIAL IVP PRN (12:54)
[2019-09-22] MEDS ORDERED: Aminoglycoside Consult 1 EACH MC ONE (15:28)
== END 2019-09-22 15:29 | disposition home health service (06) | DRG 871 ==
LOC: 2NENU 15:21 → EMEROOARM 15:21 → 2NENU 17:50 → SUATTDRO 09-18 20:09 → 2ANU 09-19 20:05
PROVIDERS: ADMIT Student in an Organized Health Care Education/Training Program; ATTEND Internal Medicine

== ENCOUNTER 2019-12-04 15:45 | Observation (INO) ==
[2019-12-04] MEDS ORDERED: 0.9 % Sodium Chloride 250 ML IVC ONE (15:56)
[2019-12-04] MEDS ORDERED: *HR* LORazepam 2 MG/ML VIAL IVP ONE ×2 (16:02→17:06)
[2019-12-04 16:09] LABS: Basophils % 0.1 %; Eosinophils % 0.3 %; Hematocrit 42.6 % (37.5-50.1); Hemoglobin 12.7 g/dL (12.9-16.9); Immature Granulocytes % 0.5 % (0-4); Lymphocytes # 1.4 K/mcL (0.6-4.6); Lymphocytes % 10.2 %; Mean Corpuscular HGB Conc 29.8 g/dL (31.6-35.5); Mean Corpuscular Hemoglobin 28.1 pg (28.0-33.3); Mean Corpuscular Volume 94.2 fL (83.0-100.0); Mean Platelet Volume 9.5 fL (9.4-12.4); Monocytes # 0.9 K/mcL (0.0-1.3); Monocytes % 6.8 %; Neutrophils # 11.1 K/mcL (1.6-8.9); Platelet Count 276 K/mcL (140-400); Red Blood Count 4.52 M/mcL (4.19-5.50); Red Cell Distribution Width 15.9 % (11.5-14.5); Segmented Neutrophils % 82.1 %; White Blood Count 13.5 K/mcL (4.3-11.1)
[2019-12-04 16:30] LABS: Alanine Aminotransferase 8 Units/L (7-52); Albumin/Globulin Ratio 1.3 (1.1-2.2); Alkaline Phosphatase 53 Units/L (34-104); Aspartate Amino Transferase 8 Units/L (13-39); BUN/Creatinine Ratio 17 (6-26); Bilirubin,Total 0.6 mg/dL (0.3-1.0); Blood Urea Nitrogen 24 mg/dL (8-23); Calcium 9.3 mg/dL (8.6-10.3); Carbon Dioxide 30 mEq/L (23-29); Chloride 95 mEq/L (98-107); Glucose 169 mg/dL (70-105); Osmolality,Calculated 286 (280-300); Sodium 134 mEq/L (136-145); eGFR For African Americans > 60 (> 60); eGFR For Non-African Americans 50 (> 60)
[2019-12-04 16:31] LABS: Troponin I 0.03 ng/mL (< 0.04)
[2019-12-04] MEDS ORDERED: Furosemide 40 MG/4 ML VIAL IVP ONE (17:04)
[2019-12-04] MEDS ORDERED: *HR* LORazepam 2 MG/ML VIAL ONE (17:04)
[2019-12-04] MEDS ORDERED: Lactulose Oral Soln 20 GM/30 ML UDC PO PRN (17:38)
[2019-12-04] MEDS ORDERED: polyethylene glycoL 3350 17 GM POWD.PACK PO PRN (17:38)
[2019-12-04] MEDS ORDERED: NITROGLYCERIN 0.3 MG SL PRN (17:38)
[2019-12-04] MEDS ORDERED: Naloxone 0.4 MG/ML INJ IVP PRN (17:42)
[2019-12-04] MEDS ORDERED: Nitroglycerin 0.4 MG TAB.SUBL SL PRN (17:46)
[2019-12-04] MEDS ORDERED: predniSONE 20 MG TABLET PO ONE (17:46)
[2019-12-04 18:25] LABS: Prothrombin Time 11.2 Seconds (9.4-12.1)
[2019-12-04] MEDS ORDERED: Ipratropium/Albuterol Neb 3 ML IH STA (18:45)
[2019-12-04] MEDS ORDERED: levoFLOXacin 750 MG/150 ML 750 MG/150 ML BAG IVPB ONE (18:59)
[2019-12-04] MEDS: Budesonide/Formoterol 160/4.5 1 PUFF INH IH SCH (20:31)
[2019-12-04] MEDS: Ipratropium/Albuterol Neb 3 ML IH SCH ×2 (20:32→23:53)
[2019-12-04] MEDS: Melatonin 3 MG TABLET PO SCH ×2 (20:50→23:06)
[2019-12-04] MEDS: Sennosides/Docusate Sodium TABLET PO SCH (20:50)
[2019-12-04] MEDS: carvediloL 6.25 MG TABLET PO SCH (20:50)
[2019-12-04] MEDS: Ranolazine 500 MG TAB.ER.12H PO SCH (20:51)
[2019-12-04] MEDS: Gabapentin 100 MG CAPSULE PO SCH (20:51)
[2019-12-04] MEDS: traZODone 50 MG TABLET PO SCH ×2 (20:51→23:06)
[2019-12-04] MEDS: *HR* Heparin 5,000 UNIT/ML VIAL SQ SCH (20:56)
[2019-12-04] MEDS: MethylPREDNISolone 40 MG/ML VIAL IVP SCH (20:57)
[2019-12-04] MEDS ORDERED: Ipratropium/Albuterol Neb 3 ML IH SCH (22:00)
[2019-12-05] MEDS: MethylPREDNISolone 40 MG/ML VIAL IVP SCH ×2 (00:39→08:09)
[2019-12-05] MEDS: Ipratropium/Albuterol Neb 3 ML IH SCH ×6 (03:22→23:24)
[2019-12-05 04:52] LABS: Hematocrit 37.7 % (37.5-50.1); Hemoglobin 11.6 g/dL (12.9-16.9); Immature Granulocytes % 0.7 % (0-4); Lymphocytes # 0.5 K/mcL (0.6-4.6); Lymphocytes % 8.1 %; Mean Corpuscular HGB Conc 30.8 g/dL (31.6-35.5); Mean Corpuscular Hemoglobin 28.8 pg (28.0-33.3); Mean Corpuscular Volume 93.5 fL (83.0-100.0); Mean Platelet Volume 9.6 fL (9.4-12.4); Monocytes # 0.3 K/mcL (0.0-1.3); Platelet Count 203 K/mcL (140-400); Red Blood Count 4.03 M/mcL (4.19-5.50); Red Cell Distribution Width 15.9 % (11.5-14.5); Segmented Neutrophils % 86.2 %
[2019-12-05 04:56] LABS: Neutrophils # 5.2 K/mcL (1.6-8.9)
[2019-12-05 05:11] LABS: BUN/Creatinine Ratio 21 (6-26); Blood Urea Nitrogen 26 mg/dL (8-23); Calcium 8.5 mg/dL (8.6-10.3); Carbon Dioxide 30 mEq/L (23-29); Chloride 95 mEq/L (98-107); Glucose 151 mg/dL (70-105); Osmolality,Calculated 286 (280-300); Sodium 134 mEq/L (136-145); eGFR For African Americans > 60 (> 60); eGFR For Non-African Americans 56 (> 60)
[2019-12-05] MEDS: *HR* Heparin 5,000 UNIT/ML VIAL SQ SCH ×2 (05:20→17:15)
[2019-12-05] MEDS: Budesonide/Formoterol 160/4.5 1 PUFF INH IH SCH ×2 (08:02→20:02)
[2019-12-05] MEDS: Spironolactone 25 MG TABLET PO SCH (08:07)
[2019-12-05] MEDS: Venlafaxine XR (24 HR) 150 MG CAP.ER.24H PO SCH (08:07)
[2019-12-05] MEDS: Ranolazine 500 MG TAB.ER.12H PO SCH ×2 (08:08→20:14)
[2019-12-05] MEDS: carvediloL 6.25 MG TABLET PO SCH ×2 (08:08→15:58)
[2019-12-05] MEDS: Aspirin Enteric Coated 81 MG Tablet PO SCH (08:08)
[2019-12-05] MEDS: Venlafaxine XR (24 HR) 37.5 MG CAP.ER.24H PO SCH (08:08)
[2019-12-05] MEDS: Gabapentin 100 MG CAPSULE PO SCH ×2 (08:08→20:15)
[2019-12-05] MEDS: Isosorbide MONOnitrate (24 HR) 60 MG TAB.ER.24H PO SCH (08:09)
[2019-12-05] MEDS: Bumetanide 1 MG/4 ML VIAL IVP SCH ×2 (08:09→15:58)
[2019-12-05] MEDS: Multivit/Ca/Min/Fe/FA 1 TAB TABLET PO SCH (08:09)
[2019-12-05] MEDS: metOLazone 2.5 MG TABLET PO SCH (08:12)
[2019-12-05] MEDS ORDERED: *HR* LORazepam 2 MG/ML VIAL IVP ONE (08:31)
[2019-12-05] MEDS ORDERED: LACTOSE REDUCED FOOD PO SCH (09:00)
[2019-12-05] MEDS: Azithromycin 250 MG TABLET PO SCH (10:42)
[2019-12-05] MEDS: predniSONE 20 MG TABLET PO SCH (13:40)
[2019-12-05] MEDS: *HR* LORazepam 1 MG TABLET PO PRN ×2 (15:57→20:23)
[2019-12-05] MEDS: Bumetanide 1 MG TABLET PO SCH (16:20)
[2019-12-05] MEDS: Sennosides/Docusate Sodium TABLET PO SCH (17:15)
[2019-12-05] MEDS ORDERED: Loratadine 10 MG TABLET PO PRN (18:57)
[2019-12-05] MEDS: Melatonin 3 MG TABLET PO SCH (20:16)
[2019-12-05] MEDS: traZODone 50 MG TABLET PO SCH (22:14)
[2019-12-06] MEDS: Ipratropium/Albuterol Neb 3 ML IH SCH ×3 (04:07→16:40)
[2019-12-06 05:45] LABS: Potassium 3.1 mEq/L (3.5-5.1)
[2019-12-06] MEDS: *HR* Heparin 5,000 UNIT/ML VIAL SQ SCH (06:00)
[2019-12-06 07:27] VITALS: BP 132/62
[2019-12-06] MEDS: Multivit/Ca/Min/Fe/FA 1 TAB TABLET PO SCH (07:41)
[2019-12-06] MEDS: metOLazone 2.5 MG TABLET PO SCH (07:41)
[2019-12-06] MEDS: carvediloL 6.25 MG TABLET PO SCH (07:41)
[2019-12-06] MEDS: predniSONE 20 MG TABLET PO SCH (07:41)
[2019-12-06] MEDS: Aspirin Enteric Coated 81 MG Tablet PO SCH (07:42)
[2019-12-06] MEDS: Gabapentin 100 MG CAPSULE PO SCH (07:42)
[2019-12-06] MEDS: Azithromycin 250 MG TABLET PO SCH (07:42)
[2019-12-06] MEDS: Isosorbide MONOnitrate (24 HR) 60 MG TAB.ER.24H PO SCH (07:42)
[2019-12-06] MEDS: Spironolactone 25 MG TABLET PO SCH (07:42)
[2019-12-06] MEDS: Ranolazine 500 MG TAB.ER.12H PO SCH (07:44)
[2019-12-06] MEDS: Venlafaxine XR (24 HR) 37.5 MG CAP.ER.24H PO SCH (07:45)
[2019-12-06] MEDS: Bumetanide 1 MG TABLET PO SCH (07:45)
[2019-12-06] MEDS: Venlafaxine XR (24 HR) 150 MG CAP.ER.24H PO SCH (07:46)
[2019-12-06] MEDS: Budesonide/Formoterol 160/4.5 1 PUFF INH IH SCH (08:00)
[2019-12-06] MEDS: *HR* LORazepam 1 MG TABLET PO PRN (09:54)
== END 2019-12-06 16:58 | disposition home health service (06) ==
LOC: EMEROOARM 15:45 → 3BNU 15:45 → SUATTDRO 17:25 → 3BNU 17:44
PROVIDERS: ADMIT Internal Medicine; ATTEND Internal Medicine

== ENCOUNTER 2020-03-30 13:35 | Inpatient (IN) ==
[2020-03-30] MEDS ORDERED: Dexamethasone 4 MG/ML VIAL IVP ONE (13:49)
[2020-03-30] MEDS ORDERED: Albuterol 2.5 MG/3 ML NEBULIZER IH ONE (13:49)
[2020-03-30 14:01] LABS: VBG HCO3 31 mEq/L (21-27); VBG PCO2 68 mmHg (41-51); VBG PH 7.26 pH Units (7.32-7.42); VBG PO2 37 mmHg (25-50)
[2020-03-30 14:01] LABS: Basophils # 0.1 K/mcL (0.0-0.2); Basophils % 0.3 %; Eosinophils # 0.3 K/mcL (0.0-0.6); Eosinophils % 2.1 %; Hematocrit 46.8 % (37.5-50.1); Lymphocytes # 1.8 K/mcL (0.6-4.6); Lymphocytes % 10.9 %; Mean Corpuscular HGB Conc 29.9 g/dL (31.6-35.5); Mean Corpuscular Hemoglobin 28.7 pg (28.0-33.3); Mean Corpuscular Volume 96.1 fL (83.0-100.0); Mean Platelet Volume 9.5 fL (9.4-12.4); Monocytes # 1.1 K/mcL (0.0-1.3); Monocytes % 6.8 %; Neutrophils # 12.6 K/mcL (1.6-8.9); Platelet Count 364 K/mcL (140-400); Red Blood Count 4.87 M/mcL (4.19-5.50); Red Cell Distribution Width 17.7 % (11.5-14.5); Segmented Neutrophils % 78.9 %
[2020-03-30] MEDS ORDERED: cefTRIAXone 1,000 MG in Water for inj. (sterile) 10 ML IVP ONE (14:11)
[2020-03-30] MEDS ORDERED: Azithromycin 500 MG in 0.9 % Sodium Chloride 250 ML IVPB ONE (14:11)
[2020-03-30 14:37] LABS: Alanine Aminotransferase 10 Units/L (7-52); Albumin 3.9 g/dL (3.5-5.7); Albumin/Globulin Ratio 1.1 (1.1-2.2); Alkaline Phosphatase 53 Units/L (34-104); Aspartate Amino Transferase 8 Units/L (13-39); BUN/Creatinine Ratio 21 (6-26); Bilirubin,Total 0.8 mg/dL (0.3-1.0); Blood Urea Nitrogen 29 mg/dL (8-23); Calcium 9.6 mg/dL (8.6-10.3); Carbon Dioxide 29 mEq/L (23-29); Chloride 94 mEq/L (98-107); Globulin 3.7 g/dL (2.4-3.5); Glucose 162 mg/dL (70-105); Osmolality,Calculated 291 (280-300); Sodium 136 mEq/L (136-145); Total Protein 7.6 g/dL (6.4-8.9); Troponin I 0.04 ng/mL (< 0.04); eGFR For African Americans > 60 (> 60); eGFR For Non-African Americans 52 (> 60)
[2020-03-30] MEDS ORDERED: Naloxone 0.4 MG/ML INJ IVP PRN (16:56)
[2020-03-30] MEDS ORDERED: Ondansetron 4 MG/2 ML VIAL IVP PRN (17:03)
[2020-03-30] MEDS ORDERED: levoFLOXacin 750 MG/150 ML 750 MG/150 ML BAG IVPB SCH (19:15)
[2020-03-30 19:53] LABS: ABG Base Excess 6 mEq/L (-2 to 3); ABG HCO3 32 mEq/L (21-27); ABG Oxygen Saturation 100 % (95-98); ABG PCO2 49 mmHg (35-45); ABG PH 7.42 pH Units (7.32-7.45); ABG PO2 173 mmHg (85-104); ABG TCO2 34 mEq/L (20-26)
[2020-03-30] MEDS: *HR* Heparin 5,000 UNIT/ML VIAL SQ SCH (22:54)
[2020-03-30] MEDS: MethylPREDNISolone 40 MG/ML VIAL IVP SCH (22:57)
[2020-03-30] MEDS ORDERED: *HR* LORazepam 2 MG/ML VIAL IVP ONE (23:00)
[2020-03-30] MEDS ORDERED: Lactulose Oral Soln 20 GM/30 ML UDC PO PRN (23:32)
[2020-03-30] MEDS ORDERED: polyethylene glycoL 3350 17 GM POWD.PACK PO PRN (23:32)
[2020-03-31] MEDS ORDERED: *HR* LORazepam 2 MG/ML VIAL IVP ONE ×2 (00:53→05:54)
[2020-03-31] MEDS: MethylPREDNISolone 40 MG/ML VIAL IVP SCH ×3 (05:36→20:40)
[2020-03-31] MEDS: *HR* Heparin 5,000 UNIT/ML VIAL SQ SCH ×3 (05:37→20:41)
[2020-03-31] MEDS: Ranolazine 500 MG TAB.ER.12H PO SCH ×2 (08:25→20:40)
[2020-03-31] MEDS: Venlafaxine XR (24 HR) 150 MG CAP.ER.24H PO SCH (08:26)
[2020-03-31] MEDS: Gabapentin 100 MG CAPSULE PO SCH ×2 (08:26→20:40)
[2020-03-31] MEDS: Aspirin Enteric Coated 81 MG Tablet PO SCH (08:26)
[2020-03-31] MEDS: Loratadine 10 MG TABLET PO PRN (08:26)
[2020-03-31] MEDS: Acetaminophen 325 MG TABLET PO PRN (08:26)
[2020-03-31] MEDS: Isosorbide MONOnitrate (24 HR) 60 MG TAB.ER.24H PO SCH (08:26)
[2020-03-31] MEDS: carvediloL 6.25 MG TABLET PO SCH ×2 (08:27→18:52)
[2020-03-31] MEDS: Venlafaxine XR (24 HR) 37.5 MG CAP.ER.24H PO SCH (08:27)
[2020-03-31] MEDS: Multivit/Ca/Min/Fe/FA 1 TAB TABLET PO SCH (08:27)
[2020-03-31 09:14] LABS: Basophils % 0.2 %; Hematocrit 41.6 % (37.5-50.1); Hemoglobin 12.8 g/dL (12.9-16.9); Immature Granulocytes % 1.1 % (0-4); Lymphocytes # 0.7 K/mcL (0.6-4.6); Lymphocytes % 8.2 %; Mean Corpuscular HGB Conc 30.8 g/dL (31.6-35.5); Mean Corpuscular Volume 94.3 fL (83.0-100.0); Mean Platelet Volume 9.6 fL (9.4-12.4); Monocytes # 0.4 K/mcL (0.0-1.3); Monocytes % 4.9 %; Platelet Count 303 K/mcL (140-400); Red Blood Count 4.41 M/mcL (4.19-5.50); Red Cell Distribution Width 17.5 % (11.5-14.5); Segmented Neutrophils % 85.6 %; White Blood Count 8.2 K/mcL (4.3-11.1)
[2020-03-31 09:16] LABS: VBG HCO3 30 mEq/L (21-27); VBG PCO2 57 mmHg (41-51); VBG PH 7.33 pH Units (7.32-7.42); VBG PO2 68 mmHg (25-50)
[2020-03-31 09:31] LABS: BUN/Creatinine Ratio 26 (6-26); Blood Urea Nitrogen 33 mg/dL (8-23); Calcium 9.7 mg/dL (8.6-10.3); Carbon Dioxide 29 mEq/L (23-29); Chloride 96 mEq/L (98-107); Glucose 121 mg/dL (70-105); Magnesium 2.3 mg/dL (1.6-2.6); Osmolality,Calculated 293 (280-300); Potassium 4.6 mEq/L (3.5-5.1); Sodium 137 mEq/L (136-145); eGFR For African Americans > 60 (> 60); eGFR For Non-African Americans 57 (> 60)
[2020-03-31] MEDS: *HR* LORazepam 0.5 MG TABLET PO PRN (20:40)
[2020-03-31] MEDS: traZODone 50 MG TABLET PO SCH (20:40)
[2020-03-31] MEDS: levoFLOXacin 750 MG/150 ML 750 MG/150 ML BAG IVPB SCH (20:42)
[2020-03-31] MEDS: Ipratropium/Albuterol Neb 3 ML IH PRN (22:07)
[2020-04-01 01:04] LABS: Basophils % 0.1 %; Hematocrit 36.7 % (37.5-50.1); Hemoglobin 11.5 g/dL (12.9-16.9); Immature Granulocytes % 1.1 % (0-4); Lymphocytes # 0.7 K/mcL (0.6-4.6); Lymphocytes % 7.6 %; Mean Corpuscular HGB Conc 31.3 g/dL (31.6-35.5); Mean Corpuscular Hemoglobin 29.4 pg (28.0-33.3); Mean Corpuscular Volume 93.9 fL (83.0-100.0); Mean Platelet Volume 9.7 fL (9.4-12.4); Monocytes # 0.5 K/mcL (0.0-1.3); Monocytes % 5.1 %; Neutrophils # 7.6 K/mcL (1.6-8.9); Platelet Count 280 K/mcL (140-400); Red Blood Count 3.91 M/mcL (4.19-5.50); Red Cell Distribution Width 17.4 % (11.5-14.5); Segmented Neutrophils % 86.1 %; White Blood Count 8.8 K/mcL (4.3-11.1)
[2020-04-01 01:10] LABS: BUN/Creatinine Ratio 32 (6-26); Blood Urea Nitrogen 38 mg/dL (8-23); Calcium 8.8 mg/dL (8.6-10.3); Carbon Dioxide 31 mEq/L (23-29); Chloride 97 mEq/L (98-107); Glucose 152 mg/dL (70-105); Magnesium 2.2 mg/dL (1.6-2.6); Osmolality,Calculated 294 (280-300); Potassium 3.7 mEq/L (3.5-5.1); Sodium 136 mEq/L (136-145); eGFR For African Americans > 60 (> 60); eGFR For Non-African Americans > 60 (> 60)
[2020-04-01] MEDS: MethylPREDNISolone 40 MG/ML VIAL IVP SCH ×3 (05:39→20:58)
[2020-04-01] MEDS: *HR* Heparin 5,000 UNIT/ML VIAL SQ SCH ×3 (05:40→20:58)
[2020-04-01] MEDS: Ranolazine 500 MG TAB.ER.12H PO SCH ×2 (07:58→20:58)
[2020-04-01] MEDS: Multivit/Ca/Min/Fe/FA 1 TAB TABLET PO SCH (07:58)
[2020-04-01] MEDS: Venlafaxine XR (24 HR) 37.5 MG CAP.ER.24H PO SCH (07:59)
[2020-04-01] MEDS: Isosorbide MONOnitrate (24 HR) 60 MG TAB.ER.24H PO SCH (07:59)
[2020-04-01] MEDS: Aspirin Enteric Coated 81 MG Tablet PO SCH (07:59)
[2020-04-01] MEDS: Acetaminophen 325 MG TABLET PO PRN (07:59)
[2020-04-01] MEDS: *HR* LORazepam 0.5 MG TABLET PO PRN ×2 (08:00→17:30)
[2020-04-01] MEDS: carvediloL 6.25 MG TABLET PO SCH ×2 (08:00→17:30)
[2020-04-01] MEDS: Gabapentin 100 MG CAPSULE PO SCH ×2 (08:00→20:58)
[2020-04-01] MEDS: Venlafaxine XR (24 HR) 150 MG CAP.ER.24H PO SCH (08:00)
[2020-04-01] MEDS: Ipratropium/Albuterol Neb 3 ML IH PRN (18:22)
[2020-04-01] MEDS: Loratadine 10 MG TABLET PO PRN (20:58)
[2020-04-01] MEDS: traZODone 50 MG TABLET PO SCH (20:58)
[2020-04-01] MEDS: levoFLOXacin 750 MG/150 ML 750 MG/150 ML BAG IVPB SCH (21:04)
[2020-04-02 03:15] LABS: Basophils % 0.1 %; Hematocrit 37.4 % (37.5-50.1); Hemoglobin 11.7 g/dL (12.9-16.9); Immature Granulocytes % 0.8 % (0-4); Lymphocytes # 0.7 K/mcL (0.6-4.6); Lymphocytes % 7.4 %; Mean Corpuscular HGB Conc 31.3 g/dL (31.6-35.5); Mean Corpuscular Hemoglobin 29.8 pg (28.0-33.3); Mean Corpuscular Volume 95.2 fL (83.0-100.0); Mean Platelet Volume 9.5 fL (9.4-12.4); Monocytes # 0.4 K/mcL (0.0-1.3); Monocytes % 4.2 %; Neutrophils # 8.6 K/mcL (1.6-8.9); Platelet Count 262 K/mcL (140-400); Red Blood Count 3.93 M/mcL (4.19-5.50); Red Cell Distribution Width 17.1 % (11.5-14.5); Segmented Neutrophils % 87.5 %; White Blood Count 9.9 K/mcL (4.3-11.1)
[2020-04-02] MEDS: *HR* LORazepam 0.5 MG TABLET PO PRN ×3 (03:27→21:05)
[2020-04-02 03:36] LABS: BUN/Creatinine Ratio 29 (6-26); Blood Urea Nitrogen 37 mg/dL (8-23); Calcium 8.6 mg/dL (8.6-10.3); Carbon Dioxide 33 mEq/L (23-29); Chloride 98 mEq/L (98-107); Glucose 184 mg/dL (70-105); Magnesium 2.2 mg/dL (1.6-2.6); Osmolality,Calculated 295 (280-300); Potassium 3.9 mEq/L (3.5-5.1); Sodium 136 mEq/L (136-145); eGFR For African Americans > 60 (> 60); eGFR For Non-African Americans 55 (> 60)
[2020-04-02] MEDS: MethylPREDNISolone 40 MG/ML VIAL IVP SCH ×3 (06:24→21:05)
[2020-04-02] MEDS: *HR* Heparin 5,000 UNIT/ML VIAL SQ SCH ×3 (06:24→22:48)
[2020-04-02] MEDS: Multivit/Ca/Min/Fe/FA 1 TAB TABLET PO SCH (08:26)
[2020-04-02] MEDS: Venlafaxine XR (24 HR) 37.5 MG CAP.ER.24H PO SCH (08:27)
[2020-04-02] MEDS: Aspirin Enteric Coated 81 MG Tablet PO SCH (08:27)
[2020-04-02] MEDS: Ranolazine 500 MG TAB.ER.12H PO SCH ×2 (08:27→21:05)
[2020-04-02] MEDS: Venlafaxine XR (24 HR) 150 MG CAP.ER.24H PO SCH (08:27)
[2020-04-02] MEDS: Gabapentin 100 MG CAPSULE PO SCH ×2 (08:27→21:05)
[2020-04-02] MEDS: Isosorbide MONOnitrate (24 HR) 60 MG TAB.ER.24H PO SCH (08:27)
[2020-04-02] MEDS: carvediloL 6.25 MG TABLET PO SCH ×2 (08:27→17:52)
[2020-04-02] MEDS: traZODone 50 MG TABLET PO SCH (22:48)
[2020-04-02] MEDS: levoFLOXacin 750 MG/150 ML 750 MG/150 ML BAG IVPB SCH (22:48)
[2020-04-03] MEDS: MethylPREDNISolone 40 MG/ML VIAL IVP SCH ×2 (06:04→15:35)
[2020-04-03] MEDS: *HR* Heparin 5,000 UNIT/ML VIAL SQ SCH ×3 (06:05→22:30)
[2020-04-03 06:23] LABS: Basophils % 0.1 %; Hematocrit 36.8 % (37.5-50.1); Hemoglobin 11.4 g/dL (12.9-16.9); Immature Granulocytes % 0.8 % (0-4); Lymphocytes # 0.6 K/mcL (0.6-4.6); Mean Corpuscular Hemoglobin 28.9 pg (28.0-33.3); Mean Corpuscular Volume 93.4 fL (83.0-100.0); Mean Platelet Volume 9.5 fL (9.4-12.4); Monocytes # 0.4 K/mcL (0.0-1.3); Monocytes % 4.8 %; Neutrophils # 8.1 K/mcL (1.6-8.9); Platelet Count 262 K/mcL (140-400); Red Blood Count 3.94 M/mcL (4.19-5.50); Segmented Neutrophils % 88.3 %; White Blood Count 9.2 K/mcL (4.3-11.1)
[2020-04-03 06:37] LABS: BUN/Creatinine Ratio 30 (6-26); Blood Urea Nitrogen 33 mg/dL (8-23); Calcium 8.8 mg/dL (8.6-10.3); Carbon Dioxide 31 mEq/L (23-29); Chloride 100 mEq/L (98-107); Glucose 151 mg/dL (70-105); Magnesium 2.3 mg/dL (1.6-2.6); Osmolality,Calculated 294 (280-300); Potassium 3.8 mEq/L (3.5-5.1); Sodium 137 mEq/L (136-145); eGFR For African Americans > 60 (> 60); eGFR For Non-African Americans > 60 (> 60)
[2020-04-03] MEDS: Ranolazine 500 MG TAB.ER.12H PO SCH ×2 (08:18→22:29)
[2020-04-03] MEDS: Venlafaxine XR (24 HR) 37.5 MG CAP.ER.24H PO SCH (08:18)
[2020-04-03] MEDS: Aspirin Enteric Coated 81 MG Tablet PO SCH (08:18)
[2020-04-03] MEDS: Multivit/Ca/Min/Fe/FA 1 TAB TABLET PO SCH (08:18)
[2020-04-03] MEDS: carvediloL 6.25 MG TABLET PO SCH ×2 (08:18→17:30)
[2020-04-03] MEDS: Isosorbide MONOnitrate (24 HR) 60 MG TAB.ER.24H PO SCH (08:19)
[2020-04-03] MEDS: *HR* LORazepam 0.5 MG TABLET PO PRN ×2 (08:19→17:30)
[2020-04-03] MEDS: Gabapentin 100 MG CAPSULE PO SCH ×2 (08:20→22:29)
[2020-04-03] MEDS: Venlafaxine XR (24 HR) 150 MG CAP.ER.24H PO SCH (08:20)
[2020-04-03] MEDS: traZODone 50 MG TABLET PO SCH (22:29)
[2020-04-03] MEDS: levoFLOXacin 750 MG/150 ML 750 MG/150 ML BAG IVPB SCH (22:30)
[2020-04-04 05:05] LABS: Basophils % 0.2 %; Eosinophils # 0.1 K/mcL (0.0-0.6); Eosinophils % 0.9 %; Hematocrit 39.5 % (37.5-50.1); Hemoglobin 12.2 g/dL (12.9-16.9); Immature Granulocytes % 1.3 % (0-4); Lymphocytes # 1.3 K/mcL (0.6-4.6); Lymphocytes % 11.8 %; Mean Corpuscular HGB Conc 30.9 g/dL (31.6-35.5); Mean Corpuscular Hemoglobin 29.2 pg (28.0-33.3); Mean Corpuscular Volume 94.5 fL (83.0-100.0); Mean Platelet Volume 9.5 fL (9.4-12.4); Monocytes # 0.7 K/mcL (0.0-1.3); Monocytes % 6.3 %; Neutrophils # 8.8 K/mcL (1.6-8.9); Platelet Count 226 K/mcL (140-400); Red Blood Count 4.18 M/mcL (4.19-5.50); Segmented Neutrophils % 79.5 %; White Blood Count 11.1 K/mcL (4.3-11.1)
[2020-04-04 05:19] LABS: BUN/Creatinine Ratio 35 (6-26); Blood Urea Nitrogen 34 mg/dL (8-23); Calcium 8.8 mg/dL (8.6-10.3); Carbon Dioxide 29 mEq/L (23-29); Chloride 102 mEq/L (98-107); Glucose 96 mg/dL (70-105); Magnesium 2.2 mg/dL (1.6-2.6); Osmolality,Calculated 293 (280-300); Potassium 3.6 mEq/L (3.5-5.1); Sodium 138 mEq/L (136-145); eGFR For African Americans > 60 (> 60); eGFR For Non-African Americans > 60 (> 60)
[2020-04-04] MEDS: *HR* Heparin 5,000 UNIT/ML VIAL SQ SCH (05:20)
[2020-04-04] MEDS: Ipratropium/Albuterol Neb 3 ML IH PRN (06:06)
[2020-04-04 07:41] VITALS: BP 106/66
[2020-04-04] MEDS: Isosorbide MONOnitrate (24 HR) 60 MG TAB.ER.24H PO SCH (07:51)
[2020-04-04] MEDS: Venlafaxine XR (24 HR) 37.5 MG CAP.ER.24H PO SCH (07:51)
[2020-04-04] MEDS: Multivit/Ca/Min/Fe/FA 1 TAB TABLET PO SCH (07:51)
[2020-04-04] MEDS: Ranolazine 500 MG TAB.ER.12H PO SCH (07:51)
[2020-04-04] MEDS: Venlafaxine XR (24 HR) 150 MG CAP.ER.24H PO SCH (07:51)
[2020-04-04] MEDS: Gabapentin 100 MG CAPSULE PO SCH (07:51)
[2020-04-04] MEDS: Aspirin Enteric Coated 81 MG Tablet PO SCH (07:51)
[2020-04-04] MEDS: carvediloL 6.25 MG TABLET PO SCH (07:52)
[2020-04-04] MEDS: *HR* LORazepam 0.5 MG TABLET PO PRN (08:01)
[2020-04-04] MEDS ORDERED: predniSONE 20 MG TABLET PO SCH (09:00)
== END 2020-04-04 12:49 | disposition home health service (06) | DRG 871 ==
LOC: EMEROOARM 13:35 → 2ANU 13:35 → SUATTDRO 17:17 → 2ANU 18:14
PROVIDERS: ADMIT Pharmacist; ATTEND Pharmacist

== ENCOUNTER 2020-05-19 19:33 | Inpatient (IN) ==
[2020-05-19] MEDS ORDERED: Ipratropium/Albuterol Neb 3 ML IH ONE (19:43)
[2020-05-19] MEDS ORDERED: methylPREDNISolone 125 MG/2 ML VIAL IVP ONE (19:43)
[2020-05-19] MEDS ORDERED: *HR* LORazepam 2 MG/ML VIAL IVP ONE ×2 (20:01→23:43)
[2020-05-19 20:03] LABS: Basophils % 0.2 %; Eosinophils % 0.3 %; Hematocrit 42.6 % (37.5-50.1); Hemoglobin 13.3 g/dL (12.9-16.9); Immature Granulocytes % 0.5 % (0-4); Lymphocytes # 0.9 K/mcL (0.6-4.6); Lymphocytes % 7.7 %; Mean Corpuscular HGB Conc 31.2 g/dL (31.6-35.5); Mean Corpuscular Hemoglobin 30.6 pg (28.0-33.3); Mean Corpuscular Volume 98.2 fL (83.0-100.0); Mean Platelet Volume 9.8 fL (9.4-12.4); Monocytes # 0.5 K/mcL (0.0-1.3); Monocytes % 4.3 %; Neutrophils # 10.7 K/mcL (1.6-8.9); Platelet Count 286 K/mcL (140-400); Red Blood Count 4.34 M/mcL (4.19-5.50); Red Cell Distribution Width 15.1 % (11.5-14.5); White Blood Count 12.2 K/mcL (4.3-11.1)
[2020-05-19 20:23] LABS: Alanine Aminotransferase 10 Units/L (7-52); Albumin 3.6 g/dL (3.5-5.7); Albumin/Globulin Ratio 1.1 (1.1-2.2); Alkaline Phosphatase 53 Units/L (34-104); Aspartate Amino Transferase 9 Units/L (13-39); BUN/Creatinine Ratio 17 (6-26); Bilirubin,Total 0.4 mg/dL (0.3-1.0); Blood Urea Nitrogen 23 mg/dL (8-23); Calcium 8.9 mg/dL (8.6-10.3); Carbon Dioxide 29 mEq/L (23-29); Chloride 96 mEq/L (98-107); Globulin 3.3 g/dL (2.4-3.5); Glucose 152 mg/dL (70-105); Osmolality,Calculated 285 (280-300); Potassium 4.1 mEq/L (3.5-5.1); Sodium 134 mEq/L (136-145); Total Protein 6.9 g/dL (6.4-8.9); Troponin I < 0.03 ng/mL (< 0.04); eGFR For African Americans > 60 (> 60); eGFR For Non-African Americans 53 (> 60)
[2020-05-19] MEDS ORDERED: Azithromycin 500 MG in 0.9 % Sodium Chloride 250 ML IVPB ONE (20:26)
[2020-05-19] MEDS ORDERED: cefTRIAXone 1,000 MG in Water for inj. (sterile) 10 ML IVP ONE (20:26)
[2020-05-19] MEDS ORDERED: 0.9 % Sodium Chloride 1,000 ML IVC ONE (20:27)
[2020-05-19 21:03] LABS: VBG HCO3 32 mEq/L (21-27); VBG PCO2 72 mmHg (41-51); VBG PH 7.26 pH Units (7.32-7.42); VBG PO2 40 mmHg (25-50)
[2020-05-19] MEDS ORDERED: Acetaminophen 325 MG TABLET PO PRN (23:07)
[2020-05-19] MEDS ORDERED: Naloxone 0.4 MG/ML INJ IVP PRN (23:07)
[2020-05-19] MEDS ORDERED: Ondansetron 4 MG/2 ML VIAL IVP PRN (23:07)
[2020-05-19] MEDS ORDERED: Ringers Solution, Lactated 1,000 ML IVC SCH (23:15)
[2020-05-19] MEDS: carvediloL 6.25 MG TABLET PO SCH (23:54)
[2020-05-20] MEDS ORDERED: Ipratropium/Albuterol Neb 3 ML IH PRN (00:27)
[2020-05-20] MEDS ORDERED: traZODone 50 MG TABLET PO ONE (00:47)
[2020-05-20 00:55] LABS: Hematocrit 41.2 % (37.5-50.1); Hemoglobin 12.6 g/dL (12.9-16.9); Immature Granulocytes % 0.7 % (0-4); Lymphocytes # 0.5 K/mcL (0.6-4.6); Lymphocytes % 6.5 %; Mean Corpuscular HGB Conc 30.6 g/dL (31.6-35.5); Mean Corpuscular Hemoglobin 30.4 pg (28.0-33.3); Mean Corpuscular Volume 99.3 fL (83.0-100.0); Mean Platelet Volume 9.5 fL (9.4-12.4); Monocytes # 0.1 K/mcL (0.0-1.3); Monocytes % 1.4 %; Neutrophils # 6.6 K/mcL (1.6-8.9); Platelet Count 227 K/mcL (140-400); Red Blood Count 4.15 M/mcL (4.19-5.50); Red Cell Distribution Width 15.1 % (11.5-14.5); Segmented Neutrophils % 91.4 %; White Blood Count 7.3 K/mcL (4.3-11.1)
[2020-05-20 00:59] LABS: VBG HCO3 29 mEq/L (21-27); VBG PCO2 65 mmHg (41-51); VBG PH 7.26 pH Units (7.32-7.42); VBG PO2 44 mmHg (25-50)
[2020-05-20 01:04] LABS: INR 1.1; Prothrombin Time 12.5 Seconds (9.4-12.1)
[2020-05-20 01:32] LABS: Alanine Aminotransferase 10 Units/L (7-52); Albumin 3.5 g/dL (3.5-5.7); Albumin/Globulin Ratio 1.1 (1.1-2.2); Alkaline Phosphatase 51 Units/L (34-104); Aspartate Amino Transferase 10 Units/L (13-39); BUN/Creatinine Ratio 19 (6-26); Bilirubin,Total 0.3 mg/dL (0.3-1.0); Blood Urea Nitrogen 25 mg/dL (8-23); Calcium 8.5 mg/dL (8.6-10.3); Carbon Dioxide 28 mEq/L (23-29); Chloride 101 mEq/L (98-107); Globulin 3.1 g/dL (2.4-3.5); Glucose 201 mg/dL (70-105); Osmolality,Calculated 294 (280-300); Phosphorous 4.3 mg/dL (2.7-4.5); Potassium 5.2 mEq/L (3.5-5.1); Sodium 137 mEq/L (136-145); Total Protein 6.6 g/dL (6.4-8.9); eGFR For African Americans > 60 (> 60); eGFR For Non-African Americans 52 (> 60)
[2020-05-20] MEDS: Ipratropium/Albuterol Neb 3 ML IH SCH ×6 (03:52→23:45)
[2020-05-20] MEDS ORDERED: *HR* LORazepam 2 MG/ML VIAL IVP ONE (05:15)
[2020-05-20] MEDS: Doxycycline 100 MG in 0.9 % Sodium Chloride Mini Bag 100 ML IVPB SCH ×2 (05:28→17:45)
[2020-05-20] MEDS: Furosemide 40 MG/4 ML VIAL IVP SCH ×2 (06:57→17:45)
[2020-05-20] MEDS ORDERED: *HR* Dextrose 50 % in Water (Vial) 50 ML VIAL IVP PRN (08:03)
[2020-05-20] MEDS ORDERED: Dextrose Gel 15 GM/37.5 ML TUBE PO PRN ×2 (08:03)
[2020-05-20] MEDS ORDERED: D5% in Water 1,000 ML IVC PRN (08:03)
[2020-05-20] MEDS ORDERED: Bumetanide 1 MG TABLET PO SCH (09:00)
[2020-05-20] MEDS: Aspirin Enteric Coated 81 MG Tablet PO SCH (09:33)
[2020-05-20] MEDS: carvediloL 6.25 MG TABLET PO SCH ×2 (09:33→17:44)
[2020-05-20] MEDS: Gabapentin 100 MG CAPSULE PO SCH ×2 (09:33→21:48)
[2020-05-20] MEDS: MethylPREDNISolone 40 MG/ML VIAL IVP SCH ×2 (09:33→17:44)
[2020-05-20] MEDS: Insulin LISPRO 300 UNITS/3 ML VIAL SQ SCH ×2 (11:17→17:38)
[2020-05-20] MEDS: QUEtiapine Fumarate 25 MG TABLET PO SCH ×2 (12:31→21:49)
[2020-05-20] MEDS: GuaiFENesin/Pseudophedrine TABLET PO PRN (21:48)
[2020-05-21] MEDS: Insulin LISPRO 300 UNITS/3 ML VIAL SQ SCH ×3 (00:39→12:33)
[2020-05-21] MEDS: MethylPREDNISolone 40 MG/ML VIAL IVP SCH ×3 (00:44→21:28)
[2020-05-21] MEDS: Benzonatate 100 MG CAPSULE PO PRN ×2 (02:25→17:47)
[2020-05-21] MEDS: Ipratropium/Albuterol Neb 3 ML IH SCH ×6 (03:31→23:41)
[2020-05-21] MEDS: Doxycycline 100 MG in 0.9 % Sodium Chloride Mini Bag 100 ML IVPB SCH ×2 (05:55→17:30)
[2020-05-21] MEDS: carvediloL 6.25 MG TABLET PO SCH ×2 (09:05→17:28)
[2020-05-21] MEDS: Aspirin Enteric Coated 81 MG Tablet PO SCH (09:05)
[2020-05-21] MEDS: Gabapentin 100 MG CAPSULE PO SCH ×2 (09:05→21:29)
[2020-05-21] MEDS: Furosemide 40 MG/4 ML VIAL IVP SCH ×2 (09:06→17:28)
[2020-05-21 10:34] LABS: BUN/Creatinine Ratio 24 (6-26); Blood Urea Nitrogen 32 mg/dL (8-23); Calcium 9.4 mg/dL (8.6-10.3); Carbon Dioxide 29 mEq/L (23-29); Chloride 96 mEq/L (98-107); Glucose 144 mg/dL (70-105); Osmolality,Calculated 295 (280-300); Phosphorous 4.2 mg/dL (2.7-4.5); Potassium 3.6 mEq/L (3.5-5.1); Sodium 138 mEq/L (136-145); eGFR For African Americans > 60 (> 60); eGFR For Non-African Americans 52 (> 60)
[2020-05-21] MEDS: QUEtiapine Fumarate 25 MG TABLET PO SCH ×3 (12:36→21:31)
[2020-05-21] MEDS ORDERED: Nitroglycerin 0.4 MG TAB.SUBL SL PRN (13:48)
[2020-05-21] MEDS ORDERED: MethylPREDNISolone 40 MG/ML VIAL IVP SCH (14:03)
[2020-05-21] MEDS: GuaiFENesin/Pseudophedrine TABLET PO PRN (15:24)
[2020-05-21] MEDS: *HR* Heparin 5,000 UNIT/ML VIAL SQ SCH (17:28)
[2020-05-21] MEDS: Venlafaxine XR (24 HR) 150 MG CAP.ER.24H PO SCH (19:11)
[2020-05-21] MEDS: Venlafaxine XR (24 HR) 37.5 MG CAP.ER.24H PO SCH (19:12)
[2020-05-21] MEDS: Menthol 9.1 MG LOZENGE PO PRN (19:12)
[2020-05-21] MEDS: Ranolazine 500 MG TAB.ER.12H PO SCH (21:28)
[2020-05-21] MEDS: traZODone 50 MG TABLET PO SCH (21:30)
[2020-05-22] MEDS: Ipratropium/Albuterol Neb 3 ML IH SCH ×6 (03:42→23:50)
[2020-05-22 04:17] LABS: Basophils % 0.1 %; Hematocrit 38.9 % (37.5-50.1); Hemoglobin 12.3 g/dL (12.9-16.9); Immature Granulocytes % 0.8 % (0-4); Lymphocytes # 0.7 K/mcL (0.6-4.6); Lymphocytes % 6.6 %; Mean Corpuscular HGB Conc 31.6 g/dL (31.6-35.5); Mean Corpuscular Hemoglobin 30.6 pg (28.0-33.3); Mean Corpuscular Volume 96.8 fL (83.0-100.0); Monocytes # 0.4 K/mcL (0.0-1.3); Monocytes % 3.5 %; Platelet Count 242 K/mcL (140-400); Red Blood Count 4.02 M/mcL (4.19-5.50); Red Cell Distribution Width 14.9 % (11.5-14.5); White Blood Count 10.1 K/mcL (4.3-11.1)
[2020-05-22] MEDS: Doxycycline 100 MG in 0.9 % Sodium Chloride Mini Bag 100 ML IVPB SCH ×2 (04:29→17:23)
[2020-05-22] MEDS: *HR* Heparin 5,000 UNIT/ML VIAL SQ SCH ×2 (04:30→17:05)
[2020-05-22 04:46] LABS: BUN/Creatinine Ratio 31 (6-26); Blood Urea Nitrogen 41 mg/dL (8-23); Calcium 8.8 mg/dL (8.6-10.3); Carbon Dioxide 29 mEq/L (23-29); Chloride 97 mEq/L (98-107); Glucose 168 mg/dL (70-105); Magnesium 1.9 mg/dL (1.6-2.6); Osmolality,Calculated 298 (280-300); Phosphorous 3.6 mg/dL (2.7-4.5); Potassium 3.1 mEq/L (3.5-5.1); Sodium 137 mEq/L (136-145); eGFR For African Americans > 60 (> 60); eGFR For Non-African Americans 53 (> 60)
[2020-05-22] MEDS: Gabapentin 100 MG CAPSULE PO SCH ×2 (08:37→20:35)
[2020-05-22] MEDS: Ranolazine 500 MG TAB.ER.12H PO SCH ×2 (08:37→20:36)
[2020-05-22] MEDS: QUEtiapine Fumarate 25 MG TABLET PO SCH ×2 (08:37→20:36)
[2020-05-22] MEDS: metOLazone 2.5 MG TABLET PO SCH (08:38)
[2020-05-22] MEDS: Aspirin Enteric Coated 81 MG Tablet PO SCH (08:38)
[2020-05-22] MEDS: Isosorbide MONOnitrate (24 HR) 60 MG TAB.ER.24H PO SCH (08:39)
[2020-05-22] MEDS: Spironolactone 25 MG TABLET PO SCH (08:39)
[2020-05-22] MEDS: MethylPREDNISolone 40 MG/ML VIAL IVP SCH ×2 (08:39→20:36)
[2020-05-22] MEDS: carvediloL 6.25 MG TABLET PO SCH ×2 (08:40→16:59)
[2020-05-22] MEDS: Furosemide 40 MG/4 ML VIAL IVP SCH ×2 (08:40→17:22)
[2020-05-22] MEDS ORDERED: Venlafaxine XR (24 HR) 150 MG CAP.ER.24H PO SCH (09:00)
[2020-05-22] MEDS ORDERED: Venlafaxine XR (24 HR) 37.5 MG CAP.ER.24H PO SCH (09:00)
[2020-05-22] MEDS ORDERED: *HR* LORazepam 2 MG/ML VIAL IVP ONE (12:00)
[2020-05-22] MEDS: Venlafaxine XR (24 HR) 150 MG CAP.ER.24H PO SCH (16:59)
[2020-05-22] MEDS: Venlafaxine XR (24 HR) 37.5 MG CAP.ER.24H PO SCH (16:59)
[2020-05-22] MEDS: GuaiFENesin/Pseudophedrine TABLET PO PRN (17:02)
[2020-05-22] MEDS: traZODone 50 MG TABLET PO SCH (20:36)
[2020-05-23] MEDS ORDERED: *HR* LORazepam 2 MG/ML VIAL IVP ONE (00:42)
[2020-05-23] MEDS: Ipratropium/Albuterol Neb 3 ML IH SCH ×6 (04:12→23:58)
[2020-05-23] MEDS: Doxycycline 100 MG in 0.9 % Sodium Chloride Mini Bag 100 ML IVPB SCH ×2 (05:53→17:20)
[2020-05-23] MEDS: *HR* Heparin 5,000 UNIT/ML VIAL SQ SCH ×2 (05:53→17:21)
[2020-05-23 06:45] LABS: Calcium 9.1 mg/dL (8.6-10.3); Magnesium 1.9 mg/dL (1.6-2.6); Phosphorous 4.5 mg/dL (2.7-4.5); Potassium 3.2 mEq/L (3.5-5.1)
[2020-05-23] MEDS: Furosemide 40 MG/4 ML VIAL IVP SCH ×2 (08:08→17:20)
[2020-05-23] MEDS: carvediloL 6.25 MG TABLET PO SCH ×2 (08:08→17:20)
[2020-05-23] MEDS: Spironolactone 25 MG TABLET PO SCH (08:09)
[2020-05-23] MEDS: Aspirin Enteric Coated 81 MG Tablet PO SCH (08:09)
[2020-05-23] MEDS: Isosorbide MONOnitrate (24 HR) 60 MG TAB.ER.24H PO SCH (08:09)
[2020-05-23] MEDS: Ranolazine 500 MG TAB.ER.12H PO SCH ×2 (08:10→20:48)
[2020-05-23] MEDS: Gabapentin 100 MG CAPSULE PO SCH ×2 (08:10→20:48)
[2020-05-23] MEDS: MethylPREDNISolone 40 MG/ML VIAL IVP SCH (08:11)
[2020-05-23] MEDS: QUEtiapine Fumarate 25 MG TABLET PO SCH ×2 (08:11→20:48)
[2020-05-23] MEDS: metOLazone 2.5 MG TABLET PO SCH (08:11)
[2020-05-23] MEDS: Venlafaxine XR (24 HR) 150 MG CAP.ER.24H PO SCH (17:20)
[2020-05-23] MEDS: Menthol 9.1 MG LOZENGE PO PRN (18:00)
[2020-05-23] MEDS: Venlafaxine XR (24 HR) 37.5 MG CAP.ER.24H PO SCH (18:00)
[2020-05-23] MEDS: traZODone 50 MG TABLET PO SCH (23:54)
[2020-05-24] MEDS ORDERED: Chloraseptic Spray 177 ML BOTTLE MM PRN (00:38)
[2020-05-24] MEDS: Ipratropium/Albuterol Neb 3 ML IH SCH ×6 (04:02→23:17)
[2020-05-24 04:42] LABS: Basophils % 0.2 %; Eosinophils % 0.2 %; Hematocrit 37.9 % (37.5-50.1); Hemoglobin 12.1 g/dL (12.9-16.9); Immature Granulocytes % 1.1 % (0-4); Lymphocytes # 1.5 K/mcL (0.6-4.6); Lymphocytes % 10.7 %; Mean Corpuscular HGB Conc 31.9 g/dL (31.6-35.5); Mean Corpuscular Hemoglobin 30.9 pg (28.0-33.3); Mean Corpuscular Volume 96.7 fL (83.0-100.0); Mean Platelet Volume 9.6 fL (9.4-12.4); Monocytes # 0.9 K/mcL (0.0-1.3); Monocytes % 6.1 %; Neutrophils # 11.5 K/mcL (1.6-8.9); Nucleated Red Blood Cells 0.2 /100 WBC (0); Platelet Count 235 K/mcL (140-400); Red Blood Count 3.92 M/mcL (4.19-5.50); Red Cell Distribution Width 15.1 % (11.5-14.5); Segmented Neutrophils % 81.7 %
[2020-05-24 04:59] LABS: Calcium 9.1 mg/dL (8.6-10.3); Magnesium 1.8 mg/dL (1.6-2.6); Phosphorous 3.3 mg/dL (2.7-4.5); Potassium 3.3 mEq/L (3.5-5.1)
[2020-05-24] MEDS: Doxycycline 100 MG in 0.9 % Sodium Chloride Mini Bag 100 ML IVPB SCH ×2 (06:44→17:04)
[2020-05-24] MEDS: *HR* Heparin 5,000 UNIT/ML VIAL SQ SCH ×2 (06:44→17:04)
[2020-05-24] MEDS: predniSONE 20 MG TABLET PO SCH (09:38)
[2020-05-24] MEDS: Ranolazine 500 MG TAB.ER.12H PO SCH ×2 (09:39→20:26)
[2020-05-24] MEDS: Gabapentin 100 MG CAPSULE PO SCH ×2 (09:39→20:25)
[2020-05-24] MEDS: carvediloL 6.25 MG TABLET PO SCH ×2 (09:39→17:03)
[2020-05-24] MEDS: QUEtiapine Fumarate 25 MG TABLET PO SCH ×2 (09:39→20:26)
[2020-05-24] MEDS: Aspirin Enteric Coated 81 MG Tablet PO SCH (09:39)
[2020-05-24] MEDS: Isosorbide MONOnitrate (24 HR) 60 MG TAB.ER.24H PO SCH (09:39)
[2020-05-24] MEDS: Venlafaxine XR (24 HR) 150 MG CAP.ER.24H PO SCH (17:03)
[2020-05-24] MEDS: Venlafaxine XR (24 HR) 37.5 MG CAP.ER.24H PO SCH (17:42)
[2020-05-24] MEDS: GuaiFENesin/Pseudophedrine TABLET PO PRN (22:28)
[2020-05-24] MEDS: traZODone 50 MG TABLET PO SCH (22:28)
[2020-05-25] MEDS: Ipratropium/Albuterol Neb 3 ML IH SCH ×5 (03:46→20:17)
[2020-05-25] MEDS: *HR* Heparin 5,000 UNIT/ML VIAL SQ SCH ×2 (05:31→17:19)
[2020-05-25] MEDS: Doxycycline 100 MG in 0.9 % Sodium Chloride Mini Bag 100 ML IVPB SCH (05:31)
[2020-05-25 06:25] LABS: Basophils % 0.2 %; Eosinophils % 0.2 %; Hematocrit 39.1 % (37.5-50.1); Hemoglobin 12.8 g/dL (12.9-16.9); Immature Granulocytes % 1.1 % (0-4); Lymphocytes # 1.2 K/mcL (0.6-4.6); Lymphocytes % 8.4 %; Mean Corpuscular HGB Conc 32.7 g/dL (31.6-35.5); Mean Corpuscular Hemoglobin 31.1 pg (28.0-33.3); Mean Corpuscular Volume 95.1 fL (83.0-100.0); Mean Platelet Volume 9.9 fL (9.4-12.4); Monocytes # 0.8 K/mcL (0.0-1.3); Monocytes % 5.9 %; Neutrophils # 12.1 K/mcL (1.6-8.9); Platelet Count 212 K/mcL (140-400); Red Blood Count 4.11 M/mcL (4.19-5.50); Red Cell Distribution Width 15.1 % (11.5-14.5); Segmented Neutrophils % 84.2 %; White Blood Count 14.4 K/mcL (4.3-11.1)
[2020-05-25 08:39] LABS: BUN/Creatinine Ratio 37 (6-26); Blood Urea Nitrogen 45 mg/dL (8-23); Calcium 9.1 mg/dL (8.6-10.3); Carbon Dioxide 27 mEq/L (23-29); Chloride 97 mEq/L (98-107); Glucose 123 mg/dL (70-105); Osmolality,Calculated 295 (280-300); Potassium 3.5 mEq/L (3.5-5.1); Sodium 136 mEq/L (136-145); eGFR For African Americans > 60 (> 60); eGFR For Non-African Americans 59 (> 60)
[2020-05-25] MEDS ORDERED: Furosemide 40 MG/4 ML VIAL IVP ONE (09:07)
[2020-05-25] MEDS: Isosorbide MONOnitrate (24 HR) 60 MG TAB.ER.24H PO SCH (09:44)
[2020-05-25] MEDS: GuaiFENesin/Pseudophedrine TABLET PO PRN ×2 (09:44→22:56)
[2020-05-25] MEDS: Aspirin Enteric Coated 81 MG Tablet PO SCH (09:44)
[2020-05-25] MEDS: Ranolazine 500 MG TAB.ER.12H PO SCH ×2 (09:44→20:55)
[2020-05-25] MEDS: predniSONE 20 MG TABLET PO SCH (09:44)
[2020-05-25] MEDS: QUEtiapine Fumarate 25 MG TABLET PO SCH ×2 (09:45→20:55)
[2020-05-25] MEDS: Gabapentin 100 MG CAPSULE PO SCH ×2 (09:45→20:55)
[2020-05-25] MEDS: carvediloL 6.25 MG TABLET PO SCH ×2 (09:45→17:18)
[2020-05-25] MEDS: Venlafaxine XR (24 HR) 150 MG CAP.ER.24H PO SCH (17:18)
[2020-05-25] MEDS: Venlafaxine XR (24 HR) 37.5 MG CAP.ER.24H PO SCH (17:18)
[2020-05-25] MEDS: traZODone 50 MG TABLET PO SCH (22:56)
[2020-05-26] MEDS: Ipratropium/Albuterol Neb 3 ML IH SCH ×7 (03:24→23:44)
[2020-05-26 05:48] LABS: Basophils % 0.3 %; Eosinophils % 0.1 %; Hematocrit 40.5 % (37.5-50.1); Hemoglobin 12.7 g/dL (12.9-16.9); Immature Granulocytes % 1.8 % (0-4); Lymphocytes # 1.3 K/mcL (0.6-4.6); Mean Corpuscular HGB Conc 31.4 g/dL (31.6-35.5); Mean Corpuscular Volume 95.7 fL (83.0-100.0); Mean Platelet Volume 9.7 fL (9.4-12.4); Monocytes # 0.8 K/mcL (0.0-1.3); Monocytes % 5.7 %; Neutrophils # 11.7 K/mcL (1.6-8.9); Nucleated Red Blood Cells 0.1 /100 WBC (0); Platelet Count 232 K/mcL (140-400); Red Blood Count 4.23 M/mcL (4.19-5.50); Red Cell Distribution Width 14.8 % (11.5-14.5); Segmented Neutrophils % 83.1 %; White Blood Count 14.1 K/mcL (4.3-11.1)
[2020-05-26] MEDS: *HR* Heparin 5,000 UNIT/ML VIAL SQ SCH ×2 (05:59→16:53)
[2020-05-26 06:07] LABS: BUN/Creatinine Ratio 40 (6-26); Blood Urea Nitrogen 53 mg/dL (8-23); Calcium 9.4 mg/dL (8.6-10.3); Carbon Dioxide 33 mEq/L (23-29); Chloride 97 mEq/L (98-107); Glucose 130 mg/dL (70-105); Osmolality,Calculated 300 (280-300); Potassium 3.8 mEq/L (3.5-5.1); Sodium 137 mEq/L (136-145); eGFR For African Americans > 60 (> 60); eGFR For Non-African Americans 53 (> 60)
[2020-05-26] MEDS: Ranolazine 500 MG TAB.ER.12H PO SCH ×2 (07:08→23:02)
[2020-05-26] MEDS: QUEtiapine Fumarate 25 MG TABLET PO SCH ×2 (07:09→23:02)
[2020-05-26] MEDS: carvediloL 6.25 MG TABLET PO SCH ×2 (07:09→16:54)
[2020-05-26] MEDS: Isosorbide MONOnitrate (24 HR) 60 MG TAB.ER.24H PO SCH (07:09)
[2020-05-26] MEDS: Gabapentin 100 MG CAPSULE PO SCH ×2 (07:09→23:01)
[2020-05-26] MEDS: Aspirin Enteric Coated 81 MG Tablet PO SCH (07:09)
[2020-05-26] MEDS: GuaiFENesin/Pseudophedrine TABLET PO PRN ×2 (07:14→23:12)
[2020-05-26] MEDS: Furosemide 40 MG/4 ML VIAL IVP SCH ×2 (08:02→23:02)
[2020-05-26] MEDS ORDERED: *HR* LORazepam 2 MG/ML VIAL IVP ONE (11:52)
[2020-05-26] MEDS: predniSONE 20 MG TABLET PO SCH (14:17)
[2020-05-26] MEDS: Venlafaxine XR (24 HR) 150 MG CAP.ER.24H PO SCH (16:54)
[2020-05-26] MEDS: Venlafaxine XR (24 HR) 37.5 MG CAP.ER.24H PO SCH (16:54)
[2020-05-26] MEDS: traZODone 50 MG TABLET PO SCH (23:01)
[2020-05-27] MEDS: Ipratropium/Albuterol Neb 3 ML IH SCH ×6 (03:58→23:57)
[2020-05-27 06:18] LABS: Basophils % 0.1 %; Hematocrit 37.3 % (37.5-50.1); Hemoglobin 12.2 g/dL (12.9-16.9); Lymphocytes # 0.8 K/mcL (0.6-4.6); Lymphocytes % 5.4 %; Mean Corpuscular HGB Conc 32.7 g/dL (31.6-35.5); Mean Corpuscular Hemoglobin 31.1 pg (28.0-33.3); Mean Corpuscular Volume 95.2 fL (83.0-100.0); Mean Platelet Volume 9.7 fL (9.4-12.4); Monocytes % 6.6 %; Neutrophils # 12.6 K/mcL (1.6-8.9); Platelet Count 229 K/mcL (140-400); Red Blood Count 3.92 M/mcL (4.19-5.50); Red Cell Distribution Width 14.7 % (11.5-14.5); Segmented Neutrophils % 86.9 %; White Blood Count 14.5 K/mcL (4.3-11.1)
[2020-05-27 06:37] LABS: BUN/Creatinine Ratio 40 (6-26); Blood Urea Nitrogen 50 mg/dL (8-23); Calcium 9.1 mg/dL (8.6-10.3); Carbon Dioxide 31 mEq/L (23-29); Chloride 95 mEq/L (98-107); Glucose 174 mg/dL (70-105); Osmolality,Calculated 298 (280-300); Potassium 3.4 mEq/L (3.5-5.1); Sodium 135 mEq/L (136-145); eGFR For African Americans > 60 (> 60); eGFR For Non-African Americans 57 (> 60)
[2020-05-27] MEDS: *HR* Heparin 5,000 UNIT/ML VIAL SQ SCH ×2 (07:37→17:06)
[2020-05-27 07:53] LABS: Magnesium 1.9 mg/dL (1.6-2.6); Phosphorous 3.6 mg/dL (2.7-4.5)
[2020-05-27] MEDS ORDERED: Bumetanide 1 MG TABLET PO SCH (08:00)
[2020-05-27] MEDS ORDERED: metOLazone 2.5 MG TABLET PO SCH (09:00)
[2020-05-27] MEDS: Aspirin Enteric Coated 81 MG Tablet PO SCH (09:14)
[2020-05-27] MEDS: metOLazone 2.5 MG TABLET PO SCH (09:14)
[2020-05-27] MEDS: Isosorbide MONOnitrate (24 HR) 60 MG TAB.ER.24H PO SCH (09:14)
[2020-05-27] MEDS: QUEtiapine Fumarate 25 MG TABLET PO SCH (09:14)
[2020-05-27] MEDS: carvediloL 6.25 MG TABLET PO SCH ×2 (09:14→17:06)
[2020-05-27] MEDS: Gabapentin 100 MG CAPSULE PO SCH ×2 (09:14→21:32)
[2020-05-27] MEDS: Spironolactone 25 MG TABLET PO SCH (09:14)
[2020-05-27] MEDS: predniSONE 20 MG TABLET PO SCH (09:14)
[2020-05-27] MEDS: Ranolazine 500 MG TAB.ER.12H PO SCH ×2 (09:15→21:31)
[2020-05-27] MEDS: Bumetanide 1 MG TABLET PO SCH ×2 (09:21→17:06)
[2020-05-27] MEDS: levoFLOXacin 750 MG/150 ML 750 MG/150 ML BAG IVPB SCH (11:20)
[2020-05-27] MEDS: Venlafaxine XR (24 HR) 150 MG CAP.ER.24H PO SCH (17:05)
[2020-05-27] MEDS: Venlafaxine XR (24 HR) 37.5 MG CAP.ER.24H PO SCH (17:05)
[2020-05-27] MEDS: Menthol 9.1 MG LOZENGE PO PRN (21:31)
[2020-05-27] MEDS: traZODone 50 MG TABLET PO SCH (23:24)
[2020-05-28 02:13] LABS: Basophils # 0.1 K/mcL (0.0-0.2); Basophils % 0.3 %; Hematocrit 39.7 % (37.5-50.1); Hemoglobin 12.6 g/dL (12.9-16.9); Immature Granulocytes % 1.6 % (0-4); Lymphocytes % 6.2 %; Mean Corpuscular HGB Conc 31.7 g/dL (31.6-35.5); Mean Corpuscular Hemoglobin 30.2 pg (28.0-33.3); Mean Corpuscular Volume 95.2 fL (83.0-100.0); Mean Platelet Volume 10.1 fL (9.4-12.4); Monocytes # 1.2 K/mcL (0.0-1.3); Monocytes % 7.4 %; Neutrophils # 13.3 K/mcL (1.6-8.9); Platelet Count 265 K/mcL (140-400); Red Blood Count 4.17 M/mcL (4.19-5.50); Red Cell Distribution Width 14.7 % (11.5-14.5); Segmented Neutrophils % 84.5 %; White Blood Count 15.8 K/mcL (4.3-11.1)
[2020-05-28 02:34] LABS: Calcium 9.4 mg/dL (8.6-10.3); Potassium 3.6 mEq/L (3.5-5.1)
[2020-05-28] MEDS: Ipratropium/Albuterol Neb 3 ML IH SCH ×3 (03:38→11:19)
[2020-05-28] MEDS: *HR* Heparin 5,000 UNIT/ML VIAL SQ SCH ×2 (05:43→16:03)
[2020-05-28] MEDS: predniSONE 20 MG TABLET PO SCH (07:45)
[2020-05-28] MEDS: Gabapentin 100 MG CAPSULE PO SCH ×2 (07:45→22:18)
[2020-05-28] MEDS: Ranolazine 500 MG TAB.ER.12H PO SCH ×2 (07:45→22:18)
[2020-05-28] MEDS: levoFLOXacin 750 MG/150 ML 750 MG/150 ML BAG IVPB SCH (07:46)
[2020-05-28] MEDS: metOLazone 2.5 MG TABLET PO SCH (07:46)
[2020-05-28] MEDS: Spironolactone 25 MG TABLET PO SCH (07:46)
[2020-05-28] MEDS: Bumetanide 1 MG TABLET PO SCH ×2 (07:46→16:03)
[2020-05-28] MEDS: Isosorbide MONOnitrate (24 HR) 60 MG TAB.ER.24H PO SCH (07:46)
[2020-05-28] MEDS: carvediloL 6.25 MG TABLET PO SCH ×2 (07:46→16:03)
[2020-05-28] MEDS: Aspirin Enteric Coated 81 MG Tablet PO SCH (07:46)
[2020-05-28 15:05] LABS: Adenovirus Not Detected (Not Detect); Bordetella Pertussis Not Detected (Not Detect); Chlamydophila pneumoniae Not Detected (Not Detect); Coronavirus 229E Not Detected (Not Detect); Coronavirus HKU1 Not Detected (Not Detect); Coronavirus NL63 Not Detected (Not Detect); Coronavirus OC43 Not Detected (Not Detect); Human Metapneumovirus Not Detected (Not Detect); Human Rhinovirus/Enterovirus Not Detected (Not Detect); Influenza A Subtype 2009 H1 Not Detected (Not Detect); Influenza B Not Detected (Not Detect); Mycoplasma pneumoniae Not Detected (Not Detect); Parainfluenza Virus 1 Not Detected (Not Detect); Parainfluenza Virus 2 Not Detected (Not Detect); Parainfluenza Virus 3 Not Detected (Not Detect); Parainfluenza Virus 4 Not Detected (Not Detect); Respiratory Syncytial Virus Not Detected (Not Detect)
[2020-05-28 15:06] LABS: SARS-CoV-2 DETECTED (Not Detect)
[2020-05-28] MEDS: Venlafaxine XR (24 HR) 37.5 MG CAP.ER.24H PO SCH (16:03)
[2020-05-28] MEDS: Venlafaxine XR (24 HR) 150 MG CAP.ER.24H PO SCH (16:03)
[2020-05-28] MEDS: Dexamethasone 4 MG/ML VIAL IVP SCH (16:04)
[2020-05-28] MEDS: Cefepime HCl 2,000 MG in Water for inj. (sterile) 20 ML IVP SCH (16:04)
[2020-05-28] MEDS: Ipratropium 1 PUFF INHALER IH SCH ×3 (16:18→23:26)
[2020-05-28 17:19] LABS: INR 1.3; Prothrombin Time 14.5 Seconds (9.4-12.1)
[2020-05-28 17:31] LABS: Albumin 3.6 g/dL (3.5-5.7); Albumin/Globulin Ratio 1.1 (1.1-2.2); Bilirubin,Direct 0.2 mg/dL (0.0-0.2); Bilirubin,Indirect 0.4 mg/dL (0.0-1.0); Bilirubin,Total 0.6 mg/dL (0.3-1.0); Globulin 3.4 g/dL (2.4-3.5); Magnesium 1.9 mg/dL (1.6-2.6); Phosphorous 3.9 mg/dL (2.7-4.5); Troponin I 0.03 ng/mL (< 0.04)
[2020-05-28] MEDS: GuaiFENesin/Pseudophedrine TABLET PO PRN (22:18)
[2020-05-28] MEDS: Benzonatate 100 MG CAPSULE PO PRN (22:18)
[2020-05-28] MEDS: traZODone 50 MG TABLET PO SCH (22:20)
[2020-05-29] MEDS ORDERED: *HR* LORazepam 2 MG/ML VIAL IVP ONE (00:11)
[2020-05-29] MEDS ORDERED: Potassium Chloride Elixir 20 MEQ/15 ML UDC GTUBE SCH (00:15)
[2020-05-29] MEDS: Potassium Chloride Elixir 20 MEQ/15 ML UDC PO SCH ×3 (00:21→22:06)
[2020-05-29] MEDS: Ipratropium 1 PUFF INHALER IH SCH ×6 (04:13→23:45)
[2020-05-29 04:54] LABS: Hemoglobin 11.5 g/dL (12.9-16.9); Immature Granulocytes % 2.1 % (0-4); Monocytes % 6.7 %
[2020-05-29 04:56] LABS: Basophils % 0.3 %; Hematocrit 35.3 % (37.5-50.1); Immature Platelets 3.4 % (1.1-6.1); Lymphocytes # 0.5 K/mcL (0.6-4.6); Lymphocytes % 5.4 %; Mean Corpuscular HGB Conc 32.6 g/dL (31.6-35.5); Mean Corpuscular Hemoglobin 30.6 pg (28.0-33.3); Mean Corpuscular Volume 93.9 fL (83.0-100.0); Mean Platelet Volume 10.3 fL (9.4-12.4); Monocytes # 0.6 K/mcL (0.0-1.3); Neutrophils # 7.6 K/mcL (1.6-8.9); Platelet Count 198 K/mcL (140-400); Red Blood Count 3.76 M/mcL (4.19-5.50); Red Cell Distribution Width 14.6 % (11.5-14.5); Segmented Neutrophils % 85.5 %; White Blood Count 8.9 K/mcL (4.3-11.1)
[2020-05-29] MEDS: Cefepime HCl 2,000 MG in Water for inj. (sterile) 20 ML IVP SCH ×2 (04:58→17:12)
[2020-05-29] MEDS: *HR* Heparin 5,000 UNIT/ML VIAL SQ SCH ×2 (04:59→17:11)
[2020-05-29 05:17] LABS: Calcium 8.9 mg/dL (8.6-10.3); Potassium 4.7 mEq/L (3.5-5.1)
[2020-05-29] MEDS: Ranolazine 500 MG TAB.ER.12H PO SCH ×2 (08:07→22:04)
[2020-05-29] MEDS: Aspirin Enteric Coated 81 MG Tablet PO SCH (08:08)
[2020-05-29] MEDS: Gabapentin 100 MG CAPSULE PO SCH ×2 (08:08→22:04)
[2020-05-29] MEDS: Isosorbide MONOnitrate (24 HR) 60 MG TAB.ER.24H PO SCH (08:08)
[2020-05-29] MEDS: carvediloL 6.25 MG TABLET PO SCH ×2 (08:08→16:38)
[2020-05-29] MEDS: metOLazone 2.5 MG TABLET PO SCH (08:08)
[2020-05-29] MEDS: Bumetanide 1 MG TABLET PO SCH (08:08)
[2020-05-29] MEDS: Benzonatate 100 MG CAPSULE PO PRN (08:08)
[2020-05-29] MEDS: Spironolactone 25 MG TABLET PO SCH (08:08)
[2020-05-29] MEDS: Dexamethasone 4 MG/ML VIAL IVP SCH (08:09)
[2020-05-29 12:24] LABS: Albumin 3.1 g/dL (3.5-5.7); Bilirubin,Direct 0.1 mg/dL (0.0-0.2); Bilirubin,Indirect 0.5 mg/dL (0.0-1.0); Bilirubin,Total 0.6 mg/dL (0.3-1.0); Globulin 3.1 g/dL (2.4-3.5); Total Protein 6.2 g/dL (6.4-8.9)
[2020-05-29] MEDS ORDERED: GuaiFENesin/Dextromethorphan TABLET PO SCH (15:22)
[2020-05-29] MEDS: *HR* LORazepam 0.5 MG TABLET PO PRN (15:38)
[2020-05-29] MEDS: Venlafaxine XR (24 HR) 150 MG CAP.ER.24H PO SCH (17:12)
[2020-05-29] MEDS: Venlafaxine XR (24 HR) 37.5 MG CAP.ER.24H PO SCH (17:12)
[2020-05-29] MEDS: traZODone 50 MG TABLET PO SCH (22:05)
[2020-05-29] MEDS: Fluconazole 100 MG TABLET PO SCH (22:09)
[2020-05-30] MEDS: Ipratropium 1 PUFF INHALER IH SCH ×6 (03:54→20:30)
[2020-05-30 04:46] LABS: Basophils % 0.3 %; Hematocrit 38.3 % (37.5-50.1); Immature Granulocytes % 2.4 % (0-4); Lymphocytes # 0.9 K/mcL (0.6-4.6); Lymphocytes % 6.6 %; Mean Corpuscular HGB Conc 31.3 g/dL (31.6-35.5); Mean Corpuscular Hemoglobin 30.1 pg (28.0-33.3); Monocytes # 0.7 K/mcL (0.0-1.3); Monocytes % 5.6 %; Platelet Count 229 K/mcL (140-400); Red Blood Count 3.99 M/mcL (4.19-5.50); Red Cell Distribution Width 14.6 % (11.5-14.5); Segmented Neutrophils % 85.1 %
[2020-05-30 05:05] LABS: Calcium 9.5 mg/dL (8.6-10.3); Potassium 4.4 mEq/L (3.5-5.1)
[2020-05-30] MEDS: Cefepime HCl 2,000 MG in Water for inj. (sterile) 20 ML IVP SCH (05:13)
[2020-05-30] MEDS: *HR* Heparin 5,000 UNIT/ML VIAL SQ SCH ×2 (05:13→17:36)
[2020-05-30] MEDS: Benzonatate 100 MG CAPSULE PO PRN (05:14)
[2020-05-30] MEDS: *HR* LORazepam 0.5 MG TABLET PO PRN ×3 (05:14→17:49)
[2020-05-30] MEDS: carvediloL 6.25 MG TABLET PO SCH ×2 (08:41→17:36)
[2020-05-30] MEDS: Isosorbide MONOnitrate (24 HR) 60 MG TAB.ER.24H PO SCH (08:42)
[2020-05-30] MEDS: Potassium Chloride Elixir 20 MEQ/15 ML UDC PO SCH ×2 (09:18→20:05)
[2020-05-30] MEDS: Dexamethasone 4 MG/ML VIAL IVP SCH (09:18)
[2020-05-30] MEDS: Aspirin Enteric Coated 81 MG Tablet PO SCH (09:18)
[2020-05-30] MEDS: Fluconazole 100 MG TABLET PO SCH (09:19)
[2020-05-30] MEDS: Gabapentin 100 MG CAPSULE PO SCH ×2 (09:19→20:05)
[2020-05-30] MEDS: Ranolazine 500 MG TAB.ER.12H PO SCH ×2 (09:19→20:05)
[2020-05-30] MEDS ORDERED: Furosemide 40 MG/4 ML VIAL IVP ONE (10:24)
[2020-05-30] MEDS ORDERED: Dexamethasone 4 MG/ML VIAL IVP ONE (11:12)
[2020-05-30 12:09] LABS: Fibrinogen 439 mg/dL (169-393)
[2020-05-30 12:11] LABS: D-Dimer 682 ng/mLFEU (0-500)
[2020-05-30 12:23] LABS: Albumin 3.3 g/dL (3.5-5.7); Albumin/Globulin Ratio 1.1 (1.1-2.2); Bilirubin,Direct 0.1 mg/dL (0.0-0.2); Bilirubin,Indirect 0.4 mg/dL (0.0-1.0); Bilirubin,Total 0.5 mg/dL (0.3-1.0); Total Protein 6.3 g/dL (6.4-8.9)
[2020-05-30] MEDS ORDERED: Remdesivir 200 MG in 0.9 % Sodium Chloride 100 ML IVPB ONE (13:15)
[2020-05-30] MEDS: Venlafaxine XR (24 HR) 150 MG CAP.ER.24H PO SCH (17:36)
[2020-05-30] MEDS: Venlafaxine XR (24 HR) 37.5 MG CAP.ER.24H PO SCH (17:39)
[2020-05-30] MEDS: Lidocaine Viscous Oral Soln 15 ML SOLUTION MM PRN (20:37)
[2020-05-31] MEDS: traZODone 50 MG TABLET PO SCH ×2 (00:11→23:44)
[2020-05-31] MEDS: Ipratropium 1 PUFF INHALER IH SCH ×7 (00:13→23:42)
[2020-05-31] MEDS: Menthol 9.1 MG LOZENGE PO PRN (04:46)
[2020-05-31] MEDS: *HR* LORazepam 0.5 MG TABLET PO PRN ×2 (04:46→18:24)
[2020-05-31] MEDS: *HR* Heparin 5,000 UNIT/ML VIAL SQ SCH ×2 (05:36→17:02)
[2020-05-31] MEDS ORDERED: Dexamethasone 4 MG/ML VIAL IVP SCH (09:00)
[2020-05-31] MEDS: carvediloL 6.25 MG TABLET PO SCH ×2 (09:54→16:59)
[2020-05-31] MEDS: Aspirin Enteric Coated 81 MG Tablet PO SCH (09:54)
[2020-05-31] MEDS: Fluconazole 100 MG TABLET PO SCH (09:54)
[2020-05-31] MEDS: Gabapentin 100 MG CAPSULE PO SCH (09:54)
[2020-05-31] MEDS: Isosorbide MONOnitrate (24 HR) 60 MG TAB.ER.24H PO SCH (09:54)
[2020-05-31] MEDS: Potassium Chloride Elixir 20 MEQ/15 ML UDC PO SCH (09:54)
[2020-05-31] MEDS: Ranolazine 500 MG TAB.ER.12H PO SCH ×2 (09:55→19:52)
[2020-05-31] MEDS ORDERED: Furosemide 40 MG/4 ML VIAL IVP ONE (10:51)
[2020-05-31 10:52] LABS: Basophils # 0.1 K/mcL (0.0-0.2); Basophils % 0.3 %; Hematocrit 37.4 % (37.5-50.1); Hematocrit 37.7 % (37.5-50.1); Hemoglobin 11.6 g/dL (12.9-16.9); Hemoglobin 11.7 g/dL (12.9-16.9); Lymphocytes # 0.9 K/mcL (0.6-4.6); Lymphocytes % 6.1 %; Mean Corpuscular Hemoglobin 29.8 pg (28.0-33.3); Mean Corpuscular Hemoglobin 30.2 pg (28.0-33.3); Mean Corpuscular Volume 96.1 fL (83.0-100.0); Mean Corpuscular Volume 97.4 fL (83.0-100.0); Mean Platelet Volume 10.2 fL (9.4-12.4); Mean Platelet Volume 9.9 fL (9.4-12.4); Monocytes # 0.6 K/mcL (0.0-1.3); Monocytes % 4.3 %; Neutrophils # 12.5 K/mcL (1.6-8.9); Platelet Count 212 K/mcL (140-400); Platelet Count 226 K/mcL (140-400); Red Blood Count 3.87 M/mcL (4.19-5.50); Red Blood Count 3.89 M/mcL (4.19-5.50); Red Cell Distribution Width 14.6 % (11.5-14.5); Red Cell Distribution Width 14.7 % (11.5-14.5); Segmented Neutrophils % 87.3 %; White Blood Count 14.3 K/mcL (4.3-11.1); White Blood Count 14.6 K/mcL (4.3-11.1)
[2020-05-31 10:53] LABS: INR 1.2; Prothrombin Time 13.4 Seconds (9.4-12.1)
[2020-05-31 11:01] LABS: Magnesium 2.3 mg/dL (1.6-2.6); Phosphorous 4.6 mg/dL (2.7-4.5)
[2020-05-31 11:04] LABS: Albumin 3.1 g/dL (3.5-5.7); Bilirubin,Total 0.4 mg/dL (0.3-1.0); Calcium 8.9 mg/dL (8.6-10.3); Potassium 4.1 mEq/L (3.5-5.1); Total Protein 6.1 g/dL (6.4-8.9)
[2020-05-31] MEDS: Lidocaine Viscous Oral Soln 15 ML SOLUTION MM PRN (12:35)
[2020-05-31] MEDS ORDERED: Remdesivir 100 MG in 0.9 % Sodium Chloride 100 ML IVPB SCH (15:00)
[2020-05-31] MEDS: Venlafaxine XR (24 HR) 37.5 MG CAP.ER.24H PO SCH (16:58)
[2020-05-31] MEDS: Venlafaxine XR (24 HR) 150 MG CAP.ER.24H PO SCH (16:58)
[2020-05-31] MEDS: Remdesivir 100 MG in 0.9 % Sodium Chloride 100 ML IVPB SCH (16:59)
[2020-05-31] MEDS: Budesonide/Formoterol 160/4.5 1 PUFF INH IH SCH (20:06)
[2020-06-01] MEDS: Ipratropium 1 PUFF INHALER IH SCH ×5 (03:52→20:08)
[2020-06-01] MEDS: *HR* Heparin 5,000 UNIT/ML VIAL SQ SCH ×2 (05:05→17:58)
[2020-06-01 05:33] LABS: Hematocrit 35.6 % (37.5-50.1); Hemoglobin 11.6 g/dL (12.9-16.9); Mean Corpuscular HGB Conc 32.6 g/dL (31.6-35.5); Mean Corpuscular Hemoglobin 31.2 pg (28.0-33.3); Mean Corpuscular Volume 95.7 fL (83.0-100.0); Mean Platelet Volume 10.2 fL (9.4-12.4); Platelet Count 207 K/mcL (140-400); Red Blood Count 3.72 M/mcL (4.19-5.50); Red Cell Distribution Width 14.6 % (11.5-14.5); White Blood Count 10.8 K/mcL (4.3-11.1)
[2020-06-01 05:34] LABS: INR 1.3; Prothrombin Time 14.4 Seconds (9.4-12.1)
[2020-06-01 05:50] LABS: Albumin/Globulin Ratio 1.1 (1.1-2.2); Bilirubin,Total 0.4 mg/dL (0.3-1.0); Calcium 8.4 mg/dL (8.6-10.3); Globulin 2.8 g/dL (2.4-3.5); Potassium 3.7 mEq/L (3.5-5.1); Total Protein 5.8 g/dL (6.4-8.9)
[2020-06-01] MEDS: Budesonide/Formoterol 160/4.5 1 PUFF INH IH SCH ×2 (07:41→20:08)
[2020-06-01] MEDS: Nystatin SUSP 5 ML UD.LIQ PO SCH ×3 (09:14→16:50)
[2020-06-01] MEDS: Gabapentin 100 MG CAPSULE PO SCH (09:15)
[2020-06-01] MEDS: Lactobacillus 1 EACH CAP.SPRINK PO SCH (09:20)
[2020-06-01] MEDS: Fluconazole 100 MG TABLET PO SCH (09:20)
[2020-06-01] MEDS: Isosorbide MONOnitrate (24 HR) 60 MG TAB.ER.24H PO SCH (09:20)
[2020-06-01] MEDS: carvediloL 6.25 MG TABLET PO SCH ×2 (09:20→16:50)
[2020-06-01] MEDS: Aspirin Enteric Coated 81 MG Tablet PO SCH (09:20)
[2020-06-01] MEDS: Ranolazine 500 MG TAB.ER.12H PO SCH (09:20)
[2020-06-01] MEDS: Dexamethasone 4 MG/ML VIAL IVP SCH (09:21)
[2020-06-01] MEDS: Furosemide 40 MG/4 ML VIAL IVP SCH (13:03)
[2020-06-01] MEDS: Remdesivir 100 MG in 0.9 % Sodium Chloride 100 ML IVPB SCH (16:46)
[2020-06-01] MEDS: Venlafaxine XR (24 HR) 37.5 MG CAP.ER.24H PO SCH (17:58)
[2020-06-01] MEDS: Piperacillin/Tazobactam 3.375 GM in 0.9 % Sodium Chloride Mini Bag 100 ML IVPB SCH (17:58)
[2020-06-01] MEDS: Venlafaxine XR (24 HR) 150 MG CAP.ER.24H PO SCH (17:58)
[2020-06-02] MEDS: Ipratropium 1 PUFF INHALER IH SCH ×7 (00:11→23:40)
[2020-06-02] MEDS: Ranolazine 500 MG TAB.ER.12H PO SCH ×3 (00:43→20:22)
[2020-06-02] MEDS: Nystatin SUSP 5 ML UD.LIQ PO SCH ×5 (00:43→20:22)
[2020-06-02] MEDS: *HR* LORazepam 0.5 MG TABLET PO PRN ×2 (00:44→23:02)
[2020-06-02] MEDS: traZODone 50 MG TABLET PO SCH ×2 (00:44→22:52)
[2020-06-02 06:10] LABS: Hematocrit 38.2 % (37.5-50.1); Hemoglobin 12.2 g/dL (12.9-16.9); Mean Corpuscular HGB Conc 31.9 g/dL (31.6-35.5); Mean Corpuscular Volume 93.9 fL (83.0-100.0); Mean Platelet Volume 10.1 fL (9.4-12.4); Platelet Count 237 K/mcL (140-400); Red Blood Count 4.07 M/mcL (4.19-5.50); Red Cell Distribution Width 14.5 % (11.5-14.5); White Blood Count 13.4 K/mcL (4.3-11.1)
[2020-06-02] MEDS: *HR* Heparin 5,000 UNIT/ML VIAL SQ SCH ×2 (06:14→18:08)
[2020-06-02 06:15] LABS: INR 1.2; Prothrombin Time 13.9 Seconds (9.4-12.1)
[2020-06-02] MEDS: Piperacillin/Tazobactam 3.375 GM in 0.9 % Sodium Chloride Mini Bag 100 ML IVPB SCH ×3 (06:15→22:52)
[2020-06-02 06:32] LABS: Albumin 3.1 g/dL (3.5-5.7); Albumin/Globulin Ratio 1.1 (1.1-2.2); Bilirubin,Total 0.4 mg/dL (0.3-1.0); Calcium 8.7 mg/dL (8.6-10.3); Globulin 2.8 g/dL (2.4-3.5); Potassium 3.3 mEq/L (3.5-5.1); Total Protein 5.9 g/dL (6.4-8.9)
[2020-06-02] MEDS: Budesonide/Formoterol 160/4.5 1 PUFF INH IH SCH ×2 (08:30→20:03)
[2020-06-02] MEDS: Fluconazole 100 MG TABLET PO SCH (08:45)
[2020-06-02] MEDS: carvediloL 6.25 MG TABLET PO SCH ×2 (08:45→16:29)
[2020-06-02] MEDS: Gabapentin 100 MG CAPSULE PO SCH (08:45)
[2020-06-02] MEDS: Aspirin Enteric Coated 81 MG Tablet PO SCH (08:45)
[2020-06-02] MEDS: Furosemide 40 MG/4 ML VIAL IVP SCH (08:45)
[2020-06-02] MEDS: Isosorbide MONOnitrate (24 HR) 60 MG TAB.ER.24H PO SCH (08:45)
[2020-06-02] MEDS: Dexamethasone 4 MG/ML VIAL IVP SCH (08:45)
[2020-06-02] MEDS: Lactobacillus 1 EACH CAP.SPRINK PO SCH (08:45)
[2020-06-02] MEDS: Lidocaine Viscous Oral Soln 15 ML SOLUTION MM PRN (08:58)
[2020-06-02] MEDS: Remdesivir 100 MG in 0.9 % Sodium Chloride 100 ML IVPB SCH (15:16)
[2020-06-02] MEDS: Venlafaxine XR (24 HR) 37.5 MG CAP.ER.24H PO SCH (18:08)
[2020-06-02] MEDS: Venlafaxine XR (24 HR) 150 MG CAP.ER.24H PO SCH (18:08)
[2020-06-02 23:59] VITALS: BP 135/71
[2020-06-03] MEDS: Ipratropium 1 PUFF INHALER IH SCH ×2 (04:24→07:39)
== END 2020-06-03 03:50 | disposition expired | DRG 871 ==
LOC: EMEROOARM 19:33 → 2NNU 19:33 → SUATTDRO 21:39 → OBSVTOIN 21:39 → 2NNU 23:10 → 2ANU 05-23 14:50 → 2NENU 05-30 13:27
PROVIDERS: ADMIT Internal Medicine; ATTEND Family Medicine